=== PATIENT | female | born 1940 | race Hispanic/Latino ===

== ENCOUNTER 2017-12-02 12:19 | Emergency (ER) | payer OTHER ==
--- NOTE | 2017-12-02 13:35 | RAD REPORT ---
EXAM DESCRIPTION: RAD - Chest Pa And Lat (2 Views) - 12/02/2017 1:19 pm CLINICAL HISTORY: COUGH<Reason For Exam>COUGH COMPARISON: Chest Single View dated 03/04/2017; Chest Single View dated 03/03/2017; Chest Single Vie w dated 04/18/2016; Chest Single View dated 02/12/2016; Thoracic Spine Ap/Lat dated 03/24/2017<Comparis ons> TECHNIQUE: PA and lateral views of the chest were obtained. FINDINGS: The lungs are normal volume. Patient has chronic interstitial lung disease. Pattern is inc reased slightly from the prior study suggesting an interstitial edema or infiltrate process. No focal consolidation or mass. Trachea is midline. Heart size is normal and central vasculature is within normal limits. No pleural effusion or pneumothorax seen. Bones are osteopenic. There is accentuated kyphosis in the midthoracic spine with a greater than 60% compression fracture. Detail is limited. T he compression fracture does appear to be progressive from the March 2017 thoracic spine examinati on. There is no history to indicate active thoracic pain symptoms. No aortic abnormality. IMPRESSION: Prominent interstitial markings throughout the lung montoya increased over a baseline chr onic interstitial pattern. Superimposed interstitial edema or infiltrate suspected. No focal mass or consolidation. Midthoracic compression fracture. Age is uncertain and it is unknown if this is symptomatic. The comp ression fracture has progressed from March 2017.
[2017-12-02 14:14] LABS: Absolute Lymphocytes (CBC) 0.8 K/uL (0.7-4.9); Absolute Monocytes 0.6 K/uL (0.1-1.3); Absolute Neutrophil 4.5 K/uL (1.8-8.0); Basophils % 0.7 % (0-1.3); Eosinophils % 1.2 % (0-4.4); Hematocrit 35.3 % (36.0-45.0); Lymphocytes % 13.7 % (15.3-44.8); MCH 26.9 pg (27.0-35.0); MCV 80.7 fL (80-100); MPV 8.8 fL (7.6-11.3); Monocytes % 10.1 % (3.3-12.3); RBC Red Blood Cell Count 4.38 M/uL (3.86-4.86)
[2017-12-02] MEDS ORDERED: AZITHROMYCIN 250 MG TAB ONE (14:24)
[2017-12-02] MEDS ORDERED: CEFTRIAXONE/SWI 1gm 1 GM/10 ML SYR ONE (14:24)
[2017-12-02 14:31] LABS: Potassium 4.4 mmol/L (3.5-5.1)
--- NOTE | 2017-12-02 14:33 | ER ---
Nurse's Notes [facility] Name: Cristel Casas Age: 77 yrs Sex: Female : 1940 Arrival Date: 12/02/2017 Time: 12:21 Bed 11 Private MD: Gildardo Carrillo F Diagnosis: Pneumonia, unspecified organism Presentation: 12/02 12:44 Presenting complaint: Patient states: Body aches, runny nose, and slight cough that aj started yesterday. Transition of care: patient was not received from another setting of care. Onset of symptoms was December 01, 2017. Risk Assessment: Do you want to hurt yourself or someone else? Patient reports no desire to harm self or others. Initial Sepsis Screen: Does the patient meet any 2 criteria? No. Patient's initial sepsis screen is negative. Does the patient have a suspected source of infection? No. Patient's initial sepsis screen is negative. Care prior to arrival: None. 12:44 Method Of Arrival: Wheelchair aj 12:44 Acuity: HERIBERTO 4 aj Triage Assessment: 12:46 General: Appears in no apparent distress. comfortable, Behavior is calm, cooperative, aj appropriate for age. Pain: Complains of pain in right leg and left leg. EENT: Reports nasal congestion nasal discharge. Neuro: Level of Consciousness is awake, alert, obeys commands, Oriented to person, place, time, situation, Appropriate for age. Respiratory: Reports cough that is productive, Airway is patent Trachea midline Respiratory effort is even, unlabored, Respiratory pattern is regular, symmetrical. Derm: Skin is intact, is healthy with good turgor, Skin is pink, warm \T\ dry. normal. Historical: - Allergies: 12:46 No Known Drug Allergies; aj - Home Meds: 12:46 atorvastatin 10 mg Oral tab 1 tab once daily [Active]; lisinopril 10 mg Oral tab 1 tab aj once daily [Active]; metformin 500 mg Oral tab 1 tab 2 times per day [Active]; Omeprazole Oral [Active]; propylthiouracil 50 mg Oral tab 1 tab 2 times per day [Active]; - PMHx: 12:46 Diabetes - NIDDM; High Cholesterol; Hypertension; Hypothyroidism; aj - PSHx: 12:46 None; aj - Immunization history:: Adult Immunizations up to date. - Social history:: Smoking status: Patient/guardian denies using tobacco. - Ebola Screening: : Patient negative for fever greater than or equal to 101.5 degrees Fahrenheit, and additional compatible Ebola Virus Disease symptoms Patient denies exposure to infectious person Patient denies travel to an Ebola-affected area in the 21 days before illness onset No symptoms or risks identified at this time. Screenin:15 Abuse screen: Denies threats or abuse. Denies injuries from another. Nutritional aj screening: No deficits noted. Tuberculosis screening: No symptoms or risk factors identified. Fall Risk None identified. Assessment: 14:15 Reassessment: Patient appears in no apparent distress at this time. No changes from aj previously documented assessment. Patient and/or family updated on plan of care and expected duration. Pain level reassessed. Patient is alert, oriented x 3, equal unlabored respirations, skin warm/dry/pink. Patient denies pain at this time. Vital Signs: 12:46 BP 154 / 55; Pulse 74; Resp 19; Temp 99.6(TE); Pulse Ox 96% on R/A; Weight 62.6 kg; aj Height 4 ft. 11 in. (149.86 cm); 14:23 BP 169 / 90; Pulse 69; Resp 20; Pulse Ox 96% on R/A; aj 14:50 BP 165 / 57; Pulse 67; Resp 20; Pulse Ox 97% ; dm5 12:46 Body Mass Index 27.87 (62.60 kg, 149.86 cm) ED Course: 12:21 Patient arrived in ED. sb2 12:22 Gildardo Carrillo MD is Private Physician. sb2 12:45 Triage completed. aj 12:46 Arm band placed on left wrist. Patient placed in an exam room. Labs ordered per protocol. 12:48 Amairani Torres FNP-C is PHCP. kb 12:48 Ashkan Martel MD is Attending Physician. kb 13:15 Patient moved to radiology via wheelchair. jf 13:18 Chest Pa And Lat (2 Views) XRAY In Process Unspecified. EDMS 13:38 Soledad Pinedo, RN is Primary Nurse. iw 14:01 Inserted saline lock: 22 gauge in right antecubital area, using aseptic technique. aj Blood collected. 14:15 Patient has correct armband on for positive identification. Bed in low position. Call aj light in reach. Side rails up X2. Adult w/ patient. Pulse ox on. NIBP on. 14:50 No provider procedures requiring assistance completed. IV discontinued, intact, dm5 bleeding controlled, No redness/swelling at site. Pressure dressing applied. Administered Medications: 14:23 Drug: Rocephin - (cefTRIAXone) 1 grams Route: IVPB; Infused Over: 30 mins; Site: right aj antecubital; 14:23 Drug: Zithromax 500 mg Route: PO; aj Outcome: 14:32 Discharge ordered by MD. mluler 14:50 Discharged to home ambulatory. dm5 14:50 Condition: good 14:51 Discharge instructions given to patient, family, Instructed on discharge instructions, dm5 follow up and referral plans. medication usage, Demonstrated understanding of instructions, follow-up care, medications, Prescriptions given X 1. 14:52 Patient left the ED. dm5 Signatures: Dispatcher [employer] EDMS Amairani Torres, GETTER FILLER-C GETTER FILLER-Елена Santos, TRENA ALBRECHT dmErinn Pompa RN RN aj Williams, Irene, RN RN iw Faul, Justin jf Billeau, Sheri sb2
--- NOTE | 2017-12-02 14:33 | EDPHYS ---
Physician Documentation [facility] Name: Cristel Casas Age: 77 yrs Sex: Female : 1940 Arrival Date: 12/02/2017 Time: 12:21 Bed 11 Private MD: Gildardo Carrillo F ED Physician Ashkan Martel HPI: 12/02 13:08 This 77 yrs old Female presents to ER via Wheelchair with complaints of Flu kb Symptoms. 13:08 The patient or guardian reports cough, that is intermittent, described as mild, with no kb sputum, flu symptoms, myalgias. Onset: The symptoms/episode began/occurred yesterday. Severity of symptoms: At their worst the symptoms were mild, in the emergency department the symptoms are unchanged. Modifying factors: The symptoms are alleviated by nothing, the symptoms are aggravated by nothing. Associated signs and symptoms: Pertinent positives: rhinorrhea, Pertinent negatives: chest pain, diarrhea, ear ache, fever, nausea, sore throat, vomiting. The patient has not experienced similar symptoms in the past. The patient has not recently seen a physician. Daughter states pt started having a runny nose last night, then body aches. Today has a "little" cough. . Historical: - Allergies: 12:46 No Known Drug Allergies; aj - Home Meds: 12:46 atorvastatin 10 mg Oral tab 1 tab once daily [Active]; lisinopril 10 mg Oral tab 1 tab aj once daily [Active]; metformin 500 mg Oral tab 1 tab 2 times per day [Active]; Omeprazole Oral [Active]; propylthiouracil 50 mg Oral tab 1 tab 2 times per day [Active]; - PMHx: 12:46 Diabetes - NIDDM; High Cholesterol; Hypertension; Hypothyroidism; aj - PSHx: 12:46 None; aj - Immunization history:: Adult Immunizations up to date. - Social history:: Smoking status: Patient/guardian denies using tobacco. - Ebola Screening: : Patient negative for fever greater than or equal to 101.5 degrees Fahrenheit, and additional compatible Ebola Virus Disease symptoms Patient denies exposure to infectious person Patient denies travel to an Ebola-affected area in the 21 days before illness onset No symptoms or risks identified at this time. ROS: 13:07 Cardiovascular: Negative for chest pain, palpitations, and edema, Abdomen/GI: Negative kb for abdominal pain, nausea, vomiting, diarrhea, and constipation, MS/Extremity: Negative for injury and deformity, Skin: Negative for injury, rash, and discoloration, Neuro: Negative for headache, weakness, numbness, tingling, and seizure. 13:07 Constitutional: Positive for body aches, Negative for chills, fatigue, fever, malaise, poor PO intake, weight loss. 13:07 ENT: Positive for rhinorrhea. 13:07 Respiratory: Positive for cough, with no reported sputum, Negative for dyspnea on exertion, hemoptysis, orthopnea, pleurisy, shortness of breath, sputum production, wheezing. Exam: 13:07 Constitutional: This is a well developed, well nourished patient who is awake, alert, kb and in no acute distress. Head/Face: Normocephalic, atraumatic. ENT: Nares patent. No nasal discharge, no septal abnormalities noted. Tympanic membranes are normal and external auditory canals are clear. Oropharynx with no redness, swelling, or masses, exudates, or evidence of obstruction, uvula midline. Mucous membranes moist. Neck: Trachea midline, no thyromegaly or masses palpated, and no cervical lymphadenopathy. Supple, full range of motion without nuchal rigidity, or vertebral point tenderness. No Meningismus. Chest/axilla: Normal chest wall appearance and motion. Nontender with no deformity. No lesions are appreciated. Cardiovascular: Regular rate and rhythm with a normal S1 and S2. No gallops, murmurs, or rubs. Normal PMI, no JVD. No pulse deficits. Respiratory: Lungs have equal breath sounds bilaterally, clear to auscultation and percussion. No rales, rhonchi or wheezes noted. No increased work of breathing, no retractions or nasal flaring. Abdomen/GI: Soft, non-tender, with normal bowel sounds. No distension or tympany. No guarding or rebound. No evidence of tenderness throughout. Skin: Warm, dry with normal turgor. Normal color with no rashes, no lesions, and no evidence of cellulitis. MS/ Extremity: Pulses equal, no cyanosis. Neurovascular intact. Full, normal range of motion. Neuro: Awake and alert, GCS 15, oriented to person, place, time, and situation. Cranial nerves II-XII grossly intact. Motor strength 5/5 in all extremities. Sensory grossly intact. Cerebellar exam normal. Normal gait. Vital Signs: 12:46 BP 154 / 55; Pulse 74; Resp 19; Temp 99.6(TE); Pulse Ox 96% on R/A; Weight 62.6 kg; aj Height 4 ft. 11 in. (149.86 cm); 14:23 BP 169 / 90; Pulse 69; Resp 20; Pulse Ox 96% on R/A; aj 14:50 BP 165 / 57; Pulse 67; Resp 20; Pulse Ox 97% ; dm5 12:46 Body Mass Index 27.87 (62.60 kg, 149.86 cm) aj MDM: 12:48 Patient medically screened. kb 13:07 Data reviewed: vital signs, nurses notes. Data interpreted: Pulse oximetry: on room air kb is 96 %. Interpretation: normal. 14:32 Counseling: I had a detailed discussion with the patient and/or guardian regarding: the kb historical points, exam findings, and any diagnostic results supporting the discharge/admit diagnosis, lab results, radiology results, the need for outpatient follow up, a family practitioner, to return to the emergency department if symptoms worsen or persist or if there are any questions or concerns that arise at home. 12/02 12:48 Order name: Flu; Complete Time: 13:21 kb 12/02 13:37 Order name: CBC with Diff 12/02 13:37 Order name: Basic Metabolic Panel 12/02 13:37 Order name: Blood Culture Adult (2) kb 12/02 13:38 Order name: CBC with Automated Diff; Complete Time: 14:17 EDNC 12/02 13:38 Order name: Basic Metabolic Panel; Complete Time: 14:31 EDMS 12/02 12:48 Order name: Chest Pa And Lat (2 Views) XRAY; Complete Time: 13:36 kb 12/02 13:38 Order name: Blood Culture EDMS Administered Medications: 14:23 Drug: Rocephin - (cefTRIAXone) 1 grams Route: IVPB; Infused Over: 30 mins; Site: right aj antecubital; 14:23 Drug: Zithromax 500 mg Route: PO; aj Disposition: 15:30 Co-signature as Attending Physician, Ashkan Martel MD. rn Disposition: 12/02/17 14:32 Discharged to Home. Impression: Pneumonia, unspecified organism. - Condition is Stable. - Discharge Instructions: Community-Acquired Pneumonia, Adult, [id number]. - Prescriptions for Zithromax 500 mg Oral Tablet - take 1 tablet by ORAL route once daily for 5 days; 5 tablet. - Medication Reconciliation Form, Thank You Letter, Antibiotic Education, Prescription Opioid Use form. - Follow up: Emergency Department; When: As needed; Reason: Worsening of condition. Follow up: Private Physician; When: 2 - 3 days; Reason: Recheck today's complaints, Continuance of care, Re-evaluation by your physician. Signatures: Dispatcher [employer] EDNC Amairani Torres, OFFICE MACHINE REPAIR SHOP SUPERVISOR-C OFFICE MACHINE REPAIR SHOP SUPERVISOR-Елена Santos RN RN dm5 Erinn Virk RN RN Ashkan Agudelo MD MD decision unit rn: (The following items were deleted from the chart) 14:52 14:32 12/02/2017 14:32 Discharged to Home. Impression: Pneumonia, unspecified organism. dm5 Condition is Stable. Forms are Medication Reconciliation Form, Thank You Letter, Antibiotic Education, Prescription Opioid Use. Follow up: Emergency Department; When: As needed; Reason: Worsening of condition. Follow up: Private Physician; When: 2 - 3 days; Reason: Recheck today's complaints, Continuance of care, Re-evaluation by your physician. kb
[2017-12-02 15:02] VITALS: TEMP 99.6
[2017-12-02 15:04] VITALS: BP 165/57; O2SAT 97
== END 2017-12-02 14:52 | disposition home or self-care (01) ==
LOC: ER 12:19
DX: J18.9 Pneumonia, unspecified organism (principal); E11.9 Type 2 diabetes mellitus without complications; I10 Essential (primary) hypertension; E03.9 Hypothyroidism, unspecified
CPT/HCPCS: 36415; 71046; 80048; 85025; 87040 ×2; 87804 ×2; 96374; 99284; J0696

== ENCOUNTER 2018-06-01 19:41 | Emergency (ER) | payer OTHER ==
[2018-06-01] MEDS ORDERED: cloNIDine HCl 0.1 MG TAB ONE (21:45)
--- NOTE | 2018-06-01 22:41 | ER ---
Nurse's Notes 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 pt ak1 c/o headache. Transition of care: patient was not received from another setting of care. Onset of symptoms was June 01, 2018. Risk Assessment: Do you want to hurt yourself or someone else? Patient reports no desire to harm self or others. Initial Sepsis Screen: Does the patient meet any 2 criteria? No. Patient's initial sepsis screen is negative. Does the patient have a suspected source of infection? No. Patient's initial sepsis screen is negative. Care prior to arrival: None. 20:04 Method Of Arrival: Ambulatory ak1 20:04 Acuity: HERIBERTO 3 ak1 Triage Assessment: 21:44 Headache History: The patient has had previous headaches and this one is similar to mg2 previous episodes. General: Behavior is calm, cooperative. Pain: Complains of pain in head Also complains of no other associated symptoms. Historical: - Allergies: 20:07 No Known Allergies; ak1 - Home Meds: 20:07 atorvastatin 20 mg oral tab 1 tab once daily [Active]; propylthiouracil 50 mg Oral tab ak1 1 tab 2 times per day [Active]; omeprazole 20 mg oral TbEC daily [Active]; hydrochlorothiazide 12.5 mg Oral cap 1 cap once daily [Active]; glimepiride 1 mg Oral tab 1 tab once daily [Active]; Bystolic 10 mg oral tab 1 tab once daily [Active]; - PMHx: 20:07 Diabetes - NIDDM; High Cholesterol; Hypertension; Hypothyroidism; ak1 - PSHx: 20:07 None; ak1 - Immunization history:: Adult Immunizations unknown. - Social history:: Smoking status: Patient/guardian denies using tobacco. - Ebola Screening: : No symptoms or risks identified at this time. Screenin:43 Abuse screen: Denies threats or abuse. Denies injuries from another. Nutritional mg2 screening: No deficits noted. Tuberculosis screening: No symptoms or risk factors identified. Fall Risk None identified. Assessment: 21:39 General: Appears in no apparent distress. comfortable, Behavior is calm, cooperative. mg2 Pain: Complains of pain in head Pain does not radiate. Pain currently is 2 out of 10 on a pain scale. Quality of pain is described as aching, Pain began gradually, Is intermittent. Neuro: Level of Consciousness is awake, alert, obeys commands, Oriented to person, place, time, situation. Neuro: Reports dizziness, since today. Cardiovascular: Capillary refill < 3 seconds Patient's skin is warm and dry. Respiratory: Airway is patent Respiratory effort is even, unlabored, Respiratory pattern is regular, symmetrical. GI: No signs and/or symptoms were reported involving the gastrointestinal system. : No signs and/or symptoms were reported regarding the genitourinary system. EENT: No signs and/or symptoms were reported regarding the EENT system. Derm: Skin is intact, is healthy with good turgor, Skin is pink, warm \T\ dry. normal. Musculoskeletal: Circulation, motion, and sensation intact. Capillary refill < 3 seconds. 22:49 Reassessment: Patient denies pain at this time. Patient states feeling better. mg2 Vital Signs: 20:07 BP 161 / 59; Pulse 55; Resp 18; Temp 98.3; Pulse Ox 97% on R/A; Weight 67.13 kg (R); ak1 Height 4 ft. 11 in. (149.86 cm) (R); Pain 8/10; 20:23 BP 188 / 57; Pulse 55; Resp 18; Pulse Ox 99% on R/A; Pain 2/10; mg2 21:31 BP 174 / 69; Pulse 55; Resp 18; Pulse Ox 100% on R/A; Pain 2/10; mg2 22:25 BP 153 / 53; Pulse 55; Resp 18; Pulse Ox 100% on R/A; Pain 0/10; mg2 22:49 BP 139 / 59; Pulse 56; Resp 18; Pulse Ox 100% on R/A; Pain 0/10; mg2 20:07 Body Mass Index 29.89 (67.13 kg, 149.86 cm) ak1 Nish Coma Score: 06/02 02:05 Eye Response: spontaneous(4). Verbal Response: oriented(5). Motor Response: obeys tw4 commands(6). Total: 15. ED Course: 06/01 19:43 Patient arrived in ED. am2 19:43 Gildardo Carrillo MD is Private Physician. am2 20:05 Triage completed. ak1 20:07 Arm band placed on Patient placed in an exam room, on a stretcher, Patient notified of ak1 wait time. 20:19 Gregorio Johnson, RN is Primary Nurse. mg2 20:32 Omid Bradshaw MD is Attending Physician. tw4 21:44 No provider procedures requiring assistance completed. EKG done, by ED staff, reviewed mg2 by Omid Bradshaw MD. Patient did not have IV access during this emergency room visit. 22:37 Gildardo Carrillo MD is Referral Physician. tw4 22:50 Patient has correct armband on for positive identification. mg2 Administered Medications: 21:35 Drug: cloNIDine 0.1 mg Route: PO; mg2 22:43 Follow up: Response: No adverse reaction; Blood pressure is lowered mg2 Outcome: 22:41 Discharge ordered by . tw4 22:50 Discharged to home ambulatory, with family. mg2 22:50 Condition: stable 22:50 Discharge instructions given to patient, family, Instructed on discharge instructions, follow up and referral plans. Demonstrated understanding of instructions, follow-up care. 22:50 Patient left the ED. mg2 Signatures: Georgina Sethi RN RN ak1 Erinn Swartz am2 Omid Bradshaw MD MD tw4 Gregorio Johnson, TRENA RN mg2
[2018-06-02 00:38] VITALS: TEMP 98.3
[2018-06-02 00:41] VITALS: O2SAT 100
[2018-06-02 00:44] VITALS: BP 139/59
--- NOTE | 2018-06-02 10:57 | EKG ---
Test Date: 2018-06-01 Test Time: 20:26:48 Web Marketing Strategist: MEASUREMENT RESULTS: Intervals: Rate: 56 AL: 222 QRSD: 78 QT: 474 QTc: 457 [place]: P: 87 AL: 222 QRS: -7 T: 60 INTERPRETIVE STATEMENTS: Sinus bradycardia with 1st degree AV block Otherwise normal ECG Compared to ECG 03/04/2017 06:47:50 First degree AV block now present Sinus rhythm no longer present Atrial premature complex(es) no longer present Electronically Signed On 06-02-18 10:56:39 A R COLLECTIONS REP by Marcial Rivera
--- NOTE | 2018-06-02 22:52 | EDPHYS ---
Physician Documentation [facility] Name: Cristel Casas Age: 78 yrs Sex: Female : 1940 Arrival Date: 06/01/2018 Time: 19:43 Bed 25 Private MD: Gildardo Carrillo F ED Physician Omid Bradshaw HPI: 06/02 02:05 This 78 yrs old Female presents to ER via Ambulatory with complaints of tw4 Headache, High Blood Pressure. 02:05 The patient complains of pain to the forehead. The patient describes the headache as tw4 aching. Onset: The symptoms/episode began/occurred today. Associated signs and symptoms: The patient has no apparent associated signs or symptoms. Headache History: The patient has had previous headaches and this one is similar to previous episodes. The symptoms are alleviated by nothing. the symptoms are aggravated by nothing. The patient has not experienced similar symptoms in the past. Historical: - Allergies: 06/01 20:07 No Known Allergies; ak1 - Home Meds: 20:07 atorvastatin 20 mg oral tab 1 tab once daily [Active]; propylthiouracil 50 mg Oral tab ak1 1 tab 2 times per day [Active]; omeprazole 20 mg oral TbEC daily [Active]; hydrochlorothiazide 12.5 mg Oral cap 1 cap once daily [Active]; glimepiride 1 mg Oral tab 1 tab once daily [Active]; Bystolic 10 mg oral tab 1 tab once daily [Active]; - PMHx: 20:07 Diabetes - NIDDM; High Cholesterol; Hypertension; Hypothyroidism; ak1 - PSHx: 20:07 None; ak1 - Immunization history:: Adult Immunizations unknown. - Social history:: Smoking status: Patient/guardian denies using tobacco. - Ebola Screening: : No symptoms or risks identified at this time. ROS: 06/02 02:05 Constitutional: Negative for fever, chills, and weight loss, Eyes: Negative for injury, tw4 pain, redness, and discharge, Cardiovascular: Negative for chest pain, palpitations, and edema, Respiratory: Negative for shortness of breath, cough, wheezing, and pleuritic chest pain, Abdomen/GI: Negative for abdominal pain, nausea, vomiting, diarrhea, and constipation, Back: Negative for injury and pain, MS/Extremity: Negative for injury and deformity, Skin: Negative for injury, rash, and discoloration. Neuro: Positive for headache, Negative for altered mental status, dizziness, gait disturbance, numbness, seizure activity, speech changes, syncope. Exam: 02:05 Constitutional: This is a well developed, well nourished patient who is awake, alert, tw4 and in no acute distress. Head/Face: Normocephalic, atraumatic. Cardiovascular: Regular rate and rhythm with a normal S1 and S2. No gallops, murmurs, or rubs. Normal PMI, no JVD. No pulse deficits. Respiratory: Lungs have equal breath sounds bilaterally, clear to auscultation and percussion. No rales, rhonchi or wheezes noted. No increased work of breathing, no retractions or nasal flaring. Abdomen/GI: Soft, non-tender, with normal bowel sounds. No distension or tympany. No guarding or rebound. No evidence of tenderness throughout. Back: No spinal tenderness. No costovertebral tenderness. Full range of motion. Skin: Warm, dry with normal turgor. Normal color with no rashes, no lesions, and no evidence of cellulitis. MS/ Extremity: Pulses equal, no cyanosis. Neurovascular intact. Full, normal range of motion. Vital Signs: 06/01 20:07 BP 161 / 59; Pulse 55; Resp 18; Temp 98.3; Pulse Ox 97% on R/A; Weight 67.13 kg (R); ak1 Height 4 ft. 11 in. (149.86 cm) (R); Pain 8/10; 20:23 BP 188 / 57; Pulse 55; Resp 18; Pulse Ox 99% on R/A; Pain 2/10; mg2 21:31 BP 174 / 69; Pulse 55; Resp 18; Pulse Ox 100% on R/A; Pain 2/10; mg2 22:25 BP 153 / 53; Pulse 55; Resp 18; Pulse Ox 100% on R/A; Pain 0/10; mg2 22:49 BP 139 / 59; Pulse 56; Resp 18; Pulse Ox 100% on R/A; Pain 0/10; mg2 20:07 Body Mass Index 29.89 (67.13 kg, 149.86 cm) ak1 Nish Coma Score: 06/02 02:05 Eye Response: spontaneous(4). Verbal Response: oriented(5). Motor Response: obeys tw4 commands(6). Total: 15. MDM: 06/01 20:33 Patient medically screened. tw4 06/02 02:05 Data reviewed: vital signs, nurses notes. Data interpreted: Pulse oximetry:. tw4 Counseling: I had a detailed discussion with the patient and/or guardian regarding: the historical points, exam findings, and any diagnostic results supporting the discharge/admit diagnosis, the presence of at least one elevated blood pressure reading (>120/80) during this emergency department visit. 06/01 20:31 Order name: EKG - Nurse/Tech; Complete Time: 20:31 mg2 Administered Medications: 06/01 21:35 Drug: cloNIDine 0.1 mg Route: PO; mg2 22:43 Follow up: Response: No adverse reaction; Blood pressure is lowered mg2 Disposition: 06/02 06:24 Chart complete. tw4 Disposition: 06/01/18 22:41 Discharged to Home. Impression: Hypertensive urgency. - Condition is Stable. - Discharge Instructions: General Headache Without Cause, Tension Headache, Adult, Hypertension. - Medication Reconciliation Form, Thank You Letter, Antibiotic Education, Prescription Opioid Use form. - Follow up: Gildardo Carrillo MD; When: Upon discharge from the Emergency Department; Reason: If symptoms return, Recheck today's complaints, Continuance of care. - Problem is new. - Symptoms have improved. Signatures: Georgina Sethi RN RN ak1 Omid Bradshaw MD MD tw4 Gregorio Johnson RN RN mg2 Corrections: (The following items were deleted from the chart) 06/01 22:50 22:41 06/01/2018 22:41 Discharged to Home. Impression: Hypertensive urgency. Condition mg2 is Stable. Forms are Medication Reconciliation Form, Thank You Letter, Antibiotic Education, Prescription Opioid Use. Follow up: Gildardo Carrillo; When: Upon discharge from the Emergency Department; Reason: If symptoms return, Recheck today's complaints, Continuance of care. Problem is new. Symptoms have improved. tw4
== END 2018-06-01 22:50 | disposition home or self-care (01) ==
LOC: ER 19:41
DX: I16.0 Hypertensive urgency (principal); I10 Essential (primary) hypertension; E11.9 Type 2 diabetes mellitus without complications; E78.00 Pure hypercholesterolemia, unspecified; E03.9 Hypothyroidism, unspecified
CPT/HCPCS: 93005; 99283

== ENCOUNTER 2018-12-29 16:32 | Observation (INO) | payer OTHER ==
[2018-12-29] MEDS ORDERED: NA CHLORIDE 0.9% 1,000 ML ONE (19:40)
[2018-12-29] MEDS ORDERED: FAMOTIDINE 20 MG/2 ML VIAL IV ONE (19:40)
[2018-12-29 20:03] LABS: Protime INR 1.01
[2018-12-29 20:05] LABS: Absolute Lymphocytes (CBC) 1.1 K/uL (0.7-4.9); Basophils % 0.9 % (0-1.3); Hematocrit 31.1 % (36.0-45.0); Lymphocytes % 16.7 % (15.3-44.8); RBC Red Blood Cell Count 3.76 M/uL (3.86-4.86)
[2018-12-29 20:21] LABS: ALT/SGPT 24 U/L (12-78); AST/SGOT 29 U/L (15-37); Albumin 3.3 g/dL (3.4-5.0); Alkaline Phosphatase 67 U/L (45-117); BUN Blood Urea Nitrogen 30 mg/dL (7-18); Bicarbonate 25 mmol/L (21-32); Bilirubin Direct 0.2 mg/dL (0-0.2); Bilirubin Total 0.7 mg/dL (0.2-1.0); Glucose Level 109 mg/dL (74-106); Lipase 146 U/L (73-393); Magnesium 2.1 mg/dL (1.8-2.4); NT PRO-BNP 699 pg/mL (<450); Potassium 3.9 mmol/L (3.5-5.1); Protein, Total 7.4 g/dL (6.4-8.2); Sodium Level 141 mmol/L (136-145); Troponin (Emerg Dept Use Only) < 0.02 ng/mL (0.0-0.045)
[2018-12-29 20:28] LABS: Urine Blood 2+ (NEG); Urine Glucose NEGATIVE (NEG); Urine Protein NEGATIVE (NEG)
--- NOTE | 2018-12-29 20:53 | RAD REPORT ---
EXAM DESCRIPTION: US - Abdomen Exam Limited - 12/29/2018 8:04 pm CLINICAL HISTORY: Abdominal pain. COMPARISON: None. FINDINGS: The examination is limited as the patient had difficulty suspending respiration The gallbladder wall is not thickened. A gallstone is not seen. The biliary tree is normal caliber. IMPRESSION: No gross abnormality displayed.
--- NOTE | 2018-12-29 20:53 | RAD REPORT ---
EXAM DESCRIPTION: Don Single View12/29/2018 7:50 pm CLINICAL HISTORY: Chest pain COMPARISON: 2018 FINDINGS: The lungs appear clear of acute infiltrate. The heart is borderline enlarged IMPRESSION: No acute abnormalities displayed
--- NOTE | 2018-12-29 22:48 | EDPHYS ---
Physician Documentation [facility] Name: Cristel Casas Age: 78 yrs Sex: Female : 1940 Arrival Date: 12/29/2018 Time: 16:34 Bed 30 Private MD: ED Physician Josh Mortensen HPI: 12/29 19:30 This 78 yrs old Female presents to ER via Ambulatory with complaints of Pain. irais 19:30 The patient presents with abdominal pain in the epigastric area, in the upper abdomen. irais Onset: The symptoms/episode began/occurred yesterday. The symptoms do not radiate. Associated signs and symptoms: none. Modifying factors: The symptoms are alleviated by nothing, the symptoms are aggravated by nothing. Severity of pain: At its worst the pain was mild moderate in the emergency department the pain is unchanged. The patient has not experienced similar symptoms in the past. Historical: - Allergies: 17:15 No Known Drug Allergies; tw2 - Home Meds: 17:15 propylthiouracil 50 mg Oral tab 1 tab 2 times per day [Active]; hydrochlorothiazide tw2 12.5 mg Oral cap 1 cap once daily [Active]; glimepiride 1 mg Oral tab 1 tab once daily [Active]; atorvastatin 20 mg Oral tab 1 tab once daily [Active]; Bystolic 10 mg Oral tab 1 tab once daily [Active]; omeprazole 20 mg Oral TbEC daily [Active]; - PMHx: 17:15 Diabetes - NIDDM; High Cholesterol; Hypertension; Hypothyroidism; tw2 - PSHx: 17:15 None; tw2 - Immunization history:: Adult Immunizations. - Social history:: Smoking status: . - Ebola Screening: : Patient denies travel to an Ebola-affected area in the 21 days before illness onset. - Family history:: not pertinent. ROS: 19:30 Constitutional: Negative for fever, chills, and weight loss, Eyes: Negative for injury, irais pain, redness, and discharge, ENT: Negative for injury, pain, and discharge, Neck: Negative for injury, pain, and swelling, Cardiovascular: Negative for chest pain, palpitations, and edema, Respiratory: Negative for shortness of breath, cough, wheezing, and pleuritic chest pain, Back: Negative for injury and pain, : Negative for injury, bleeding, discharge, and swelling, MS/Extremity: Negative for injury and deformity, Skin: Negative for injury, rash, and discoloration, Neuro: Negative for headache, weakness, numbness, tingling, and seizure, Psych: Negative for depression, anxiety, suicide ideation, homicidal ideation, and hallucinations, Allergy/Immunology: Negative for hives, rash, and allergies, Endocrine: Negative for neck swelling, polydipsia, polyuria, polyphagia, and marked weight changes, Hematologic/Lymphatic: Negative for swollen nodes, abnormal bleeding, and unusual bruising. 19:30 Abdomen/GI: Positive for abdominal pain, abdominal cramps, of the epigastric area, right upper quadrant and left upper quadrant. Exam: 19:30 Constitutional: This is a well developed, well nourished patient who is awake, alert, irais and in no acute distress. Head/Face: Normocephalic, atraumatic. Eyes: Pupils equal round and reactive to light, extra-ocular motions intact. Lids and lashes normal. Conjunctiva and sclera are non-icteric and not injected. Cornea within normal limits. Periorbital areas with no swelling, redness, or edema. ENT: Nares patent. No nasal discharge, no septal abnormalities noted. Tympanic membranes are normal and external auditory canals are clear. Oropharynx with no redness, swelling, or masses, exudates, or evidence of obstruction, uvula midline. Mucous membranes moist. Neck: Trachea midline, no thyromegaly or masses palpated, and no cervical lymphadenopathy. Supple, full range of motion without nuchal rigidity, or vertebral point tenderness. No Meningismus. Chest/axilla: Normal chest wall appearance and motion. Nontender with no deformity. No lesions are appreciated. Cardiovascular: Regular rate and rhythm with a normal S1 and S2. No gallops, murmurs, or rubs. Normal PMI, no JVD. No pulse deficits. Respiratory: Lungs have equal breath sounds bilaterally, clear to auscultation and percussion. No rales, rhonchi or wheezes noted. No increased work of breathing, no retractions or nasal flaring. Back: No spinal tenderness. No costovertebral tenderness. Full range of motion. Female : Normal external genitalia. Skin: Warm, dry with normal turgor. Normal color with no rashes, no lesions, and no evidence of cellulitis. MS/ Extremity: Pulses equal, no cyanosis. Neurovascular intact. Full, normal range of motion. Neuro: Awake and alert, GCS 15, oriented to person, place, time, and situation. Cranial nerves II-XII grossly intact. Motor strength 5/5 in all extremities. Sensory grossly intact. Cerebellar exam normal. Normal gait. Psych: Awake, alert, with orientation to person, place and time. Behavior, mood, and affect are within normal limits. 19:30 Abdomen/GI: Inspection: abdomen appears normal, Bowel sounds: normal, Palpation: mild abdominal tenderness, moderate abdominal tenderness, in the epigastric area, right upper quadrant and left upper quadrant, Liver: no appreciated palpable abnormalities, Hernia: not appreciated. Vital Signs: 17:15 BP 170 / 64; Pulse 67; Resp 17; Temp 98(TE); Pulse Ox 98% on R/A; Weight 68.04 kg (R); tw2 Pain 8/10; 19:00 BP 150 / 56; Pulse 57; Resp 15; Pulse Ox 99% on R/A; rv 19:30 BP 137 / 49; Pulse 61; Resp 16; Pulse Ox 99% on R/A; rv 20:00 BP 170 / 86; Pulse 64; Resp 15; Pulse Ox 99% on R/A; rv 20:30 BP 129 / 103; Pulse 61; Resp 16; Pulse Ox 99% on R/A; rv 21:00 BP 138 / 53; Pulse 59; Resp 15; Pulse Ox 99% on R/A; rv 21:30 BP 97 / 65; Pulse 66; Resp 21; Pulse Ox 96% on R/A; rv 22:15 BP 98 / 83; Pulse 59; Resp 15; Pulse Ox 99% on R/A; rv 22:45 BP 133 / 99; Pulse 59; Resp 15; Pulse Ox 98% on R/A; rv 23:26 BP 144 / 103; Pulse 57; Resp 19; Pulse Ox 99% ; rv MDM: 18:20 Patient medically screened. [facility] 19:32 Data reviewed: vital signs, nurses notes, lab test result(s), EKG, radiologic studies, [facility] CT scan, plain films, ultrasound. 12/29 19:29 Order name: Basic Metabolic Panel; Complete Time: 22:11 [facility] 12/29 19:29 Order name: CBC with Diff; Complete Time: 22:11 [facility] 12/29 19:29 Order name: LFT's; Complete Time: 22:11 [facility] 12/29 19:29 Order name: Magnesium; Complete Time: 22:11 [facility] 12/29 19:29 Order name: NT PRO-BNP; Complete Time: 22:11 [facility] 12/29 19:29 Order name: PT-INR; Complete Time: 22:11 [facility] 12/29 19:29 Order name: Troponin (emerg Dept Use Only); Complete Time: 22:11 [facility] 12/29 19:29 Order name: XRAY Chest (1 view); Complete Time: 22:11 [facility] 12/29 19:29 Order name: Lipase; Complete Time: 22:11 [facility] 12/29 19:29 Order name: US Abdomen Limited; Complete Time: 22:11 [facility] 12/29 19:29 Order name: CT Abd/Pelvis - PO and IV Contrast [facility] 12/29 19:30 Order name: Urine Culture [facility] 12/29 19:50 Order name: Urine Dipstick--Ancillary (enter results); Complete Time: 22:11 [facility] 12/29 19:29 Order name: EKG; Complete Time: 19:33 [facility] 12/29 19:29 Order name: Cardiac monitoring; Complete Time: 19:48 [facility] 12/29 19:29 Order name: EKG - Nurse/Tech; Complete Time: 19:49 [facility] 12/29 19:29 Order name: IV Saline Lock; Complete Time: 19:49 [facility] 12/29 19:29 Order name: Labs collected and sent; Complete Time: 19:49 [facility] 12/29 19:29 Order name: O2 Per Protocol; Complete Time: 19:49 [facility] 12/29 19:29 Order name: O2 Sat Monitoring; Complete Time: 19:49 [facility] 12/29 19:30 Order name: Urine Dipstick-Ancillary (obtain specimen); Complete Time: 19:49 [facility] Administered Medications: 19:48 Drug: Pepcid 20 mg Route: IVP; Site: right antecubital; rv 22:17 Follow up: Response: No adverse reaction rv 19:48 Drug: NS 0.9% 500 ml Route: IV; Rate: bolus; Site: right antecubital; rv 20:01 Follow up: IV Status: Completed infusion rv 20:01 Drug: NS 0.9% 1000 ml Route: IV; Rate: 125 ml/hr; Site: right antecubital; rv 23:00 Follow up: IV Status: Completed infusion rv 23:00 Drug: Aspirin 162 mg Route: PO; rv 23:05 Follow up: Response: No adverse reaction rv 23:00 Drug: Rocephin 1 grams Route: IV; Rate: per protocol; Site: right antecubital; rv 23:02 Follow up: IV Status: Completed infusion rv Disposition: 12/29/18 22:46 Hospitalization ordered by Gildardo Carrillo for Observation. Preliminary diagnosis are Nausea, Chest pain, unspecified, Type 2 diabetes mellitus, Unspecified kidney failure. - Bed requested for Telemetry/MedSurg (observation). - Status is Observation. rv - Condition is Stable. - Problem is new. - Symptoms have improved. UTI on Admission? No Signatures: Dispatcher [employer] EDMS Felecia Lynch RN RN mw Anderson, Corey, MD MD cha Wise, Tara RN RN tw2 Ceasar Tsang RN RN rv Corrections: (The following items were deleted from the chart) 22:52 22:46 Hospitalization Ordered by Gildardo Carrillo MD for Observation. Preliminary mw diagnosis is Nausea; Chest pain, unspecified; Type 2 diabetes mellitus; Unspecified kidney failure. Bed requested for Telemetry/MedSurg (observation). Status is Observation. Condition is Stable. Problem is new. Symptoms have improved. UTI on Admission? No. irais 23:28 22:52 12/29/2018 22:46 Hospitalization Ordered by Gildardo Carrillo MD for Observation. rv Preliminary diagnosis is Nausea; Chest pain, unspecified; Type 2 diabetes mellitus; Unspecified kidney failure. Bed requested for Telemetry/MedSurg (observation). Status is Observation. Condition is Stable. Problem is new. Symptoms have improved. UTI on Admission? No. mw
--- NOTE | 2018-12-29 22:48 | ER ---
Nurse's Notes [facility] Name: Cristel Casas Age: 78 yrs Sex: Female : 1940 Arrival Date: 12/29/2018 Time: 16:34 Bed 30 Private MD: Diagnosis: Nausea;Chest pain, unspecified;Type 2 diabetes mellitus;Unspecified kidney failure Presentation: 12/29 17:13 Presenting complaint: granddaughter: she said that yesterday she got a pain in her tw2 shoulders and then last night got pain in stomach , she is not nauseaous. Transition of care: patient was not received from another setting of care. Onset of symptoms was December 29, 2018. Risk Assessment: Do you want to hurt yourself or someone else? Patient reports no desire to harm self or others. Initial Sepsis Screen: Does the patient meet any 2 criteria? No. Patient's initial sepsis screen is negative. Does the patient have a suspected source of infection? No. Patient's initial sepsis screen is negative. Care prior to arrival: None. 17:13 Method Of Arrival: Ambulatory tw2 17:13 Acuity: HERIBERTO 3 tw2 Triage Assessment: 17:16 General: Appears in no apparent distress. Behavior is calm, cooperative, appropriate tw2 for age. Pain: Complains of pain in abdomen. Historical: - Allergies: 17:15 No Known Drug Allergies; tw2 - Home Meds: 17:15 propylthiouracil 50 mg Oral tab 1 tab 2 times per day [Active]; hydrochlorothiazide tw2 12.5 mg Oral cap 1 cap once daily [Active]; glimepiride 1 mg Oral tab 1 tab once daily [Active]; atorvastatin 20 mg Oral tab 1 tab once daily [Active]; Bystolic 10 mg Oral tab 1 tab once daily [Active]; omeprazole 20 mg Oral TbEC daily [Active]; - PMHx: 17:15 Diabetes - NIDDM; High Cholesterol; Hypertension; Hypothyroidism; tw2 - PSHx: 17:15 None; tw2 - Immunization history:: Adult Immunizations. - Social history:: Smoking status: . - Ebola Screening: : Patient denies travel to an Ebola-affected area in the 21 days before illness onset. - Family history:: not pertinent. Screenin:11 Abuse screen: Denies threats or abuse. Denies injuries from another. Nutritional rv screening: No deficits noted. Tuberculosis screening: No symptoms or risk factors identified. Fall Risk None identified. Assessment: 19:10 General: Appears in no apparent distress. uncomfortable, Behavior is calm, cooperative. rv Pain: Complains of pain in all over. Neuro: Level of Consciousness is awake, alert, obeys commands, Oriented to person, place, time, situation. Cardiovascular: Patient's skin is warm and dry. Respiratory: Airway is patent. GI: No signs and/or symptoms were reported involving the gastrointestinal system. : No signs and/or symptoms were reported regarding the genitourinary system. EENT: No signs and/or symptoms were reported regarding the EENT system. Derm: Skin is intact. Musculoskeletal: No signs and/or symptoms reported regarding the musculoskeletal system. 22:12 Reassessment: Patient appears in no apparent distress at this time. No changes from rv previously documented assessment. Patient and/or family updated on plan of care and expected duration. Pain level reassessed. Patient is alert, oriented x 3, equal unlabored respirations, skin warm/dry/pink. Vital Signs: 17:15 BP 170 / 64; Pulse 67; Resp 17; Temp 98(TE); Pulse Ox 98% on R/A; Weight 68.04 kg (R); tw2 Pain 8/10; 19:00 BP 150 / 56; Pulse 57; Resp 15; Pulse Ox 99% on R/A; rv 19:30 BP 137 / 49; Pulse 61; Resp 16; Pulse Ox 99% on R/A; rv 20:00 BP 170 / 86; Pulse 64; Resp 15; Pulse Ox 99% on R/A; rv 20:30 BP 129 / 103; Pulse 61; Resp 16; Pulse Ox 99% on R/A; rv 21:00 BP 138 / 53; Pulse 59; Resp 15; Pulse Ox 99% on R/A; rv 21:30 BP 97 / 65; Pulse 66; Resp 21; Pulse Ox 96% on R/A; rv 22:15 BP 98 / 83; Pulse 59; Resp 15; Pulse Ox 99% on R/A; rv 22:45 BP 133 / 99; Pulse 59; Resp 15; Pulse Ox 98% on R/A; rv 23:26 BP 144 / 103; Pulse 57; Resp 19; Pulse Ox 99% ; rv ED Course: 16:34 Patient arrived in ED. as 17:14 Triage completed. tw2 17:14 Arm band placed on. tw2 18:20 Johs Mortensen MD is Attending Physician. irais 18:47 Ceasar Tsang, TRENA is Primary Nurse. rv 19:11 Patient has correct armband on for positive identification. Bed in low position. Call rv light in reach. Side rails up X 1. Pulse ox on. NIBP on. 19:34 Oral contrast given. vm2 19:49 Inserted saline lock: 20 gauge in right antecubital area, using aseptic technique. rv Blood collected. 19:52 XRAY Chest (1 view) In Process Unspecified. EDMS 20:06 US Abdomen Limited In Process Unspecified. EDMS 21:[address] vm2 21:58 CT completed. Patient tolerated procedure well. Patient moved back from CT. vm2 22:03 CT Abd/Pelvis - PO and IV Contrast In Process Unspecified. EDMS 22:17 No provider procedures requiring assistance completed. rv 22:45 Gildardo Carrillo MD is Hospitalizing Provider. irais 23:28 Patient admitted, IV remains in place. rv Administered Medications: 19:48 Drug: Pepcid 20 mg Route: IVP; Site: right antecubital; rv 22:17 Follow up: Response: No adverse reaction rv 19:48 Drug: NS 0.9% 500 ml Route: IV; Rate: bolus; Site: right antecubital; rv 20:01 Follow up: IV Status: Completed infusion rv 20:01 Drug: NS 0.9% 1000 ml Route: IV; Rate: 125 ml/hr; Site: right antecubital; rv 23:00 Follow up: IV Status: Completed infusion rv 23:00 Drug: Aspirin 162 mg Route: PO; rv 23:05 Follow up: Response: No adverse reaction rv 23:00 Drug: Rocephin 1 grams Route: IV; Rate: per protocol; Site: right antecubital; rv 23:02 Follow up: IV Status: Completed infusion rv Outcome: 22:46 Decision to Hospitalize by Provider. irais 23:27 Admitted to Med/surg accompanied by nader, via stretcher, room 205, with chart, Report rv called to BRADFORD ALBRECHT 23:27 Condition: stable 23:27 Instructed on the need for admit. 23:28 Patient left the ED. rv Signatures: Dispatcher [employer] Josh Prieto MD MD cha Martinez, Amelia as Wise, Tara, RN RN tw2 Mariely Thorne 2 Ceasar Tsang RN RN rv
[2018-12-29] MEDS ORDERED: ONDANSETRON 4 MG/2 ML VIAL IV PRN (23:21)
[2018-12-29] MEDS ORDERED: D50W 25 GM/50 ML SYRINGE IV PRN (23:21)
[2018-12-29] MEDS ORDERED: GLUCAGON 1 MG/VIAL IM PRN (23:21)
[2018-12-29] MEDS ORDERED: ACETAMINOPHEN 500 MG TAB PO PRN (23:21)
[2018-12-29] MEDS ORDERED: CEFTRIAXONE/SWI 1gm 1 GM/10 ML SYR ONE (23:23)
[2018-12-29] MEDS ORDERED: ASPIRIN 81 MG CHEWABLE TABLET ONE (23:23)
[2018-12-30 00:07] VITALS: BMI 30.3
[2018-12-30] MEDS: NA CHLORIDE 0.9% 1,000 ML IV SCH ×2 (00:12→09:48)
[2018-12-30 05:00] LABS: Basophils % 0.6 % (0-1.3); Hematocrit 29.7 % (36.0-45.0); Lymphocytes % 19.3 % (15.3-44.8); MPV 9.4 fL (7.6-11.3); RBC Red Blood Cell Count 3.61 M/uL (3.86-4.86)
[2018-12-30 05:08] LABS: Potassium 3.8 mmol/L (3.5-5.1)
[2018-12-30 05:43] LABS: Urine Appearance CLEAR; Urine Bilirubin NEGATIVE (NEG); Urine Blood 2+ (NEG); Urine Color YELLOW; Urine Glucose NEGATIVE (NEG); Urine Protein NEGATIVE (NEG); Urine Specific Gravity 1.015 (1.005-1.030); Urine Urobilinogen 0.2 mg/dL (0.2-1.0); Urine pH 6.5 (5.0-7.0)
[2018-12-30 05:54] LABS: Urine Microscopic Reflex ORDER UMIC
[2018-12-30 06:23] LABS: Urine Bacteria <20 /HPF (<20); Urine Culture Reflex Order NOT NEEDED
[2018-12-30 08:32] VITALS: O2SAT 95
[2018-12-30] MEDS ORDERED: ASPIRIN EC 81 MG TAB PO SCH (09:00)
[2018-12-30] MEDS ORDERED: FAMOTIDINE 20 MG/2 ML VIAL IV SCH (09:00)
[2018-12-30] MEDS: INSULIN -REGULAR HUMAN 50 UNIT/0.5 ML ML SQ SCH ×2 (09:41→11:30)
[2018-12-30 10:13] LABS: Blood Morphology Comment NOT SEEN (NOT SEEN); Platelet Estimate DECR; Urine White Blood Cell Casts OK
--- NOTE | 2018-12-30 12:04 | RAD REPORT ---
EXAM DESCRIPTION: CT - Abdomen Pelvis W Contrast - 12/30/2018 3:22 am CLINICAL HISTORY: 78 years Female ABD PAIN COMPARISON: Prior study dated March 23, 2017. TECHNIQUE: Images were obtained in axial, sagittal, and coronal planes. Intravenous and oral contras t was administered. This exam was performed according to our departmental dose-optimization program which includes use of Automated Exposure Control, adjustment of the mA and/or kV according to patient size and/or use of i terative reconstruction technique. FINDINGS: No abnormality involving the liver, spleen, pancreas, gallbladder, and right adrenal gland . 2.4 cm nodular lesion left adrenal gland. Possible mucosal thickening involving stomach. No obstructing renal calcifications bilaterally. No hydronephrosis bilaterally. Unremarkable bladder. Calcification abdominal aorta with no dilatation seen. Unremarkable portal vein. No adenopathy or abn ormal fluid collections seen. Appendix not well identified however no secondary signs for appendicitis. Mucosal thickening versus i ncomplete distention distal left colon. No bowel obstruction or perforation. No abnormality lower lungs bilaterally. No acute osseous abnormality. Mild superior endplate depression L3 and L4 vertebral bodies unchanged. IMPRESSION: Colitis versus incomplete distention distal left colon. Possible gastritis. Right adrenal nodule unchanged when correlated with the prior study. Electronically signed by: Shira Hunt MD 12/29/2018 10:30 PM CDT Due to temporary technical issues with the PACS/Fluency reporting system, reports are being signed by the in house radiologist as a courtesy to ensure prompt reporting. The interpreting radiologist is f ully responsible for the content of the report.
[2018-12-30] MEDS ORDERED: HYDRALAZINE HCL 10 MG TABLET PO SCH (14:00)
[2018-12-30 18:41] VITALS: BP 202/84; TEMP 97.8
[2018-12-30] MEDS ORDERED: ATORVASTATIN 20 MG TAB PO SCH (21:00)
--- NOTE | 2018-12-31 03:34 | SS ---
Date of Discharge: 12/30/2018 History Of Present Illness: 78-year-old female who presented to the emergency room with a complaint of abdominal pain in the form of moderate colic, off and on points to her upper abdominal area. The patient also has been constipated for few days. Patient, however, denied chest pain. No increased s hortness of breath and voiced no other complaints. Review of Systems: Gastrointestinal: As above. Cardiovascular: No complaints. Respiratory: No complaints. Genitourinary: No complaints. Skeletomuscular: No complaints. Neurological: No complaint. Past Medical History: 1.Hyperthyroidism. 2.Hypertension. 3.Type 2 diabetes. 4.Hyperlipidemia. 5.Gastroesophageal reflux disease. 6.History of anemia of chronic disease from diabetes. Family History: Noncontributing. Social History: No smoking, alcohol, or drug abuse history. Medications: Include propylthiouracil 50 mg p.o. b.i.d., hydrochlorothiazide 12.5 mg p.o. daily, gli mepiride 1 mg p.o. daily, atorvastatin 20 mg p.o. daily, Bystolic 10 mg p.o. daily, and omeprazole 20 mg p.o. daily. Allergies: NO KNOWN DRUG ALLERGIES. Physical Examination: Vital Signs: Blood pressure 160/70, pulse 64, temperature 97.5. Heart: Regular rate and rhythm. Chest: Clear to auscultation. Abdomen: Soft, nontender. No rigidity. No rebound. Bowel sounds are active. Extremities: No edema, no cyanosis. Peripheral pulses are felt. Neurological examination: Nonfocal, grossly intact. Patient's room air pulse oximetry at 95%. Imaging Studies: Chest x-ray; no acute pathology. Abdominal and pelvic CT; basically a difficult st udy, gastritis versus colitis and incomplete distention of the left colon. We had abdominal ultrasou nd that showed no gross abnormality. Laboratory Data: White cell count 5.3, hemoglobin 9.9, hematocrit 29.7, platelet 93. Chemistry note d BUN 26, creatinine 1.32, GFR 39. Blood sugar fingersticks noted in the 200s to 126. Troponin less than 0.02. Hospital Course: Patient was admitted to the hospital for observation. She was put on IV fluids and monitored the blood sugar fingersticks and put her on sliding scale. The patient's abdominal pain r esolved and she had a bowel motion at this time, we thought that some constipation may have caused he r discomfort. We will follow the patient as an outpatient from that standpoint. The patient today i s eating well and passing gas and as mentioned had 1 bowel motion and she was feeling well. Her abdo celina exam is basically benign. We will go ahead and discharge the patient and see her next week in followup with me. Look discharge orders for details. MFS/MODL Voice ID: [id number] Report ID: [id number]
--- NOTE | 2018-12-31 08:43 | EKG ---
Test Date: 2018-12-29 Test Time: 19:23:14 Oxidation Engineer: RV MEASUREMENT RESULTS: Intervals: Rate: 62 CA: 196 QRSD: 78 QT: 468 QTc: 475 [place]: P: 70 CA: 196 QRS: 5 T: 49 INTERPRETIVE STATEMENTS: Normal sinus rhythm Normal ECG Compared to ECG 06/01/2018 20:26:48 Sinus bradycardia no longer present First degree AV block no longer present Electronically Signed On 12-31-18 08:41:37 CDT by Marcial Rivera
[2018-12-31] MEDS ORDERED: PROPYLTHIOURACIL 50 MG TAB PO SCH (09:00)
[2018-12-31] MEDS ORDERED: PANTOPRAZOLE 40MG TABLET PO SCH (09:00)
[2018-12-31] MEDS ORDERED: CALCIUM CARB 500MG/VIT D 200 IU TAB PO SCH (09:00)
[2018-12-31] MEDS ORDERED: NEBIVOLOL HCL 5 MG TAB PO SCH (09:00)
[2018-12-31] MEDS ORDERED: hydroCHLOROthiazide 12.5 MG CAP PO SCH (09:00)
== END 2018-12-30 13:31 | disposition home or self-care (01) ==
LOC: ER 16:32 → ERHOLD 22:49 → 2ND 23:14
PROVIDERS: ADMIT Internal Medicine; ATTEND Internal Medicine
DX: R10.9 Unspecified abdominal pain (principal); I10 Essential (primary) hypertension; E11.9 Type 2 diabetes mellitus without complications; E78.5 Hyperlipidemia, unspecified; K21.9 Gastro-esophageal reflux disease without esophagitis
CPT/HCPCS: 96361; 93005; 87088; 85025 ×2; 87086; 80048 ×2; 36415; 83735; 85610; 82962 ×3; 80076; 81003; 84484 ×3; 83690; 83880; 74177; 71045; 76705; 96375; 96374; 99285; Q9967; J0696; J7030 ×2; G0378 ×2; 81015

== ENCOUNTER 2019-03-12 12:05 | Emergency (ER) | payer OTHER ==
[2019-03-12] MEDS ORDERED: LIDOCAINE 1% MPF 5 ML VIAL ONE (13:18)
[2019-03-12] MEDS ORDERED: TETANUS & DIPHTHERIA TOX,ADULT 0.5 ML VIAL ONE ×2 (13:18→14:02)
--- NOTE | 2019-03-12 13:44 | RAD REPORT ---
EXAM DESCRIPTION: CT - Head C Spine Mpr Wo Con - 03/12/2019 1:27 pm CLINICAL HISTORY: Head and neck injury status post fall. Head and neck pain COMPARISON: None. TECHNIQUE: Computed axial tomography of the head and cervical spine was obtained. Sagittal and coronal reconstruction was performed. All CT scans are performed using dose optimization technique as appropriate and may include automated exposure control or mA/KV adjustment according to patient size. 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 The ventricles are normal in caliber. An extra-axial fluid collect ion is not noted. A cervical fracture is not visualized. No dislocation is noted. IMPRESSION: No acute intracranial abnormality is seen. A cervical fracture is not visualized. If the patient continues to have symptoms to suggest intracra nial /spinal cord pathology then MRI would be recommended
--- NOTE | 2019-03-12 13:50 | RAD REPORT ---
EXAM DESCRIPTION: CT - Facial Bones W/ Mpr - 03/12/2019 1:27 pm CLINICAL HISTORY: Facial injury with facial pain status post fall TECHNIQUE: Computed axial tomography of the face was obtained. Coronal and sagittal reconstruction w as performed. All CT scans are performed using dose optimization technique as appropriate and may include automated exposure control or mA/KV adjustment according to patient size. FINDINGS: A fracture is not seen. A TMJ dislocation is not noted. The globes are intact. Right preseptal swelling. Swelling within the subcutaneous tissue anterior to the maxilla. Fluid within the sinuses is not seen. IMPRESSION: Negative for a facial fracture.
[2019-03-12] MEDS ORDERED: LIDOCAINE 1% MPF 30 ML VIAL ONE (14:02)
[2019-03-12] MEDS ORDERED: DERMABOND SKIN ADHESIVE TOP ONE (14:04)
[2019-03-12] MEDS ORDERED: HYDROCODONE/APAP 5/325 MG TAB ONE (15:21)
[2019-03-12] MEDS ORDERED: TETRACAINE HCL 0.5% 4ML OPTH ONE (15:52)
[2019-03-12] MEDS ORDERED: FLUORESCEIN SODIUM 1 MG/WRAP ONE (15:52)
--- NOTE | 2019-03-12 16:12 | EDPHYS ---
Physician Documentation [facility] Name: Cristel Casas Age: 78 yrs Sex: Female : 1940 Arrival Date: 03/12/2019 Time: 12:07 Bed 2 Private MD: ED Physician Sloan Preciado HPI: 03/12 15:56 This 78 yrs old Female presents to ER via Ambulatory with complaints of Hand pm1 Injury, Fall Injury. 17:47 The patient or guardian reports a laceration. The complaints affect the mouth. Context pm1 of injury: The problem was sustained outdoors, resulted from slipped while walking up a ramp and landed on her face and both hands. Presents with abrasions to both hands and face, and laceration to inner upper lip. Onset: The symptoms/episode began/occurred just prior to arrival. Associated signs and symptoms: Loss of consciousness: This patient did not experience any loss of consciousness. Pertinent positives: headache, Pertinent negatives: dazed, nausea, vomiting. The patient has not experienced similar symptoms in the past. It is unknown whether or not the patient has recently seen a physician. Historical: - Allergies: 12:41 No Known Allergies; iw - PMHx: 12:41 Diabetes - NIDDM; High Cholesterol; Hypertension; Hypothyroidism; iw - PSHx: 12:41 None; iw - Immunization history:: Adult Immunizations up to date. - Immunization history: Last tetanus immunization: unknown. - Ebola Screening: : Patient negative for fever greater than or equal to 101.5 degrees Fahrenheit, and additional compatible Ebola Virus Disease symptoms Patient denies exposure to infectious person Patient denies travel to an Ebola-affected area in the 21 days before illness onset No symptoms or risks identified at this time. - Social history:: Smoking status: Patient/guardian denies using tobacco. ROS: 17:47 Constitutional: Negative for fever, chills, and weight loss, Eyes: Negative for injury, pm1 pain, redness, and discharge, Neck: Negative for injury, pain, and swelling, Cardiovascular: Negative for chest pain, palpitations, and edema, Respiratory: Negative for shortness of breath, cough, wheezing, and pleuritic chest pain, Abdomen/GI: Negative for abdominal pain, nausea, vomiting, diarrhea, and constipation, Back: Negative for injury and pain. 17:47 MS/Extremity: Negative for injury and deformity. 17:47 ENT: Positive for injury or acute deformity, laceration, upper lip. 17:47 Skin: Positive for abrasion(s), laceration(s), of the right hand and left hand. 17:47 Neuro: Positive for headache, Negative for loss of consciousness, numbness, tingling. Exam: 17:47 Constitutional: This is a well developed, well nourished patient who is awake, alert, pm1 and in no acute distress. 17:47 Neck: Trachea midline, no thyromegaly or masses palpated, and no cervical lymphadenopathy. Supple, full range of motion without nuchal rigidity, or vertebral point tenderness. No Meningismus. Chest/axilla: Normal chest wall appearance and motion. Nontender with no deformity. No lesions are appreciated. Cardiovascular: Regular rate and rhythm with a normal S1 and S2. No gallops, murmurs, or rubs. Normal PMI, no JVD. No pulse deficits. Respiratory: Lungs have equal breath sounds bilaterally, clear to auscultation and percussion. No rales, rhonchi or wheezes noted. No increased work of breathing, no retractions or nasal flaring. Abdomen/GI: Soft, non-tender, with normal bowel sounds. No distension or tympany. No guarding or rebound. No evidence of tenderness throughout. Back: No spinal tenderness. No costovertebral tenderness. Full range of motion. 17:47 Head/face: Noted is no obvious of injury or deformity except abrasion(s), of the right eye and nose. 17:47 Eyes: Periorbital structures: swelling, on the right supraorbital ridge, Pupils: equal, round, and reactive to light and accomodation, Extraocular movements: intact throughout, Conjunctiva: subconjunctival hemorrhage(s), seen in the right eye, Corneas: abrasion, that is small, on the right, at 3 o'clock, foreign body, is not appreciated, a fluorescein strip employed to appreciate the findings, Anterior chamber: normal, no hyphema. 17:47 ENT: External ear(s): are unremarkable, Ear canal(s): are normal, TM's: are normal, Mouth: Lips: upper inner lip, laceration. 17:47 Skin: Appearance: normal except for affected area, injury, abrasion(s), small abrasion noted, of the right hand, left hand and nose, laceration(s), the wound is approximately 3 cm(s), of the skin tear dorsum of right hand. 17:47 Neuro: Orientation: is normal, Motor: is normal, moves all fours. Vital Signs: 12:41 BP 155 / 53; Pulse 51; Resp 16; Pulse Ox 95% ; Weight 68.95 kg; Pain 9/10; iw 12:45 BP 146 / 56; Pulse 55; Resp 15; Pulse Ox 100% on R/A; Pain 4/10; hb 13:45 BP 123 / 61; Pulse 65; Resp 16; Pulse Ox 99% on R/A; hb 14:45 BP 128 / 58; Pulse 56; Resp 14; Pulse Ox 99% on R/A; Pain 7/10; hb 15:45 BP 125 / 60; Pulse 54; Resp 15; Pulse Ox 99% on R/A; Pain 5/10; hb Nish Coma Score: 12:45 Eye Response: spontaneous(4). Verbal Response: oriented(5). Motor Response: obeys hb commands(6). Total: 15. 17:47 Eye Response: spontaneous(4). Verbal Response: oriented(5). Motor Response: obeys pm1 commands(6). Total: 15. Trauma Score (Adult): 12:45 Eye Response: spontaneous(1); Verbal Response: oriented(1); Motor Response: obeys hb commands(2); Systolic BP: > 89 mm Hg(4); Respiratory Rate: 10 to 29 per min(4); Nish Score: 15; Trauma Score: 12 13:45 Eye Response: spontaneous(1); Verbal Response: oriented(1); Motor Response: obeys hb commands(2); Systolic BP: > 89 mm Hg(4); Respiratory Rate: 10 to 29 per min(4); Nish Score: 15; Trauma Score: 12 14:45 Eye Response: spontaneous(1); Verbal Response: oriented(1); Motor Response: obeys hb commands(2); Systolic BP: > 89 mm Hg(4); Respiratory Rate: 10 to 29 per min(4); Nish Score: 15; Trauma Score: 12 15:45 Eye Response: spontaneous(1); Verbal Response: oriented(1); Motor Response: obeys hb commands(2); Systolic BP: > 89 mm Hg(4); Respiratory Rate: 10 to 29 per min(4); [place] Score: 15; Trauma Score: 12 Visual Acuity: 16:01 Left Eye Visual acuity 20/25, ; Right Eye Visual acuity 20/20, ; Both Eyes Visual hb acuity 20/20; With Lenses; Laceration: 15:56 Wound Repair of 2cm ( 0.8in ) subcutaneous laceration to upper inneer lip - midline. pm1 Irregularly shaped.. Distal neuro/vascular/tendon intact. Anesthesia: Local anesthetic administered with 2 mls of 1% lidocaine. Wound prep: Extensive cleansing by me, Wound irrigation with saline, Wound explored extensively, Copious irrigation. Skin closed with 6 4-0 chromic gut using simple sutures and sterile technique. Patient tolerated well. 15:56 Wound Repair of 3cm ( 1.2in ) subcutaneous laceration to right hand. Irregularly pm1 shaped.. skin tear. Distal neuro/vascular/tendon intact. Wound prep: Extensive cleansing with hibiclenz by me, Wound irrigation with saline, Wound explored extensively, Copious irrigation. Skin closed with 1-0 Adhesive skin closure using Dermabond. Patient tolerated well. MDM: 13:09 Patient medically screened. pm1 13:09 Data reviewed: vital signs. Data interpreted: Pulse oximetry: on room air is 95 %. pm1 Interpretation: normal. 16:09 Counseling: I had a detailed discussion with the patient and/or guardian regarding: the pm1 historical points, exam findings, and any diagnostic results supporting the discharge/admit diagnosis, radiology results, the need for outpatient follow up, an opthalmologist, to return to the emergency department if symptoms worsen or persist or if there are any questions or concerns that arise at home. 03/12 13:10 Order name: CT Head C Spine; Complete Time: 13:55 pm1 03/12 13:10 Order name: CT Facial Bones W/O Con; Complete Time: 13:55 pm1 03/12 13:11 Order name: Prolene, Sutures; Complete Time: 13:36 pm1 03/12 13:11 Order name: Dressing - Wound; Complete Time: 13:36 pm1 03/12 13:11 Order name: Gloves, Sterile; Complete Time: 13:36 pm1 12/07 13:11 Order name: Setup Suture Tray; Complete Time: 13:36 pm1 03/12 14:02 Order name: Dermabond; Complete Time: 14:34 pm1 03/12 15:50 Order name: Visual Acuity; Complete Time: 16:01 pm1 03/12 15:50 Order name: Eye Tray; Complete Time: 15:55 pm1 03/12 15:50 Order name: Fluoresene Opth strip; Complete Time: 15:55 pm1 Administered Medications: 13:36 Drug: Tetanus-Diphtheria Toxoid Adult 0.5 ml {Assistant To The Vice President: [place]. Exp: hb 09/09/2020. Lot #: [id number]. } Route: IM; Site: left deltoid; 14:22 Follow up: Response: No adverse reaction iw 13:50 Drug: Lidocaine (1 %) 5 ml {Note: medication administered by Penelope SAP BW BI DEVELOPER.} Volume: 5 sg ml; Route: Infiltration; 15:18 CANCELLED (Duplicate Order): Rayle 5 mg-325 mg 1 tabs PO once; RASS on ADMIN: Combtv4, pm1 Very Agttd3, Agttd2, Rstlss1, AlertClm0, Drwsy-1, Lt Sdtn-2, Mod Sdtn-3, Dp Sdtn-4, UnArsble-5 15:22 Drug: Rayle 5 mg-325 mg 1 tabs {Note: RASS 0.} Route: PO; hb 16:04 Follow up: Response: No adverse reaction; Pain is decreased hb 16:00 Drug: Tetracaine Drops 0.5 % 1 drops Route: Ophthalmic; Site: right eye; hb 16:38 Follow up: Response: Medication administered at discharge. iw 16:37 Drug: Vigamox 0.5 % 1 drops Route: Ophthalmic; Site: right eye; iw 16:37 Follow up: Response: Medication administered at discharge. iw Disposition: 03/13 07:20 Co-signature as Attending Physician, Sloan Preciado MD I agree with the assessment and kdr plan of care. Disposition: 03/12/19 16:11 Discharged to Home. Impression: Laceration of lip and oral cavity without foreign body, Injury of conjunctiva and corneal abrasion without foreign body, right eye, Abrasion of left hand, Laceration without foreign body of right hand, Fall on same level, unspecified, Abrasion of other part of head - facial. - Condition is Stable. - Discharge Instructions: Abrasion, Tissue Adhesive Wound Care, Corneal Abrasion, Mouth Laceration. - Prescriptions for Keflex 500 mg Oral Capsule - take 1 capsule by ORAL route every 12 hours for 10 days; 20 capsule. Vigamox 0.5 % Ophthalmic Drops - instill 1 drop by OPHTHALMIC route every 8 hours for 7 days; 5 milliliter. Ultracet 37.5- 325 mg Oral Tablet - take 1 tablet by ORAL route every 6 hours As needed - for up to 5 days; do not exceed 8 tablets per day.; 12 tablet. - Medication Reconciliation Form, Thank You Letter, Antibiotic Education, Prescription Opioid Use form. - Follow up: Emergency Department; When: As needed; Reason: Worsening of condition. Follow up: Private Physician; When: 2 - 3 days; Reason: Recheck today's complaints, Continuance of care, Re-evaluation by your physician. - Problem is new. - Symptoms have improved. Signatures: Dispatcher [employer] EDMS Lul Bonner, RN RN sg Sloan Preciado MD MD kdr Soledad Pinedo RN RN iw Anthony Tejeda NP YAM CURER pm1 Safia Aguilera RN RN Corrections: (The following items were deleted from the chart) 03/12 15:18 15:18 Rayle 5 mg-325 mg 1 tabs PO once; RASS on ADMIN: Combtv4, Very Agttd3, Agttd2, pm1 Rstlss1, AlertClm0, Drwsy-1, Lt Sdtn-2, Mod Sdtn-3, Dp Sdtn-4, UnArsble-5 ordered. pm1 16:40 16:11 03/12/2019 16:11 Discharged to Home. Impression: Laceration of lip and oral iw cavity without foreign bodyInjury of conjunctiva and corneal abrasion without foreign body, right eye; Abrasion of left hand; Laceration without foreign body of right hand; Fall on same level, unspecified; Abrasion of other part of head - facial. Condition is Stable. Forms are Medication Reconciliation Form, Thank You Letter, Antibiotic Education, Prescription Opioid Use. Follow up: Emergency Department; When: As needed; Reason: Worsening of condition. Follow up: Private Physician; When: 2 - 3 days; Reason: Recheck today's complaints, Continuance of care, Re-evaluation by your physician. Problem is new. Symptoms have improved. pm1
--- NOTE | 2019-03-12 16:12 | ER ---
Nurse's Notes [facility] Name: Cristel Casas Age: 78 yrs Sex: Female : 1940 Arrival Date: 03/12/2019 Time: 12:07 Bed 2 Private MD: Diagnosis: Injury of conjunctiva and corneal abrasion without foreign body, right eye;Abrasion of left hand;Laceration without foreign body of right hand;Laceration of lip and oral cavity without foreign body;Fall on same level, unspecified;Abrasion of other part of head-facial Presentation: 03/12 12:39 Presenting complaint: Child states: pt fell while walking on concrete, fell to face, no iw LOC, abrasion to nose, right eye, skin tear to right hand, not on blood thinners. Transition of care: patient was not received from another setting of care. Onset of symptoms was March 12, 2019. Risk Assessment: Do you want to hurt yourself or someone else? Patient reports no desire to harm self or others. Initial Sepsis Screen: Does the patient meet any 2 criteria? No. Patient's initial sepsis screen is negative. Does the patient have a suspected source of infection? No. Patient's initial sepsis screen is negative. Care prior to arrival: None. 12:39 Method Of Arrival: Ambulatory iw 12:39 Acuity: HERIBERTO 2 iw 12:45 Mechanism of Injury: Fall from standing position. Trauma event details: Injury occurred hb in the [facility], Injury occurred: at home. Injury occurred: March 12, 2019. Trauma Activation: Alert Physician: ED Physician; Name: ; Notified At: ; Arrived At: Physician: General Surgeon; Name: ; Notified At: ; Arrived At: Physician: Radiology; Name: ; Notified At: ; Arrived At: Physician: Respiratory; Name: ; Notified At: ; Arrived At: Physician: Lab; Name: ; Notified At: ; Arrived At: Historical: - Allergies: 12:41 No Known Allergies; iw - PMHx: 12:41 Diabetes - NIDDM; High Cholesterol; Hypertension; Hypothyroidism; iw - PSHx: 12:41 None; iw - Immunization history:: Adult Immunizations up to date. - Immunization history: Last tetanus immunization: unknown. - Ebola Screening: : Patient negative for fever greater than or equal to 101.5 degrees Fahrenheit, and additional compatible Ebola Virus Disease symptoms Patient denies exposure to infectious person Patient denies travel to an Ebola-affected area in the 21 days before illness onset No symptoms or risks identified at this time. - Social history:: Smoking status: Patient/guardian denies using tobacco. Screenin:03 Abuse screen: Denies threats or abuse. Denies injuries from another. Nutritional hb screening: No deficits noted. Tuberculosis screening: No symptoms or risk factors identified. Fall Risk None identified. Primary Survey: 12:45 NO uncontrolled hemorrhage observed. A: The patient is alert. Airway: patent, No hb supplemental oxygen in use on arrival. Breathing/Chest: Respiratory pattern: regular, Respiratory effort: spontaneous, unlabored, Chest inspection: symmetrical rise and fall of the chest. Circulation: Pulses: palpable . Skin color: pink, Skin temperature: warm, dry. Disability Alert. Exposure/Environment: There is no evidence of uncontrolled external bleeding. Obvious injury(ies) are noted at this time: abrasions noted to right cheek, bridge of nose, right upper eyelid, left hand, right hand. 13:45 Reassessment Airway Airway Patent Breathing/Chest Respiratory pattern Regular hb Respiratory effort Spontaneous Unlabored Chest inspection Symmetrical Circulation Color [place] Temperature Warm Dry Disability Alert. 14:45 Reassessment Airway Airway Patent Breathing/Chest Respiratory pattern Regular iw Respiratory effort Spontaneous Unlabored Chest inspection Symmetrical Circulation Color [place] Temperature Warm Dry Disability Alert. 15:45 Reassessment Airway Airway Patent Breathing/Chest Respiratory pattern Regular iw Respiratory effort Spontaneous Unlabored Chest inspection Symmetrical Circulation Color [place] Temperature Warm Dry Disability Alert. Secondary Survey: 12:50 HEENT: Face Other abrasions noted to right cheek, right upper eyelid, bridge of nose. hb Gastrointestinal: No deficits noted. : No deficits noted. No signs and/or symptoms were reported regarding the genitourinary system. Musculoskeletal: Reports pain in face, bilateral hands. Injury Description: abrasions to right cheek right upper eyelid, bridge of nose, left hand, skin tear to right hand. Assessment: 12:50 General: Appears in no apparent distress. Behavior is calm, cooperative. Pain: Pain hb currently is 4 out of 10 on a pain scale. Neuro: Level of Consciousness is awake, alert, obeys commands, Oriented to person, place, time, situation. EENT: No signs and/or symptoms were reported regarding the EENT system. Cardiovascular: Capillary refill < 3 seconds Patient's skin is warm and dry. Respiratory: Airway is patent Respiratory effort is even, unlabored, Respiratory pattern is regular, symmetrical, Breath sounds are clear bilaterally. GI: No signs and/or symptoms were reported involving the gastrointestinal system. : No signs and/or symptoms were reported regarding the genitourinary system. Derm: Skin is pink, warm \T\ dry. Musculoskeletal: No signs and/or symptoms reported regarding the musculoskeletal system. Injury Description: Abrasions noted to right cheek, right upper eyelid, bridge of nose, left hand, skin tear to right hand. 13:45 Reassessment: Patient appears in no apparent distress at this time. Patient and/or hb family updated on plan of care and expected duration. Pain level reassessed. Patient is alert, oriented x 3, equal unlabored respirations, skin warm/dry/pink. 14:32 Reassessment: Patient appears in no apparent distress at this time. Patient and/or sg family updated on plan of care and expected duration. Pain level reassessed. Patient is alert, oriented x 3, equal unlabored respirations, skin warm/dry/pink. family at bedside at this time. 15:45 Reassessment: Patient appears in no apparent distress at this time. Patient and/or iw family updated on plan of care and expected duration. Pain level reassessed. Patient is alert, oriented x 3, equal unlabored respirations, skin warm/dry/pink. Vital Signs: 12:41 BP 155 / 53; Pulse 51; Resp 16; Pulse Ox 95% ; Weight 68.95 kg; Pain 9/10; iw 12:45 BP 146 / 56; Pulse 55; Resp 15; Pulse Ox 100% on R/A; Pain 4/10; hb 13:45 BP 123 / 61; Pulse 65; Resp 16; Pulse Ox 99% on R/A; hb 14:45 BP 128 / 58; Pulse 56; Resp 14; Pulse Ox 99% on R/A; Pain 7/10; hb 15:45 BP 125 / 60; Pulse 54; Resp 15; Pulse Ox 99% on R/A; Pain 5/10; hb Visual Acuity: 16:01 Left Eye Visual acuity 20/25, ; Right Eye Visual acuity 20/20, ; Both Eyes Visual hb acuity 20/20; With Lenses; [place] Coma Score: 12:45 Eye Response: spontaneous(4). Verbal Response: oriented(5). Motor Response: obeys hb commands(6). Total: 15. 17:47 Eye Response: spontaneous(4). Verbal Response: oriented(5). Motor Response: obeys pm1 commands(6). Total: 15. Trauma Score (Adult): 12:45 Eye Response: spontaneous(1); Verbal Response: oriented(1); Motor Response: obeys hb commands(2); Systolic BP: > 89 mm Hg(4); Respiratory Rate: 10 to 29 per min(4); [place] Score: 15; Trauma Score: 12 13:45 Eye Response: spontaneous(1); Verbal Response: oriented(1); Motor Response: obeys hb commands(2); Systolic BP: > 89 mm Hg(4); Respiratory Rate: 10 to 29 per min(4); [place] Score: 15; Trauma Score: 12 14:45 Eye Response: spontaneous(1); Verbal Response: oriented(1); Motor Response: obeys hb commands(2); Systolic BP: > 89 mm Hg(4); Respiratory Rate: 10 to 29 per min(4); [place] Score: 15; Trauma Score: 12 15:45 Eye Response: spontaneous(1); Verbal Response: oriented(1); Motor Response: obeys hb commands(2); Systolic BP: > 89 mm Hg(4); Respiratory Rate: 10 to 29 per min(4); [place] Score: 15; Trauma Score: 12 ED Course: 12:07 Patient arrived in ED. am2 12:41 Triage completed. iw 12:44 Anthony Tejeda NP is PHCP. pm1 12:44 Sloan Preciado MD is Attending Physician. pm1 12:50 Thermoregulation: warm blanket given to patient. hb 12:55 Patient has correct armband on for positive identification. Placed in gown. Bed in low hb position. Call light in reach. Side rails up X 1. 12:58 Arm band placed on. iw 13:27 CT completed. Patient tolerated procedure well. Patient moved back from CT. bq 13:28 CT Head C Spine In Process Unspecified. EDMS 13:28 CT Facial Bones W/O Con In Process Unspecified. EDMS 14:31 Lul Bonner, RN is Primary Nurse. sg 14:40 Patient maintains SpO2 saturation greater than 95% on room air. hb 16:39 No provider procedures requiring assistance completed. Patient did not have IV access iw during this emergency room visit. Administered Medications: 13:36 Drug: Tetanus-Diphtheria Toxoid Adult 0.5 ml {Housekeeping/Laundry Supervisor: [employer]. Exp: hb 09/09/2020. Lot #: [id number]. } Route: IM; Site: left deltoid; 14:22 Follow up: Response: No adverse reaction iw 13:50 Drug: Lidocaine (1 %) 5 ml {Note: medication administered by Penelope PHELPS.} Volume: 5 sg ml; Route: Infiltration; 15:18 CANCELLED (Duplicate Order): [place] 5 mg-325 mg 1 tabs PO once; RASS on ADMIN: Combtv4, pm1 Very Agttd3, Agttd2, Rstlss1, AlertClm0, Drwsy-1, Lt Sdtn-2, Mod Sdtn-3, Dp Sdtn-4, UnArsble-5 15:22 Drug: [place] 5 mg-325 mg 1 tabs {Note: RASS 0.} Route: PO; hb 16:04 Follow up: Response: No adverse reaction; Pain is decreased hb 16:00 Drug: Tetracaine Drops 0.5 % 1 drops Route: Ophthalmic; Site: right eye; hb 16:38 Follow up: Response: Medication administered at discharge. iw 16:37 Drug: Vigamox 0.5 % 1 drops Route: Ophthalmic; Site: right eye; iw 16:37 Follow up: Response: Medication administered at discharge. iw Intake: 13:45 PO: 0ml; Total: 0ml. hb Output: 13:45 Urine: 0ml; Total: 0ml. hb Outcome: 16:04 Patient's length of stay in the Emergency Department was greater than 2 hours. awaiting hb laceration repair and dispo by provider Patient's length of stay extended due to 16:11 Discharge ordered by . pm1 16:39 Discharged to home ambulatory. iw 16:39 Condition: stable 16:39 Discharge instructions given to patient, family, Instructed on discharge instructions, follow up and referral plans. medication usage, Demonstrated understanding of instructions, follow-up care, medications, Prescriptions given X 3. 16:40 Patient left the ED. iw Signatures: Dispatcher [employer] Lul Dukes, RN RN sg Lindy Kevin Irene, TRENA ALBRECHT iw Anthony Tejeda, SOCIAL WORK ADMINISTRATOR SOCIAL WORK ADMINISTRATOR pm1 Safia Aguilera RN RN Erinn Hernandez am2
[2019-03-12] MEDS ORDERED: MOXIFLOXACIN HCL 0.5% 3ML OPTH OPTH SCH (16:30)
[2019-03-12 19:03] VITALS: O2SAT 99
[2019-03-12 19:06] VITALS: BP 125/60
== END 2019-03-12 16:40 | disposition home or self-care (01) ==
LOC: ER 12:05
PROC: 0CQ0XZZ Repair Upper Lip, External Approach (ICD-10-PCS; principal; 2019-03-12)
PROC: 0JQJ0ZZ Repair Right Hand Subcutaneous Tissue and Fascia, Open Approach (ICD-10-PCS; 2019-03-12)
DX: S01.511A Laceration without foreign body of lip, initial encounter (principal); S61.411A Laceration without foreign body of right hand, initial encounter; S05.01XA Injury of conjunctiva and corneal abrasion without foreign body, right eye, initial encounter; S60.512A Abrasion of left hand, initial encounter; W01.198A Fall on same level from slipping, tripping and stumbling with subsequent striking against other object, initial encounter; Y93.89 Activity, other specified; Y92.89 Other specified places as the place of occurrence of the external cause; Z23 Encounter for immunization
CPT/HCPCS: 70450; 70486; 72125; 76377; 90471; 90714; 99284

== ENCOUNTER 2019-04-15 17:13 | Emergency (ER) | payer OTHER ==
[2019-04-15 20:03] LABS: Absolute Lymphocytes (CBC) 0.9 K/uL (0.7-4.9); Basophils % 1.1 % (0-1.3); Hematocrit 32.3 % (36.0-45.0); Lymphocytes % 17.1 % (15.3-44.8); MPV 8.9 fL (7.6-11.3); RBC Red Blood Cell Count 3.84 M/uL (3.86-4.86)
[2019-04-15 20:24] LABS: Albumin 3.3 g/dL (3.4-5.0); Bilirubin Direct 0.2 mg/dL (0-0.2); Bilirubin Total 0.6 mg/dL (0.2-1.0); Potassium 3.8 mmol/L (3.5-5.1); Protein, Total 7.3 g/dL (6.4-8.2)
--- NOTE | 2019-04-15 20:49 | RAD REPORT ---
EXAM DESCRIPTION: RAD - Shoulder Right 2 View - 04/15/2019 7:55 pm CLINICAL HISTORY: Right shoulder pain FINDINGS: No fracture or dislocation is seen. Osteoporosis Moderate osteoarthritis AC joint
--- NOTE | 2019-04-15 21:03 | RAD REPORT ---
EXAM DESCRIPTION: CT - Abdomen Pelvis W Contrast - 04/15/2019 8:38 pm CLINICAL HISTORY: Abdominal pain COMPARISON: December 2018 and 2015 TECHNIQUE: Computed axial tomography of the abdomen pelvis was obtained. 100 cc Isovue-300 was admin istered intravenously. Oral contrast was not requested which limits evaluation of bowel. All CT scans are performed using dose optimization technique as appropriate and may include automated exposure control or mA/KV adjustment according to patient size. FINDINGS: 20 millimeter right adrenal mass is unchanged. The left adrenal gland is unremarkable Liver has a homogeneous density. Mild nodular contour may indicate chronic disease Small calcifications present the gallbladder wall. The gallbladder wall is not thickened. The spleen, pancreas and kidneys unremarkable Mild prominence of the endometrial stripe There is no evidence of diverticulitis. IMPRESSION: Mild prominence of the endometrium. This may indicate hyperplasia, polyp or neoplasm. No nemergent pelvic ultrasound recommended 20 millimeter right adrenal mass is unchanged from 2016. An adenoma is considered most likely
--- NOTE | 2019-04-15 21:46 | ER ---
Nurse's Notes [facility] Name: Cristel Casas Age: 78 yrs Sex: Female : 1940 Arrival Date: 04/15/2019 Time: 17:18 Bed 2 Private MD: Diagnosis: Unspecified abdominal pain;Pain in right shoulder Presentation: 04/15 17:22 Presenting complaint: daughter states "she fell about a month ago and she was seen here aa5 but since then her side and her right shoulder has been hurting". pt c/o pain to right flank and right shoulder. Transition of care: patient was not received from another setting of care. Onset of symptoms was March 2019. Risk Assessment: Do you want to hurt yourself or someone else? Patient reports no desire to harm self or others. Initial Sepsis Screen: Does the patient meet any 2 criteria? No. Patient's initial sepsis screen is negative. Does the patient have a suspected source of infection? No. Patient's initial sepsis screen is negative. Care prior to arrival: None. 17:22 Acuity: HERIBERTO 3 aa5 17:22 Method Of Arrival: Ambulatory aa5 Historical: - Allergies: 17:24 No Known Allergies; aa5 - Home Meds: 21:58 atorvastatin 20 mg Oral tab 1 tab once daily [Active]; Bystolic 10 mg Oral tab 1 tab lp1 once daily [Active]; glimepiride 1 mg Oral tab 1 tab once daily [Active]; hydrochlorothiazide 12.5 mg Oral cap 1 cap once daily [Active]; omeprazole 20 mg Oral TbEC daily [Active]; propylthiouracil 50 mg Oral tab 1 tab 2 times per day [Active]; - PMHx: 17:24 High Cholesterol; Diabetes - NIDDM; Hypertension; Hypothyroidism; aa5 - PSHx: 17:24 Appendectomy; aa5 - Immunization history:: Flu vaccine is up to date. - Social history:: Smoking status: Patient/guardian denies using tobacco. - Ebola Screening: : No symptoms or risks identified at this time. Screenin:00 Abuse screen: Denies threats or abuse. Denies injuries from another. Nutritional lp1 screening: No deficits noted. Tuberculosis screening: No symptoms or risk factors identified. Fall Risk None identified. Assessment: 19:45 General: Appears in no apparent distress. Behavior is calm, cooperative. Pain: lp1 Complains of pain in right shoulder, right upper abdomen Pain currently is 0 out of 10 on a pain scale. Neuro: Level of Consciousness is awake, alert, obeys commands, Oriented to person, place, situation, Gait is steady. Cardiovascular: Patient's skin is warm and dry. Respiratory: Respiratory effort is even, unlabored. GI: Abdomen is non-distended, Bowel sounds present X 4 quads. Abd is soft and non tender X 4 quads. Reports constipation. : No signs and/or symptoms were reported regarding the genitourinary system. EENT: No signs and/or symptoms were reported regarding the EENT system. Derm: Skin is fragile, is thin, Skin is dry, Skin is normal. Musculoskeletal: No deficits noted. 20:50 Reassessment: Patient appears in no apparent distress at this time. Patient and/or lp1 family updated on plan of care and expected duration. Pain level reassessed. Patient up to bathroom. 21:50 Reassessment: Patient is alert, oriented x 3, equal unlabored respirations, skin lp1 warm/dry/pink. Patient request to have medication for pain prior to discharge; provider notified, verbal order for Tramadol 50mg PO x1. Vital Signs: 17:24 BP 184 / 60; Pulse 65; Resp 18 S; Temp 98.1(O); Pulse Ox 97% on R/A; Weight 68.04 kg aa5 (R); Height 4 ft. 9 in. (144.78 cm) (R); Pain 7/10; 19:45 BP 156 / 58; Pulse 59; Resp 18; Pulse Ox 97% on R/A; lp1 20:45 BP 158 / 60; Pulse 56; Resp 18; Pulse Ox 98% on R/A; lp1 17:24 Body Mass Index 32.46 (68.04 kg, 144.78 cm) aa5 ED Course: 17:18 Patient arrived in ED. jg7 17:22 Arm band placed on. aa5 17:24 Triage completed. aa5 19:08 Anthony Tejeda NP is PHCP. pm1 19:08 Josh Mortensen MD is Attending Physician. pm1 19:30 Jasmin Brannon RN is Primary Nurse. lp1 19:40 Inserted saline lock: 22 gauge in left antecubital area, using aseptic technique. Blood lp1 collected. 19:45 Radiology exam delayed due to lab results not completed at this time. (BUN/Creatinine). vm2 19:45 Patient has correct armband on for positive identification. Placed in gown. Bed in low lp1 position. Pulse ox on. NIBP on. 19:53 Shoulder Right (2 View) XRAY In Process Unspecified. EDMS 20:39 CT Abd/Pelvis - IV Contrast Only In Process Unspecified. EDMS 21:45 No provider procedures requiring assistance completed. IV discontinued, No lp1 redness/swelling at site. Pressure dressing applied. Administered Medications: 21:56 Drug: traMADol 50 mg {Note: RASS 0.} Route: PO; lp1 21:56 Follow up: Response: Medication administered at discharge. lp1 Outcome: 21:45 Discharge ordered by MD. pm1 21:57 Discharged to home ambulatory, with family. lp1 21:57 Condition: good 21:57 Discharge instructions given to patient, family, Instructed on discharge instructions, follow up and referral plans. Demonstrated understanding of instructions, follow-up care, medications, Prescriptions given X 1. 21:59 Patient left the ED. lp1 Signatures: Dispatcher [employer] EDMS Sammie Lyon RN RN aa5 Jasmin Brannon RN RN lp1 Anthony Tejeda, [employer] MAN pm1 Mariely Thorne 2 Sujata Gunn7 Corrections: (The following items were deleted from the chart) 17:25 17:24 BP 184 / 60; Pulse 65bpm; Resp 18bpm; Spontaneous; Pulse Ox 97% RA; Temp 98.1F aa5 Oral; 68.04 kg Reported; Height 4 ft. 9 in. Reported; BMI: 32.4; aa5
--- NOTE | 2019-04-15 21:46 | EDPHYS ---
Physician Documentation [facility] Name: Cristel Casas Age: 78 yrs Sex: Female : 1940 Arrival Date: 04/15/2019 Time: 17:18 Bed 2 Private MD: EDUARDO Physician Josh Mortensen HPI: 04/15 20:55 This 78 yrs old Female presents to ER via Ambulatory with complaints of pm1 Abdominal Pain, Right Shoulder Pain. 20:55 The patient presents with abdominal pain in the right upper quadrant. Onset: The pm1 symptoms/episode began/occurred since fall last month 03/12/2019. The symptoms do not radiate. Associated signs and symptoms: Pertinent negatives: nausea, vomiting, and diarrhea, chest pain, dysuria, fever, shortness of breath. The symptoms are described as sharp. Modifying factors: The symptoms are alleviated by nothing, the symptoms are aggravated by nothing. Severity of pain: in the emergency department the pain has resolved is a 0 / 10. It is unknown whether or not the patient has recently seen a physician. Patient with fall injury on 03/12/2019 and reports that she has had right shoulder pain and right rib pain since then. Ultracet given at that time has been helping. Historical: - Allergies: 17:24 No Known Allergies; aa5 - Home Meds: 21:58 atorvastatin 20 mg Oral tab 1 tab once daily [Active]; Bystolic 10 mg Oral tab 1 tab lp1 once daily [Active]; glimepiride 1 mg Oral tab 1 tab once daily [Active]; hydrochlorothiazide 12.5 mg Oral cap 1 cap once daily [Active]; omeprazole 20 mg Oral TbEC daily [Active]; propylthiouracil 50 mg Oral tab 1 tab 2 times per day [Active]; - PMHx: 17:24 High Cholesterol; Diabetes - NIDDM; Hypertension; Hypothyroidism; aa5 - PSHx: 17:24 Appendectomy; aa5 - Immunization history:: Flu vaccine is up to date. - Social history:: Smoking status: Patient/guardian denies using tobacco. - Ebola Screening: : No symptoms or risks identified at this time. ROS: 20:55 Constitutional: Negative for fever, chills, and weight loss, Eyes: Negative for injury, pm1 pain, redness, and discharge, ENT: Negative for injury, pain, and discharge, Neck: Negative for injury, pain, and swelling, Cardiovascular: Negative for chest pain, palpitations, and edema, Respiratory: Negative for shortness of breath, cough, wheezing, and pleuritic chest pain. 20:55 Back: Negative for injury and pain, : Negative for injury, bleeding, discharge, and swelling. 20:55 Skin: Negative for injury, rash, and discoloration, Neuro: Negative for headache, weakness, numbness, tingling, and seizure. 20:55 Abdomen/GI: Positive for abdominal pain, of the anterior aspect of right upper lateral abdomen, Negative for nausea, vomiting, and diarrhea, constipation. 20:55 MS/extremity: Positive for pain, of the posterior aspect of right shoulder, Negative for decreased range of motion, deformity. Exam: 20:55 Constitutional: This is a well developed, well nourished patient who is awake, alert, pm1 and in no acute distress. Head/Face: Normocephalic, atraumatic. Neck: Trachea midline, no thyromegaly or masses palpated, and no cervical lymphadenopathy. Supple, full range of motion without nuchal rigidity, or vertebral point tenderness. No Meningismus. Chest/axilla: Normal chest wall appearance and motion. Nontender with no deformity. No lesions are appreciated. Cardiovascular: Regular rate and rhythm with a normal S1 and S2. No gallops, murmurs, or rubs. Normal PMI, no JVD. No pulse deficits. Respiratory: Lungs have equal breath sounds bilaterally, clear to auscultation and percussion. No rales, rhonchi or wheezes noted. No increased work of breathing, no retractions or nasal flaring. Abdomen/GI: Soft, non-tender, with normal bowel sounds. No distension or tympany. No guarding or rebound. No evidence of tenderness throughout. Back: No spinal tenderness. No costovertebral tenderness. Full range of motion. Skin: Warm, dry with normal turgor. Normal color with no rashes, no lesions, and no evidence of cellulitis. MS/ Extremity: Pulses equal, no cyanosis. Neurovascular intact. Full, normal range of motion. 20:55 Neuro: Orientation: is normal, Motor: is normal, moves all fours, Sensation: is normal, no obvious gross deficits. Vital Signs: 17:24 BP 184 / 60; Pulse 65; Resp 18 S; Temp 98.1(O); Pulse Ox 97% on R/A; Weight 68.04 kg aa5 (R); Height 4 ft. 9 in. (144.78 cm) (R); Pain 10/13; 19:45 BP 156 / 58; Pulse 59; Resp 18; Pulse Ox 97% on R/A; lp1 20:45 BP 158 / 60; Pulse 56; Resp 18; Pulse Ox 98% on R/A; lp1 17:24 Body Mass Index 32.46 (68.04 kg, 144.78 cm) aa5 MDM: 19:08 Patient medically screened. pm1 21:45 Data reviewed: vital signs. Data interpreted: Pulse oximetry: on room air is 98 %. pm1 Interpretation: normal. Counseling: I had a detailed discussion with the patient and/or guardian regarding: the historical points, exam findings, and any diagnostic results supporting the discharge/admit diagnosis, lab results, radiology results, the need for outpatient follow up, to return to the emergency department if symptoms worsen or persist or if there are any questions or concerns that arise at home. 04/15 19:12 Order name: Basic Metabolic Panel; Complete Time: 20:55 pm1 04/15 19:12 Order name: CBC with Diff; Complete Time: 20:55 pm1 04/15 19:12 Order name: Creatinine for Radiology; Complete Time: 20:55 pm1 04/15 19:12 Order name: Hepatic Function; Complete Time: 20:55 pm1 04/15 19:12 Order name: Lipase; Complete Time: 20:55 pm1 04/15 21:23 Order name: Urine Dipstick--Ancillary (enter results) eb 04/15 19:12 Order name: IV Saline Lock; Complete Time: 19:55 pm1 04/15 19:12 Order name: Labs collected and sent; Complete Time: 19:55 pm1 04/15 19:12 Order name: CT Abd/Pelvis - IV Contrast Only; Complete Time: 21:27 pm1 04/15 19:14 Order name: Urine Dipstick-Ancillary (obtain specimen); Complete Time: 19:55 pm1 04/15 19:41 Order name: Shoulder Right (2 View) XRAY; Complete Time: 20:55 pm1 Administered Medications: 21:56 Drug: traMADol 50 mg {Note: RASS 0.} Route: PO; lp1 21:56 Follow up: Response: Medication administered at discharge. lp1 Disposition: 04/15/19 21:45 Discharged to Home. Impression: Unspecified abdominal pain, Pain in right shoulder. - Condition is Stable. - Discharge Instructions: Abdominal Pain, Adult, Shoulder Pain. - Prescriptions for Ultracet 37.5- 325 mg Oral Tablet - take 1 tablet by ORAL route every 6 hours - for up to 5 days; do not exceed 8 tablets per day.; 30 tablet. - Medication Reconciliation Form, Thank You Letter, Antibiotic Education, Prescription Opioid Use form. - Follow up: Emergency Department; When: As needed; Reason: Worsening of condition. Follow up: Private Physician; When: 2 - 3 days; Reason: Recheck today's complaints, Continuance of care, Re-evaluation by your physician. - Problem is new. - Symptoms have improved. Addendum: 04/18/2019 08:18 Co-signature as Attending Physician, Josh Mortensen MD I agree with the assessment and c clemens plan of care. Signatures: Dispatcher [employer] EDJosh Pierre MD MD cha Calderon, Audri, RN RN aa5 Jasmin Brannon RN RN lp1 Anthony Tejeda NP LIFE SCIENCE TEACHER pm1 Corrections: (The following items were deleted from the chart) 04/15 21:59 21:45 04/15/2019 21:45 Discharged to Home. Impression: Unspecified abdominal pain; Pain lp1 in right shoulder. Condition is Stable. Forms are Medication Reconciliation Form, Thank You Letter, Antibiotic Education, Prescription Opioid Use. Follow up: Emergency Department; When: As needed; Reason: Worsening of condition. Follow up: Private Physician; When: 2 - 3 days; Reason: Recheck today's complaints, Continuance of care, Re-evaluation by your physician. Problem is new. Symptoms have improved. pm1
[2019-04-15] MEDS ORDERED: TRAMADOL HCL 50 MG TAB ONE (21:56)
[2019-04-15 22:16] LABS: Urine Blood 2+ (NEG); Urine Glucose NEGATIVE (NEG); Urine Protein NEGATIVE (NEG); Urine pH 6.5 (5.0-7.0)
[2019-04-15 22:27] VITALS: TEMP 98.1
[2019-04-15 22:29] VITALS: BP 158/60; O2SAT 98
== END 2019-04-15 21:59 | disposition home or self-care (01) ==
LOC: ER 17:13
DX: R10.9 Unspecified abdominal pain (principal); M25.511 Pain in right shoulder; I10 Essential (primary) hypertension; E11.9 Type 2 diabetes mellitus without complications; E78.5 Hyperlipidemia, unspecified
CPT/HCPCS: 85025; 80048; 36415; 80076; 81003; 83690; 74177; 73030; 99284; Q9967

== ENCOUNTER 2020-01-09 16:28 | Observation (INO) | payer OTHER ==
[2020-01-09 18:02] LABS: Absolute Lymphocytes (CBC) 0.9 K/uL (0.7-4.9); Basophils % 1.3 % (0-1.3); Hematocrit 32.3 % (36.0-45.0); Lymphocytes % 15.7 % (15.3-44.8); MPV 8.5 fL (7.6-11.3); RBC Red Blood Cell Count 3.73 M/uL (3.86-4.86)
[2020-01-09 18:15] LABS: Protime INR 1.04
[2020-01-09 18:21] LABS: Albumin 3.4 g/dL (3.4-5.0); Bilirubin Direct 0.3 mg/dL (0-0.2); Bilirubin Total 0.8 mg/dL (0.2-1.0); Magnesium 2.2 mg/dL (1.8-2.4); Protein, Total 7.1 g/dL (6.4-8.2); Troponin (Emerg Dept Use Only) 0.02 ng/mL (0.0-0.045)
--- NOTE | 2020-01-09 18:32 | ER ---
Nurse's Notes [facility] Name: Cristel Casas Age: 79 yrs Sex: Female : 1940 Arrival Date: 01/09/2020 Time: 16:32 Bed 17 Private MD: Gildardo Carrillo F Diagnosis: Pulmonary edema;Edema, unspecified-2+ lower extremity Presentation: 01/08 16:44 Chief complaint: Patient states: Sent by Dr. Carrillo for LLE swelling for 3 days. No ll1 fever. No cough/SOB. Coronavirus screen: Client denies travel out of the [place] in the last 14 days. At this time, the client does not indicate any symptoms associated with coronavirus-19. Ebola Screen: Patient denies travel to an Ebola-affected area in the 21 days before illness onset. Initial Sepsis Screen: Does the patient meet any 2 criteria? No. Patient's initial sepsis screen is negative. Risk Assessment: Do you want to hurt yourself or someone else? Patient reports no desire to harm self or others. Onset of symptoms was January 07, 2020. 16:44 Method Of Arrival: Ambulatory ll1 16:44 Acuity: HERIBERTO 3 ll1 Triage Assessment: 17:15 General: Appears in no apparent distress. comfortable, obese, Behavior is cooperative, bp appropriate for age, anxious. Pain: Denies pain. EENT: No deficits noted. Neuro: No deficits noted. Cardiovascular: Rhythm is sinus rhythm. Respiratory: Airway is patent Respiratory effort is even, unlabored, Respiratory pattern is regular. GI: Abdomen is obese. : No signs and/or symptoms were reported regarding the genitourinary system. Derm: No deficits noted. Musculoskeletal: Swelling present in right leg and left leg. Historical: - Allergies: 16:46 No Known Drug Allergies; ll1 - PMHx: 16:46 Diabetes - NIDDM; High Cholesterol; Hypertension; Hypothyroidism; ll1 - PSHx: 16:46 Appendectomy; eye surgery; ll1 - Immunization history:: Flu vaccine is up to date. - Social history:: Smoking status: Patient denies any tobacco usage or history of. Screenin:15 Abuse screen: Denies threats or abuse. Denies injuries from another. Nutritional bp screening: No deficits noted. Tuberculosis screening: No symptoms or risk factors identified. Fall Risk None identified. Assessment: 17:15 General: SEE TRIAGE NOTE. bp 17:55 Reassessment: U/S AT B/S. bp 18:30 Reassessment: ADMIT INITIATED. VS STABLE ON MONITOR, NO CP/SOB. bp 19:01 General: Appears in no apparent distress. Behavior is calm, cooperative, appropriate ea for age. Pain: Denies pain. Neuro: Level of Consciousness is awake, alert, obeys commands, Oriented to person, place, time. Respiratory: Airway is patent Respiratory effort is even, unlabored, Respiratory pattern is regular, symmetrical. Derm: Skin is pink, warm \T\ dry. 19:35 Reassessment: pt ambulated to bathroom assisted by daughter, IV site intact, no bb erythema or edema noted, report called to Dominique ALBRECHT for room 401. Vital Signs: 16:44 BP 164 / 60; Pulse 66; Resp 17; Temp 98.7; Pulse Ox 97% ; Weight 67.13 kg; Height 4 ft. ll1 11 in. (149.86 cm); Pain 8/10; 17:55 BP 156 / 68; Pulse 66; Resp 21; Pulse Ox 94% ; bp 18:30 BP 168 / 67; Pulse 63; Resp 15; Pulse Ox 97% ; bp 19:57 BP 160 / 70; Pulse 60; Resp 18; Pulse Ox 99% ; ea 16:44 Body Mass Index 29.89 (67.13 kg, 149.86 cm) ll1 ED Course: 16:32 Patient arrived in ED. mr 16:33 Gildardo Carrillo MD is Private Physician. mr 16:46 Triage completed. ll1 16:46 Arm band placed on. ll1 17:15 Patient has correct armband on for positive identification. Bed in low position. Call bp light in reach. Side rails up X2. Adult w/ patient. 17:18 Troy Salgado, TRENA is Primary Nurse. bp 17:22 Amairani Torres FNP-C is PHCP. kb 17:22 Ashkan Martel MD is Attending Physician. kb 17:45 Initial lab(s) drawn, by me, sent to lab. EKG done, by ED staff, reviewed by Amairani HENDERSON. Inserted saline lock: 20 gauge in left antecubital area, using aseptic technique. Blood collected. Patient maintains SpO2 saturation greater than 95% on room air. 17:52 Placed in gown. Warm blanket given. Pillow given. Verbal reassurance given. Cardiac jp3 monitor on. Pulse ox on. NIBP on. 18:17 XRAY Chest (1 view) In Process Unspecified. EDMS 18:20 US Extremity Venous W Compression Tk In Process Unspecified. EDMS 18:31 Gildardo Carrillo MD is Hospitalizing Provider. kb 19:37 No provider procedures requiring assistance completed. Patient admitted, IV remains in bb place. Administered Medications: 18:54 Drug: Lasix 40 mg Route: IVP; Site: left antecubital; bp Outcome: 18:32 Decision to Hospitalize by Provider. kb 19:36 Admitted to Tele accompanied by tech, family with patient, via wheelchair, room 401, bb with chart, Report called to Dominique ALBRECHT 19:36 Condition: stable 19:36 Instructed on the need for admit. 19:59 Patient left the ED. bb Signatures: Dispatcher [employer] EDMS Amairani Torres, PC NETWORK TECHNICIAN-C PC NETWORK TECHNICIAN-[place]ina Chau Brenda, RN RN bb Candi Begum, RN Troy Naylor ea, TRENA RN Oleksandr Jacob jp3 Ivonne Gandara, RN RN ll1
--- NOTE | 2020-01-09 18:32 | EDPHYS ---
Physician Documentation [facility] Name: Cristel Casas Age: 79 yrs Sex: Female : 1940 Arrival Date: 01/09/2020 Time: 16:32 Bed 17 Private MD: Gildardo Carrillo F ED Physician Ashkan Martel HPI: 01/08 18:32 This 79 yrs old Female presents to ER via Ambulatory with complaints of Leg kb problem. 18:32 The patient presents with swelling. The complaints affect the left leg and right leg. kb Context: The problem was sustained at home, the patient can fully bear weight, the patient is able to ambulate. Onset: The symptoms/episode began/occurred 3 day(s) ago. Modifying factors: The symptoms are alleviated by nothing. the symptoms are aggravated by nothing. Associated signs and symptoms: Pertinent positives: swelling, Pertinent negatives calf tenderness, fever, nausea, numbness, rash, tingling, vomiting, warmth, weakness. Treatment prior to arrival includes: no previous treatment. Severity of symptoms: At their worst the symptoms were moderate, in the emergency department the symptoms are unchanged. The patient has not experienced similar symptoms in the past. The patient has not recently seen a physician. Daughter reports pt has had swelling in bilateral lower extremities for [address] Carrillo and was told to come to ER for x-ray and US. . Historical: - Allergies: 16:46 No Known Drug Allergies; ll1 - PMHx: 16:46 Diabetes - NIDDM; High Cholesterol; Hypertension; Hypothyroidism; ll1 - PSHx: 16:46 Appendectomy; eye surgery; ll1 - Immunization history:: Flu vaccine is up to date. - Social history:: Smoking status: Patient denies any tobacco usage or history of. ROS: 18:33 Constitutional: Negative for fever, chills, and weight loss, Cardiovascular: Negative kb for chest pain, palpitations Respiratory: Negative for shortness of breath, cough, wheezing, and pleuritic chest pain, Abdomen/GI: Negative for abdominal pain, nausea, vomiting, diarrhea, and constipation, Back: Negative for injury and pain, Skin: Negative for injury, rash, and discoloration, Neuro: Negative for headache, weakness, numbness, tingling, and seizure. 18:33 Cardiovascular: Positive for edema. Exam: 18:34 Constitutional: This is a well developed, well nourished patient who is awake, alert, kb and in no acute distress. Head/Face: Normocephalic, atraumatic. Chest/axilla: Normal chest wall appearance and motion. Nontender with no deformity. No lesions are appreciated. Respiratory: Lungs have equal breath sounds bilaterally, clear to auscultation and percussion. No rales, rhonchi or wheezes noted. No increased work of breathing, no retractions or nasal flaring. Abdomen/GI: Soft, non-tender, with normal bowel sounds. No distension or tympany. No guarding or rebound. No evidence of tenderness throughout. Skin: Warm, dry with normal turgor. Normal color with no rashes, no lesions, and no evidence of cellulitis. MS/ Extremity: Pulses equal, no cyanosis. Neurovascular intact. Full, normal range of motion. Neuro: Awake and alert, GCS 15, oriented to person, place, time, and situation. Cranial nerves II-XII grossly intact. Motor strength 5/5 in all extremities. Sensory grossly intact. Cerebellar exam normal. Normal gait. 18:34 Cardiovascular: Edema: 2+ edema to level of left foot and right foot. Vital Signs: 16:44 BP 164 / 60; Pulse 66; Resp 17; Temp 98.7; Pulse Ox 97% ; Weight 67.13 kg; Height 4 ft. ll1 11 in. (149.86 cm); Pain 8/10; 17:55 BP 156 / 68; Pulse 66; Resp 21; Pulse Ox 94% ; bp 18:30 BP 168 / 67; Pulse 63; Resp 15; Pulse Ox 97% ; bp 19:57 BP 160 / 70; Pulse 60; Resp 18; Pulse Ox 99% ; ea 16:44 Body Mass Index 29.89 (67.13 kg, 149.86 cm) ll1 MDM: 17:22 Patient medically screened. kb 18:30 Data reviewed: vital signs, nurses notes. Data interpreted: Pulse oximetry: on room air kb is 94 %. Interpretation: acceptable. Counseling: I had a detailed discussion with the patient and/or guardian regarding: the historical points, exam findings, and any diagnostic results supporting the discharge/admit diagnosis, lab results, radiology results, the need for further work-up and treatment in the hospital. Physician consultation: Gildardo Carrillo MD was called at 18:30, regarding admission, to the telemetry unit. patient's condition, voicemail left . 18:38 Physician consultation: Gildardo Carrillo MD was contacted at 18:39. kb 01/08 17:33 Order name: Basic Metabolic Panel; Complete Time: 18:22 kb 01/08 17:33 Order name: CBC with Diff; Complete Time: 18:05 kb 01/08 17:33 Order name: LFT's; Complete Time: 18:22 kb 01/08 17:33 Order name: Magnesium; Complete Time: 18:22 kb 01/08 17:33 Order name: NT PRO-BNP; Complete Time: 18:22 kb 01/08 17:33 Order name: PT-INR; Complete Time: 18:20 kb 01/08 17:33 Order name: US Extremity Venous W Compression Tk kb 01/08 17:33 Order name: Troponin (emerg Dept Use Only); Complete Time: 18:22 kb 01/08 17:33 Order name: XRAY Chest (1 view) kb 01/08 17:33 Order name: EKG; Complete Time: 17:34 kb 01/08 17:33 Order name: Cardiac monitoring; Complete Time: 17:52 kb 01/08 17:33 Order name: EKG - Nurse/Tech; Complete Time: 17:52 kb 01/08 17:33 Order name: IV Saline Lock; Complete Time: 17:52 kb 01/08 17:33 Order name: Labs collected and sent; Complete Time: 17:52 kb 01/08 17:33 Order name: O2 Per Protocol; Complete Time: 17:52 kb 01/08 17:33 Order name: O2 Sat Monitoring; Complete Time: 17:52 kb Administered Medications: 18:54 Drug: Lasix 40 mg Route: IVP; Site: left antecubital; bp Disposition: 01/09 08:05 Co-signature as Attending Physician, Ashkan Martel MD. rn Disposition: 01/09/20 18:32 Hospitalization ordered by Gildardo Carrillo for Observation. Preliminary diagnosis are Pulmonary edema, Edema, unspecified - 2+ lower extremity. - Bed requested for Telemetry/MedSurg (observation). - Status is Observation. bb - Condition is Stable. - Problem is new. - Symptoms are unchanged. Signatures: Dispatcher [employer] EDMS Brian Amairani, COOKER TENDER-C COOKER TENDER-Ckb Patricia Bynum, RN RN bb Ashkan Martel MD MD rn Garcia, Cindy, RN RN cg Peltier, Brian, Ivonne Elliott RN, TRENA RN ll1 Corrections: (The following items were deleted from the chart) 01/08 17:35 17:10 Extremity Venous Uni Ltd+US.RAD.BRZ ordered. EDNM EDNM 18:34 18:33 Constitutional: Negative for fever, chills, and weight loss, Cardiovascular: kb Negative for chest pain, palpitations, and edema, Respiratory: Negative for shortness of breath, cough, wheezing, and pleuritic chest pain, Abdomen/GI: Negative for abdominal pain, nausea, vomiting, diarrhea, and constipation, Back: Negative for injury and pain, Skin: Negative for injury, rash, and discoloration, Neuro: Negative for headache, weakness, numbness, tingling, and seizure, kb 19:10 18:32 Hospitalization Ordered by Gildardo Carrillo MD for Observation. Preliminary cg diagnosis is Pulmonary edema; Edema, unspecified - 2+ lower extremity. Bed requested for Telemetry/MedSurg (observation). Status is Observation. Condition is Stable. Problem is new. Symptoms are unchanged. kb 19:10 19:10 01/09/2020 18:32 Hospitalization Ordered by Gildardo Carrillo MD for Observation. cg Preliminary diagnosis is Pulmonary edema; Edema, unspecified - 2+ lower extremity. Bed requested for Telemetry/MedSurg (observation). Status is Observation. Condition is Stable. Problem is new. Symptoms are unchanged. cg 19:59 19:10 01/09/2020 18:32 Hospitalization Ordered by Gildardo Carrillo MD for Observation. bb Preliminary diagnosis is Pulmonary edema; Edema, unspecified - 2+ lower extremity. Bed requested for Telemetry/MedSurg (observation). Status is Observation. Condition is Stable. Problem is new. Symptoms are unchanged. cg
--- NOTE | 2020-01-09 18:55 | RAD REPORT ---
EXAM DESCRIPTION: US - Extrem Venous W Compress Tk - 01/09/2020 6:20 pm CLINICAL HISTORY: SWELLING Bilateral leg edema and swelling. COMPARISON: Extrem Venous W Compress Tk dated 09/25/2016 TECHNIQUE: Real-time sonographic interrogation of the left and right lower extremity deep venous sys tems was performed. FINDINGS: Normal compressibility, flow augmentation, phasic flow and spontaneous flow is identified in both the left and right lower extremity deep venous systems. IMPRESSION: No sonographic evidence of left or right lower extremity deep venous thrombosis.
[2020-01-09] MEDS ORDERED: FUROSEMIDE 40 MG/4 ML VIAL ONE (19:04)
--- NOTE | 2020-01-09 19:04 | RAD REPORT ---
EXAM DESCRIPTION: RAD - Chest Single View - 01/09/2020 6:17 pm CLINICAL HISTORY: SWELLING Chest pain. COMPARISON: Chest Single View dated 12/29/2018; Chest Pa And Lat (2 Views) dated 12/02/2017; Chest Sin gle View dated 03/04/2017; Chest Single View dated 03/03/2017 FINDINGS: Portable technique limits examination quality. Mild interstitial pulmonary edema. The heart is moderately enlarged. No displaced fractures. IMPRESSION: Mild CHF versus volume overload pattern.
[2020-01-09] MEDS ORDERED: GLUCAGON 1 MG/VIAL IM PRN (20:35)
[2020-01-09] MEDS ORDERED: D50W 25 GM/50 ML SYRINGE/VIAL IV PRN (20:35)
[2020-01-10 00:26] VITALS: BMI 32.1
[2020-01-10 04:57] LABS: Absolute Lymphocytes (CBC) 1.1 K/uL (0.7-4.9); Basophils % 0.9 % (0-1.3); Hematocrit 31.3 % (36.0-45.0); Lymphocytes % 21.1 % (15.3-44.8); MPV 8.4 fL (7.6-11.3); RBC Red Blood Cell Count 3.68 M/uL (3.86-4.86)
[2020-01-10 05:08] LABS: Potassium 3.7 mmol/L (3.5-5.1)
[2020-01-10] MEDS: ASPIRIN EC 81 MG TAB PO SCH (07:52)
[2020-01-10] MEDS ORDERED: GLUCAGON 1 MG/VIAL IM PRN (12:18)
[2020-01-10] MEDS ORDERED: D50W 25 GM/50 ML SYRINGE/VIAL IV PRN (12:18)
[2020-01-10] MEDS: FUROSEMIDE 40 MG/4 ML VIAL IV SCH (12:44)
[2020-01-10] MEDS: INSULIN -REGULAR HUMAN 50 UNIT/0.5 ML ML SQ SCH ×2 (16:18→21:50)
[2020-01-10] MEDS ORDERED: ENOXAPARIN 40 MG/0.4 ML SQ SCH (17:00)
[2020-01-10] MEDS ORDERED: ENOXAPARIN 30 MG/0.3 ML SQ SCH (17:00)
[2020-01-10] MEDS ORDERED: ATORVASTATIN 20 MG TAB PO SCH (21:00)
[2020-01-10] MEDS: PROPYLTHIOURACIL 50 MG TAB PO SCH (22:02)
[2020-01-10] MEDS: HYDRALAZINE HCL 10 MG TABLET PO SCH (22:03)
--- NOTE | 2020-01-10 22:12 | HP ---
Date of Admission: 01/09/2020 History Of Present Illness: A 79-year-old female, presented to emergency room with bilateral swellin g in her ankles along with mild dry cough for few days. No fever, no chills. Evaluation showed that the patient had mild CHF and she was admitted for that. Review of Systems: Cardiovascular: No chest pain, no palpitation, no dizziness. Respiratory: As above. Gastrointestinal: No complaints. Genitourinary: No complaints. Skeletomuscular: No complaints. Neurological: No complaints. Past Medical History: 1.Hypertension. 2.Type 2 diabetes. 3.Hyperlipidemia. 4.Hyperthyroidism. 5.Anemia of chronic disease. 6.Gallbladder stone. No cholecystitis. 7.Chronic renal insufficiency from diabetes. 8.Gastroesophageal reflux disease. 9.Right sciatica. 10.Diabetic cataract bilateral. Social History: No smoking, alcohol, or drug abuse history. Family History: Noncontributing. Medications: Hydrochlorothiazide 25 mg daily, alendronate 70 mg p.o. weekly, omeprazole 20 mg p.o. d aily p.r.n., propylthiouracil 50 mg p.o. b.i.d., calcium plus vitamin D, Bystolic 10 mg p.o. daily, g limepiride 1 mg p.o. daily, Restasis eye drops. Allergies: AMLODIPINE, CAUSING EDEMA. LISINOPRIL, CAUSING ANGIONEUROTIC EDEMA. METOPROLOL, CAUSING SOME MILD FATIGUE. Physical Examination: Vital Signs: Blood pressure 122/60, pulse 66, temperature 98.4, room air pulse oximetry 95. Heart: Regular rate and rhythm. Chest: Clear to auscultation. Abdomen: Soft, benign. NEUROLOGICAL: Alert, oriented, grossly intact. Extremities: Trace to 1+ bilateral pedal and tibial edema. Diagnostic Data: Chest x-ray showed mild CHF. Bilateral venous Doppler study, no DVT. Laboratory Data: White cell count 5.3, hemoglobin 10.6, hematocrit 31.3, and platelets 106. PT, INR noted. Chemistry; BUN 28, creatinine 1.72 dropped down, and then BUN 32 and creatinine of 1.53. Bl ood sugar fingersticks noted. BNP 1524. Assessment/plan: Likely congestive heart failure. We are going to go ahead and put the patient on I V Lasix, salt restriction, and bedrest. We will put her on Lovenox prophylaxis and we will order a c ardiac echo. We will continue her medications for her chronic medical illnesses and we will monitor her blood sugar fingersticks and put her on a sliding scale. Look orders for details. BASSAM/PAO Voice ID: [id number]
[2020-01-10] MEDS: BENZONATATE 100 MG CAP PO PRN (22:58)
[2020-01-11] MEDS ORDERED: FUROSEMIDE 20 MG/ 2ML VIAL IV ONE (01:01)
[2020-01-11] MEDS ORDERED: FUROSEMIDE 20 MG/ 2ML VIAL ONE (01:13)
[2020-01-11] MEDS: ALBUTEROL 2.5 MG/3 ML NEB SOL NEB SCH ×2 (01:25→08:05)
[2020-01-11 03:58] LABS: Absolute Lymphocytes (CBC) 0.9 K/uL (0.7-4.9); Basophils % 0.9 % (0-1.3); Hematocrit 31.3 % (36.0-45.0); RBC Red Blood Cell Count 3.67 M/uL (3.86-4.86)
[2020-01-11 04:15] LABS: Potassium 3.4 mmol/L (3.5-5.1)
--- NOTE | 2020-01-11 05:59 | EKG ---
Test Date: 2020-01-09 Test Time: 17:54:50 State Trooper: BP MEASUREMENT RESULTS: Intervals: Rate: 64 HI: 198 QRSD: 76 QT: 438 QTc: 451 Mason: P: 78 HI: 198 QRS: -24 T: -23 INTERPRETIVE STATEMENTS: Normal sinus rhythm Nonspecific ST abnormality Abnormal ECG Compared to ECG 12/29/2018 19:23:14 ST (T wave) deviation now present Electronically Signed On 01-11-20 05:56:12 CDT by Gavino Nichols
[2020-01-11] MEDS: INSULIN -REGULAR HUMAN 50 UNIT/0.5 ML ML SQ SCH (07:30)
[2020-01-11] MEDS ORDERED: GLIMEPIRIDE 2 MG TABLET PO SCH (08:00)
[2020-01-11] MEDS: BENZONATATE 100 MG CAP PO PRN (08:00)
--- NOTE | 2020-01-11 08:10 | ECHO ---
HEIGHT: 4 ft 11 in WEIGHT: 159 lb 0 oz DATE OF STUDY: 01/10/[address]: Amairani Torres 2-DIMENSIONAL: YES M.MODE: YES DOPPLER: YES COLOR FLOW: YES TDS: NO PORTABLE: NO DEFINITY: NO BUBBLE STUDY: NO DIAGNOSIS: CONGESTIVE HEART FAILURE CARDIAC HISTORY: CATHERIZATION: SURGERY: PROSTHETIC VALVE: PACEMAKER: MEASUREMENTS (cm) DIASTOLIC (NORMALS) SYSTOLIC (NORMALS) IVSd 1.1 (0.6-1.2) LA Diam 3.7 (1.9-4.0) LVEF 72% LVIDd 3.8 (3.5-5.7) LVIDs 2.3 (2.0-3.5) %FS 40% LVPWd 1.2 (0.6-1.2) Ao Diam 2.6 (2.0-3.7) 2 DIMENSIONAL ASSESSMENT: RIGHT ATRIUM: NORMAL LEFT ATRIUM: NORMAL RIGHT VENTRICLE: NORMAL LEFT VENTRICLE: NORMAL TRICUSPID VALVE: NORMAL MITRAL VALVE: NORMAL PULMONIC VALVE: NORMAL AORTIC VALVE: SCLEROSIS PERICARDIAL EFFUSION: NONE AORTIC ROOT: NORMAL LEFT VENTRICULAR WALL MOTION: NORMAL DOPPLER/COLOR FLOW: NORMAL COMMENTS: NORMAL LEFT VENTRICULAR SIZE AND FUNCTION. AORTIC SCLEROSIS WITH NO STENOSIS. NO WALL MOTION ABNORMALITY. NO EFFUSION. TECHNOLOGIST: Mathew RETANA
[2020-01-11] MEDS ORDERED: NEBIVOLOL HCL 5 MG TAB PO SCH (09:00)
[2020-01-11] MEDS: FUROSEMIDE 40 MG/4 ML VIAL IV SCH (10:07)
[2020-01-11] MEDS: HYDRALAZINE HCL 10 MG TABLET PO SCH (10:07)
[2020-01-11] MEDS: ASPIRIN EC 81 MG TAB PO SCH (10:07)
--- NOTE | 2020-01-11 10:07 | RAD REPORT ---
EXAM DESCRIPTION: RAD - Chest Single View - 01/10/2020 10:58 pm CLINICAL HISTORY: Coughing up blood TECHNIQUE: Single frontal view of the chest is submitted. COMPARISON: 01/09/2020 FINDINGS: Heart: The cardiothoracic silhouette is enlarged, stable. Lungs: No focal consolidation. Mediastinum: Thoracic aortic atherosclerosis. Pleura: No appreciable effusion. No pneumothorax. Bones: Multilevel spondylosis. No acute fracture. Upper abdomen: Unremarkable IMPRESSION: No acute disease. Electronically signed by: Bonnie Floyd MD 01/10/2020 11:23 PM CDT Due to temporary technical issues with the PACS/Fluency reporting system, reports are being signed by the in house radiologist without review as a courtesy to ensure prompt reporting. The interpreting r adiologist is fully responsible for the content of the report.
[2020-01-11] MEDS: PROPYLTHIOURACIL 50 MG TAB PO SCH (10:08)
[2020-01-11 11:56] VITALS: TEMP 98.1
[2020-01-11 12:03] VITALS: BP 134/60
[2020-01-11 13:05] VITALS: O2SAT 94
== END 2020-01-11 13:17 | disposition home or self-care (01) ==
LOC: ER 16:28 → ERHOLD 18:36 → 4TH 20:07
PROVIDERS: ADMIT Internal Medicine; ATTEND Internal Medicine
DX: I13.0 Hypertensive heart and chronic kidney disease with heart failure and stage 1 through stage 4 chronic kidney disease, or unspecified chronic kidney disease (principal); I50.9 Heart failure, unspecified; E11.22 Type 2 diabetes mellitus with diabetic chronic kidney disease; N18.9 Chronic kidney disease, unspecified; Z20.828 Contact with and (suspected) exposure to other viral communicable diseases; E78.5 Hyperlipidemia, unspecified; E05.90 Thyrotoxicosis, unspecified without thyrotoxic crisis or storm; D63.1 Anemia in chronic kidney disease; K21.9 Gastro-esophageal reflux disease without esophagitis; E78.00 Pure hypercholesterolemia, unspecified; R94.31 Abnormal electrocardiogram [ECG] [EKG]
CPT/HCPCS: 36415; 71045; 80048; 80076; 82947; 83735; 83880; 84484; 85025; 85610; 93005; 93306; 93970; 94640; 96374; 99285; G0378; J1650; J1940; U0002

== ENCOUNTER 2020-01-27 05:03 | Emergency (ER) | payer OTHER ==
[2020-01-27] MEDS ORDERED: CEFTRIAXONE/SWI 1gm 1 GM/10 ML SYR ONE (06:49)
[2020-01-27] MEDS ORDERED: AZITHROMYCIN 250 MG TAB ONE (06:49)
--- NOTE | 2020-01-27 06:57 | EDPHYS ---
Physician Documentation [facility] Name: Cristel Casas Age: 79 yrs Sex: Female : 1940 Arrival Date: 01/27/2020 Time: 05:05 Bed 6 Private MD: ED Physician Omid Bradshaw HPI: 01/26 05:33 This 79 yrs old Female presents to ER via Ambulatory with complaints of Fall tw4 Injury. 05:33 Details of fall: The patient fell from an upright position. Onset: The symptoms/episode tw4 began/occurred 2 day(s) ago. Associated injuries: The patient sustained injury to the chest, specifically the right lateral anterior chest. Severity of symptoms: At their worst the symptoms were moderate, in the emergency department the symptoms are unchanged. The patient has not experienced similar symptoms in the past. Historical: - Allergies: 05:33 No Known Allergies; rv - PMHx: 05:33 Diabetes - NIDDM; High Cholesterol; Hypertension; Hypothyroidism; rv - PSHx: 05:33 Appendectomy; rv - Immunization history: Last tetanus immunization: unknown. - Social history:: Smoking status: Patient/guardian denies using tobacco, the patient reports quitting approximately 20 years ago. ROS: 05:33 Constitutional: Negative for fever, chills, and weight loss, Eyes: Negative for injury, tw4 pain, redness, and discharge. 05:33 Respiratory: Negative for shortness of breath, cough, wheezing, and pleuritic chest pain, Abdomen/GI: Negative for abdominal pain, nausea, vomiting, diarrhea, and constipation, Back: Negative for injury and pain, MS/Extremity: Negative for injury and deformity, Skin: Negative for injury, rash, and discoloration, Neuro: Negative for headache, weakness, numbness, tingling, and seizure. 05:33 Cardiovascular: Positive for chest pain, Negative for edema, orthopnea, palpitations, acute changes. Exam: 05:33 Constitutional: This is a well developed, well nourished patient who is awake, alert, tw4 and in no acute distress. Head/Face: Normocephalic, atraumatic. Cardiovascular: Regular rate and rhythm with a normal S1 and S2. No gallops, murmurs, or rubs. Normal PMI, no JVD. No pulse deficits. Respiratory: Lungs have equal breath sounds bilaterally, clear to auscultation and percussion. No rales, rhonchi or wheezes noted. No increased work of breathing, no retractions or nasal flaring. Abdomen/GI: Soft, non-tender, with normal bowel sounds. No distension or tympany. No guarding or rebound. No evidence of tenderness throughout. Back: No spinal tenderness. No costovertebral tenderness. Full range of motion. Skin: Warm, dry with normal turgor. Normal color with no rashes, no lesions, and no evidence of cellulitis. MS/ Extremity: Pulses equal, no cyanosis. Neurovascular intact. Full, normal range of motion. 05:33 Chest/axilla: Inspection: normal, Palpation: tenderness, of the right lateral anterior chest. Vital Signs: 05:30 BP 181 / 65; Pulse 68; Resp 19; Temp 98.2; Pulse Ox 95% on R/A; Weight 68.04 kg; rv Dow Coma Score: 05:30 Eye Response: spontaneous(4). Verbal Response: oriented(5). Motor Response: obeys rv commands(6). Total: 15. Trauma Score (Adult): 05:30 Eye Response: spontaneous(1); Verbal Response: oriented(1); Motor Response: obeys rv commands(2); Systolic BP: > 89 mm Hg(4); Respiratory Rate: 10 to 29 per min(4); Dow Score: 15; Trauma Score: 12 MDM: 05:17 Patient medically screened. tw4 06:57 Data reviewed: vital signs, nurses notes. Data reviewed: lab test result(s), CBC, tw4 electrolytes, radiologic studies, CT scan. Data interpreted: Pulse oximetry: Interpretation: normal. Special discussion: I discussed with the patient/guardian in detail that at this point there is no indication for admission to the hospital. It is understood, however, that if the symptoms persist or worsen the patient needs to return immediately for re-evaluation. ED course: CT scan reveals RML pneumonia will start on antibiotics. 01/26 06:29 Order name: CBC with Diff tw4 01/26 06:29 Order name: Blood Culture Adult (2) tw4 01/26 05:22 Order name: CT Chest Wo Con tw4 01/26 06:29 Order name: CMP tw4 10/23 06:41 Order name: COVID-19 Administered Medications: 07:00 Drug: Rocephin - (cefTRIAXone) 1 grams Route: IVPB; Infused Over: 30 mins; Site: right rv antecubital; 07:10 Follow up: IV Status: Completed infusion rv 07:10 Drug: AZITHromycin 500 mg Route: PO; rv 07:50 Follow up: Response: No adverse reaction em Disposition: 01/27/20 06:56 Discharged to Home. Impression: Pneumonia, unspecified organism, Contusion of front wall of thorax. - Condition is Stable. - Discharge Instructions: Chest Wall Pain, Community-Acquired Pneumonia, Adult. - Prescriptions for Tramadol 50 mg Oral Tablet - take 1 tablet by ORAL route every 8 hours as needed; 12 tablet. Zithromax Z- Rodríguez 250 mg Oral Tablet - take 1 tablet by ORAL route as directed for 5 days Day 1 - take two (2) tablets one time. Day 2, 3, 4 , 5 take one (1) tablet once daily.; 6 tablet. - Medication Reconciliation Form, Thank You Letter, Antibiotic Education, Prescription Opioid Use form. - Follow up: Private Physician; When: Upon discharge from the Emergency Department; Reason: Recheck today's complaints, Continuance of care, Re-evaluation by your physician. - Problem is new. - Symptoms have improved. Signatures: Dispatcher [employer] Cameron Méndez, RN RN Omid Lagos MD MD tw4 Ceasar Tsang RN RN rv Corrections: (The following items were deleted from the chart) 07:54 06:56 01/27/2020 06:56 Discharged to Home. Impression: Pneumonia, unspecified organism; em Contusion of front wall of thorax. Condition is Stable. Forms are Medication Reconciliation Form, Thank You Letter, Antibiotic Education, Prescription Opioid Use. Follow up: Private Physician; When: Upon discharge from the Emergency Department; Reason: Recheck today's complaints, Continuance of care, Re-evaluation by your physician. Problem is new. Symptoms have improved. tw4
--- NOTE | 2020-01-27 06:57 | ER ---
Nurse's Notes [facility] Name: Cristel Casas Age: 79 yrs Sex: Female : 1940 Arrival Date: 01/27/2020 Time: 05:05 Bed 6 Private MD: Diagnosis: Pneumonia, unspecified organism;Contusion of front wall of thorax Presentation: 01/26 05:27 Chief complaint: Patient's son or daughter states: she fell Thursday and she did not rv tell anyone. now she is complaining pain on her right side, and is hard to breath in. Care prior to arrival: None. Mechanism of Injury: Fall from standing position. Trauma event details: Injury occurred in the [facility], Injury occurred: at home. Injury occurred: January 25, 2020. 05:27 Acuity: HERIBERTO 3 rv :27 Method Of Arrival: Ambulatory rv 05:31 Coronavirus screen: Client denies travel out of the [place] in the last 14 days. rv Coronavirus screen:. Ebola Screen: No symptoms or risks identified at this time. Initial Sepsis Screen: Does the patient meet any 2 criteria? No. Patient's initial sepsis screen is negative. Does the patient have a suspected source of infection? No. Patient's initial sepsis screen is negative. Risk Assessment: Do you want to hurt yourself or someone else? Patient reports no desire to harm self or others. Onset of symptoms is unknown. Trauma Activation: Not Applicable Physician: ED Physician; Name: ; Notified At: ; Arrived At: Physician: General Surgeon; Name: ; Notified At: ; Arrived At: Physician: Radiology; Name: ; Notified At: ; Arrived At: Physician: Respiratory; Name: ; Notified At: ; Arrived At: Physician: Lab; Name: ; Notified At: ; Arrived At: Historical: - Allergies: 05:33 No Known Allergies; rv - PMHx: 05:33 Diabetes - NIDDM; High Cholesterol; Hypertension; Hypothyroidism; rv - PSHx: 05:33 Appendectomy; rv - Immunization history: Last tetanus immunization: unknown. - Social history:: Smoking status: Patient/guardian denies using tobacco, the patient reports quitting approximately 20 years ago. Screenin:31 Abuse screen: Denies threats or abuse. Denies injuries from another. Nutritional rv screening: No deficits noted. Tuberculosis screening: No symptoms or risk factors identified. 05:32 Fall Risk Fall in past 12 months (25 points). No secondary diagnosis (0 pts). No IV (0 rv pts). Ambulatory Aid- None/Bed Rest/Nurse Assist (0 pts). Gait- Normal/Bed Rest/Wheelchair (0 pts) Mental Status- Oriented to own ability (0 pts). Total Durand Fall Scale indicates No Risk (0-24 pts). Primary Survey: 05:29 NO uncontrolled hemorrhage observed. Breathing/Chest: Respiratory pattern: tachypnea, rv Respiratory effort: labored. Circulation: Skin color: pink. Disability Alert. Exposure/Environment: There is no evidence of uncontrolled external bleeding. No obvious injuries are noted at this time. A warming method has been applied: A warm blanket has been provided to the patient. Secondary Survey: 05:29 HEENT: No deficits noted. Gastrointestinal: No deficits noted. : No signs and/or rv symptoms were reported regarding the genitourinary system. Musculoskeletal: No signs and/or symptoms reported regarding the musculoskeletal system. Assessment: 05:29 General: Appears uncomfortable, Behavior is calm, cooperative. Pain: Complains of pain rv in right lateral anterior chest. Neuro: Level of Consciousness is awake, alert, obeys commands, Oriented to person, place, time, situation. EENT: No signs and/or symptoms were reported regarding the EENT system. Cardiovascular: Patient's skin is warm and dry. Respiratory: Airway is patent Respiratory effort is labored, Respiratory pattern is tachypnea. Derm: Skin is intact. Vital Signs: 05:30 BP 181 / 65; Pulse 68; Resp 19; Temp 98.2; Pulse Ox 95% on R/A; Weight 68.04 kg; rv [place] Coma Score: 05:30 Eye Response: spontaneous(4). Verbal Response: oriented(5). Motor Response: obeys rv commands(6). Total: 15. Trauma Score (Adult): 05:30 Eye Response: spontaneous(1); Verbal Response: oriented(1); Motor Response: obeys rv commands(2); Systolic BP: > 89 mm Hg(4); Respiratory Rate: 10 to 29 per min(4); Nish Score: 15; Trauma Score: 12 ED Course: 05:05 Patient arrived in ED. ag3 05:17 Omid Bradshaw MD is Attending Physician. tw4 05:27 Ceasar Tsang, TRENA is Primary Nurse. rv 05:29 Triage completed. rv 05:31 Patient has correct armband on for positive identification. Bed in low position. Call rv light in reach. Adult w/ patient. Patient maintains SpO2 saturation greater than 95% on room air. 05:31 Patient maintains SpO2 saturation greater than 95% on room air. rv 05:33 Arm band placed on right wrist. Patient placed in the treatment room, on a stretcher, rv Patient notified of wait time. 05:33 Thermoregulation: warm blanket given to patient. rv 06:13 CT Chest Wo Con In Process Unspecified. EDMS 06:40 Inserted saline lock: 20 gauge in right antecubital area, using aseptic technique. rv Blood collected. 06:40 First set of blood cultures drawn by me. rv 06:55 Second set of blood cultures drawn by me. rv 07:36 IV discontinued, intact, bleeding controlled, No redness/swelling at site. Pressure dh3 dressing applied. 07:54 No provider procedures requiring assistance completed. em Administered Medications: 07:00 Drug: Rocephin - (cefTRIAXone) 1 grams Route: IVPB; Infused Over: 30 mins; Site: right rv antecubital; 07:10 Follow up: IV Status: Completed infusion rv 07:10 Drug: AZITHromycin 500 mg Route: PO; rv 07:50 Follow up: Response: No adverse reaction em Outcome: 06:56 Discharge ordered by . tw4 07:54 Discharged to home via wheelchair, with family. em 07:54 Condition: good 07:54 Discharge instructions given to patient, family, Instructed on discharge instructions, follow up and referral plans. medication usage, Demonstrated understanding of instructions, follow-up care, medications, Prescriptions given X 2. 07:54 Patient left the ED. em Addendum: 01/30/2020 19:21 Addendum: COVID-19 Result: Negative result given to RN to notify pt. Attempted to i w contact pt regarding negative COVID-19 swab results. Left voice mail. Signatures: Dispatcher [employer] Cameron Méndez RN RN Soledad Pinedo RN RN iw Herrera, [facility] Omid Bradshaw MD MD 4 Ceasar Tsang RN RN rv Rere Portillo ag3
[2020-01-27 07:02] LABS: Absolute Lymphocytes (CBC) 0.7 K/uL (0.7-4.9); Hematocrit 29.8 % (36.0-45.0); MPV 8.3 fL (7.6-11.3); RBC Red Blood Cell Count 3.51 M/uL (3.86-4.86)
[2020-01-27 07:25] LABS: Albumin 2.8 g/dL (3.4-5.0); Bilirubin Total 0.7 mg/dL (0.2-1.0); Potassium 4.4 mmol/L (3.5-5.1); Protein, Total 6.9 g/dL (6.4-8.2)
[2020-01-27 08:01] VITALS: BP 181/65; TEMP 98.2; O2SAT 95
--- NOTE | 2020-01-27 15:46 | RAD REPORT ---
EXAM DESCRIPTION: CT Chest Without Intravenous Contrast CLINICAL HISTORY: The patient is 79 years old and is Female; PAIN TECHNIQUE: Axial computed tomography images of the chest without intravenous contrast. Sagittal an d coronal reformatted images were created and reviewed. This CT exam was performed using one or mor e of the following dose reduction techniques: automated exposure control, adjustment of the mA and/ or kV according to patient size, and/or use of iterative reconstruction technique. COMPARISON: No relevant prior studies available. FINDINGS: Lungs: Right middle lobe consolidation suspicious for pneumonia. Pleural space: Bilateral pleural effusions, larger on the right. No pneumothorax. Heart: Cardiomegaly. No significant pericardial effusion. Bones/joints: Degenerative changes in the spine with kyphosis. Old mid thoracic compression frac ture, approximately T7 level. Previous sternal fracture. Old right rib fractures. No dislocation. Soft tissues: Unremarkable. Vasculature: Unremarkable. No thoracic aortic aneurysm. Lymph nodes: There are a few mildly enlarged anterior mediastinal, paratracheal and subcarinal l ymph nodes. IMPRESSION: 1. Right middle lobe consolidation suspicious for pneumonia. Clinical correlation sugg ested. 2. Bilateral pleural effusions, larger on the right. 3. Adenopathy as above. 4. Additional non-emergent findings as above. Electronically signed by: Alicja Orozco MD 01/27/2020 6:23 AM CDT Due to temporary technical issues with the PACS/Fluency reporting system, reports are being signed by the in house radiologist without review as a courtesy to ensure prompt reporting. The interpreting r adiologist is fully responsible for the content of the report.
== END 2020-01-27 07:54 | disposition home or self-care (01) ==
LOC: ER 05:03
DX: J18.9 Pneumonia, unspecified organism (principal); S20.211A Contusion of right front wall of thorax, initial encounter; Z20.828 Contact with and (suspected) exposure to other viral communicable diseases; W19.XXXA Unspecified fall, initial encounter; Y93.9 Activity, unspecified; Y92.9 Unspecified place or not applicable; I10 Essential (primary) hypertension
CPT/HCPCS: 87040 ×2; 85025; 36415; 80053; 71250; 96374; 99284; U0002; J0696

== ENCOUNTER 2020-03-25 19:22 | Emergency (ER) | payer OTHER ==
--- OUTSIDE RECORDS SUMMARY | 2020-03-25 19:24 | XMS REPORT | Encounter Summary ---
:1940 Author Care Team Providers Name Role Phone Dr. Onur Mohr Primary Care Provider Unavailable Gildardo Carrillo MD Primary Care Provider [phone] Reason for Visit AWV Annual Wellness Visit Female Instructions 1. Advance directive discussed w ith patient advance care planning: car e instructions 2. Depression screening 3. Hypertensive disorder 4. Hypothyroidism 5. Gastroesophageal reflux disea se 6. Acute on chronic systolic hea rt failure 7. Cirrhosis of liver 8. Hyperglycemia due to type 2 d iabetes mellitus 9. Atherosclerosis of aorta Discussion Note Patient advice to follow up with he r pcp as needed, for any continue cough, sob and fever. Patient is noncompliant with her meds, patient encouraged to take all meds as directed. Patient verbalized understa nding. Plan of Care Patient Instructions It was good to see you in the offic e today for your Medicare Annual Wellness Visit. You have been provided some information on healthy nutrition, including a diet rich in fruits and vegetables, mi nimizing simple carbohydrates, salt, and saturated fats. I want to encourage regular cardiovascular exercise such as walking at least 30 minutes daily, 5 times per week. Please remember to schedule any prevent hank health measures that we talked about today. You have also been provided education on fall prevention and community- based lifestyle interventions to help reduc e health risks and promote healthy livin g in your Annual Wellness folder. Screening Recommendations 1. Vaccines Pneumonia: Recommended today Influenz a: Recommended today 2. Mammography Screening: Recommended today 3. Colorectal Cancer Screening: Colonoscopy (every 10 years) Recommended today 4. Annual Depressi on Screening 5. Annual Alcohol Screening 6. Annual Fall Risk Screening 7. Annual Health Risk Assessment Reminders Provider Appointments Telemedicine on or around Aiyana 2020 KAL Huang Lab None recorded. Referral None recorded. Procedures None recorded. Surgeries None recorded. Imaging None recorded. Medications Name Start Date atorvastatin 20 mg tablet Take 1 tablet every day by oral route. Bystolic 10 mg tablet Take 1 tablet every day by oral route. Calcium 500 + D 500 mg(1,250 mg)-400 unit chewable tab let Take 1 tablet every day by oral route. glimepiride 1 mg tablet Take 1 tablet every day by oral route. hydralazine 10 mg tablet Take 1 tablet twice a day by oral route. hydrochlorothiazide 25 mg tablet Take 1 tablet every day by oral route. ibuprofen 200 mg capsule Take 1 capsule every 6 hours by oral route. propylthiouracil 50 mg tablet Take 1 tablet twice a day by oral route. Medications Administered None recorded. Vitals Height Weight BMI Blood Pressure 4 ft 11 in 158 lbs 31.9 kg/m2 140/80 mm[Hg] Results Lab Results None recorded. Allergies Code Code System Name Reaction Severity Status Onset NKDA Problems Name Status Onset Date Source Hypothyroidism Active 02/10/2020 Diabetes Mellitus Active 02/10/2020 Hypertensive Disorder Active 02/10/2020 Gastroesophageal Reflux Disease Active 02/10/2020 Procedures Date Name Performed by Appendectomy Information not avai lable Vaccine List Vaccine Type influenza, injectable, quadrivalent 01/05/2020 Social History Tobacco Smoking Status Former Smoker (1 PPW) Past Encounters Encounter Date Diagnosis Provider 02/10/2020 Advance Directive Discussed with Aiyana Huang NP: Patient; Depression Screening; [address] [facility], [address], Hypertensive Disorder; [place] [address], Hypothyroidism; Gastroesophageal Ph. Reflux Disease; Acute on Chronic Systolic Heart Failure; Cirrhosis of Liver; Hyperglycemia Due to Type 2 Diabetes Mellitus; Atherosclerosis of Aorta History of Present Illness Chronic Disease Management: HTN, DM, Lipid Disorder CDM Reported By: Patient HPI: Type: diabetes mellitus type 2, hypertension essential, hypercholesterolemia. Durati on or Onset: chronic. Status: Diabetes - Controlled, HTN - Controlled , Lipids - Controlled. Severity with lipid disorder. Associated Symptom s: no hypoglycemia, no feet pain, no tingling, no foot ulcer, no numbness of feet, no increased thirst, no vision changes. Modifying Fa ctors improved with medications. Compliance: COMPLIANT with theraputic pl an Mini Cog Reported By: Patient Functional Ability: Personal/Social/ Draw a cloc k and write in the numbers in the correct place, and set the t brandy to 10 minutes after 11 o'clock was completed correctly? Yes , 3 word recall: Your nurse or doctor will ask you to remember 3 w ords. In 5 minutes, they will ask you to repeat them. Tha hays recalled 3 words Opioid Use Assessment Reported By: Patient Opioid Use Assessment:: Current Use of Opioids : no use of opioids (no further questions required) Review of Systems Comprehensive General Adult ROS Reported By: Patient Constitutional: Constitutional: no fever, no night sweats, no significant weight gain, no significant weight loss, no exercise intolerance Eyes: Eyes: no dry eyes, no vision change, no irritation ENMT: Ears: no difficulty hearing, no ear pain. Nose: no frequent nosebleeds, no nose problems , no sinus problems. Mouth/Throat: no sore throat, no bleeding gums, no snoring, no dry mouth, no mouth ulcers, no oral abnorm alities, no teeth problems Cardiovascular: Cardiovascular: no chest aye n, no arm pain on exertion, no shortness of breath when wal ruben, no shortness of breath when lying down, no palpitations, no known heart murmur, no lightheadedness Respiratory: Respiratory: no cough, no wh eezing, no shortness of breath, no coughing up blood, no sleep apnea Gastrointestinal: Gastrointestinal: no abdomin al pain, no nausea, no vomiting, no constipation, normal appe tite, no diarrhea, not vomiting blood, no dyspepsia, no GERD Genitourinary: Genitourinary: no incontinen ce, no difficulty urinating, no hematuria, no increased freq uency Musculoskeletal: Musculoskeletal: no muscle a ches, no muscle weakness, no arthralgias/joint pain, no b ack pain, swelling in the extremities Integumentary: Skin: no abnormal mole, no j aundice, no rashes, no laceration Neurologic: Neurologic: no loss of consc iousness, no weakness, no numbness, no seizures, no di zziness, no migraines, no headaches, no tremor Psychiatric: Psych: no depression, no sle ep disturbances, feeling safe in a relationship, no alcohol abu se, no anxiety, no hallucinations, no suicidal thoughts Endocrine: Endocrine: no fatigue Hematologic/Lymphatic: Hematologic/Lymphatic no swo llen glands, no bruising, no excessive bleeding Allergic/Immunologic: Allergy/Immunologic: no runn y nose, no sinus pressure, no itching, no hives, no freque nt sneezing Physical Exam General Adult Exam (Female) Reported By: Patient Constitutional: General Appearance: healthy- appearing, well-nourished, well-developed. Ambulation: ambulating normally Psychiatric: Insight: good judgement. Men zaki Status: active and alert, normal mood, normal affect. Orienta tion: to time, to place, to person. Memory: recent memory normal , remote memory normal Head: Head: normocephalic, atrauma tic Eyes: Lids and Conjunctivae: non-i njected, no discharge, no pallor. Pupils: PERRLA. EOM: EOMI. V ision: peripheral vision grossly intact, acuity grossly intac t ENMT: Ears: no lesions on external ear, EACs clear, TMs clear, TM mobility normal. Hearing: no hearing loss. Nose: no lesions on external nose Neck: Neck: supple, trachea midlin e, no masses, FROM. Lymph Nodes: no cervical LAD, no supraclavic ular LAD, no axillary LAD. Thyroid: no enlargement, non-tender, no nodules Lungs: Respiratory effort: no dyspn ea. Percussion: no dullness, flatness, or hyperresonance. Auscultat ion: breath sounds normal, good air movement, CTA except as note d, no wheezing, no rales/crackles, no rhonchi Cardiovascular: Heart Auscultation: RRR, nor mal S1, normal S2, no murmurs, no rubs, no gallops. Neck vessels: no carotid bruits. Pulses including femoral / pedal: normal thro ughout Abdomen: Bowel Sounds: normal Musculoskeletal:: Motor Strength and Tone: nor mal motor strength, normal tone. Joints, Bones, and Muscles: normal movement of all extremities, no bony abnormalities, no contr actures, no malalignment, no tenderness. Extremities: no cyanosis, no varicosities, no palpable cord, edema Neurologic: Gait and Station: normal gai t, normal station Skin: Inspection and palpation: no rash, no lesions, no ulcer, good turgor
--- OUTSIDE RECORDS SUMMARY | 2020-03-25 19:24 | XMS REPORT | Continuity of Care Document ---
:1940 Author Organization [facility] t Address [address] [place] [address] Care Team Providers Name Role Phone Unavailable Unavailable Unavailable Problems Condition Condition Condition Status Onset Resolution Last Treating Co mments Source Name Details Category Date Date Treatment Clinician Date Hypothyroi Hypothyroi Problem Active 2019-04 [facility] dism dism 04-11 Family 00:00: Practic 00 e Diabetes Diabetes Problem Active 2019-04 Cruz ge mellitus Mellitus 04-11 Family 00:00: Practic 00 e Hypertensi Hypertensi Problem Active 2019-04 [facility] ve ve 04-11 Family disorder Disorder 00:00: Practi c 00 e Gastroesop Gastroesop Problem Active 2019-04 [facility] hageal hageal 04-11 Family reflux Reflux 00:00: Practic disease Disease 00 e Allergies, Adverse Reactions, Alerts This patient has no known allergies or adverse reactions. Social History Smoking Status Start Date Stop Date Source Former Smoker [facility] Medications Ordered Filled Start Stop Current Ordering Indication Dosage Frequency Signature Comments Components Source Medication Medication Date Date Medication? Clinician (SIG) Name Name katerine garcias No 1 Q1D atorvastat [facility] n 20 mg n 20 mg in 20 mg Famil y tablet Take tablet Take tablet Practic 1 tablet 1 tablet Take 1 e every day every day tablet by oral by oral every day route. route. by oral route. Bystolic 10 Bystolic 10 No 1 Q1D Bystolic [facility] mg tablet mg tablet 10 mg Fami ly Take 1 Take 1 tablet Practic tablet tablet Take 1 e every day every day tablet by oral by oral every day route. route. by oral route. Calcium 500 Calcium 500 No 1 Q1D Calcium [facility] + D 500 + D 500 500 + D Family mg(1,250 mg(1,250 500 [facility] mg)-400 mg)-400 mg(1,250 e unit unit mg)-400 chewable chewable unit tablet Take tablet Take chewable 1 tablet 1 tablet tablet every day every day Take 1 by oral by oral tablet route. route. every day by oral route. glimepiride glimepiride No 1 Q1D glimepirid [facility] 1 mg tablet 1 mg tablet e 1 mg Family Take 1 Take 1 tablet Practic tablet tablet Take 1 e every day every day tablet by oral by oral every day route. route. by oral route. hydralazine hydralazine No 1 BID hydralazin [facility] 10 mg 10 mg e 10 mg Family tablet Take tablet Take tablet Practic 1 tablet 1 tablet Take 1 e twice a day twice a day tablet by oral by oral twice a route. route. day by oral route. hydrochloro hydrochloro No 1 Q1D hydrochlor [facility] thiazide 25 thiazide 25 othiazide Family mg tablet mg tablet 25 mg Prac tic Take 1 Take 1 tablet e tablet tablet Take 1 every day every day tablet by oral by oral every day route. route. by oral route. ibuprofen ibuprofen No 1capsul Q6H ibuprofen [facility] 200 mg 200 mg e(s) 200 mg Family capsule capsule capsule Practi c Take 1 Take 1 Take 1 e capsule capsule capsule every 6 every 6 every 6 hours by hours by hours by oral route. oral route. oral route. propylthiou propylthiou No 1 BID propylthio [facility] racil 50 mg racil 50 mg uracil 50 Family tablet Take tablet Take mg tablet [facility] 1 tablet 1 tablet Take 1 e twice a day twice a day tablet by oral by oral twice a route. route. day by oral route. Immunizations Ordered Immunization Filled Immunization Date Status Commen ts Source Name Name influenza, influenza, 2020-01-05 Completed [facility] injectable, injectable, 00:00:00 Practice quadrivalent quadrivalent Vital Signs Vital Name Observation Time Observation Value Comments Source BP Diastolic 2020-02-10 00:00:00 80 mm[Hg] [facility] Height 2020-02-10 00:00:00 59 [in_i] [facility] BMI (Body Mass 2020-02-10 00:00:00 31.9 kg/m2 [facility] Index) Practice BP Systolic 2020-02-10 00:00:00 140 mm[Hg] [facility] Body Weight 2020-02-10 00:00:00 158 [lb_av] [facility] Procedures This patient has no known procedures. Plan of Care Planned Activity Planned Date Details Comments Source Future Appointment 2020 00:00:00 Aiyana [facility] Mayra-Jasvir, [address]; [place] [address], [place] [address] [facility] Encounters Start End Encounter Admission Attending Care Care Encounter Source Date/Time Date/Time Type Type Clinicians Facility Department ID 2020-02-10 2020-02-10 [facility]ana [facility] [place] - [id number] [facility] arcenio santizo, INFORMATICS EDUCATOR: Medical - Practi c [email or web address] [facility], [address], [place] [address] , Ph. Results This patient has no known results.
--- NOTE | 2020-03-25 20:28 | RAD REPORT ---
EXAM DESCRIPTION: RAD - Chest Single View - 03/25/2020 8:21 pm CLINICAL HISTORY: general weakness Chest pain. COMPARISON: Chest Single View dated 01/10/2020; Chest Single View dated 01/09/2020; Chest Single View dated 12/29/2018; Chest Pa And Lat (2 Views) dated 12/02/2017 FINDINGS: Portable technique limits examination quality. Mild to moderate pulmonary edema suspected. A left pleural effusion is suspected. The heart is mildly enlarged in size. No displaced fractures. IMPRESSION: Mild to moderate CHF versus volume overload pattern. Left pleural effusion suspected.
--- NOTE | 2020-03-25 20:49 | RAD REPORT ---
EXAM DESCRIPTION: US - Abdomen Exam Limited - 03/25/2020 8:40 pm CLINICAL HISTORY: RUQ abdomen tenderness COMPARISON: Abdomen Exam Limited dated 12/29/2018 FINDINGS: The gallbladder demonstrates no gallstones. No pericholecystic fluid or gallbladder wall t hickening. The common bile duct is normal measuring 5 mm. The liver demonstrates no findings of intrahepatic biliary dilatation. IMPRESSION: Unremarkable examination.
[2020-03-25 20:56] LABS: Absolute Lymphocytes (CBC) 0.9 K/uL (0.7-4.9); Basophils % 0.1 % (0-1.3); Lymphocytes % 10.1 % (15.3-44.8); MPV 8.6 fL (7.6-11.3); RBC Red Blood Cell Count 1.85 M/uL (3.86-4.86)
[2020-03-25 21:00] LABS: Hematocrit 15.2 % (36.0-45.0)
[2020-03-25 21:04] LABS: Albumin 2.2 g/dL (3.4-5.0); Bilirubin Direct 0.1 mg/dL (0-0.2); Bilirubin Total 0.4 mg/dL (0.2-1.0); Magnesium 3.1 mg/dL (1.8-2.4); Potassium 3.1 mmol/L (3.5-5.1); Protein, Total 5.9 g/dL (6.4-8.2); Troponin (Emerg Dept Use Only) 0.1 ng/mL (0.0-0.045)
[2020-03-25 22:22] LABS: Urine Blood 1+ (NEG); Urine Glucose NEGATIVE (NEG); Urine Protein 1+ (NEG); Urine Specific Gravity 1.015 (1.005-1.030); Urine pH 5.5 (5.0-7.0)
[2020-03-25 22:33] LABS: Urine Amorphous Sediment 2+ /HPF (NONE SEEN); Urine Bacteria <20 /HPF (<20); Urine RBC <5 /HPF (NONE SEEN); Urine Urothelial Cells <5 /HPF (NONE SEEN)
[2020-03-25] MEDS ORDERED: OCTREOTIDE ACETATE 100 MCG/ML ONE (22:57)
[2020-03-25] MEDS ORDERED: NA CHLORIDE 0.9% 500 ML ONE ×2 (22:57)
[2020-03-25] MEDS ORDERED: PANTOPRAZOLE 40 MG INJ ONE (22:57)
--- NOTE | 2020-03-25 23:05 | ER ---
Nurse's Notes [facility] Name: Cristel Casas Age: 79 yrs Sex: Female : 1940 Arrival Date: 03/25/2020 Time: 19:23 Bed 3 Private MD: Gildardo Carrillo F Diagnosis: Gastrointestinal hemorrhage, unspecified;Acute kidney failure;Elevated Troponin;Altered mental status, unspecified Presentation: 03/25 19:24 Chief complaint: EMS states: patient is latvian speaking only, accdg to the family she mg2 has generalized body weakness and altered mental status and hallucinations like seeing her sometimes. history of liver cirrhosis. Coronavirus screen: Client denies travel out of the [place] in the last 14 days. At this time, the client does not indicate any symptoms associated with coronavirus-19. Ebola Screen: No symptoms or risks identified at this time. Initial Sepsis Screen: Does the patient meet any 2 criteria? No. Patient's initial sepsis screen is negative. Does the patient have a suspected source of infection? No. Patient's initial sepsis screen is negative. Risk Assessment: Do you want to hurt yourself or someone else? Patient reports no desire to harm self or others. Onset of symptoms was March 2020. 19:24 Method Of Arrival: EMS: [facility] 19:24 Acuity: HERIBERTO 2 mg2 Historical: - Allergies: 19:27 No Known Allergies; mg2 - Home Meds: 19:27 atorvastatin 20 mg Oral tab 1 tab once daily [Active]; Bystolic 10 mg Oral tab 1 tab mg2 once daily [Active]; glimepiride 1 mg Oral tab 1 tab once daily [Active]; hydrochlorothiazide 12.5 mg Oral cap 1 cap once daily [Active]; omeprazole 20 mg Oral tab daily [Active]; propylthiouracil 50 mg Oral tab 1 tab 2 times per day [Active]; - PMHx: 19:27 Diabetes - NIDDM; High Cholesterol; Hypertension; Hypothyroidism; mg2 - Immunization history:: Flu vaccine status is unknown. - Social history:: Smoking status: unknown. Screenin:45 Abuse screen: Denies threats or abuse. Denies injuries from another. Nutritional mg2 screening: No deficits noted. Tuberculosis screening: No symptoms or risk factors identified. Fall Risk IV access (20 points). Assessment: 20:44 General: Appears in no apparent distress. comfortable, Behavior is calm, cooperative. mg2 Pain: Denies pain. Neuro: Level of Consciousness is awake, alert, obeys commands, Oriented to person, place, time, situation. Neuro: Reports weakness. Cardiovascular: Capillary refill < 3 seconds Patient's skin is warm and dry. Respiratory: Airway is patent Respiratory effort is even, unlabored, Respiratory pattern is regular, symmetrical. GI: No signs and/or symptoms were reported involving the gastrointestinal system. : No signs and/or symptoms were reported regarding the genitourinary system. EENT: No signs and/or symptoms were reported regarding the EENT system. Derm: Skin is intact, is healthy with good turgor, Skin is pale. Musculoskeletal: Circulation, motion, and sensation intact. Capillary refill < 3 seconds. 22:00 Reassessment: Patient appears in no apparent distress at this time. Patient and/or mg2 family updated on plan of care and expected duration. Pain level reassessed. 23:00 Reassessment: family informed about the need for transfer and blood transfusion and mg2 they agreed. 23:59 Reassessment: report given to TRENA Omalley of [facility] and noted that patient will have mg2 to finish the blood transfusion (ist Bag) before we transfer her. 03/26 01:46 Reassessment: report given to [facility], patient in good condition, 3 iv's intact, mg2 patent. Vital Signs: 03/25 19:24 BP 129 / 70; Pulse 62; Resp 18; Temp 97.2(TE); Pulse Ox 95% on R/A; mg2 22:19 Weight 70 kg; mw2 22:49 BP 119 / 54; Pulse 56; Resp 18; Temp 97.3; Pulse Ox 100% on R/A; mg2 23:59 BP 131 / 51; Pulse 61; Resp 18; Pulse Ox 98% on R/A; mg2 03/26 00:15 BP 146 / 42; Pulse 56; Resp 18; Temp 96.9(TE); Pulse Ox 100% on R/A; mg2 01:40 BP 126 / 41; Pulse 58; Resp 18; Temp 96.9; Pulse Ox 100% on R/A; mg2 ED Course: 03/25 19:23 Patient arrived in ED. bp1 19:23 Gildardo Carrillo MD is Private Physician. bp1 19:24 Josh Caballero PA is PHCP. cp 19:24 Jesse Eddy MD is Attending Physician. cp 19:24 Gregorio Johnson, TRENA is Primary Nurse. mg2 19:27 Triage completed. mg2 19:27 Arm band placed on. mg2 20:15 Inserted saline lock: 20 gauge in right antecubital area, using aseptic technique. mg2 Blood collected. 20:21 XRAY Chest (1 view) In Process Unspecified. EDMS 20:40 US Abdomen Limited In Process Unspecified. EDMS 20:45 Patient has correct armband on for positive identification. Door closed. Warm blanket mg2 given. 20:46 No provider procedures requiring assistance completed. mg2 21:46 CT Head Brain wo Cont In Process Unspecified. EDMS 22:02 Straight cath inserted, using sterile technique, 16 Fr. Returned clear yellow urine. mg2 Patient tolerated well. 22:13 initiated a transfer with Claudia Jesus from [facility]. [facility] 22:58 administrative approval given by Claudia Jesus/ patient has been accepted to [address] 9 tower bed 930/ Dr. Jain has accepted the patient in transfer/ report to be called to [phone]. 23:00 Inserted saline lock: 20 gauge in left hand, using aseptic technique. mg2 23:14 CT Abd/Pelvis - Without Contrast In Process Unspecified. EDMS 03/26 00:03 Inserted saline lock: 22 gauge in right hand, using aseptic technique. mg2 01:47 Patient transferred, IV remains in place. mg2 Administered Medications: 03/25 23:21 Drug: Octreotide 50 mcg Route: IV; Rate: calculated rate; Site: right antecubital; mg2 23:21 Drug: fentaNYL (PF) 25 mcg Route: IVP; Site: right antecubital; mg2 23:50 Follow up: Response: No adverse reaction mg2 23:22 Drug: ProTONIX 8 mg/hr Route: IV; Rate: 25 ml/hr; Site: right antecubital; mg2 23:59 Drug: Octreotide Infusion (50 mcg/hr) - (Octreotide 500 mcg, NS 0.9% 500 ml) Route: IV; mg2 Rate: 50 ml/hr; Site: right hand; 03/26 00:03 Drug: ProTONIX 40 mg Route: IVP; Site: right antecubital; mg2 Medication: 01:48 Blood products: PRBCs X 1 unit given. See transfusion record. mg2 Outcome: 03/25 23:04 ER care complete, transfer ordered by MD. reyna 03/26 01:47 Transferred by ground EMS to [facility], [facility], Transfer form completed. mg2 Condition: stable Instructed on the need for transfer, Demonstrated understanding of instructions. 01:48 Patient left the ED. mg2 Addendum: 03/29/2020 11:18 Addendum: Culture Results: Positive urine culture. Patient was not prescribed s v antibiotics at discharge. Report given to CULLEN for further evaluation and then to sweet potato disintegrator for follow up with patient. Prescription called-in to pharmacy of choice. [facility]. Signatures: Dispatcher [employer] Alicja Salinas, RN RN sv Josh Caballero PA PA cp [place], MyKena mw2 Gregorio Johnson RN RN mg2 Kathy Reddy Corrections: (The following items were deleted from the chart) 03/25 23:28 20:44 Derm: Skin is intact, is healthy with good turgor, Skin is pink, warm \T\ dry. mg2 normal, mg2
--- NOTE | 2020-03-25 23:05 | EDPHYS ---
Physician Documentation [facility] Name: Cristel Casas Age: 79 yrs Sex: Female : 1940 Arrival Date: 03/25/2020 Time: 19:23 Bed 3 Private MD: Gildardo Carrillo F ED Physician Jesse Eddy HPI: 03/25 19:40 This 79 yrs old Female presents to ER via EMS with complaints of Altered cp Mental Status, General Weakness. 19:40 The patient presents with visual hallucinations. Onset: The symptoms/episode cp began/occurred yesterday. 19:40 Possible causes: PMHX of cirrhosis. Associated signs and symptoms: Pertinent positives: cp general weakness. Current symptoms: In the emergency department the patient's symptoms are unchanged from the initial presentation, despite home interventions. Patient's baseline: Neuro: orientated to person, place, Motor: no deficits, Ambulation: walks with assist only, uses walker, Speech: normal. Historical: - Allergies: 19:27 No Known Allergies; mg2 - Home Meds: 19:27 atorvastatin 20 mg Oral tab 1 tab once daily [Active]; Bystolic 10 mg Oral tab 1 tab mg2 once daily [Active]; glimepiride 1 mg Oral tab 1 tab once daily [Active]; hydrochlorothiazide 12.5 mg Oral cap 1 cap once daily [Active]; omeprazole 20 mg Oral tab daily [Active]; propylthiouracil 50 mg Oral tab 1 tab 2 times per day [Active]; - PMHx: 19:27 Diabetes - NIDDM; High Cholesterol; Hypertension; Hypothyroidism; mg2 - Immunization history:: Flu vaccine status is unknown. - Social history:: Smoking status: unknown. ROS: 19:45 Constitutional: Negative for body aches, chills, fever, poor PO intake. cp 19:45 Cardiovascular: Negative for chest pain. cp 19:45 Respiratory: Negative for cough, shortness of breath. 19:45 Abdomen/GI: Positive for abdominal pain, black/tarry stool, Negative for vomiting, diarrhea, constipation. 19:45 : Negative for urinary symptoms. cp 19:45 Skin: Positive for pallor, Negative for cellulitis, rash. 19:45 Neuro: Positive for altered mental status, weakness, Negative for headache. 19:45 All other systems are negative. cp Exam: 19:50 Constitutional: The patient appears in no acute distress, alert, awake, cp non-diaphoretic, non-toxic, well developed, well nourished. 19:50 Head/Face: Normocephalic, atraumatic. cp 19:50 Eyes: Periorbital structures: appear normal, Pupils: equal, round, and reactive to light and accomodation, Extraocular movements: intact throughout, Sclera: icterus, is not appreciated, Lids and lashes: appear normal, bilaterally. 19:50 ENT: External ear(s): are unremarkable, Nose: is normal, Mouth: Lips: moist, Oral mucosa: moist, Posterior pharynx: Airway: no evidence of obstruction, patent. 19:50 Neck: ROM/movement: is normal, is supple, without pain, no range of motions limitations, no meningismus. 19:50 Chest/axilla: Inspection: normal, Palpation: is normal, no crepitus, no tenderness. cp 19:50 Cardiovascular: Rate: normal, Rhythm: regular, Edema: is not appreciated, JVD: is not appreciated. 19:50 Respiratory: the patient does not display signs of respiratory distress, Respirations: normal, no use of accessory muscles, no retractions, labored breathing, is not present, Breath sounds: are clear throughout, no decreased breath sounds. 19:50 Abdomen/GI: Inspection: abdomen appears normal, Bowel sounds: active, all quadrants, Palpation: soft, in all quadrants, mild abdominal tenderness, in the right upper quadrant, rebound tenderness, is not appreciated, involuntary guarding, is not appreciated. 19:50 Back: CVA tenderness, is absent. 19:50 Skin: Appearance: Color: pale, Temperature: normal temperature, cellulitis, is not appreciated, no rash present. 19:50 Neuro: Orientation: to person, place, Mentation: able to follow commands, Motor: moves all fours, strength is normal, Sensation: no obvious gross deficits. 20:05 ECG was reviewed by the Attending Physician. cp Vital Signs: 19:24 BP 129 / 70; Pulse 62; Resp 18; Temp 97.2(TE); Pulse Ox 95% on R/A; mg2 22:19 Weight 70 kg; mw2 22:49 BP 119 / 54; Pulse 56; Resp 18; Temp 97.3; Pulse Ox 100% on R/A; mg2 23:59 BP 131 / 51; Pulse 61; Resp 18; Pulse Ox 98% on R/A; mg2 03/26 00:15 BP 146 / 42; Pulse 56; Resp 18; Temp 96.9(TE); Pulse Ox 100% on R/A; mg2 01:40 BP 126 / 41; Pulse 58; Resp 18; Temp 96.9; Pulse Ox 100% on R/A; mg2 MDM: 03/25 19:34 Patient medically screened. 22:15 Data reviewed: vital signs, nurses notes, lab test result(s), EKG, radiologic studies, cp plain films, ultrasound. 22:15 Test interpretation: by ED physician or midlevel provider: ECG. 22:46 Physician consultation: was contacted at 22:45, regarding regarding transfer, to [facility]. patient's condition, DR Cruz, GI physician, will consult on patient and requests transfer to services of hospitalist. 22:55 Physician consultation: was contacted at 22:55, regarding regarding transfer, to [facility]. patient's condition, accepting physician will be DR Jain, hospitalist. 03/25 19:36 Order name: Basic Metabolic Panel 03/25 19:36 Order name: CBC with Diff 03/25 19:36 Order name: LFT's; Complete Time: 21:13 03/25 21:13 Interpretation: Normal except: TP 5.9; ALB 2.2; GLOB 3.7; A/G 0.6. 03/25 19:36 Order name: Magnesium; Complete Time: 21:13 03/25 19:36 Order name: NT PRO-BNP; Complete Time: 21:13 03/25 19:36 Order name: PT-INR; Complete Time: 21:53 03/25 19:36 Order name: Troponin (emerg Dept Use Only); Complete Time: 21:13 03/25 21:13 Interpretation: Abnormal: TROPED 0.10. 03/25 19:36 Order name: AMMONIA; Complete Time: 21:13 03/25 19:36 Order name: Lactate; Complete Time: 21:13 03/25 19:36 Order name: Procalcitonin; Complete Time: 21:53 03/25 21:53 Interpretation: Procalcitonin 0.27; Reviewed. 03/25 19:36 Order name: Blood Culture Adult (2) 03/25 19:36 Order name: Urine Culture 03/25 19:36 Order name: Urine Microscopic Only; Complete Time: 22:39 03/25 19:37 Order name: Basic Metabolic Panel; Complete Time: 21:13 [facility] 03/25 21:15 Interpretation: Normal except: K 3.1; GLUC 221; BUN 92; CRE 1.95; GFR 25. 03/25 19:36 Order name: CT Head Brain wo Cont 03/25 19:36 Order name: XRAY Chest (1 view); Complete Time: 20:40 03/25 19:36 Order name: EKG; Complete Time: 19:38 03/25 19:37 Order name: US Abdomen Limited; Complete Time: 21:13 03/25 19:37 Order name: CBC with Automated Diff; Complete Time: 21:13 [facility] 03/25 21:15 Interpretation: Normal except: RBC 1.85; HGB 5.0; HCT 15.2; RDW 16.1; HUSSAIN% 84.2; LYM% cp 10.1. 03/25 21:00 Order name: TS mg2 03/25 22:03 Order name: Packed RBC Leukored [facility] 03/25 22:03 Order name: Urine Dipstick--Ancillary (enter results); Complete Time: 22:39 [facility] 03/25 22:10 Order name: CT Abd/Pelvis - Without Contrast 03/25 23:30 Order name: SARS-COV-2 RT PCR [facility] 03/25 19:36 Order name: Cardiac monitoring; Complete Time: 20:46 03/25 19:36 Order name: EKG - Nurse/Tech; Complete Time: 20:46 03/25 19:36 Order name: IV Saline Lock; Complete Time: 20:46 03/25 19:36 Order name: Labs collected and sent; Complete Time: 20:46 03/25 19:36 Order name: O2 Per Protocol; Complete Time: 20:46 03/25 19:36 Order name: O2 Sat Monitoring; Complete Time: 20:46 03/25 19:36 Order name: Urine Dipstick-Ancillary (obtain specimen); Complete Time: 22:02 03/25 22:14 Order name: Transfuse; Complete Time: 23:21 cp EC:05 Rate is 57 beats/min. Rhythm is regular. WI interval is normal. QRS interval is normal. cp QT interval is normal. T waves are Inverted in leads V2, V3, V4, V5, V6. Interpreted by me. Reviewed by me. Administered Medications: 23:21 Drug: Octreotide 50 mcg Route: IV; Rate: calculated rate; Site: right antecubital; mg2 23:21 Drug: fentaNYL (PF) 25 mcg Route: IVP; Site: right antecubital; mg2 23:50 Follow up: Response: No adverse reaction mg2 23:22 Drug: ProTONIX 8 mg/hr Route: IV; Rate: 25 ml/hr; Site: right antecubital; mg2 23:59 Drug: Octreotide Infusion (50 mcg/hr) - (Octreotide 500 mcg, NS 0.9% 500 ml) Route: IV; mg2 Rate: 50 ml/hr; Site: right hand; 03/26 00:03 Drug: ProTONIX 40 mg Route: IVP; Site: right antecubital; mg2 Disposition: 01:00 Chart complete. cp 02:57 Co-signature as Attending Physician, Jesse Eddy MD. [email or web address] Disposition: 03/25/20 23:04 Transfer ordered to [facility]. Diagnosis are Gastrointestinal hemorrhage, unspecified, Acute kidney failure, Elevated Troponin, Altered mental status, unspecified. - Reason for transfer: Higher level of care. - Accepting physician is DR Jain. - Condition is Stable. - Problem is new. - Symptoms have improved. Signatures: Dispatcher [employer] EDGA Josh Caballero PA PA cp Gregorio Johnson RN RN mg2 Jesse Eddy MD MD [facility] Corrections: (The following items were deleted from the chart) 03/25 22:42 22:03 CORONAVIRUS+MR.LAB.BRZ ordered. [facility] EDGA 03/26 01:48 03/25 23:04 03/25/2020 23:04 Transfer ordered to [facility]. mg2 Diagnosis is Gastrointestinal hemorrhage, unspecified; Acute kidney failure; Elevated Troponin; Altered mental status, unspecified. Reason for transfer: Higher level of care. Accepting physician is DR Jain. Condition is Stable. Problem is new. Symptoms have improved. cp
[2020-03-25] MEDS ORDERED: FENTANYL CITR 100 MCG/2 ML ONE (23:22)
[2020-03-26] MEDS ORDERED: PANTOPRAZOLE 40 MG INJ ONE (00:08)
--- NOTE | 2020-03-26 07:35 | EKG ---
Test Date: 2020-03-25 Test Time: 19:59:22 [employer] Necktie Operator: MEASUREMENT RESULTS: Intervals: Rate: 57 NC: 194 QRSD: 90 QT: 426 QTc: 414 [place]: P: 50 NC: 194 QRS: -6 T: 204 INTERPRETIVE STATEMENTS: Sinus bradycardia ST & T wave abnormality, consider inferior ischemia ST & T wave abnormality, consider anterolateral ischemia Abnormal ECG Compared to ECG 01/09/2020 17:54:50 Possible ischemia now present Sinus rhythm no longer present ST (T wave) deviation still present Electronically Signed On 03-26-20 07:34:16 EQUIPMENT SERVICE ENGINEER by Gavino Nichols
--- NOTE | 2020-03-26 12:12 | RAD REPORT ---
EXAM DESCRIPTION: CT - Head Brain Wo Cont - 03/26/2020 3:48 am CLINICAL HISTORY: 79 years Female MENTAL STATUS CHANGE COMPARISON: March 12, 2019. TECHNIQUE: Images were obtained in axial, sagittal, and coronal planes. This exam was performed according to our departmental dose-optimization program which includes use of Automated Exposure Control, adjustment of the mA and/or kV according to patient size and/or use o f iterative reconstruction technique. FINDINGS: Ventricular system is moderately enlarged. Marked prominence of the cortical sulci. Decreased attenuation in the left parieto-occipital region consistent with normal infarct and encepha lomalacia. Moderate periventricular decreased attenuation consistent with more remote microvascular i schemic change. No abnormal areas of increased attenuation seen. No extra-axial fluid collections noted. No evidence for skull fracture. Symmetric aeration of mastoid air cells bilaterally. Unremarkable par anasal sinuses. IMPRESSION: No acute intracranial abnormality. No evidence for hemorrhage, mass lesion, or large acu te infarction. 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 Electronically signed by: Shira Hunt MD 03/25/2020 10:20 PM EARLY CHILDHOOD LEAD TEACHER Due to temporary technical issues with the PACS/Fluency reporting system, reports are being signed by the in house radiologist without review as a courtesy to ensure prompt reporting. The interpreting r adiologist is fully responsible for the content of the report.
--- NOTE | 2020-03-26 12:24 | RAD REPORT ---
EXAM DESCRIPTION: CT - Abdomen Pelvis Wo Contrast - 03/26/2020 3:50 am CLINICAL HISTORY: ABD PAIN TECHNIQUE: Contiguous axial images obtained through the abdomen and pelvis without IV contrast. Celsetino nal and sagittal reformatted images were provided. This exam was performed according to our departmental dose-optimization program, which includes autom ated exposure control, adjustment of the mA and/or kV according to patient size and/or use of iterati ve reconstruction technique. COMPARISON: 04/15/2019 FINDINGS: Lung bases: Small left and trace right pleural effusions. Minimal left basilar consolidati on. The heart is enlarged. Coronary artery and mitral annular calcification. Liver: Mild surface contour nodularity. Scattered subcentimeter hypodensities again demonstrated and which are too small to characterize. Gallbladder and biliary system: Small gallstones. No gallbladder wall thickening or pericholecystic f luid. Pancreas: Moderate pancreatic parenchymal atrophy. Spleen: Grossly unremarkable Adrenals: Stable 1.8 cm low density right adrenal nodule compatible with a benign adenoma. Kidneys: No calculi. No hydronephrosis. Bowel: The proximal duodenum is thickened with an underlying ulcer at the 2nd duodenal segment (serie s 201 image 22, series 202 image 45 and series 203 image 49). Mild surrounding inflammation and subce ntimeter lymph nodes. Moderate stool. Colonic diverticula without adjacent inflammatory change. No ob struction. Appendix: The appendix is not definitively visualized. No findings to suggest acute appendicitis. Urinary bladder: Unremarkable Reproductive: Unremarkable as visualized Lymph nodes: No pathologically enlarged lymph nodes. Peritoneum: No focal fluid collection. No free air. Vessels: Moderate to severe atherosclerotic disease. No abdominal aortic aneurysm. Abdominal wall: Unremarkable Bones: Mild multilevel spondylosis. No acute fracture. T10 and L2 intraosseous hemangiomata. Remote r ight 5th rib fracture. IMPRESSION: 1. Findings compatible with duodenitis. Underlying ulcer at the 2nd duodenal segment, new from the prior. High risk of perforation given significant wall thinning at the level of the ulce r. 2. Small left and trace right pleural effusions. Minimal left basilar consolidation (atelectasis an d/or infiltrate). 3. Other findings as above. Electronically signed by: Bonnie Floyd MD 03/25/2020 11:49 PM OVERNIGHT CAREGIVER Due to temporary technical issues with the PACS/Fluency reporting system, reports are being signed by the in house radiologist without review as a courtesy to ensure prompt reporting. The interpreting r adiologist is fully responsible for the content of the report.
[2020-03-27 17:49] VITALS: TEMP 96.9; O2SAT 100
[2020-03-27 17:50] VITALS: BP 126/41
[2020-04-01] MEDS ORDERED: ASPIRIN 81 MG CHEWABLE TABLET ONE (08:09)
[2020-04-01] MEDS ORDERED: D5 0.45 NS 1,000 ML IV ONE ×2 (09:12→21:34)
[2020-04-01] MEDS ORDERED: D50W 50 ML IV ONE (21:33)
[2020-04-01] MEDS ORDERED: HYDRALAZINE HCL 10 MG TABLET ONE (23:20)
[2020-04-01] MEDS ORDERED: ATORVASTATIN 20 MG TAB ONE (23:20)
[2020-04-01] MEDS ORDERED: ONDANSETRON 4 MG/2 ML VIAL ONE (23:20)
[2020-04-01] MEDS ORDERED: MORPHINE 2 MG/ML SYR ONE (23:20)
== END 2020-03-26 01:48 | disposition short-term general hospital (02) ==
LOC: ER 19:22
PROC: 30233N1 Transfusion of Nonautologous Red Blood Cells into Peripheral Vein, Percutaneous Approach (ICD-10-PCS; principal; 2020-03-26)
DX: K92.2 Gastrointestinal hemorrhage, unspecified (principal); R77.8 Other specified abnormalities of plasma proteins; N17.9 Acute kidney failure, unspecified; K74.60 Unspecified cirrhosis of liver; I10 Essential (primary) hypertension; E11.9 Type 2 diabetes mellitus without complications; E03.9 Hypothyroidism, unspecified; E78.00 Pure hypercholesterolemia, unspecified; Z20.828 Contact with and (suspected) exposure to other viral communicable diseases
CPT/HCPCS: 93005; 87040 ×2; 87088; 85025; 87086; 80048; 36415; 82140; 86900; 83735; 86850; 85610; 86901; 80076; 83605; 87077; 87186; 84484; 84145; 83880; 70450; 74176; 71045; 76705; 36430 ×2; 51702; 99285; U0003; J2354; C9113; J3010; P9016; J7050; J7040; 81003; 81015

== ENCOUNTER 2020-04-01 02:52 | Observation (INO) | payer OTHER ==
--- OUTSIDE RECORDS SUMMARY | 2020-04-01 02:55 | XMS REPORT | Clinical Summary ---
:1940 Author Organization [facility] Address [address] [place] [address] Care Team Providers Name Role Phone Unavailable Primary Care Provider Unavailable Allergies No Known Allergies Medications Medication Sig Dispensed Refills Start End Status Date Date atorvastatin (LIPITOR) Take 20 mg 0 Active 20 MG tablet by mouth daily. nebivoloL (BYSTOLIC) 10 Take 10 mg 0 Active MG tablet by mouth daily. glimepiride (AMARYL) 1 Take 1 mg by 0 Active MG tablet mouth every morning before breakfast. hydroCHLOROthiazide Take 12.5 mg 0 Active (MICROZIDE) 12.5 mg by mouth capsule daily. propylthiouraciL (PTU) Take 50 mg 0 Active 50 mg tablet by mouth 2 (two) times daily. calcium Take 1 0 Active carbonate-vitamin D3 tablet by 500 mg(1,250mg) -400 mouth 2 unit Tab (two) times daily with breakfast and dinner. alendronate (FOSAMAX) Take 70 mg 0 Active 70 MG tablet by mouth every 7 days Take in the morning with a full glass of water, on an empty stomach, and do not take anything else by mouth or lie down for the next 30 min. . ferrous sulfate 325 (65 Take 1 30 tablet 0 20 Active FE) MG tablet tablet (325 20 021 mg total) by mouth daily with breakfast. omeprazole (PriLOSEC) Take 2 120 capsule 0 03/28/20 Active 20 MG capsule capsules (40 20 mg total) by mouth 2 (two) times daily with breakfast and dinner. omeprazole (PriLOSEC) Take 20 mg 0 Discontinued 20 MG capsule by mouth 020 (Reord er) daily. hydrALAZINE Take 10 mg 0 Discont inued (APRESOLINE) 10 MG by mouth 3 020 (Stop Taking at tablet (three) Discharge) times daily. Active Problems Problem Noted Date Closed fracture of one rib of right side 03/28/2020 (HFpEF) heart failure with preserved ejection fraction 03/28/2020 Gastrointestinal hemorrhage associated with gastric ul cer 03/26/2020 Resolved Problems Problem Noted Date Resolved Date APUL (acute kidney injury) 03/28/2020 03/28/2020 Encounters Date Type Specialty Care Team Description 03/27/2020 Anesthesia Event Gastroenterology Juliocesar Duggan MD [place], Samantha Ripmakat, CRNA 03/27/2020 Surgery Gastroenterology Arielle, UPPER ENDOS COPY Arun Desai MD 03/26/2020 [facility] [place], Gastrointes tinal hemorrhage associated with gastric ulcer (Primary Dx); - Encounter Medicine Jenni Amira, Gastrointestin al hemorrhage with melena; 03/28/2020 PAUL (acute kidney injury) (HCC); Emperatriz Duke Essential hyper tension; MD Wai 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); Hyperlipidemia, unspecified hyperlipidemia type; Acute metabolic encephalopathy; Hyperthyroidism ; Gastric ulcer w ith hemorrhage, unspecified chronicity; Duodenal ulcer 03/25/2020 Telephone Gastroenterology Seda Hong MD after 04/01/2019 Social History Tobacco Use Types Packs/Day Years Used Date Former Smoker Smokeless Tobacco: Never Used Comments: 20 years ago Sex Assigned at Date Recorded Not on file Last Filed Vital Signs Vital Sign Reading Time Taken Comments Blood Pressure 156/67 03/28/2020 3:14 PM PROFESSOR OF MECHANICAL ENGINEERING Pulse 65 03/28/2020 3:14 PM PROFESSOR OF MECHANICAL ENGINEERING Temperature 36.8 C (98.2 F) 03/28/2020 3:14 PM PROFESSOR OF MECHANICAL ENGINEERING Respiratory Rate 18 03/28/2020 3:14 PM PROFESSOR OF MECHANICAL ENGINEERING Oxygen Saturation 96% 03/28/2020 3:14 PM PROFESSOR OF MECHANICAL ENGINEERING Inhaled Oxygen Concentration - - Weight 72.2 kg (159 lb 3.2 oz) 03/26/2020 3:00 AM PROFESSOR OF MECHANICAL ENGINEERING Height - - Body Mass Index - - Plan of Treatment Health Maintenance Due Date Last Done Comments DIABETIC EYE EXAM 1950 DIABETIC FOOT EXAM 1950 URINE MICROALBUMIN 1952 HEPATITIS B VACCINE (1 of 3 - Risk 3-dose series) 1961 DEPRESSION SCREENING (12+) 04/06/2019 Medicare IPPE (WELCOME TO MEDICARE) 03/24/2020 HEMOGLOBIN A1C 09/25/2020 03/27/2020 PNEUMOCOCCAL 65+ YRS Completed 02/13/2016 INFLUENZA VACCINE Completed 01/05/2020 Procedures Procedure Name Priority Date/Time Associated Diagnosis Comme nts POCT-GLUCOSE METER Routine 03/28/2020 11:08 Resul ts for this AM PROFESSOR OF MECHANICAL ENGINEERING procedure are i n the results section. POCT-GLUCOSE METER Routine 03/28/2020 7:36 Resul ts for this AM PROFESSOR OF MECHANICAL ENGINEERING procedure are i n the results section. CBC W/PLT COUNT & Routine 03/28/2020 4:14 Result s for this AUTO DIFFERENTIAL AM PROFESSOR OF MECHANICAL ENGINEERING procedure are in the results section. BASIC METABOLIC Routine 03/28/2020 4:14 Results for this PANEL (7) AM PROFESSOR OF MECHANICAL ENGINEERING procedure are i n the results section. CBC W/PLT COUNT & Routine 03/28/2020 4:14 Result s for this AUTO DIFFERENTIAL AM PROFESSOR OF MECHANICAL ENGINEERING procedure are in the results section. MAGNESIUM Routine 03/28/2020 4:14 Results for this AM PROFESSOR OF MECHANICAL ENGINEERING procedure are i n the results section. PREPARE STAT 03/27/2020 11:54 Results for this LEUKO-REDUCED RBC PM PROFESSOR OF MECHANICAL ENGINEERING procedure are in the results section. POCT-GLUCOSE METER Routine 03/27/2020 9:02 Resul ts for this PM PROFESSOR OF MECHANICAL ENGINEERING procedure are i n the results section. XR RIBS 2 VIEWS MIN Routine 03/27/2020 6:33 Resu lts for this UNILATERAL RIGHT PM PROFESSOR OF MECHANICAL ENGINEERING procedure a re in the results section. 2D ECHO W/ DOPPLER Routine 03/27/2020 5:31 Resul ts for this (CW/PW/COLOR) PM PROFESSOR OF MECHANICAL ENGINEERING procedure are in the results section. POCT-GLUCOSE METER Routine 03/27/2020 3:14 Resul ts for this PM PROFESSOR OF MECHANICAL ENGINEERING procedure are i n the results section. REPORT OF PROCEDURE 03/27/2020 2:35 - ENDOSCOPY URL PM PROFESSOR OF MECHANICAL ENGINEERING POCT-GLUCOSE METER Routine 03/27/2020 2:04 Resul ts for this PM PROF[employer] OF MECHANICAL ENGINEERING procedure are i n the results section. UPPER ENDOSCOPY 03/27/2020 2:00 Gastrointestinal PM PROFESSOR OF MECHANICAL ENGINEERING hemorrhage associated with gastritis, unspecified gastritis type POCT-GLUCOSE METER Routine 03/27/2020 11:56 Resul ts for this AM PROFESSOR [employer] MECHANICAL ENGINEERING procedure are i n the results section. URINALYSIS W/ REFLEX Routine 03/27/2020 10:01 Res ults for this URINE CULTURE AM PROFESSOR OF MECHANICAL ENGINEERING procedure are in the results section. CBC W/PLT COUNT & Routine 03/27/2020 8:25 Result s for this AUTO DIFFERENTIAL AM PROFESSOR OF MECHANICAL ENGINEERING procedure are in the results section. CBC W/PLT COUNT & Routine 03/27/2020 8:25 Result s for this AUTO DIFFERENTIAL AM PROFESSOR OF MECHANICAL ENGINEERING procedure are in the results section. BASIC METABOLIC Routine 03/27/2020 8:25 Results for this PANEL (7) AM PROFESSOR OF MECHANICAL ENGINEERING procedure are i n the results section. POCT-GLUCOSE METER Routine 03/27/2020 7:32 Resul ts for this AM PROFESS[employer] MECHANICAL ENGINEERING procedure are i n the results section. IRON, TIBC, % SAT. Routine 03/27/2020 4:10 Resul ts for this (WITHOUT FERRITIN) AM PROFESSOR OF MECHANICAL ENGINEERING procedure are in the results section. FERRITIN Routine 03/27/2020 4:10 Results for this AM PROFESSOR OF MECHANICAL ENGINEERING procedure are i n the results section. HEMOGLOBIN A1C Routine 03/27/2020 4:10 Results f or this AM PROF[employer]OR [employer] MECHANICAL ENGINEERING procedure are i n the results section. US ABDOMEN COMPLETE Routine 03/26/2020 11:44 Resu lts for this PM PROFESSOR OF MECHANICAL ENGINEERING procedure are i n the results section. POCT-GLUCOSE METER Routine 03/26/2020 10:43 Resul ts for this PM PROFESSOR OF MECHANICAL ENGINEERING procedure are i n the results section. POCT-GLUCOSE METER Routine 03/26/2020 9:12 Resul ts for this PM PROFESSOR OF MECHANICAL ENGINEERING procedure are i n the results section. XR CHEST 2 VIEWS Routine 03/26/2020 7:39 Results for this PM PROFESSOR [employer] MECHANICAL ENGINEERING procedure are i n the results section. POCT-GLUCOSE METER Routine 03/26/2020 4:47 Resul ts for this PM PROFESSOR OF MECHANICAL ENGINEERING procedure are i n the results section. BLOOD CULTURE Routine 03/26/2020 4:44 Results fo r this PM PROFESSOR OF MECHANICAL ENGINEERING procedure are i n the results section. BLOOD CULTURE Routine 03/26/2020 4:19 Results fo r this PM PROFESSOR OF MECHANICAL ENGINEERING procedure are i n the results section. HEMOGLOBIN AND Routine 03/26/2020 4:18 Results f or this HEMATOCRIT PM PROFESSOR [employer] MECHANICAL ENGINEERING procedure are i n the results section. TSH/FREE T4 IF Routine 03/26/2020 4:18 Results f or this INDICATED PM PROFESSOR OF MECHANICAL ENGINEERING procedure are i n the results section. AMMONIA Routine 03/26/2020 4:12 Results for this PM PROFESSOR OF MECHANICAL ENGINEERING procedure are i n the results section. BASIC METABOLIC Routine 03/26/2020 4:12 Results for this PANEL (7) PM PROFESSOR OF MECHANICAL ENGINEERING procedure are i n the results section. CREATINE KINASE (CK) Routine 03/26/2020 4:12 Res ults for this PM PROFESSOR OF MECHANICAL ENGINEERING procedure are i n the results section. B-TYPE NATRIURETIC Routine 03/26/2020 4:12 Resul ts for this FACTOR (BNP) PM PROFESSOR OF MECHANICAL ENGINEERING procedure are i n the results section. URINALYSIS Routine 03/26/2020 3:57 Results for this MICROSCOPIC PM PROFESSOR OF MECHANICAL ENGINEERING procedure are i n the results section. URINALYSIS WITH Routine 03/26/2020 3:57 Results for this MICROSCOPIC IF PM PROFESSOR OF MECHANICAL ENGINEERING procedure are in INDICATED the results section. SODIUM, RANDOM URINE Routine 03/26/2020 3:57 Res ults for this PM PROF[employer] MECHANICAL ENGINEERING procedure are i n the results section. CREATININE, RANDOM Routine 03/26/2020 3:57 Resul ts for this URINE PM PROFESSOR OF MECHANICAL ENGINEERING procedure are i n the results section. TRANSFUSE STAT 03/26/2020 2:31 LEUKO-REDUCED RED PM PROFESSOR OF MECHANICAL ENGINEERING BLOOD CELLS SARS-COV2/RT-PCR Routine 03/26/2020 12:43 Results for this ([facility] REF LABS) PM PROFESSOR OF MECHANICAL ENGINEERING procedure are in the results section. ABORH, MANUAL STAT 03/26/2020 6:43 Results fo r this AM PROFESSOR OF MECHANICAL ENGINEERING procedure are i n the results section. CBC W/PLT COUNT & STAT 03/26/2020 5:23 Result s for this AUTO DIFFERENTIAL AM PROFESSOR OF MECHANICAL ENGINEERING procedure are in the results section. TYPE AND SCREEN, STAT 03/26/2020 5:23 Results for this AUTOMATED AM PROFESS[employer] MECHANICAL ENGINEERING procedure are i n the results section. URIC ACID Routine 03/26/2020 5:23 Results for this AM PROFESSOR OF MECHANICAL ENGINEERING procedure are i n the results section. CBC W/PLT COUNT & STAT 03/26/2020 5:23 Result s for this AUTO DIFFERENTIAL AM PROFESSOR OF MECHANICAL ENGINEERING procedure are in the results section. MAGNESIUM STAT 03/26/2020 5:23 Results for this AM PROFESSOR OF MECHANICAL ENGINEERING procedure are i n the results section. PROTHROMBIN TIME/INR STAT 03/26/2020 5:23 Res ults for this AM PROFESSOR [employer] MECHANICAL ENGINEERING procedure are i n the results section. HEPATIC FUNCTION STAT 03/26/2020 5:23 Results for this PANEL AM PROFESSOR OF MECHANICAL ENGINEERING procedure are i n the results section. BASIC METABOLIC STAT 03/26/2020 5:23 Results for this PANEL (7) AM PROFESSOR OF MECHANICAL ENGINEERING procedure are i n the results section. after 04/01/2019 Results POC-Glucose meter (03/28/2020 11:08 AM PROFESSOR OF MECHANICAL ENGINEERING)Only the most recent of10 results within the time period is included. POC-Glucose Meter 200 (H) 70 - 110 mg/dL [facility] Comment: [facility] : TESTED AT [facility] [address] [facility], [address] CENTER : Associate Trainer/Klystrom Tube Tester ID = [id number] for [facility] Blood Performing Organization Address City/State/Zipcode Phone Number [facility] [address] [place], [place] [id number] CENTER CBC with platelet count + automated diff (03/28/2020 4:14 AM PROFESSOR OF MECHANICAL ENGINEERING)Only the most recent of3 resultswithin the time period is included. Pathologist Sig nature WBC 7.1 3.5 - 10.5 [facility] K/L [facility] RBC 3.04 (L) 3.93 - 5.22 [facility] M/L [facility] Hemoglobin 8.5 (L) 11.2 - 15.7 [facility] GM/DL [facility] Hematocrit 26.7 (L) 34.1 - 44.9 % [facility] MCV 87.8 79.4 - 94.8 fL [facility] MCH 28.0 25.6 - 32.2 pg [facility] MCHC 31.8 (L) 32.2 - 35.5 [facility] GM/DL [facility] RDW 15.5 (H) 11.7 - 14.4 % [facility] Platelets 140 (L) 150 - 450 K/CU [facility] MPV 10.1 9.4 - 12.3 fL [facility] nRBC 0 0 - 0 /100 WBC [facility] % Neutros 69 % [facility] % Lymphs 19 % [facility] % Monos 7 % [facility] % Eos 4 % [facility] % Baso 0 % [facility] # Neutros 4.89 1.56 - 6.13 [facility] # Lymphs 1.35 1.18 - 3.74 [facility]/L [facility] # Monos 0.50 (H) 0.24 - 0.36 [facility]/L [facility] # Eos 0.26 0.04 - 0.36 [facility] # Baso 0.01 0.01 - 0.08 [facility] Immature 2 (H) 0 - 1 % [facility] Specimen Blood Performing Organization Address City/State/Zipcode Phone Number [facility] [address] [place] [address] CENTER Magnesium (03/28/2020 4:14 AM PROFESSOR OF MECHANICAL ENGINEERING)Only the most recent of2 resultswithin the time period is included. Pathologist Sig nature Magnesium 2.5 1.6 - 2.6 mg/dL [facility] Specimen Blood Narrative Performed At Associate Trainer BOB - FUAD Campos [facility] Performing Organization Address City/State/Zipcode Phone Number [address] [address] CENTER Basic Metabolic Panel (03/28/2020 4:14 AM PROFESSOR OF MECHANICAL ENGINEERING)Only the most recent of4 results within the time period is included. Sodium 145 136 - 145 meq/L [facility] Potassium 3.9 3.5 - 5.1 meq/L [facility] Chloride 110 (H) 98 - 107 meq/L [facility] CO2 26 22 - 29 meq/L [facility] BUN 53 (H) 7 - 21 mg/dL [facility] Creatinine 1.81 (H) 0.57 - 1.25 [facility] mg/dL [facility] Glucose 140 (H) 70 - 105 mg/dL [facility] Calcium 8.0 (L) 8.4 - 10.2 [facility] mg/dL [facility] EGFR 27Comment: ESTIMATED mL/min/1.73 sq [facility] GFR IS NOT m [facility] CREATININE CLEARANCE IN PREDICTING GLOMERULAR FILTRATION RATE. ESTIMATED GFR IS NOT APPLICABLE FOR DIALYSIS PATIENTS. Specimen Blood Narrative Performed At Associate Trainer ID - FUAD Campos [facility] Performing Organization Address City/State/Zipcode Phone Number [facility] [address] [place] [address] CENTER Prepare Leuko-Red RBC (03/27/2020 11:54 PM PROFESSOR OF MECHANICAL ENGINEERING) Pathologist Sig nature [employer] COMPATIBLE SAFETRACE TX Unit ABO A Pos SAFETRACE TX UNIT NUMBER [id number] SAFETRACE TX Status TX_TIMEINCHART SAFETRACE TX Blood Bank Product RED BLOOD CELLS [employer]AFETRACE [place] PRODUCT CODE [id number] [employer] [place] Specimen Other Performing Organization Address City/[facility]/Zipcode Phone Number SAFETRACE TX XR ribs 2 views min unilateral right (03/27/2020 6:33 PM PROFESSOR OF MECHANICAL ENGINEERING) Specimen Narrative Performed At FINAL REPORT [facility] CLINICAL HISTORY: Recent trauma and righ t chest pain COMPARISON: Chest x-ray dated 03/26/2020 FINDINGS: A frontal view of the chest and 2 images of the right ribs are submitted. The examination is limited by osteopenia, which can obscure subtle bony abnormality. There is osseous irregularity of the lat eral right third, fourth and fifth ribs with subtle adjacent sclerosi s, suggesting nonacute rib fractures. Please correlate with evaluat ion for focal tenderness. The cardiac silhouette is within normal limits for size. Lung volumes are low but there is no consolidation, p neumothorax or significant pleural effusion. Degenerative changes are present in the spine. IMPRESSION: Limited examination, as described. Suspected nonacute lateral right third t hrough fifth rib fractures without underlying pneumothorax or pleur al collection. Please correlate with history and examination f or focal tenderness. Signed: Dhaval Jara MD Report Verified Date/Time: 03/28/2020 02:40:40 Procedure Note Interface, External Ris In - 03/28/2020 8:17 AM PROFESSOR OF MECHANICAL ENGINEERING FINAL REPORT CLINICAL HISTORY: Recent trauma and righ t chest pain COMPARISON: Chest x-ray dated 03/26/2020 FINDINGS: A frontal view of the chest and 2 images of the right ribs are submitted. The examination is limited by osteopenia, which can obscure subtle bony abnormality. There is osseous irregularity of the lat eral right third, fourth and fifth ribs with subtle adjacent sclerosi s, suggesting nonacute rib fractures. Please correlate with evaluat ion for focal tenderness. The cardiac silhouette is within normal limits for size. Lung volumes are low but there is no consolidation, p neumothorax or significant pleural effusion. Degenerative changes are present in the spine. IMPRESSION: Limited examination, as described. Suspected nonacute lateral right third t hrough fifth rib fractures without underlying pneumothorax or pleur al collection. Please correlate with history and examination f or focal tenderness. Signed: Dhaval Jara MD Report Verified Date/Time: 03/28/2020 0 2:40:40 Performing Organization Address City/State/Zipcode Phone Number [facility] 2D Echo W/Doppler(CW/PW/Color) (03/27/2020 5:31 PM PROFESSOR OF MECHANICAL ENGINEERING) Pathologist Sig nature Ejection Fraction [facility] ECHO HEARTLAB [facility] Specimen Narrative Performed At Transthoracic Echocardiography Report (T TE) [facility] ECHO HEARTLAB [facility] Demographics Patient Name NAMAN CASAS Date of Study 03/27/2020 GISSELL Gender Female Visit Number [id number] Race Unknown Room Number 930 Number Date of 1940 Referring Physician Emperatriz Duke Age 79 year(s) Central Supply Manager Gabby MOYA Interpreting Delonte almaguer MD Physician Procedure Type of Study TTE procedure:2DECHO W DOPPLER(CW/PW/COLOR) (Routine) Indications:Known or suspected heart mary lure. Clinical History DM;HTN;HIGH CHOLEST;HYPOTHYROIDISM. Contrast Medium: Definity. Height: 62 inches Weight: 72.12 kg (159 lbs) BSA: 1.73 m^2 BMI: 29.08 kg/m^2 HR: 63 bpm BP: 128/59 mmHg Summary 1. The left ventricle is chamber size (by vol index) is normal with mild concentric LV hypertrophy. LVEF by Veloz's method of disk assessment is normal (>60%) . LV diastolic function is indeterminate. 2. The right ventricular chamber size and systolic function are within normal limits. 3. LA size is severely enlarged . 4. Mild aortic stenosis (peak velocity 2.5 m/s, mean gradient 11 mmHg, DOI 0.52). Mild aortic regurgitation. 5. Dwrg-or-yyrtwcyp mitral regurgitatio n. 6. Estimated peak systolic PA pressure is 30-35 mmHg (normal range) . Previous Study No prior exam available for comparison. Signature Findings Left Ventricle LV endocardium is well visualized with IV ultrasound enhancing agent. The left ventricle is chamber size (by vol index) is n ormal. Mild concentric LV hypertrophy. All of the LV segments contract normally . LVEF by Veloz's method of disk assessment is normal (>60%) . LV diastolic function is indeterminate. Left Atrium LA size is severely enlarged . Right Ventricle The right ventricular chamber size and systolic function are within normal limits. Right Atrium RA size is normal. Aortic Valve Trileaflet aortic valve. Mild AoV cusp thickening. Mild aortic regurgitation. Mild aortic stenosis (peak velocity 2.5 m/s, mean gradient 11 mmHg, DOI 0.52). Mitral Valve Mild to moderate mitral annular calcification. No evidence of mitral stenosis. Wguk-jl-kikefozt mitral regurgitation. Tricuspid Valve Normal TV structure and function by available views and Doppler. Mild tricuspid regurgitation. Estimated peak systolic PA pressure is 30-35 mmHg (normal range) . Pulmonic Valve Normal PV structure and function by limited views and Doppler. A trace of pulmonary regurgitation. Aorta Aortic root size (SInus of Valsalva diameter) is norm al . Proximal ascending aorta size is normal . Pericardium No significant pericardial effusion is visualized. IVC/SVC/PA/PV/Pleural The estimated RA pressure by IVC dynamics 0-5mmHg . Chambers/Structures Left Atrium LA Volume: 85.22 ml LA Area: 26.58 cm^2 LA Vol. Index: 49 ml/m^2 Left Ventricle LVIDd: 3.2 cm LV Septum Diastolic: 1.32 cm LV PW Diastolic: 1.36 cm LVEDV Veloz's:89.56 ml LVESV Veloz's:43.77 ml LVEF Veloz's: 63.4 % LVEDVI: 52 ml/m^2 LVESVI: 25 ml/m^2 LVOT Diameter: 1.96 cm Right Atrium RA Area: 13.48 cm^ 2 Right Ventricle RV Diast Dim.: 3.1 cm TAPSE: 3.22 cm Aorta Ao Root S of Portia.: 2.76 cm Ascending Aorta: 2.64 cm Doppler/Quantitative Measurements Mitral Valve MV Peak E-Wave: 1.2 m/s MV Peak A-Wave: 0.84 m/s E/A Ratio: 1.42 Mean Velocity: 0.66 m/s Peak Gradient: 5.74 mmHg Mean Gradient: 2 mmHg Area (continuity): 2.49 cm^2 MV VTI: 44.08 cm MV Roderick. Peak: 1.3 m/s Tissue Doppler E' Septal Velocity: 0.05 m/s E/E': 22.75 E' Lateral Velocity: 0.06 m/s Aortic Valve Peak Velocity: 2.45 m/s Mean Velocity: 1.52 m/s Peak Gradient: 24.03 mmHg Mean Gradient: 11 mmHg AV Area (continuity): 1.58 cm^2 AV VTI: 69.57 cm AR P1/2t: 545.8 msec AV DVI: 0.52 LVOT Peak Velocity: 1.2 m/s Peak Gradient: 5.78 mmHg Mean Velocity: 0.8 m/s Mean Gradient: 2.93 mmHg LVOT Diameter: 1.96 cm LVOT VTI: 36.39 cm LVOT Area: 3.02 cm^2 LVOT SV:109.74 ml LVOT CO: 6.91 l/min LVOT CI: 3.99 l/min/m^2 Tricuspid Valve TR Velocity: 2.73 m/s TR Gradient: 29.8 mmHg Procedure Note Interface, External Ris In - 03/28/2020 8:40 AM PROFESSOR OF MECHANICAL ENGINEERING Transthoracic Echocardiography Report (TTE) Demographics Patient Name NAMAN CASAS Date of Study 03/27/2020 GISSELL [place] Female Visit Number [id number] Race Unknown Room Number 930 Number Date of 1940 Refe rring Physician Emperatriz Duke Age 79 year(s) Sono grapher Gabby Monaco RDCS Inte rpreting Delonte Garces MD Phys ician Procedure Type of Study TTE procedure:2DECHO W DOPPLE R(CW/PW/COLOR) (Routine) Indications:Known or suspected heart mary lure. Clinical History DM;HTN;HIGH CHOLEST;HYPOTHYROIDISM. Contrast Medium: Definity. Height: 62 inches Weight: 72.12 kg (159 lbs) BSA: 1.73 m^2 BMI: 29.08 kg/m^2 HR: 63 bpm BP: 128/59 mmHg Summary 1. The left ventricle is chamber size ( by vol index) is normal with mild concentric LV hypertrophy. LVEF by Veloz's method of disk assess ment is normal (>60%) . LV diastolic function is indeterminate. 2. The right ventricular chamber size a nd systolic function are within normal limits. 3. LA size is severely enlarged . 4. Mild aortic stenosis (peak velocity 2.5 m/s, mean gradient 11 mmHg, DOI 0.52). Mild aortic regurgitation. 5. Wcbh-rx-pduhfeic mitral regurgitatio n. 6. Estimated peak systolic PA pressure is 30-35 mmHg (normal range) . Previous Study No prior exam available for comparison. Signature Findings Left Ventricle LV endocardium i s well visualized with IV ultrasound enhan cing agent. The left ventric le is chamber size (by vol index) is normal. Mild concentric LV hypertrophy. All of the LV se gments contract normally . LVEF by Veloz' s method of disk assessment is normal (>60%) . LV diastolic fun ction is indeterminate. Left Atrium LA size is sever roque enlarged . Right Ventricle The right ventri cular chamber size and systolic function are wit hin normal limits. Right Atrium RA size is alexus l. Aortic Valve Trileaflet aorti c valve. Mild AoV cusp th ickening. Mild aortic regu rgitation. Mild aortic sten osis (peak velocity 2.5 m/s, mean gradient 11 mmHg , DOI 0.52). Mitral Valve Mild to moderate mitral annular calcification. No evidence of m itral stenosis. [id number] mitral regurgitation. Tricuspid Valve Normal TV struct ure and function by available views and Doppler. Mild tricuspid r egurgitation. Estimated peak s ystolic PA pressure is 30-35 mmHg (normal range) . Pulmonic Valve Normal PV struct ure and function by limited views and Doppler. A trace of pulmo nary regurgitation. Aorta Aortic root size (SInus of Valsalva diameter) is normal . Proximal ascendi ng aorta size is normal . Pericardium No significant p ericardial effusion is visualized. IVC/SVC/PA/PV/Pleural The estimated RA pressure by IVC dynamics 0-5mmHg . Chambers/Structures Left Atrium LA Volume: 85.22 ml LA Area: 26.58 cm^2 LA Vol. Index: 49 ml/m^2 Left Ventricle LVIDd: 3.2 cm LV Septum Diastolic: 1.32 cm LV PW Diastolic: 1.36 cm LVEDV Veloz's:89.56 ml LVESV Veloz's:43.77 ml LVEF Veloz's: 63.4 % LVEDVI: 52 ml/m^2 LVESVI: 25 ml/m^2 LVOT Diameter: 1.96 cm Right Atrium RA Area: 13.48 cm^2 Right Ventricle RV Diast Dim.: 3.1 cm TAPSE: 3.22 cm Aorta Ao Root S of Portia.: 2.76 cm Ascending Aorta: 2.64 cm Doppler/Quantitative Measurements Mitral Valve MV Peak E-Wave: 1.2 m/s MV Peak A-Wave: 0.84 m/s E/A Ratio: 1.42 Mean Velocity: 0.66 m/s Peak Gradient: 5.74 mmHg Mean Gradient: 2 mmHg Area (continuity): 2.49 cm^2 MV VTI: 44.08 cm MV Roderick. Peak: 1.3 m/s Tissue Doppler E' Septal Velocity: 0.05 m/s E/E': 22.75 E' Lateral Velocity: 0.06 m/s Aortic Valve Peak Velocity: 2.45 m/s Mean Velocity: 1.52 m/s Peak Gradient: 24.03 mmHg Mean Gradient: 11 mmHg AV Area (continuity): 1.58 cm^2 AV VTI: 69.57 cm AR P1/2t: 545.8 msec AV DVI: 0.52 LVOT Peak Velocity: 1.2 m/s Peak Gradient: 5.78 mmHg Mean Velocity: 0.8 m/s Mean Gradient: 2.93 mmHg LVOT Diameter: 1.96 cm LVOT VTI: 36.39 cm LVOT Area: 3.02 cm^2 LVOT SV:109.74 ml LVOT CO: 6.91 l/min LVOT CI: 3.99 l/min/m^2 Tricuspid Valve TR Velocity: 2.73 m/s TR Gradient: 29.8 mmHg Performing Organization Address City/State/Zipcode Phone Number [facility] REPORT OF PROCEDURE - ENDOSCOPY URL (03/27/2020 2:35 PM PROFESSOR OF MECHANICAL ENGINEERING) Narrative Performed At This result has an attachment that is no t available. Urinalysis w/Microscopic + Reflex to Culture (03/27/2020 10:01 AM PROFESSOR OF MECHANICAL ENGINEERING) Color, UA Light Yellow [facility] Clarity, UA Clear [facility] Specific [place], 1.012 1.001 - 1.035 [facility] [place] pH, UA 6.0 5.0 - 8.0 [facility] Protein, UA 20 mg/dL (A) Negative [facility] Glucose, UA Negative Negative [facility] Ketones, UA Negative Negative [facility] Bilirubin, UA Negative Negative [facility] Blood, UA Moderate (A) Negative [facility] Nitrite, UA Negative Negative [facility] Leukocytes, UA Negative Negative [facility] Urobilinogen, UA 0.2 0.2 - 1.0 mg/dL [facility] RBC, UA 7 /HPF [facility] WBC, UA 1 /HPF [facility] Squam Epithel, UA 2 /HPF [facility] Specimen Source [facility] Specimen Urine Narrative Performed At Associate Trainer ID - [auto] [facility] Associate Trainer ID - tech Performing Organization Address City/[facility]/Zipcode Phone Number [facility] [address] [place] [address] CENTER Iron, TIBC, % sat. (without ferritin) (03/27/2020 4:10 AM PROFESSOR OF MECHANICAL ENGINEERING) Pathologist Sig nature Iron 34.0 (L) 40.0 - 160.0 [facility] ug/dL [facility] TIBC 275 250 - 450 ug/dL [facility] Iron % Saturation 12 (L) 20 - 55 % [facility] Specimen Blood Narrative Performed At Associate Trainer ID - MARY ELLEN Laureano [facility] Performing Organization Address City/State/Zipcode Phone Number [facility] [address] [place] [address] CENTER Hemoglobin A1c (03/27/2020 4:10 AM PROFESSOR OF MECHANICAL ENGINEERING) Pathologist Sig [facility] Hemoglobin A1C 6.0 4.3 - 6.1 % [facility] Specimen Blood Performing Organization Address [facility]/Zipcode Phone Number [address] [address] [place] Ferritin (03/27/2020 4:10 AM PROFESSOR OF MECHANICAL ENGINEERING) Pathologist Sig [facility] Ferritin 45.51 5.00 - 275.00 ng/mL [facility] Specimen Blood Narrative Performed At Associate Trainer ID - MARY ELLEN Laureano [facility] Performing Organization Address [facility] Phone Number [address] [address] [place] US abdomen complete (03/26/2020 11:44 PM PROFESSOR OF MECHANICAL ENGINEERING) Specimen Narrative Performed At FINAL REPORT [employer] History: "Eval for cirrhosis and PAUL" Abdominal ultrasound dated 03/26/2020 Comparison: None Comment: Real-time transabdominal ultr asound of the abdomen was performed. Liver: 11.0 cm , normal. There may be jaramillo btle nodularity of the hepatic margin, though discrimination is limited by acoustic windowing. No visualized focal lesions. Gallbladder: No gallstones. No gallbladd er wall thickening. No perocholecystic fluid.. No sonographic M urphy's sign. Biliary tree: No intrahepatic ductal dil atation. CBD: 4 mm. MPV: 7 mm. There is hepatopedal flow. Spleen: Normal size and echogenicity. Pancreas: Obscured by bowel gas. Right kidney: 8.1 x 3.7 x 4.3 cm. Normal echogenicity. Left kidney: 9.2 x 3.8 x 4.1 cm. Normal echogenicity. No ascites is present in the abdomen. The visualized abdominal aorta is normal in caliber. The IVC and Hepatic veins are patent. Impression: Evaluation of the hepatic contour is valdez ited by acoustic windowing, however, there may be a subtle nodular c ontour suggesting the possibility of underlying parenchymal di sease. Better characterization with liver protocol MRI can be obtained, as indicated. Nonvisualization of the pancreas. Signed: Dhaval Jara MD Report Verified Date/Time: 03/27/2020 03:54:43 Procedure Note Interface, External Ris In - 03/27/2020 3:56 AM PROFESSOR OF MECHANICAL ENGINEERING FINAL REPORT History: "Eval for cirrhosis and PAUL" Abdominal ultrasound dated 03/26/2020 Comparison: None Comment: Real-time transabdominal ultra sound of the abdomen was performed. Liver: 11.0 cm , normal. There may be jaramillo btle nodularity of the hepatic margin, though discrimination is limited by acoustic windowing. No visualized focal lesions. Gallbladder: No gallstones. No gallbladd er wall thickening. No perocholecystic fluid.. No sonographic M urphy's sign. Biliary tree: No intrahepatic ductal dil atation. CBD: 4 mm. MPV: 7 mm. There is hepatopedal flow. Spleen: Normal size and echogenicity. Pancreas: Obscured by bowel gas. Right kidney: 8.1 x 3.7 x 4.3 cm. Normal echogenicity. Left kidney: 9.2 x 3.8 x 4.1 cm. Normal echogenicity. No ascites is present in the abdomen. The visualized abdominal aorta is normal in caliber. The IVC and Hepatic veins are patent. Impression: Evaluation of the hepatic contour is valdez ited by acoustic windowing, however, there may be a subtle nodular c ontour suggesting the possibility of underlying parenchymal di sease. Better characterization with liver protocol MRI can be obtained, as indicated. Nonvisualization of the pancreas. Signed: Dhaval Jara MD Report Verified Date/Time: 03/27/2020 0 3:54:43 Performing Organization Address City/State/Zipcode Phone Number [employer] XR chest 2 views (03/26/2020 7:39 PM PROFESSOR OF MECHANICAL ENGINEERING) Specimen Narrative Performed At FINAL REPORT [employer] INDICATION: RULE OUT PNEMUNIA COMPARISON: None TECHNIQUE: Frontal and lateral views of the chest. FINDINGS: Lungs and pleura: Small bilateral effusi ons, best seen layering on lateral radiograph. No focal pneumonia. Heart and mediastinum: Normal heart size . Unremarkable mediastinal contours. Osseous structures: Multiple age-indeter minate compression deformities of the thoracic spine, diffi cult to evaluate due to severe diffuse osteopenia.. Additional findings: None. Signed: Rima Glasgow MD Report Verified Date/Time: 03/26/2020 20:10:08 Reading Location: [facility] C013[facility] Room Procedure Note Interface, External Ris In - 03/26/2020 8:12 PM PROFESSOR OF MECHANICAL ENGINEERING FINAL REPORT INDICATION: RULE OUT PNEMUNIA COMPARISON: None TECHNIQUE: Frontal and lateral views of the chest. FINDINGS: Lungs and pleura: Small bilateral effusi ons, best seen layering on lateral radiograph. No focal pneumonia. Heart and mediastinum: Normal heart size . Unremarkable mediastinal contours. Osseous structures: Multiple age-indeter minate compression deformities of the thoracic spine, diffi cult to evaluate due to severe diffuse osteopenia.. Additional findings: None. Signed: Rima Glasgow MD Report Verified Date/Time: 03/26/2020 2 0:10:08 Reading Location: [facility] C013[facility] Room Performing Organization Address City/[facility]/Zipcode Phone Number [facility] Blood Culture - Routine (Right Venipuncture) (03/26/2020 4:44 PM PROFESSOR OF MECHANICAL ENGINEERING)Only the most recent of2 resultswithin the time period is included. Pathologist Sig nature Result No growth in 5 days [facility] CENTER Specimen Blood - Entire right upper arm (body str ucture) Performing Organization Address [facility]/Zipcode Phone Number [facility] [address] [place] [address] CENTER TSH/Free T4 If Indicated (03/26/2020 4:18 PM PROFESSOR OF MECHANICAL ENGINEERING) Pathologist Sig nature TSH 1.248 0.350 - 4.940 uIU/mL [facility] Specimen Blood Narrative Performed At Associate Trainer ID - BS [facility] Performing Organization Address City/[facility]/Zipcode Phone Number [facility] [address] [place] [address] CENTER Hemoglobin and hematocrit (03/26/2020 4:18 PM PROFESSOR OF MECHANICAL ENGINEERING) Pathologist Sig nature Hemoglobin 8.4 (L) 11.2 - 15.7 GM/DL [facility] Hematocrit 26.6 (L) 34.1 - 44.9 % [facility] Specimen Blood Narrative Performed At Associate Trainer ID - [id number] [facility] Performing Organization Address [facility] Centerco[facility] Phone Number [address] [address] CENTER B-type Natriuretic Factor (BNP) (03/26/2020 4:12 PM PROFESSOR OF MECHANICAL ENGINEERING) Pathologist Sig nature BNP 893 (H) 0 - 100 pg/mL [facility] Specimen Blood Performing Organization Address City/[facility] Centercode Phone Number [facility] [address] [place] [address] Creatine Kinase (CK) (03/26/2020 4:12 PM PROFESSOR OF MECHANICAL ENGINEERING) Pathologist Sig nature Total CK 51 29 - 200 U/L [facility] Specimen Blood Narrative Performed At Associate Trainer ID - BS [facility] Performing Organization Address City/[facility] Centercode Phone Number [address] [address] CENTER Ammonia (03/26/2020 4:12 PM PROFESSOR OF MECHANICAL ENGINEERING) Pathologist Sig nature Ammonia 51 18 - 72 mol/L [facility] Specimen Blood Narrative Performed At Associate Trainer ID - BS [facility] Performing Organization Address City/[facility] Centercode Phone Number [address] [address] [place] Urinalysis Microscopic Only (03/26/2020 3:57 PM PROFESSOR OF MECHANICAL ENGINEERING) Pathologist Sig nature RBC, UA 3 /HPF [facility] WBC, UA 3 /HPF [facility] Mucus Rare [facility] Squam Epithel, UA 2 /HPF [facility] Specimen Urine Narrative Performed At Associate Trainer ID - tech [facility] Performing Organization Address City/[facility] Centercode Phone Number [facility] [address] [place] [address] [place] Urinalysis with Microscopic If Indicated (03/26/2020 3:57 PM PROFESSOR OF MECHANICAL ENGINEERING) Color, UA Light Yellow [facility] Clarity, UA Clear [facility] Specific [place], 1.013 1.001 - 1.035 [facility] [place] pH, UA 5.5 5.0 - 8.0 [facility] Protein, UA 20 mg/dL (A) Negative [facility] Glucose, UA Negative Negative [facility] Ketones, UA Negative Negative [facility] Bilirubin, UA Negative Negative [facility] Blood, UA Small (A) Negative [facility] Nitrite, UA Negative Negative [facility] Leukocytes, UA Negative Negative [facility] Urobilinogen, UA 0.2 0.2 - 1.0 mg/dL [facility] Specimen Source [facility] Specimen Urine Narrative Performed At Associate Trainer ID - [auto] [facility] Performing Organization Address [facility]/Zipcode Phone Number [facility] [address] [place] [address] [place] Sodium, random urine (03/26/2020 3:57 PM PROFESSOR OF MECHANICAL ENGINEERING) Pathologist Sig nature Sodium Urine 32 meq/L [facility] [place] Specimen Urine Narrative Performed At Reference Range: No Normals [facility] Associate Trainer ID - DB Performing Organization Address [facility]/Zipcode Phone Number [address] [phone] CENTER Creatinine, random urine (03/26/2020 3:57 PM PROFESSOR OF MECHANICAL ENGINEERING) Pathologist Sig nature Creatinine, Ur 44.6 mg/dL [facility] [place] Specimen Urine Narrative Performed At Reference Range: No Normals [facility] Associate Trainer ID - DB Performing Organization Address [facility]/Zipcode Phone Number [address] [address] [place] Transfuse Leuko-Red RBC (03/26/2020 2:31 PM PROFESSOR OF MECHANICAL ENGINEERING)SARS-CoV2/RT-PCR (Asymptomatic ONLY) (03/26/2020 12:43 PM PROFESSOR OF MECHANICAL ENGINEERING) SARS-COV2/RT-PCR Negative Not Detected, [facility] Negative, See [facility] external report CENTER for linked test SARS-COV-2 [facility] PERFORMING LAB [facility] Specimen Other - Nasopharyngeal wall structure (b javan structure) Narrative Performed At Negative result for this test determines that [facility] SARS-CoV-2 RNA was not present in the specimen above the Limit of Detection (LOD). However, Negative results do not preclude SARS-CoV-2 infection and should not be used as the sole basis for treatment or patient management decisions. Negative results must be combined with clinical observations, patient history, and epidemiological information. A false negative result may occur if a specimen is improperly collected, transported or handled. A false negative result should be considered if patient's recent exposures or clinical presentation indicate that COVID-19 (SARS-CoV-2) is likely and diagnostic tests for other causes of illness are negative. Re-testing should be considered in cases of suspected false negatives. The limit of detection for this assay is 800 copies/mL. This SARS CoV-2 test is a real-time RT-PCR test intended for the qualitative detection of nucleic acid from SARS-CoV-2 in a nasopharyngeal swab specimen collected from individuals suspected of COVID-19 by their healthcare provider. This test has not been Food and Drug Administration (FDA) cleared or approved. This is a modified version of an approved Emergency Use Authorization (EUA) and is in the process of review by the FDA. Once authorized by the FDA, the issued EUA will be effective until the declaration that circumstances exist justifying the authorization of the emergency use of in vitro diagnostic tests for detection and/or diagnosis of COVID-19 is terminated under Section 564(b)(2) of the Act or the EUA is revoked under Section 564(g) of the Act. Fact Sheet for Healthcare Providers: https://www.[employer]/sites/default/files/pro duct/documents/Fact_Sheet_HC_Providers_Lyra_SA RS-CoV-2.pdf Fact Sheet for Healthcare Patients: https://www.[employer]/sites/default/files/pro duct/documents/Fact_Sheet_Patients_Lyra_SARS-C oV-2.pdf Performing Laboratory: [address] [address] Performing Organization Address City/[facility] Centercode Phone Number [address] [address] CENTER ABORH, manual (03/26/2020 6:43 AM PROFESSOR OF MECHANICAL ENGINEERING) Pathologist Sig nature ABO Grouping A [facility] Rh Factor POS [facility] Specimen Blood Performing Organization Address City/[facility]/Zipcode Phone Number [address] [address] Type and screen, automated (03/26/2020 5:23 AM PROFESSOR OF MECHANICAL ENGINEERING) Pathologist Sig nature ABO/RH AUTOMATED A POSITIVE [facility] (BEAKER) [facility] Ab Scrn NEGATIVE [facility] Specimen Blood Performing Organization Address City/[facility]/Zipcode Phone Number [address] [address] Prothrombin time/INR (03/26/2020 5:23 AM PROFESSOR OF MECHANICAL ENGINEERING) Pathologist Sig nature Protime 14.6 (H) 11.9 - 14.2 seconds [facility] INR 1.17 <=5.90 [facility] Specimen Blood Narrative Performed At Effective 09/01/2018: PT Reference Range [facility] Change New: 11.9-14.2 Previous: 11.7-14.7 RECOMMENDED COUMADIN/WARFARIN INR THERAPY RANGES STANDARD DOSE: 2.0-3.0 Includes: PROPHYLAXIS for venous thrombosis, systemic embolization; TREATMENT for venous thrombosis and/or pulmonary embolus. HIGH RISK: Target INR is 2.5-3.5 for patients wiht mechanical heart valves. Performing Organization Address [facility] Centercode Phone Number [address] [address] CENTER Uric acid (03/26/2020 5:23 AM PROFESSOR OF MECHANICAL ENGINEERING) Pathologist Sig nature Uric Acid 13.8 (H) 2.6 - 7.2 mg/dL [facility] Specimen Blood Narrative Performed At Associate Trainer BOB Campos [facility] Performing Organization Address [facility]/Zipcode Phone Number [address] [address] CENTER Hepatic function panel (03/26/2020 5:23 AM PROFESSOR OF MECHANICAL ENGINEERING) Pathologist Sig nature Protein, Total 5.2 (L) 6.0 - 8.3 gm/dL [facility] Albumin 2.5 (L) 3.5 - 5.0 g/dL [facility] Total Bilirubin 0.8 0.2 - 1.2 mg/dL [facility] Bilirubin, Direct 0.4 0.1 - 0.5 mg/dL [facility] Alkaline Phosphatase 88 40 - 150 U/L [facility] AST 21 5 - 34 U/L [facility] ALT 13 6 - 55 U/L [facility] Specimen Blood Narrative Performed At Associate Trainer ID - FUAD Campos [facility] Performing Organization Address City/State/Zipcode Phone Number [facility] [address] [place] [address] CENTER after 04/01/2019 Insurance Payer Benefit Plan / Subscriber ID Effective Dates Phone Addre ss Type Group [employer] [id number] 2020-Present MGD CARE Advance Directives For more information, please contact: [phone] Code Status Date Activated Date Inactivated Comments Full Code 03/26/2020 4:10 AM 03/28/2020 6:35 PM This code status was determined by: Patient
--- OUTSIDE RECORDS SUMMARY | 2020-04-01 02:56 | XMS REPORT | Continuity of Care Document ---
:1940 Author Organization [facility] t Address [address] [place] [address] Care Team Providers Name Role Phone LISA JAIN Attending Clinician Unavailable Cristobal HUFF, Lisa Attending Clinician Wai Duke MD Attending Clinician Lloyd Guzmán MD Attending Clinician Zain Duggan MD Attending Clinician Ryland Carpenter CRNA Attending Clinician Citlali Hong MD Attending Clinician LISA JAIN Admitting Clinician Unavailable Payers Payer Name Policy Type Policy Effective Date Expiration Date Sour ce Number WELLCARE MEDICARE [id number] [facility] MGD CAREWELLCARE 00:00:00 - Medica l [id number] Center /2019-Present Problems Condition Condition Condition Status Onset Resolution Last Treating Co mments Source Name Details Category Date Date Treatment Clinician Date Closed Closed Disease Active 2019-[address] [facility] fracture fracture 2-23 [facility] - of one rib of one rib 00:00: Me dical of right of right 00 Center side side (HFpEF) (HFpEF) Disease Active 2019-[address] [facility] heart heart 2-23 [facility] - failure failure 00:00: Medical with with 00 Center preserved preserved ejection ejection fraction fraction Gastrointe Gastrointe Disease Active 2019-[address] stinal stinal 05-27 [facility] - hemorrhage hemorrhage 00:00: Me dical associated associated 00 Ce nter with with gastric gastric ulcer ulcer Hypothyroi Hypothyroi Problem Active 2019-04 [facility] ill[facility] [...] Reflux 00:00: Practic disease Disease 00 e PAUL (acute PAUL (acute Disease Resolve 2019-042020-03-28 2020-03-28 [facility] kidney kidney d 05-29 00:00:00 18:26:22 [facility] - injury) injury) 00:00: Medical Center Allergies, Adverse Reactions, Alerts This patient has no known allergies or adverse reactions. Social History Social Habit Start Date Stop Date Quantity Comments Source Sex Assigned At [facility] Tobacco use and 2020-03-28 2020-03-28 Never used [facility] - exposure 00:00:00 00:00:00 [facility] Tobacco Comment 2020-03-27 2020-03-27 20 years ago [facility] - 00:00:00 00:00:00 [facility] Smoking Status Start Date Stop Date Source Former smoker 2020-03-28 00:00:00 2020-03-28 00:00:00 [facility] - [facility] Medications Ordered Filled Start Stop Current Ordering Indication Dosage Frequency Signature Comments Components Source Medication Medication Date Date Medication? Clinician (SIG) Name Name atorvastati 2019-04 Yes 20mg QD Take [address] [facility] n (LIPITOR) 2-23 by mouth Luke s - 20 MG 16:35: daily. Medical tablet 10 [place] nebivoloL 2019-04 Yes 10mg QD Take [address] (BYSTOLIC) 2-23 by mouth [facility] - 10 MG 16:35: daily. Medical tablet 10 [place] glimepiride 2019-04 Yes 1mg Take [address] (AMARYL) 1 -23 by mouth [facility] - MG tablet 16:35: every Medical 10 morning Center before breakfast. hydroCHLORO 2019-04 Yes 12.5mg QD Take 12.[address] thiazide 2-23 mg by [facility] - (MICROZIDE) 16:35: mouth Medic al 12.5 mg 10 daily. Center capsule propylthiou 2019-04 Yes 50mg Q.5D Take [address] [address] raciL (PTU) 2-23 by mouth 2 Dena kes - 50 mg 16:35: (two) Medical tablet 10 times Center daily. calcium 2019-04 Yes 1{tbl} Take [address] [address] carbonate-v 2-23 tablet by Reyes es - itamin D3 16:35: mouth 2 Medic al 500 10 (two) Center mg(1,250mg) times -400 unit daily with Tab breakfast and dinner. alendronate 2019-04 Yes 70mg Take [address] [facility] (FOSAMAX) 2-23 by mouth [facility] - 70 MG 16:35: every 7 Medical tablet 10 days Take Center in the morning with a full glass of water, on an empty stomach, and do not take anything else by mouth or lie down for the next 30 min. . omeprazole 2019-04- No 20mg QD Take [address] (PriLOSEC) 2-28 03-23 by mouth Luke s - 20 MG 15:32: 00:00 daily. Medical capsule 52 :00 Center hydrALAZINE 2019-04- No 10mg Q.[id number] Take [address] (APRESOLINE 2-23 - [id number] by mouth 3 [facility]ukes - ) 10 MG 15:32: 00:00 3D (three) Medica l tablet 52 :00 times Center daily. omeprazole 2019-04 Yes 40mg Take 2 [facility] (PriLOSEC) 2-23 capsules [facility] - 20 MG 00:00: (40 mg Medical capsule 00 total) by Center mouth 2 (two) times daily with breakfast and dinner. ferrous 2019-04- Yes 325mg Take [address] [facility] [facility] sulfate 325 -28 03- tablet [facility]ukes - (65 FE) MG 00:00: 23:59 (325 mg Med ical tablet 00 :00 total) by Center mouth daily with breakfast. atorvastati atorvastati No 1 Q1D atorvastat [place] n 20 mg n 20 mg in [...] route. glimepiride glimepiride No 1 Q1D glimepirid [place] 1 mg tablet 1 mg tablet e 1 mg Family Take 1 Take 1 tablet Practic tablet tablet Take 1 e every day every day tablet by oral by oral every day route. route. by oral route. hydralazine hydralazine No 1 BID hydralazin [facility] 10 mg 10 mg e 10 mg Family tablet Take tablet Take tablet Practic 1 tablet 1 tablet Take 1 e twice a day twice a day tablet by oral by oral twice a route. route. day by oral route. hydrochloro hydrochloro No 1 Q1D hydrochlor [facility] thiazide 25 thiazide 25 othiazide Family mg tablet mg tablet 25 mg Prac tic Take 1 Take 1 tablet e tablet tablet Take 1 every day every day tablet by oral by oral every day route. route. by oral route. ibuprofen ibuprofen No 1capsul Q6H ibuprofen [facility] 200 mg 200 mg e(s) 200 mg Family capsule capsule capsule Practi c Take 1 Take 1 Take 1 e capsule capsule capsule every 6 every 6 every 6 hours by hours by hours by oral route. oral route. oral route. propylthiou propylthiou No 1 BID propylthio [facility] racil 50 mg racil 50 mg uracil 50 Family tablet Take tablet Take mg tablet Practic 1 tablet 1 tablet Take 1 e twice a day twice a day tablet by oral by oral twice a route. route. day by oral route. Immunizations Ordered Immunization Filled Immunization Date Status Commen ts Source Name Name influenza, influenza, 2020-01-05 Completed [facility] injectable, injectable, 00:00:00 Practice quadrivalent quadrivalent Vital Signs Vital Name Observation Time Observation Value Comments Source BP Diastolic 2020-02-10 00:00:00 80 mm[Hg] [facility] Height 2020-02-10 00:00:00 59 [in_i] [facility] BMI (Body Mass Index) 2020-02-10 00:00:00 31.9 kg/m2 [facility] BP Systolic 2020-02-10 00:00:00 140 mm[Hg] [facility] Body Weight 2020-02-10 00:00:00 158 [lb_av] [facility] Systolic blood 2020-03-28 15:14:00 156 mm[Hg] [facility] Diastolic blood 2020-03-28 15:14:00 67 mm[Hg] [facility] Heart rate 2020-03-28 15:14:00 65 /min [facility] Body temperature 2020-03-28 15:14:00 36.78 Opal [facility] Respiratory rate 2020-03-28 15:14:00 18 /min [facility] Oxygen saturation in 2020-03-28 15:14:00 96 /min [facility] Arterial blood by Medical Ce nter Pulse oximetry Body weight 2020-03-26 03:00:00 72.213 kg [facility] Procedures Procedure Date / Time Performed Performing Clinician Sourjhonny e POCT-GLUCOSE METER 2020-03-28 11:08:00 Emperatriz Duke [facility] POCT-GLUCOSE METER 2020-03-28 07:36:00 Emperatriz Duke [facility] MAGNESIUM 2020-03-28 04:14:00 Vicente Quinones [facility] Hospital BASIC METABOLIC PANEL 2020-03-28 04:14:00 Vicente Quinones [facility] (7) [facility] CBC W/PLT COUNT & AUTO 2020-03-28 04:14:[address] [facility] DIFFERENTIAL [facility] PREPARE LEUKO-REDUCED 2020-03-27 23:54:[address] [facility] POCT-GLUCOSE METER 2020-03-27 21:02:00 Emperatriz Duke [facility] XR RIBS 2 VIEWS MIN 2020-03-27 18:33:[address] [facility] UNILATERAL RIGHT [facility] Center 2D ECHO W/ DOPPLER 2020-03-27 17:31:00 Vicente Quinones [facility] (CW/PW/COLOR) [facility] POCT-GLUCOSE METER 2020-03-27 15:14:00 [facility] RE[facility] OF [facility]ED[facility] - 2020-03-27 14:35:24 Arielle [facility] ENDOSCOPY URL [facility] Center POCT-GLUCOSE METER 2020-03-27 14:04:00 Emperatriz Duke [facility] UPPER ENDOSCOPY 2020-03-27 14:00:00 Arielle [facility] POCT-GLUCOSE METER 2020-03-27 11:56:00 [facility] URINALYSIS W/ REFLEX 2020-03-27 10:01:[address] [facility] URINE CULTURE [facility] BASIC METABOLIC PANEL 2020-03-27 08:25:00 Vicente Quinones [facility] (7) [facility] CBC W/PLT COUNT & AUTO 2020-03-27 08:25:00 Vicente Quinones [facility] POCT-GLUCOSE METER 2020-03-27 07:32:00 Emperatriz Duke [facility] HEMOGLOBIN A1C 2020-03-27 04:10:00 Vicente Quinones [facility] Hospital FERRITIN 2020-03-27 04:10:00 Vicente Quinones [facility] Hospital IRON, TIBC, % SAT. 2020-03-27 04:10:00 Vicente Quinones [facility] (WITHOUT FERRITIN) [facility] ABDOMEN COMPLETE 2020-03-26 23:44:00 Vicente Quinones [facility] POCT-GLUCOSE METER 2020-03-26 22:43:00 [facility] POCT-GLUCOSE METER 2020-03-26 21:12:00 [facility] XR CHEST 2 VIEWS 2020-03-26 19:39:00 Vicente Quinones [facility] POCT-GLUCOSE METER 2020-03-26 16:47:00 Emperatriz Duke [facility] BLOOD CULTURE 2020-03-26 16:44:00 Vicente Quinones [facility] Hospital BLOOD CULTURE 2020-03-26 16:19:00 David Anaya [facility] TSH/FREE T4 IF INDICATED 2020-03-26 16:18:00 [facility] HEMOGLOBIN AND 2020-03-26 16:18:00 [facility] B-TYPE NATRIURETIC 2020-03-26 16:12:00 Vicente Quinones [facility] ukes - FACTOR (BNP) [facility] CREATINE KINASE (CK) 2020-03-26 16:12:00 Vicente Quinones [facility] BASIC METABOLIC PANEL 2020-03-26 16:12:00 Vicente Quinones [facility] (7) [facility] AMMONIA 2020-03-26 16:12:00 Emperatriz Duke [facility] CREATININE, RANDOM URINE 2020-03-26 15:57:00 Jenni Jain [facility] SODIUM, RANDOM URINE 2020-03-26 15:57:00 Jenni Jain [facility] URINALYSIS WITH 2020-03-26 15:57:00 Jenni Jain [facility] MICROSCOPIC IF INDICATED [facility] URINALYSIS MICROSCOPIC 2020-03-26 15:57:00 Jenni Jain [facility] TRANSFUSE LEUKO-REDUCED 2020-03-26 14:31:45 Jenni Jain [facility] - RED BLOOD CELLS [facility] SARS-COV2/RT-PCR ([facility] & 2020-03-26 12:43:00 Vicente Quinones CH I [facility] - REF LABS) [facility] ABORH, MANUAL 2020-03-26 06:43:00 Meri Wilder [facility] BASIC METABOLIC PANEL 2020-03-26 05:23:00 Jenni Jain [facility] (7) [facility] HEPATIC FUNCTION PANEL 2020-03-26 05:23:00 Cristobal [facility] PROTHROMBIN TIME/INR 2020-03-26 05:23:00 Cristobal [facility] MAGNESIUM 2020-03-26 05:23:00 Cristobal [facility] URIC ACID 2020-03-26 05:23:00 Cristobal [facility] TYPE AND SCREEN, 2020-03-26 05:23:00 [facility]OM[facility] CBC W/PLT COUNT & AUTO 2020-03-26 05:23:00 [facility] Plan of Care Planned Activity Planned Date Details Comments Source Future Scheduled Test 2020-09-25 Hemoglobin A1c [facility] - 00:00:00 [facility] Medical Center (procedure) [code = 38544412] Future Scheduled Test 2020-03-24 [facility]PE [facility] - [facility] (WELCOME TO Medical Center MEDICARE) [code = Medicare IPPE (WELCOME TO MEDICARE)] Future Scheduled Test 2019-04-[address] [facility] - 00:00:00 (12+) [code = Medical Center DEPRESSION SCREENING (12+)] Future Scheduled Test 1961 [address]PATITIS B VACCINE [facility] - 00:00:00 (1 of 3 - Risk Medical Cente r 3-dose series) [code = HEPATITIS B VACCINE (1 of 3 - Risk 3-dose series)] Future Scheduled Test 1952 DIABETIC EYE EXAM [facility] - 00:00:00 [code = DIABETIC EYE Medical Center EXAM] Future Scheduled Test 1952 [facility] - [facility] examination Medical Center (regime/therapy) [code = 389785147] Future Scheduled Test [address] [facility] 00:00:00 protein (procedure) [facility] [code = 738511161] Future Appointment 2020 Aiyana Huang, V illage Family 00:00:00 [address]; [address] [facility] [address], [place] [address] [facility] Practice Encounters Start End Encounter Admission Attending Care Care Encounter Source Date/Time Date/Time Type Type Clinicians Facility Department ID 2020-02-10 2020-02-10 Aiyana [facility] - [id number] V illage 00:00:00 00:00:00 Tamiko [facility] Fam arcenio santizo, ACCOUNTING MANAGER CPA: Medical - Practi c [address], [place] [address] , Ph. Results Test Description Test Time Test Comments Results Result Comments Source Blood Culture - Routine (Right Venipuncture) 2020-03-31 19:0 1:00 Test Item Value Reference Range Interpretation Comme nts Result (test code = 6463-4) No growth in 5 days [facility] [id number] 19:01:00 Test Item Value Reference Range Interpretation Comments CULTURE (BEAKER) (test No growth in 5 days code = 1095) BLOOD [id number] 19:01:00 Test Item Value Reference Range Interpretation Comments CULTURE (BEAKER) (test No growth in 5 days code = 1095) TISSUE [id number] 15:42:00Surgical Pathology Report Case: [id number] Authorizing Provider: Arun Guzmán MD Collected: 03/27/2020 02:30 PM Ordering Location: [address] Received: 03/28/2020 09:01 AM Service Pathologist: Karsten Raya MD Specimen: Biopsy, Gastric, Random Bx PART A RANDOM GASTRIC BIOPSY:ACTIVE CHRONIC GASTRITIS.NEGATIVE FOR INTESTINAL METAPLASIA, DYSPLASIA, OR INVASIVE CARCINOMA.WARTHIN STARRY STAIN FOR HELICOBACTER IS EQUIVOCAL, IMMUNOSTAIN PENDING. Signing Pathologist Direct Phone Line: [phone] signed by Karsten Raya MD on 03/28/2020 at 3:42 [id number], [id number], [id number] hemorrhage associated with gastritisGastricA. Receivedin formalin labeled with the patient's name, medical record number and "biopsy, gastric" and consists of multiple jacobo soft tissue fragments ranging 0.2-0.8 cm submitted in toto in A1.SY Ahumada, CHRIS ([facility])cmPerformed. The interpretation of this case included the use of immunohistochemistry or special stains.BLOCK A1- WARTHICharbel STARRYControl Slides Examined: In-house known positive controls wereevaluated along with the test tissue. These control slides run alongside of the patients sample show appropriate staining. Internal positive and negative controls when available are evaluated Immunohistochemistry technical testing was performed at [facility], Pathology Laboratory where it was developed and its performance characteristics were determined. It has not been clearedor approved by the U.S. Food and Drug Administration. The FDA has determined that such clearance or approval is not necessary. The test is used for clinical purposes. It should not be regarded as investigational or for research. This laboratory is certified under the Clinical Laboratory Improvement Amendments of 1988 (CLIA-88) as qualified to perform high complexity clinical laboratory testing.[facility], Department of Pathology, [address] [place] [address], [facility], [facility] of Pathology, [address] [place] [address], [facility], Department of Pathology, [address] [place] [address], UWO-Glucose [id number] 11:20:00 Test Item Value Reference Range Interpretation Comments POC-Glucose Meter (test 200 mg/dL 70-110 H : JAGDISH MITCHELL AT [facility] code = 1538) [address] [place] [address], [facility] 30: Reconciliation Manager/Techni nigel ID = [id number] for QUEEN MCCLELLAN Lab Interpretation (test Abnormal code = 43407-0) [facility]SE [id number] 11:20:00 Test Item Value Reference Range Interpretation Comments POC-GLUCOSE METER 200 mg/dL 70-110 H : TESTED A T [facility] 6720 (REGINA) (test code = [place], 1538) [address]: Reconciliation Manager/Techni nigel ID = [id number] for QUEEN CAMPOS 2D Echo W/Doppler(CW/PW/Color)2020-03-28 08:40:39Ejection FractionSLEH ECHO HEARTLAB MKCKESSON CPACSInterface, External Ris In - 03/28/2020 8:40 AM C STTransthoracic Echocardiography Report (TTE) Demographics Patient Name NAMAN FOWLER Date of Study 03/27/2020 CHIKIS Gender Female Visit Number [id number] Race Unknown Room Number 930 Number Date of 1940 Referring Physician Emperatriz Duke Age 79 year(s) Technical Developer Gabby Monaco [facility] Interpreting Delonte Garces MD Physician Procedure Type of Study TTE procedure:2DECHO W DOPPLER(CW/PW/COLOR) (Routine) Indications:Known or suspected heart failure.Clinical HistoryDM;HTN;HIGH CHOLEST;HYPOTHYROIDISM.Contrast Medium: Definity.Height: 62 inches Weight: 72.12 kg (159 lbs) BSA: 1.73 m^2 BMI: 29.08 kg/m^2HR: 63 bpm BP: 128/59 mmHg Summary 1. The left ventricle is chamber size (by vol index) is normal with mild concentric LVhypertrophy. LVEF by Veloz's method of disk assessment is normal (>60%) . LV diastolic functionis indeterminate. 2. The right ventricular chamber size and systolic function are within normal limits. 3. LA size is severely enlarged . 4. Mild aortic stenosis (peak velocity 2.5 m/s, mean gradient 11 mmHg, DOI 0.52). Mild aortic regurgitation. 5. Llwa-jv-tfxeagij mitral regurgitation. 6. Estimated peak systolic PA pressure is 30-35 mmHg (normal range) . Previous Study No prior exam availablefor comparison. Signature Findings Left Ventricle LV endocardium is wellvisualized with IV ultrasound enhancing agent. The left ventricle is chamber size (by vol index) is normal. Mild concentric LV hypertrophy. All of the LV segments contract normally . LVEF by Veloz's method of disk assessment is normal (>60%) . LV diastolic function is indeterminate. Left Atrium LA sizeis severely enlarged . Right Ventricle The right ventricular chamber size and systolic function are within normal limits. Right Atrium RA size is normal. Aortic Valve Trileaflet aortic valve. Mild AoV cusp thickening. Mild aortic regurgitation. Mild aortic stenosis (peak velocity 2.5 m/s, mean gradient 11 mmHg, DOI 0.52). Mitral Valve Mild to moderate mitral annular calcification. No evidence of mitral stenosis. Yftg-gx-rwavwaef mitral regurgitation. Tricuspid Valve Normal TV structure and function by available views and Doppler. Mild tricuspid regurgitation. Estimated peak systolic PA pressure is 30- 35 mmHg (normal range) . Pulmonic Valve Normal PV structure and function by limited views and Doppler. A trace of pulmonary regurgitation. Aorta Aortic root size (SInus of Valsalva diameter) is normal . Proximal ascending aorta size is normal . Pericardium No significant pericardial effusion is visualized. IVC/SVC/PA/PV/Pleural The estimated RA pressure by IVC dynamics 0-5mmHg . Chambers/Structures Left Atrium LA Volume: 85.22 ml LA Area: 26.58 cm^2 LA Vol. Index: 49 ml/m^2 Left Ventricle LVIDd: 3.2 cm LV Septum Diastolic: 1.32 cm LV PW Diasto lic: 1.36 cm LVEDV Veloz's:89.56 ml LVESV Veloz's:43.77 ml LVEF Veloz's: 63.4 % LVEDVI: 52 ml/m^2 LVESVI: 25 ml/m^2 LVOT Diameter:1.96 cm Right Atrium RA Area: 13.48 cm^2 [...] 11 mmHg AV Area (continuity): 1.58 cm^2 AVVTI: 69.57 cm AR P1/2t: 545.8 msec AV DVI: 0.52 LVOT Peak Velocity: 1.2 m/s Peak Gradient: 5.78 mmHg Mean Velocity: 0.8 m/s Mean Gradient: 2.93 mmHg LVOT Diameter: 1.96 cm LVOT VTI: 36.39 cm LVOT Area: 3.02 cm^2 LVOT SV:109.74 ml LVOT CO: 6.91 l/min LVOT CI: 3.99 l/min/m^2 Tricuspid Valve TR Velocity: 2.73 m/s TR Gradient: 29.8 mmHgSurprise Valley Community HospitalPOCT-GLUCOSE METER 2020-03-28 07:50:00 Test Item Value Reference Range Interpretation Comments POC-GLUCOSE METER 143 mg/dL 70-110 H : TESTED A T [facility] 6720 (BEAKER) (test code = [place], 1538) [address]: Reconciliation Manager/Techni nigel ID = [id number] for [place] RACH IDALOU Basic Metabolic [id number] 05:11:00 Test Item Value Reference Range Interpretation Comments Sodium (test code = 145 meq/L 921-282 6318-2) Potassium (test code = 3.9 meq/L 3.5-5.1 3-3) Chloride (test code = 110 meq/L 98-107 H ) CO2 (test code = 26 meq/L -29 2028-9) BUN (test code = 53 mg/dL 7-21 H 3094-0) Creatinine (test code 1.81 mg/dL 0.57-1.25 H = 2160-0) Glucose (test code = 140 mg/dL 70-105 H 2345-7) Calcium (test code = 8.0 mg/dL 8.4-10.2 L 14506-5) EGFR (test code = 27 mL/min/1.73 [place] [address]-7) NOT ACCURATE CREATININE CLEARANCE IN PREDICTING GLOMERULAR FILTRATION RATE . ESTIMATED GFR I S NOT APPLICABLE FOR DIALYSIS PATIENTS. LINDA (test code = LINDA) Reconciliation Manager ID - FUAD M Lab Interpretation Abnormal (test code = 47477-2) [facility] Hospital[facility] METABOLIC [id number] 05:11:00 Test Item Value Reference Range Interpretation Comments SODIUM (BEAKER) 145 meq/L 136-145 (test code = 381) POTASSIUM (BEAKER) 3.9 meq/L 3.5-5.1 (test code = 379) CHLORIDE (BEAKER) 110 meq/L 98-107 H (test code = 382) CO2 (BEAKER) (test 26 meq/L 22-29 code = 355) BLOOD UREA NITROGEN 53 mg/dL 7-21 H (BEAKER) (test code = 354) CREATININE (BEAKER) 1.81 mg/dL 0.57-1.25 H (test code = 358) GLUCOSE RANDOM 140 mg/dL 70-105 H (BEAKER) (test code = 652) CALCIUM (BEAKER) 8.0 mg/dL 8.4-10.2 L (test code = 697) EGFR (BEAKER) (test 27 mL/min/1.73 ESTIMA CARLOS GFR IS code = 1092) sq m NOT ACCURATE CREATININE CLEARANCE IN PREDICTING GLOMERULAR FILTRATION RATE . ESTIMATED GFR I S NOT APPLICABLE FOR DIALYSIS PATIEN TS. Reconciliation Manager ID - FUAD [id number] 05:09:00 Test Item Value Reference Range Interpretation Comments Magnesium (test code = 2.5 mg/dL 1.6-2.6 12671-8) LINDA (test code = LINDA) Reconciliation Manager ID - FUAD M Lab Interpretation (test Normal code = 98995-7) [facility] HospitalMAGNESIUM2020-12-23 05:09:00 Test Item Value Reference Range Interpretation Comments MAGNESIUM (BEAKER) (test code = 2.5 mg/dL 1.6-2.6 627) Reconciliation Manager ID - FUAD BC with platelet count + automated [id number] 04:37:00 Test Item Value Reference Range Interpretation Comments WBC (test code = 6690-2) 7.1 3.5- 10.5 K/L RBC (test code = 789-8) 3.04 3.93- 5.22 M/L L MCHC (test code = 786-4) 31.8 32.2- 35.5 GM/DL L Hematocrit (test code = 4544-3) 26.7 % 34.1-44.9 L MCV (test code = 787-2) 87.8 fL 79.4-94.8 MCH (test code = 785-6) 28.0 pg 25.6-32.2 RDW (test code = 788-0) 15.5 % 11.7-14.4 H Platelets (test code = 777-3) 140 150- 450 K/CU MM L MPV (test code = 37979-3) 10.1 fL 9.4-12.3 nRBC (test code = 413) 0 0- 0 /100 WBC % Neutros (test code = 429) 69 % % Lymphs (test code = 430) 19 % % Monos (test code = 431) 7 % % Eos (test code = 432) 4 % % Baso (test code = 437) 0 % # Neutros (test code = 670) 4.89 1.56- 6.13 K/L # Lymphs (test code = 414) 1.35 1.18- 3.74 K/L # Monos (test code = 415) 0.50 0.24- 0.36 K/L H # Eos (test code = 416) 0.26 0.04- 0.36 K/L # Baso (test code = 417) 0.01 0.01- 0.08 K/L Immature Granulocytes-Relative 2 % 0-1 H (test code = 2801) Lab Interpretation (test code = Abnormal 54804-9) [facility] & AUTO [id number] 04:37:00 Test Item Value Reference Range Interpretation Comments WHITE BLOOD CELL COUNT (BEAKER) 7.1 K/ L 3.5-10.5 (test code = 775) RED BLOOD CELL COUNT (BEAKER) 3.04 M/ L 3.93-5.22 L (test code = 761) HEMOGLOBIN (BEAKER) (test code = 8.5 GM/DL 11.2-15.7 L 410) HEMATOCRIT (BEAKER) (test code = 26.7 % 34.1-44.9 L 411) MEAN CORPUSCULAR VOLUME (BEAKER) 87.8 fL 79.4-94.8 (test code = 753) MEAN CORPUSCULAR HEMOGLOBIN 28.0 pg 25.6-32.2 (BEAKER) (test code = 751) MEAN CORPUSCULAR HEMOGLOBIN CONC 31.8 GM/DL 32.2-35.5 L (BEAKER) (test code = 752) RED CELL DISTRIBUTION WIDTH 15.5 % 11.7-14.4 H (BEAKER) (test code = 412) PLATELET COUNT (BEAKER) (test 140 K/CU MM 150-450 L code = 756) MEAN PLATELET VOLUME (BEAKER) 10.1 fL 9.4-12.3 (test code = 754) NUCLEATED RED BLOOD CELLS 0 /100 WBC 0-0 (BEAKER) (test code = 413) NEUTROPHILS RELATIVE PERCENT 69 % (BEAKER) (test code = 429) LYMPHOCYTES RELATIVE PERCENT 19 % (BEAKER) (test code = 430) MONOCYTES RELATIVE PERCENT 7 % (BEAKER) (test code = 431) EOSINOPHILS RELATIVE PERCENT 4 % (BEAKER) (test code = 432) BASOPHILS RELATIVE PERCENT 0 % (BEAKER) (test code = 437) NEUTROPHILS ABSOLUTE COUNT 4.89 K/ L 1.56-6.13 (BEAKER) (test code = 670) LYMPHOCYTES ABSOLUTE COUNT 1.35 K/ L 1.18-3.74 (BEAKER) (test code = 414) MONOCYTES ABSOLUTE COUNT (BEAKER) 0.50 K/ L 0.24-0.36 H (test code = 415) EOSINOPHILS ABSOLUTE COUNT 0.26 K/ L 0.04-0.36 (BEAKER) (test code = 416) BASOPHILS ABSOLUTE COUNT (BEAKER) 0.01 K/ L 0.01-0.08 (test code = 417) IMMATURE GRANULOCYTES-RELATIVE 2 % 0-1 H PERCENT (BEAKER) (test code = 2801) RAD, RIBS, UNILATERAL, MIN 2 VIEWS, [id number] 02:40:00Reason for exam:- >fall 1 month ago, right rib pain [facility] : 1940 Sex: FFINAL REPORT CLINICAL HISTORY: Recent trauma and right chest pain CO MPARISON: Chest x-ray dated 03/26/2020 FINDINGS: A frontal view of the chest and 2 images of the right ribs are submitted. The examination is limited by osteopenia, which can obscure subtle bony abnormality. There is osseous irregularity of the lateral right third, fourth and fifth ribs with subtle adj acent sclerosis, suggesting nonacute rib fractures. Please correlate with evaluation for focal tenderness. The cardiac silhouette is within normal limits for size. Lung volumes are low but there is no consolidation, pneumothorax or significant pleural effusion. Degenerative changes are present in the spine. IMPRESSION: Limited examination, as described. Suspected nonacute lateral right third through fifth rib fractures without underlying pneumothorax or pleural collection. Please correlate with history and examination for focal tenderness. Signed: Dhaval Solomon MDReport Verified Date/Time: 03/28/2020 02:40:40 XR ribs 2 views min unilateral [id number] 02:40:00Interface, External Ris In - 03/28/2020 8:17 AM CSTFINAL REPORT CLINICAL HISTORY: Recent trauma and right chest pain COMPARISON: Chest x-ray dated 03/26/2020 FINDINGS: A frontal view of the chest and 2 images of the right ribs are submitted. The examination is limited by osteopenia, which can obscure subtle bony abnormality. There is osseous irregularity of the lateral right third, fourth and fifth ribs with subtle adjacent sclerosis, suggesting nonacute rib fractures. Please correlate with evaluation for focal tenderness. The cardiac silhouette is within normal limits for size. Lung volumes are low but there is no consolidation, pneumothorax or significant pleural effusion. Degenerative changes are present in the spine. IMPRESSION: Limited examination, as described. Suspected nonacute lateral right third through fifth rib fractures without underlying pneumothorax or pleural collection. Please correlate with history and examination for focal tenderness. Signed: Dhaval Solomon MDReport Verified Date/Time: 03/28/2020 02:40:40 [facility] RBC 2020-03-27 23:54:00 Test Item Value Reference Range Interpretation Comments CROSSMATCH (test code = 2264) COMPATIBLE Unit ABO (test code = A Pos 3241865) UNIT NUMBER (test code = [id number] 934-0) Status (test code = 0917211) TX_TIMEINCHART Blood Bank Product (test code RED BLOOD CELLS = 2263) PRODUCT CODE (test code = R5081R79 933-2) [facility] HospitalPOCT[facility]SE [id number] 21:16:00 Test Item Value Reference Range Interpretation Comments POC-GLUCOSE METER 127 mg/dL 70-110 H : TESTED A T [facility] 6720 ([place]) (test code = CIARA Fraser [facility], 1538) [address]: Reconciliation Manager/Techni nigel ID = [id number] for KE BE, SAUDATU POCT-GLUCOSE [id number] 15:26:00 Test Item Value Reference Range Interpretation Comments POC-GLUCOSE METER 168 mg/dL 70-110 H : Notified RN/MD: (REGINA) (test code = TESTED AT [facility] 6720 1538) [facility], [address]: Reconciliation Manager/Techni nigel ID = [id number] for Si tonyaons, Yadira POCT-GLUCOSE [id number] 14:16:00 Test Item Value Reference Range Interpretation Comments POC-GLUCOSE METER 156 mg/dL 70-110 H : TESTED A T [facility] 6720 (BEAKER) (test code = CIARA [facility], 1538) [address]: Reconciliation Manager/Techni nigel ID = [id number] for DREW CAMPOS POCT-GLUCOSE [id number] 12:08:00 Test Item Value Reference Range Interpretation Comments POC-GLUCOSE METER 193 mg/dL 70-110 H : TESTED A T [facility] 6720 (BEAKER) (test code = CIARA Fraser [facility], 1538) [address]: Reconciliation Manager/Techni nigel ID = [id number] for CINDY DURAN Hemoglobin [id number] 11:27:00 Test Item Value Reference Range Interpretation Comments Hemoglobin A1C (test code = 4548-4) 6.0 % 4.3-6.1 Lab Interpretation (test code = Normal 88824-6) [facility] HospitalHEMOGLOBIN [id number] 11:27:00 Test Item Value Reference Range Interpretation Comments HEMOGLOBIN A1C (BEAKER) (test code = 6.0 % 4.3-6.1 368) Urinalysis w/Microscopic + Reflex to [id number] 11:20:00 Test Item Value Reference Range Interpretation Comments Color, UA (test code = Light Yellow 5778-6) Clarity, UA (test code = Clear 5767-9) Specific [place], UA (test 1.012 1.001-1.035 code = 5811-5) pH, UA (test code = 6.0 5.0-8.0 5803-2) Protein, UA (test code = 20 mg/dL Negative A 54303-6) Glucose, UA (test code = Negative Negative 365) Ketones, UA (test code = Negative Negative 2514-8) Bilirubin, UA (test code = Negative Negative 95586-7) Blood, UA (test code = Moderate Negative A 18568-8) Nitrite, UA (test code = Negative Negative 5802-4) Leukocytes, UA (test code Negative Negative = 5799-2) Urobilinogen, UA (test 0.2 mg/dL 0.2-1 code = 25592-9) RBC, UA (test code = 7 /HPF 06806-2) WBC, UA (test code = 1 /HPF 5821-4) Squam Epithel, UA (test 2 /HPF code = 20889-0) Specimen Source (test code = 2795) LINDA (test code = LINDA) Reconciliation Manager ID - [auto]Reconciliation Manager ID - tech Lab Interpretation (test Abnormal code = 37402-9) [facility] HospitalURINALYSIS W/ REFLEX URINE [id number] 11:20:00 Test Item Value Reference Range Interpretation Comments COLOR (BEAKER) (test code = 470) Light Yellow CLARITY (BEAKER) (test code = Clear 469) SPECIFIC GRAVITY UA (BEAKER) 1.012 1.001-1.035 (test code = 468) PH UA (BEAKER) (test code = 467) 6.0 5.0-8.0 PROTEIN UA (BEAKER) (test code = 20 mg/dL Negative A 464) GLUCOSE UA (BEAKER) (test code = Negative Negative 365) KETONES UA (BEAKER) (test code = Negative Negative 371) BILIRUBIN UA (BEAKER) (test code Negative Negative = 462) BLOOD UA (BEAKER) (test code = Moderate Negative A 461) NITRITE UA (BEAKER) (test code = Negative Negative 465) LEUKOCYTE ESTERASE UA (BEAKER) Negative Negative (test code = 466) UROBILINOGEN UA (BEAKER) (test 0.2 mg/dL 0.2-1.0 code = 463) RBC UA (BEAKER) (test code = 7 /HPF 519) WBC UA (BEAKER) (test code = 1 /HPF 520) SQUAMOUS EPITHELIAL (BEAKER) 2 /HPF (test code = 516) SOURCE(BEAKER) (test code = 2795) Reconciliation Manager ID - [auto]Reconciliation Manager ID - techBASIC METABOLIC [id number] 09:26:00 Test Item Value Reference Range Interpretation Comments SODIUM (BEAKER) 138 meq/L 136-145 (test code = 381) POTASSIUM (BEAKER) 3.1 meq/L 3.5-5.1 L (test code = 379) CHLORIDE (BEAKER) 105 meq/L 98-107 (test code = 382) CO2 (BEAKER) (test 25 meq/L 22-29 code = 355) BLOOD UREA NITROGEN 66 mg/dL 7-21 H (BEAKER) (test code = 354) CREATININE (BEAKER) 1.61 mg/dL 0.57-1.25 H (test code = 358) GLUCOSE RANDOM 183 mg/dL 70-105 H (BEAKER) (test code = 652) CALCIUM (BEAKER) 7.5 mg/dL 8.4-10.2 L (test code = 697) EGFR (BEAKER) (test 31 mL/min/1.73 ESTIMA CARLOS GFR IS code = 1092) sq m NOT ACCURATE CREATININE CLEARANCE IN PREDICTING GLOMERULAR FILTRATION RATE . ESTIMATED GFR I S NOT APPLICABLE FOR DIALYSIS PATIEN TS. Reconciliation Manager ID - ROSIANGCBC W/PLT COUNT & AUTO [id number] 08:41:00 Test Item Value Reference Range Interpretation Comments WHITE BLOOD CELL COUNT (BEAKER) 7.9 K/ L 3.5-10.5 (test code = 775) RED BLOOD CELL COUNT (BEAKER) 2.76 M/ L 3.93-5.22 L (test code = 761) HEMOGLOBIN (BEAKER) (test code = 7.5 GM/DL 11.2-15.7 L 410) HEMATOCRIT (BEAKER) (test code = 23.4 % 34.1-44.9 L 411) MEAN CORPUSCULAR VOLUME (BEAKER) 84.8 fL 79.4-94.8 (test code = 753) MEAN CORPUSCULAR HEMOGLOBIN 27.2 pg 25.6-32.2 (BEAKER) (test code = 751) MEAN CORPUSCULAR HEMOGLOBIN CONC 32.1 GM/DL 32.2-35.5 L (BEAKER) (test code = 752) RED CELL DISTRIBUTION WIDTH 15.1 % 11.7-14.4 H (BEAKER) (test code = 412) PLATELET COUNT (BEAKER) (test 124 K/CU MM 150-450 L code = 756) MEAN PLATELET VOLUME (BEAKER) 9.9 fL 9.4-12.3 (test code = 754) NUCLEATED RED BLOOD CELLS 0 /100 WBC 0-0 (BEAKER) (test code = 413) NEUTROPHILS RELATIVE PERCENT 72 % (BEAKER) (test code = 429) LYMPHOCYTES RELATIVE PERCENT 17 % (BEAKER) (test code = 430) MONOCYTES RELATIVE PERCENT 7 % (BEAKER) (test code = 431) EOSINOPHILS RELATIVE PERCENT 3 % (BEAKER) (test code = 432) BASOPHILS RELATIVE PERCENT 0 % (BEAKER) (test code = 437) NEUTROPHILS ABSOLUTE COUNT 5.66 K/ L 1.56-6.13 (BEAKER) (test code = 670) LYMPHOCYTES ABSOLUTE COUNT 1.37 K/ L 1.18-3.74 (BEAKER) (test code = 414) MONOCYTES ABSOLUTE COUNT (BEAKER) 0.52 K/ L 0.24-0.36 H (test code = 415) EOSINOPHILS ABSOLUTE COUNT 0.24 K/ L 0.04-0.36 (BEAKER) (test code = 416) BASOPHILS ABSOLUTE COUNT (BEAKER) 0.01 K/ L 0.01-0.08 (test code = 417) IMMATURE GRANULOCYTES-RELATIVE 1 % 0-1 PERCENT (BEAKER) (test code = 2801) POCT-GLUCOSE [id number] 07:43:00 Test Item Value Reference Range Interpretation Comments POC-GLUCOSE METER 161 mg/dL 70-110 H : TESTED A T [facility] 6720 (BEAKER) (test code = [facility] [place], 1538) [address]: Reconciliation Manager/Techni nigel ID = [id number] for CINDY DURAN Iron, TIBC, % sat. (without ferritin)2020-03-27 07:10:00 Test Item Value Reference Range Interpretation Comments Iron (test code = 2498-4) 34.0 ug/dL 40-160 L TIBC (test code = 2500-7) 275 ug/dL 250-450 Iron % Saturation (test 12 % 20-55 L code = 2502-3) LINDA (test code = LINDA) Reconciliation Manager ID - MARY ELLEN Laureano Lab Interpretation (test Abnormal code = 26856-9) [facility] HospitalIRON, TIBC, % SAT. (WITHOUT FERRITIN)2020-03-27 07:10:00 Test Item Value Reference Range Interpretation Comments IRON (BEAKER) (test code = 547) 34.0 ug/dL 40.0-160.0 L TOTAL IRON BINDING CAPACITY 275 ug/dL 250-450 (BEAKER) (test code = 769) IRON % SATURATION (2) (BEAKER) 12 % 20-55 L (test code = 2590) Reconciliation Manager ID Sheila HYDE [id number] 07:00:00 Test Item Value Reference Range Interpretation Comments Ferritin (test code = 45.51 ng/mL 5-275 2276-4) LINDA (test code = LINDA) Reconciliation Manager ID - MARY ELLEN Laureano Lab Interpretation (test Normal code = 75724-6) [facility] HospitalFERRITIN2020-12-22 07:00:00 Test Item Value Reference Range Interpretation Comments FERRITIN (BEAKER) (test code = 45.51 ng/mL 5.00-275.00 361) Reconciliation Manager ID - MARY ELLEN VERA/S, ABDOMINAL, [id number] 03:54:00Reason for exam:->evaluate for cirrhosis and [facility] 1940 Sex: FFINAL REPORT History: "Eval for cirrhosis and PAUL" Abdominal ultraso und dated 03/26/2020 Comparison: None Comment: Real-time transabdominal ultrasound of the abdomen was performed. Liver: 11.0 cm , normal. There may be subtle nodularity of the hepatic margin, though discrimination is limited by acoustic windowing. No visualized focal lesions. Gallbladder: No gallstones. No gallbladder wall thickening. No perocholecystic fluid.. No sonographic Jimenez's sign. Biliarytree: No intrahepatic ductal dilatation. CBD: 4 mm. MPV: 7 mm. There is hepatopedal flow. Spleen: Normal size and echogenicity. Pancreas: Obscured by bowel gas. Right kidney: 8.1 x 3.7 x 4.3 cm. Normalechogenicity.Left kidney: 9.2 x 3.8 x 4.1 cm. Normal echogenicity. No ascites is present in the abdomen. The visualized abdominal aorta is normal in caliber. The IVC and Hepatic veins are patent. Impression: Evaluation of the hepatic contour is limited by acoustic windowing, however, there may be a subtle nodular contour suggesting the possibility of underlying parenchymal disease. Better characteriz ation with liver protocol MRI can be obtained, as indicated. Nonvisualization of the pancreas. Signed: Dhaval Solomon MDReport Verified Date/Time: 03/27/2020 03:54:43 US abdomen [id number] 03:54:00Interface, External Ris In - 03/27/2020 3:56 AM CSTFINAL REPORT History: "Eval for cirrhosis and PAUL" Abdominal ultrasound dated 03/26/2020 Comparison: None Comment: Real-timetransabdominal ultrasound of the abdomen was performed. Liver: 11.0 cm , normal. There may be subtle nodularity of the hepatic margin, though discrimination is limited by acoustic windowing. No visualized focal lesions. Gallbladder: No gallstones. No gallbladder wall thickening. No perocholecystic fluid.. No sonographic Jimenez's sign. Biliary tree: No intrahepatic ductal dilatation. CBD: 4 mm. MPV: 7 mm. There is hepatopedal flow. Spleen: Normal size and echogenicity. Pancreas: Obscured by bowel gas. Right kidney: 8.1 x 3.7 x 4.3 cm. Normal echogenicity.Left kidney: 9.2 x 3.8 x 4.1 cm. Normal echogenicity. No ascites is present in the abdomen. The visualized abdominal aorta is normal in caliber. The IVC and Hepatic veins are patent. Impression: Evaluation of the hepatic contour is limited by acoustic windowing, however, there may be a subtle nodular contour suggesting the possibility of underlying parenchymal disease. Better characterization with liver protocol MRI can be obtained, as indicated. Nonvisualization of the pancreas. Signed: Dhaval Solomon MDReport Verified Date/Time: 03/27/2020 03:54:43 [facility]PO[facility] [id number] 22:56:00 Test Item Value Reference Range Interpretation Comments POC-GLUCOSE METER 156 mg/dL 70-110 H : TESTED A T [facility] 6720 ([place]) (test code = CIARA [facility], 1538) [address]: Reconciliation Manager/Techni nigel ID = [id number] for WINIFRED LUNATU POCT-GLUCOSE [id number] 21:26:00 Test Item Value Reference Range Interpretation Comments POC-GLUCOSE METER 31 mg/dL 70-110 LL : Notified RN/MD: TESTED ([place]) (test code = AT [facility] 67[address] [facility] 1538) [facility], [address]: Reconciliation Manager/Techni nigel ID = [id number] for MAYRA , WINIFREDTU RAD, CHEST, 2 [id number] 20:10:00Reason for exam:->RULE OUT PNEMUNIA [facility] : 1940 Sex: FFINAL REPORT INDICATION: RULE OUT PNEMUNIA COMPARISON: None TECHNIQUE: Frontal and lateral views of the chest. FINDINGS: Lungs and pleura: Small bilateral effusions, best seen layering on lateral radiograph. No focal pneumonia.Heart and mediastinum: Normal heart size. Unremarkable mediastinal contours.Osseous structures: Multiple age-indeterminate compression deformities of the thoracic spine, difficult to evaluate due to severe diffuse osteopenia..Additional findings: None. Signed: Rima Glasgow Verified Date/Time: 03/26/2020 20:10:08 Reading Location: [address] Neuro Reading Room XR chest 2 [id number] 20:10:00Interface, External Ris In - 03/26/2020 8:12 PM CSTFINAL REPORT INDICATION: RULE OUT PNEMUNIA COMPARISON: None TECHNIQUE: Frontal and lateral views of the chest. FINDINGS: Lungsand pleura: Small bilateral effusions, best seen layering on lateral radiograph. No focal pneumonia.Heart and mediastinum: Normal heart size. Unremarkable mediastinal contours.Osseous structures: Multiple age-indeterminate compression deformities of the thoracic spine, difficult to evaluate due to severe diffuse osteopenia..Additional findings: None. Signed: Rima Glasgow MDReport Verified Date/Time: 03/26/2020 20:10:08 Reading Location: [facility] C013V Neuro Reading Room [facility] (BNP) 2020-03-26 19:21:00 Test Item Value Reference Range Interpretation Comments BNP (test code = 11477-4) 893 pg/mL 0-100 H Lab Interpretation (test code = Abnormal 77152-0) [facility] HospitalB-TYPE NATRIURETIC FACTOR (BNP)2020-03-26 19:21:00 Test Item Value Reference Range Interpretation Comments B-TYPE NATRIURETIC PEPTIDE (BEAKER) 893 pg/mL 0-100 H (test code = 700) SARS-CoV2/RT-PCR (Asymptomatic ONLY)2020-03-26 17:47:00 Test Item Value Reference Range Interpretation Comments SARS-COV2/RT-PCR Negative Not Detected, (test code = Negative, See 80381-2) external report for linked test SARS-COV-2 [facility] PERFORMING LAB (test code = 98305-3) LINDA (test code = Negative result for this LINDA) test determines that SARS-CoV-2 RNA was not present in the [...] of the Act. Fact Sheet for Healthcare Providers:https://www.[employer]/sites/default/f mariangel/product/documents/F act_Sheet_HC_Providers_L xnz_AIMM-RuE-0.pdf Fact Sheet for Healthcare Patients:https://www.[employer]/sites/default/fi les/product/documents/Fa ct_Sheet_Patients_Lyra_S ARS-CoV-2.pdf Performing Laboratory:[facility], [place] [address] [place], [place] [address]ARS-COV2/RT-PCR ([facility])2020-03-26 17:47:00 Test Item Value Reference Range Interpretation Comments SARS-COV2/RT-PCR (test Negative Not Detected, Negative, code = 2290930) See external report for linked test SARS-COV-2 PERFORMING LAB [facility] (test code = 7598793) Negative result for this test determines that SARS-CoV-2 RNA was not present in the specimen above the Limit of Detection (LOD). However, Negative results do not preclude SARS-CoV-2 infection and should not be used as the sole basis for treatment or patient management decisions. Negative results mustbe combined with clinical observations, patient history, and epidemiological information. A false negative result may occur if a specimen is improperly collected, transported or handled. A false negative result should be considered if patient's recent exposures or clinical presentation indicate that COVID-19 (SARS-CoV-2) is likely and diagnostic tests for other causes of illness are negative. Re-testing should be considered in cases of suspected false negatives.The limit of detection for this assay is 800 copies/mL.This SARS CoV-2 test is a real-time RT-PCR test intended for the qualitative detection of nucleic acid from SARS-CoV-2 in a nasopharyngeal swab specimen collected from individuals suspected of COVID-19 by their healthcare provider.This test has not been Food and Drug [...] is revoked under Section 564(g) of the Act.Fact Sheet for Healthcare Providers:https://www.[employer]/sites/default/files/product/documents/Fact_Shee h_AJ_Dascsyrea_Yueh_YJDS-FeF-0.pdfFact Sheet for Healthcare Patients:https://www.[employer]/sites/default/files/product/ documents/Fuif_Bdwji_Oksgmpyc_Zzaf_ZJTF-OjC-4.pdfPerforming Laboratory:[facility], [place] [address]Srujobyhpn, random [id number] 17:27:00 Test Item Value Reference Range Interpretation Comments Creatinine, Ur 44.6 mg/dL (test code = 2161-8) LINDA (test code = Reference Range: No LINDA) NormalsOperator ID - DB [facility] Angelesodium, random [id number] 17:27:00 Test Item Value Reference Range Interpretation Comments Sodium Urine (test 32 meq/L code = 2955-3) LINDA (test code = Reference Range: No LINDA) NormalsOperator ID - DB [facility] HospitalCREATININE, RANDOM [id number] 17:27:00 Test Item Value Reference Range Interpretation Comments CREATININE URINE (BEAKER) (test 44.6 mg/dL code = 375) Reference Range: No NormalsOperator ID - DBSODIUM, RANDOM [id number] 17:27:00 Test Item Value Reference Range Interpretation Comments SODIUM URINE (BEAKER) (test code = 32 meq/L 243) Reference Range: No NormalsOperator ID - DBTSH/Free T4 If [id number] 17:01:00 Test Item Value Reference Range Interpretation Comments TSH (test code = 85288-1) 1.248 0.350- 4.940 uIU/mL LINDA (test code = LINDA) Reconciliation Manager ID - BS Lab Interpretation (test Normal code = 44575-5) [facility] CenterT[facility]FREE T4 IF [id number] 17:01:00 Test Item Value Reference Range Interpretation Comments THYROID STIMULATING HORMONE 1.248 uIU/mL 0.350-4.940 (BEAKER) (test code = 772) Reconciliation Manager ID - BSPOCT-GLUCOSE [id number] 16:59:00 Test Item Value Reference Range Interpretation Comments POC-GLUCOSE METER 330 mg/dL 70-110 H : TESTED A T [facility] 6720 (BEAKER) (test code = [facility], 1538) [address]: Reconciliation Manager/Techni nigel ID = [id number] for CINDY DURAN BASIC METABOLIC [id number] 16:46:00 Test Item Value Reference Range Interpretation Comments SODIUM (BEAKER) 142 meq/L 136-145 (test code = 381) POTASSIUM (BEAKER) 3.8 meq/L 3.5-5.1 Specimen slightly (test code = 379) hemolyzed CHLORIDE (BEAKER) 107 meq/L 98-107 (test code = 382) CO2 (BEAKER) (test 25 meq/L 22-29 code = 355) BLOOD UREA NITROGEN 80 mg/dL 7-21 H (BEAKER) (test code = 354) CREATININE (BEAKER) 1.98 mg/dL 0.57-1.25 H Specimen slightly (test code = 358) hemolyzed GLUCOSE RANDOM 322 mg/dL 70-105 H (BEAKER) (test code = 652) CALCIUM (BEAKER) 8.1 mg/dL 8.4-10.2 L (test code = 697) EGFR (BEAKER) (test 24 mL/min/1.73 ESTIMA CARLOS GFR IS code = 1092) sq m NOT ACCURATE CREATININE CLEARANCE IN PREDICTING GLOMERULAR FILTRATION RATE . ESTIMATED GFR I S NOT APPLICABLE FOR DIALYSIS PATIEN TS. Reconciliation Manager ID - BSCreatine Kinase (CK)2020-03-26 16:42:00 Test Item Value Reference Range Interpretation Comments Total CK (test code = 51 U/L 29-200 2157-6) LINDA (test code = LINDA) Reconciliation Manager ID - BS Lab Interpretation (test Normal code = 54572-9) [facility] HospitalCREATINE KINASE (CK)2020-03-26 16:42:00 Test Item Value Reference Range Interpretation Comments CREATINE KINASE TOTAL (BEAKER) (test 51 U/L 29-200 code = 380) Reconciliation Manager ID - BSHemoglobin and [id number] 16:29:00 Test Item Value Reference Range Interpretation Comments Hemoglobin (test code = 8.4 11.2- 15.7 GM/DL L 786-4) Hematocrit (test code = 26.6 % 34.1-44.9 L 4544-3) LINDA (test code = LINDA) Reconciliation Manager ID - [id number] Lab Interpretation (test Abnormal code = 39212-5) [facility] HospitalHEMOGLOBIN AND [id number] 16:29:00 Test Item Value Reference Range Interpretation Comments HEMOGLOBIN (BEAKER) (test code = 8.4 GM/DL 11.2-15.7 L 410) HEMATOCRIT (BEAKER) (test code = 26.6 % 34.1-44.9 L 411) Reconciliation Manager ID - [id number] 16:27:00 Test Item Value Reference Range Interpretation Comments Ammonia (test code = 51 18- 72 mol/L 57164-4) LINDA (test code = LINDA) Reconciliation Manager ID - BS Lab Interpretation (test Normal code = 68601-8) [facility]:27[facility]00 Test Item Value Reference Range Interpretation Comments AMMONIA (BEAKER) (test code = 348) 51 mol/L 18-72 Reconciliation Manager ID - BSUrinalysis Microscopic [id number] 16:10:00 Test Item Value Reference Range Interpretation Comments RBC, UA (test code = 3 /HPF 77190-3) WBC, UA (test code = 3 /HPF 5821-4) Mucus (test code = 8247-9) Rare Squam Epithel, UA (test 2 /HPF code = 43943-1) LINDA (test code = LINDA) Reconciliation Manager ID - tech [facility] [id number] 16:10:00 Test Item Value Reference Range Interpretation Comments RBC UA (BEAKER) (test code = 519) 3 /HPF WBC UA (BEAKER) (test code = 520) 3 /HPF MUCUS (BEAKER) (test code = 1574) Rare SQUAMOUS EPITHELIAL (BEAKER) (test 2 /HPF code = 516) Reconciliation Manager ID - techUrinalysis with Microscopic If [id number] 16:09:00 Test Item Value Reference Range Interpretation Comments Color, UA (test code = Light Yellow 5778-6) Clarity, UA (test code = Clear 5767-9) Specific [place], UA (test 1.013 1.001-1.035 code = 5811-5) pH, UA (test code = 5.5 5.0-8.0 5803-2) Protein, UA (test code = 20 mg/dL Negative A 82796-4) Glucose, UA (test code = Negative Negative 365) Ketones, UA (test code = Negative Negative 2514-8) Bilirubin, UA (test code = Negative Negative 69043-9) Blood, UA (test code = Small Negative A 27775-7) Nitrite, UA (test code = Negative Negative 5802-4) Leukocytes, UA (test code Negative Negative = 5799-2) Urobilinogen, UA (test 0.2 mg/dL 0.2-1 code = 27724-6) Specimen Source (test code = 2795) LINDA (test code = LINDA) Reconciliation Manager ID - [auto] Lab Interpretation (test Abnormal code = 02162-2) [facility] WITH MICROSCOPIC IF [id number] 16:09:00 Test Item Value Reference Range Interpretation Comments COLOR (BEAKER) (test code = 470) Light Yellow CLARITY (BEAKER) (test code = Clear 469) SPECIFIC GRAVITY UA (BEAKER) 1.013 1.001-1.035 (test code = 468) PH UA (BEAKER) (test code = 467) 5.5 5.0-8.0 PROTEIN UA (BEAKER) (test code = 20 mg/dL Negative A 464) GLUCOSE UA (BEAKER) (test code = Negative Negative 365) KETONES UA (BEAKER) (test code = Negative Negative 371) BILIRUBIN UA (BEAKER) (test code Negative Negative = 462) BLOOD UA (BEAKER) (test code = Small Negative A 461) NITRITE UA (BEAKER) (test code = Negative Negative 465) LEUKOCYTE ESTERASE UA (BEAKER) Negative Negative (test code = 466) UROBILINOGEN UA (BEAKER) (test 0.2 mg/dL 0.2-1.0 code = 463) SOURCE(BEAKER) (test code = 2795) Reconciliation Manager ID - [auto]ABORH, [id number] 07:09:00 Test Item Value Reference Range Interpretation Comments ABO Grouping (test code = 2588) A Rh Factor (test code = 2589) POS [facility]Type and screen, [id number] 06:50:00 Test Item Value Reference Range Interpretation Comments ABO/RH AUTOMATED (BEAKER) (test A POSITIVE code = 2260) Ab Scrn (test code = 890-4) NEGATIVE [facility]BASIC METABOLIC [id number] 06:11:00 Test Item Value Reference Range Interpretation Comments SODIUM (BEAKER) 139 meq/L 136-145 (test code = 381) POTASSIUM (BEAKER) 3.1 meq/L 3.5-5.1 L (test code = 379) CHLORIDE (BEAKER) 103 meq/L 98-107 (test code = 382) CO2 (BEAKER) (test 25 meq/L 22-29 code = 355) BLOOD UREA NITROGEN 92 mg/dL 7-21 H (BEAKER) (test code = 354) CREATININE (BEAKER) 1.80 mg/dL 0.57-1.25 H (test code = 358) GLUCOSE RANDOM 206 mg/dL 70-105 H (BEAKER) (test code = 652) CALCIUM (BEAKER) 8.1 mg/dL 8.4-10.2 L (test code = 697) EGFR (BEAKER) (test 27 mL/min/1.73 ESTIMA CARLOS GFR IS code = 1092) sq m NOT ACCURATE CREATININE CLEARANCE IN PREDICTING GLOMERULAR FILTRATION RATE . ESTIMATED GFR I S NOT APPLICABLE FOR DIALYSIS PATIEN TS. Reconciliation Manager ID - FUAD epatic function [id number] 06:09:00 Test Item Value Reference Range Interpretation Comments Protein, Total (test code 5.2 6.0- 8.3 gm/dL L = 2885-2) Albumin (test code = 2.5 g/dL 3.5-5 L 73819-0) Total Bilirubin (test code 0.8 mg/dL 0.2-1.2 = 1975-2) Bilirubin, Direct (test 0.4 mg/dL 0.1-0.5 code = 1968-7) Alkaline Phosphatase (test 88 U/L 40-150 code = 6768-6) AST (test code = 1920-8) 21 U/L 5-34 ALT (test code = 1742-6) 13 U/L 6-55 LINDA (test code = LINDA) Reconciliation Manager ID - FUAD M Lab Interpretation (test Abnormal code = 17075-3) [facility] HospitalUric [id number] 06:09:00 Test Item Value Reference Range Interpretation Comments Uric Acid (test code = 13.8 mg/dL 2.6-7.2 H 3084-1) LINDA (test code = LINDA) Reconciliation Manager ID - FUAD M Lab Interpretation (test Abnormal code = 81456-7) [facility]MAGNESIUM2020-[facility]-21 06:09:00 Test Item Value Reference Range Interpretation Comments MAGNESIUM (BEAKER) (test code = 2.9 mg/dL 1.6-2.6 H 627) Reconciliation Manager ID - FUDA MURIC [id number] 06:09:00 Test Item Value Reference Range Interpretation Comments URIC ACID (BEAKER) (test code = 13.8 mg/dL 2.6-7.2 H 773) Reconciliation Manager ID - FUAD EPATIC FUNCTION [id number] 06:09:00 Test Item Value Reference Range Interpretation Comments TOTAL PROTEIN (BEAKER) (test code = 5.2 gm/dL 6.0-8.3 L 770) ALBUMIN (BEAKER) (test code = 1145) 2.5 g/dL 3.5-5.0 L BILIRUBIN TOTAL (BEAKER) (test code 0.8 mg/dL 0.2-1.2 = 377) BILIRUBIN DIRECT (BEAKER) (test 0.4 mg/dL 0.1-0.5 code = 706) ALKALINE PHOSPHATASE (BEAKER) (test 88 U/L 40-150 code = 346) AST (SGOT) (BEAKER) (test code = 21 U/L 5-34 353) ALT (SGPT) (BEAKER) (test code = 13 U/L 6-55 347) Reconciliation Manager ID - FUAD MProthrombin [id number] 06:06:00 Test Item Value Reference Range Interpretation Comments Protime (test code = 14.6 11.9- 14.2 H 5902-2) seconds INR (test code = 1.17 <=5.90 6301-6) LINDA (test code = LINDA) Effective 09/01/2018: PT Reference Range ChangeNew: 11.9-14.2 Previous: 11.7-14.7 RECOMMENDED COUMADIN/WARFARIN INR THERAPY RANGESSTANDARD DOSE: 2.0-3.0 Includes: PROPHYLAXIS for venous thrombosis, systemic embolization; TREATMENT for venous thrombosis and/or pulmonary embolus.HIGH RISK: Target INR is 2.5-3.5 for patients wiht mechanical heart valves. Lab Interpretation Abnormal (test code = 35054-1) [facility] HospitalPROTHROMBIN [id number] 06:06:00 Test Item Value Reference Range Interpretation Comments PROTIME (BEAKER) (test code = 14.6 seconds 11.9-14.2 H 759) INR (BEAKER) (test code = 370) 1.17 <=5.90 Effective 09/01/2018: PT Reference Range ChangeNew: 11.9-14.2 Previous: 11.7- 14.7RECOMMENDED COUMADIN/WARFARIN INR THERAPY RANGESSTANDARD DOSE: 2.0-3.0 Includes: PROPHYLAXIS for venous thrombosis, systemic embolization; TREATMENT for venous thrombosis and/or pulmonary embolus.HIGH RISK: Target INR is2.5-3.5 for patients wiht mechanical heart valves.CBC W/PLT COUNT & AUTO [id number] 06:06:00 Test Item Value Reference Range Interpretation Comments WHITE BLOOD CELL COUNT (BEAKER) 7.8 K/ L 3.5-10.5 (test code = 775) RED BLOOD CELL COUNT (BEAKER) 2.31 M/ L 3.93-5.22 L (test code = 761) HEMOGLOBIN (BEAKER) (test code = 6.4 GM/DL 11.2-15.7 L 410) HEMATOCRIT (BEAKER) (test code = 20.2 % 34.1-44.9 L 411) MEAN CORPUSCULAR VOLUME (BEAKER) 87.4 fL 79.4-94.8 (test code = 753) MEAN CORPUSCULAR HEMOGLOBIN 27.7 pg 25.6-32.2 (BEAKER) (test code = 751) MEAN CORPUSCULAR HEMOGLOBIN CONC 31.7 GM/DL 32.2-35.5 L (BEAKER) (test code = 752) RED CELL DISTRIBUTION WIDTH 14.7 % 11.7-14.4 H (BEAKER) (test code = 412) PLATELET COUNT (BEAKER) (test 153 K/CU MM 150-450 code = 756) MEAN PLATELET VOLUME (BEAKER) 10.0 fL 9.4-12.3 (test code = 754) NUCLEATED RED BLOOD CELLS 0 /100 WBC 0-0 (BEAKER) (test code = 413) NEUTROPHILS RELATIVE PERCENT 81 % (BEAKER) (test code = 429) LYMPHOCYTES RELATIVE PERCENT 14 % (BEAKER) (test code = 430) MONOCYTES RELATIVE PERCENT 4 % (BEAKER) (test code = 431) EOSINOPHILS RELATIVE PERCENT 0 % (BEAKER) (test code = 432) BASOPHILS RELATIVE PERCENT 0 % (BEAKER) (test code = 437) NEUTROPHILS ABSOLUTE COUNT 6.32 K/ L 1.56-6.13 H (BEAKER) (test code = 670) LYMPHOCYTES ABSOLUTE COUNT 1.05 K/ L 1.18-3.74 L (BEAKER) (test code = 414) MONOCYTES ABSOLUTE COUNT (BEAKER) 0.31 K/ L 0.24-0.36 (test code = 415) EOSINOPHILS ABSOLUTE COUNT 0.00 K/ L 0.04-0.36 L (BEAKER) (test code = 416) BASOPHILS ABSOLUTE COUNT (BEAKER) 0.00 K/ L 0.01-0.08 L (test code = 417) IMMATURE GRANULOCYTES-RELATIVE 1 % 0-1 PERCENT (BEAKER) (test code = 5351)
[2020-04-01 04:06] LABS: Protime INR 1.02
[2020-04-01 04:16] LABS: Absolute Lymphocytes (CBC) 0.6 K/uL (0.7-4.9); Basophils % 0.2 % (0-1.3); Hematocrit 26.1 % (36.0-45.0); Lymphocytes % 7.8 % (15.3-44.8); RBC Red Blood Cell Count 3.06 M/uL (3.86-4.86)
[2020-04-01 04:28] LABS: Albumin 2.1 g/dL (3.4-5.0); Bilirubin Direct 0.2 mg/dL (0-0.2); Bilirubin Total 0.5 mg/dL (0.2-1.0); Magnesium 2.4 mg/dL (1.8-2.4); Potassium 2.4 mmol/L (3.5-5.1); Protein, Total 5.4 g/dL (6.4-8.2); Troponin (Emerg Dept Use Only) 0.11 ng/mL (0.0-0.045)
[2020-04-01] MEDS ORDERED: POTASSIUM 25 MEQ EFFERV TAB ONE (04:56)
[2020-04-01 06:04] LABS: Anisocytosis SLIGHT; Blood Morphology Comment NOTED (NOT SEEN); Platelet Estimate ADEQ
[2020-04-01 06:22] LABS: Urine Blood 1+ (NEG); Urine Glucose NEGATIVE (NEG); Urine Protein TRACE (NEG); Urine pH 5.5 (5.0-7.0)
--- NOTE | 2020-04-01 07:02 | ER ---
Nurse's Notes [facility] Name: Cristel Casas Age: 79 yrs Sex: Female : 1940 Arrival Date: 04/01/2020 Time: 02:53 Bed 6 Private MD: Gildardo Carrillo F Diagnosis: Hypoglycemia, unspecified;Hypokalemia Presentation: 04/01 02:56 Chief complaint: EMS states: Called for patient for the 2nd time tonight for low blood lp1 sugar; Per EMS, patient altered, BS of 30, given Glucagon and D10W 250ml IV; Patient A/O x3 on arrival to ED. Coronavirus screen: Client denies travel out of the [place] in the last 14 days. At this time, the client does not indicate any symptoms associated with coronavirus-19. Ebola Screen: No symptoms or risks identified at this time. Initial Sepsis Screen: Does the patient meet any 2 criteria? No. Patient's initial sepsis screen is negative. Does the patient have a suspected source of infection? No. Patient's initial sepsis screen is negative. Risk Assessment: Do you want to hurt yourself or someone else? Patient reports no desire to harm self or others. Onset of symptoms was April 01, 2020. 02:56 Method Of Arrival: EMS: [facility] lp1 02:56 Acuity: HERIBERTO 2 lp1 02:59 Care prior to arrival: IV initiated. 22 GA, in the left wrist, Glucose check: 30. lp1 Historical: - Allergies: 02:59 No Known Allergies; lp1 - Home Meds: 02:59 atorvastatin 20 mg Oral tab 1 tab once daily [Active]; Bystolic 10 mg Oral tab 1 tab lp1 once daily [Active]; glimepiride 1 mg Oral tab 1 tab once daily [Active]; hydrochlorothiazide 12.5 mg Oral cap 1 cap once daily [Active]; omeprazole 20 mg Oral tab daily [Active]; propylthiouracil 50 mg Oral tab 1 tab 2 times per day [Active]; - PMHx: 02:59 Diabetes - NIDDM; High Cholesterol; Hypertension; Hypothyroidism; Anemia; Cirrhosis; lp1 - Immunization history:: Adult Immunizations up to date. - Social history:: Smoking status: Patient denies any tobacco usage or history of. Screenin:59 Abuse screen: Denies threats or abuse. Denies injuries from another. Nutritional lp1 screening: No deficits noted. Tuberculosis screening: No symptoms or risk factors identified. Fall Risk Total Durand Fall Scale indicates High Risk Score (45 or more points). Fall prevention measures have been instituted. Side Rails Up X 2 Frequent Obs/Assessments Occuring. Assessment: 03:00 General: Appears in no apparent distress. Behavior is cooperative. Pain: Denies pain. ea Neuro: Level of Consciousness is awake, alert, obeys commands, Oriented to person, place. Cardiovascular: Patient's skin is warm and dry. Respiratory: Airway is patent Respiratory effort is even, unlabored, Respiratory pattern is regular, symmetrical. Derm: Skin is pink, warm \T\ dry. 04:00 Reassessment: Patient and/or family updated on plan of care and expected duration. Pain ea level reassessed. Patient is alert, oriented x 3, equal unlabored respirations, skin warm/dry/pink. 05:15 Reassessment: Pt ate sabi crackers, orange juice and grape juice. Pt tolerated well. ea 06:30 Reassessment: Patient and/or family updated on plan of care and expected duration. Pain ea level reassessed. Patient is alert, oriented x 3, equal unlabored respirations, skin warm/dry/pink. 19:54 General: Appears in no apparent distress. Behavior is cooperative. Pain: Denies pain. ea Neuro: Level of Consciousness is awake, alert, obeys commands, Oriented to person, place. Cardiovascular: Patient's skin is warm and dry. Respiratory: Airway is patent Respiratory effort is even, unlabored, Respiratory pattern is regular, symmetrical. Derm: Skin is pink, warm \T\ dry. Vital Signs: 02:56 BP 140 / 76; Pulse 66; Resp 18; Temp 97.4(TE); Pulse Ox 98% on R/A; Pain 0/10; lp1 05:00 BP 148 / 62; Pulse 66; Resp 18; Pulse Ox 100% on R/A; ea 06:15 BP 110 / 42; Pulse 72; Resp 18; Pulse Ox 98% on R/A; ea ED Course: 02:53 Patient arrived in ED. am2 02:53 Gildardo Carrillo MD is Private Physician. am2 02:57 Jesse Eddy MD is Attending Physician. mh7 02:58 Triage completed. lp1 02:58 Arm band placed on. lp1 03:00 Patient has correct armband on for positive identification. Bed in low position. Call lp1 light in reach. Side rails up X2. Pulse ox on. NIBP on. 03:00 Maintain EMS IV. Dressing intact. Good blood return noted. Site clean \T\ dry. Gauge \T\ lp 1 site: 22g IV to L wrist. 03:21 XRAY Chest (1 view) In Process Unspecified. EDMS 03:27 Candi Begum, RN is Primary Nurse. ea 03:36 CT Head Brain wo Cont In Process Unspecified. EDMS 03:40 Inserted saline lock: 22 gauge in right antecubital area, using aseptic technique. ds4 Blood collected. 03:47 glucometer results - FOR PT WITH NO ID Sent. ds4 05:50 Straight cath inserted, using sterile technique, 16 Fr. Specimen obtained. ea 07:00 Gildardo Carrillo MD is Hospitalizing Provider. [facility] 04/02 07:03 Primary Nurse role handed off by Candi Begum RN 13:23 Elvia Hanley RN is Primary Nurse. 16:01 IV discontinued, Pressure dressing applied. 5 Administered Medications: 04/01 04:45 Drug: Potassium Effervescent Tablet 50 mEq Route: PO; ea 06:09 Follow up: Response: No adverse reaction ea 04:52 Drug: D50W 50 ml Route: IVP; Site: right antecubital; ea 06:09 Follow up: Response: No adverse reaction ea 05:02 Drug: D5W 1000 ml Route: IV; Rate: 100 ml/hr; Site: right antecubital; ea 08:01 Not Given (Patient Refused): Aspirin Chewable Tablet 324 mg PO once; 81 mg tablets x 4 em Outcome: 07:00 Decision to Hospitalize by Provider. [facility] 04/02 16:45 Patient left the ED. sv Signatures: Dispatcher [employer] Alicja Salinas RN RN sv Smirch, Shelby, RN RN ss Pena, Laura, RN RN lp1 Eric Estrada ds4 Cristel Yusuf 5 Erinn Swartz 2 Candi Begum RN RN ea Botello, Elizabeth eb Holmes, Maurice, MD MD mh7 Cameron Celis RN em
--- NOTE | 2020-04-01 07:02 | EDPHYS ---
Physician Documentation [facility] Name: Cristel Casas Age: 79 yrs Sex: Female : 1940 Arrival Date: 04/01/2020 Time: 02:53 Bed 6 Private MD: Gildardo Carrillo F ED Physician Jesse Eddy HPI: 04/01 03:15 This 79 yrs old Female presents to ER via EMS with complaints of Decreased mh7 Appetite. 03:15 The patient or guardian reports decreased level of consciousness, hypoglycemia, that mh7 was potentially precipitated by no particular event, with the patient's symptoms witnessed by family, Treatment prior to arrival includes: EMS administered D50, administered glucagon, checked blood sugar on arrival, which was 16, after treatment, the blood sugar was 103. Onset: The symptoms/episode began/occurred today. Associated signs and symptoms: Pertinent positives: anorexia, Pertinent negatives: constipation, decreased urine output, diaphoresis, diarrhea, dry skin, hair loss, ketones in urine, nausea, polydipsia, polyphagia, polyuria, seizure activity, skin flushing, urinary incontinence, vomiting. Current symptoms: In the emergency department the patient's symptoms have improved, markedly, is less confused. Historical: - Allergies: 02:59 No Known Allergies; lp1 - Home Meds: 02:59 atorvastatin 20 mg Oral tab 1 tab once daily [Active]; Bystolic 10 mg Oral tab 1 tab lp1 once daily [Active]; glimepiride 1 mg Oral tab 1 tab once daily [Active]; hydrochlorothiazide 12.5 mg Oral cap 1 cap once daily [Active]; omeprazole 20 mg Oral tab daily [Active]; propylthiouracil 50 mg Oral tab 1 tab 2 times per day [Active]; - PMHx: 02:59 Diabetes - NIDDM; High Cholesterol; Hypertension; Hypothyroidism; Anemia; Cirrhosis; lp1 - Immunization history:: Adult Immunizations up to date. - Social history:: Smoking status: Patient denies any tobacco usage or history of. ROS: 03:15 Constitutional: Negative for fever, chills, and weight loss, Eyes: Negative for injury, mh7 pain, redness, and discharge, ENT: Negative for injury, pain, and discharge, Neck: Negative for injury, pain, and swelling, Cardiovascular: Negative for chest pain, palpitations, and edema, Respiratory: Negative for shortness of breath, cough, wheezing, and pleuritic chest pain, Abdomen/GI: Negative for abdominal pain, nausea, vomiting, diarrhea, and constipation, Back: Negative for injury and pain, : Negative for injury, bleeding, discharge, and swelling, MS/Extremity: Negative for injury and deformity, Skin: Negative for injury, rash, and discoloration, Neuro: Negative for headache, weakness, numbness, tingling, and seizure, Psych: Negative for depression, anxiety, suicide ideation, homicidal ideation, and hallucinations, Allergy/Immunology: Negative for hives, rash, and allergies, Endocrine: Negative for neck swelling, polydipsia, polyuria, polyphagia, and marked weight changes, Hematologic/Lymphatic: Negative for swollen nodes, abnormal bleeding, and unusual bruising. Exam: 03:15 Constitutional: This is a well developed, well nourished patient who is awake, alert, mh7 and in no acute distress. Head/Face: Normocephalic, atraumatic. Eyes: Pupils equal round and reactive to light, extra-ocular motions intact. Lids and lashes normal. Conjunctiva and sclera are non-icteric and not injected. Cornea within normal limits. Periorbital areas with no swelling, redness, or edema. ENT: Nares patent. No nasal discharge, no septal abnormalities noted. Tympanic membranes are normal and external auditory canals are clear. Oropharynx with no redness, swelling, or masses, exudates, or evidence of obstruction, uvula midline. Mucous membranes moist. Neck: Trachea midline, no thyromegaly or masses palpated, and no cervical lymphadenopathy. Supple, full range of motion without nuchal rigidity, or vertebral point tenderness. No Meningismus. Chest/axilla: Normal chest wall appearance and motion. Nontender with no deformity. No lesions are appreciated. Cardiovascular: Regular rate and rhythm with a normal S1 and S2. No gallops, murmurs, or rubs. Normal PMI, no JVD. No pulse deficits. Respiratory: Lungs have equal breath sounds bilaterally, clear to auscultation and percussion. No rales, rhonchi or wheezes noted. No increased work of breathing, no retractions or nasal flaring. Abdomen/GI: Soft, non-tender, with normal bowel sounds. No distension or tympany. No guarding or rebound. No evidence of tenderness throughout. Back: No spinal tenderness. No costovertebral tenderness. Full range of motion. Skin: Warm, dry with normal turgor. Normal color with no rashes, no lesions, and no evidence of cellulitis. MS/ Extremity: Pulses equal, no cyanosis. Neurovascular intact. Full, normal range of motion. Neuro: Awake and alert, GCS 15, oriented to person, place, time, and situation. Cranial nerves II-XII grossly intact. Motor strength 5/5 in all extremities. Sensory grossly intact. Cerebellar exam normal. Normal gait. Psych: Awake, alert, with orientation to person, place and time. Behavior, mood, and affect are within normal limits. Vital Signs: 02:56 BP 140 / 76; Pulse 66; Resp 18; Temp 97.4(TE); Pulse Ox 98% on R/A; Pain 0/10; lp1 05:00 BP 148 / 62; Pulse 66; Resp 18; Pulse Ox 100% on R/A; ea 06:15 BP 110 / 42; Pulse 72; Resp 18; Pulse Ox 98% on R/A; ea MDM: 06:58 Differential diagnosis: diabetes insipidus, hypoglycemic episode, new onset diabetes, [facility] medication reaction. Data reviewed: vital signs, nurses notes, EMS record, old medical records, lab test result(s), cardiac enzymes, CBC, electrolytes, urinalysis, EKG, radiologic studies, CT scan, plain films. Data interpreted: Pulse oximetry: on room air is 98 %. Interpretation: normal. Counseling: I had a detailed discussion with the patient and/or guardian regarding: the historical points, exam findings, and any diagnostic results supporting the discharge/admit diagnosis, lab results, radiology results, the need for further work-up and treatment in the hospital. Response to treatment: the patient's symptoms have markedly improved after treatment. 07:00 Patient medically screened. [facility] 07:13 ED course: Attempted to contact Dr. Carrillo multiple times with no call back. Called [facility] hospitalist, Dr. Fountain for admission. He got patient information and would have Dr. Carrillo call me back.. 04/01 02:55 Order name: glucometer results - FOR PT WITH NO ID ds4 04/01 02:56 Order name: Glucose, Ancillary(No Armband); Complete Time: 04:24 EDMS 04/01 02:59 Order name: Basic Metabolic Panel; Complete Time: 04:34 7 04/01 02:59 Order name: CBC with Diff; Complete Time: 06:27 7 04/01 02:59 Order name: LFT's; Complete Time: 04:34 7 04/01 02:59 Order name: Magnesium; Complete Time: 04:34 7 04/01 02:59 Order name: NT PRO-BNP; Complete Time: 04:34 7 04/01 02:59 Order name: PT-INR; Complete Time: 04:24 7 04/01 02:59 Order name: Troponin (emerg Dept Use Only); Complete Time: 04:34 7 04/01 04:24 Order name: Manual Differential; Complete Time: 06:27 EDMS 04/01 04:57 Order name: Glucose, Ancillary Testing; Complete Time: 05:07 EDMS 04/01 06:08 Order name: Glucose, Ancillary Testing; Complete Time: 06:27 EDMS 04/01 06:11 Order name: Urine Dipstick--Ancillary (enter results); Complete Time: 06:27 tt3 04/01 06:47 Order name: Glucose, Ancillary Testing; Complete Time: 06:53 EDMS 04/01 07:09 Order name: CBC with Automated Diff EDMS 04/01 07:09 Order name: CBC with Automated Diff EDMS 04/01 07:09 Order name: CKMB Creatine Kinase MB EDMS 04/01 07:09 Order name: CKMB Creatine Kinase MB; Complete Time: 08:54 EDMS 04/01 07:10 Order name: CKMB Creatine Kinase MB EDMS 04/01 07:10 Order name: CKMB Creatine Kinase MB EDMS 04/01 07:10 Order name: Comprehensive Metabolic Panel EDMS 04/01 07:10 Order name: Comprehensive Metabolic Panel EDMS 04/01 07:10 Order name: Troponin I EDMS 04/01 07:10 Order name: Troponin I; Complete Time: 08:54 EDMS 04/01 07:10 Order name: Troponin I EDMS 04/01 08:12 Order name: Glucose, Ancillary Testing; Complete Time: 08:54 EDMS 04/01 10:42 Order name: T4,Total EDMS 04/01 10:42 Order name: Thyroid Stimulating Hormone [facility] 04/01 10:55 Order name: T4 Free [facility] 04/01 11:00 Order name: Glucose, Ancillary Testing [facility] 04/01 02:59 Order name: XRAY Chest (1 view); Complete Time: 08:54 [facility] 04/01 02:59 Order name: EKG; Complete Time: 03:01 [facility] 04/01 03:00 Order name: CT Head Brain wo Cont [facility] 04/01 07:09 Order name: CONS Pharmacy Consult [facility] 04/01 07:09 Order name: CONS Physician Consult [facility] 04/01 07:09 Order name: Consistent Carb (ADA) [address] [facility] 04/01 11:42 Order name: Potassium [facility] 04/01 11:46 Order name: T3, Total [facility] 04/01 14:58 Order name: Glucose, Ancillary Testing [facility] 04/01 16:29 Order name: Glucose, Ancillary Testing [facility] 04/01 17:22 Order name: Glucose, Ancillary Testing [facility] 04/01 18:40 Order name: Glucose, Ancillary Testing [facility] 04/01 19:39 Order name: Glucose, Ancillary Testing [facility] 04/01 21:26 Order name: Glucose, Ancillary Testing [facility] 04/01 22:17 Order name: Glucose, Ancillary Testing [facility] 04/01 23:34 Order name: Glucose, Ancillary Testing [facility] 04/02 01:06 Order name: Glucose, Ancillary Testing [facility] 04/02 02:33 Order name: Glucose, Ancillary Testing [facility] 04/02 04:27 Order name: Glucose, Ancillary Testing [facility] 04/02 06:32 Order name: Glucose, Ancillary Testing [facility] 04/02 07:20 Order name: Glucose, Ancillary Testing [facility] 04/02 08:35 Order name: Glucose, Ancillary Testing [facility] 04/02 09:50 Order name: Glucose, Ancillary Testing [facility] 04/02 10:43 Order name: Glucose, Ancillary Testing [facility] 04/02 11:32 Order name: Glucose, Ancillary Testing [facility] 04/02 12:32 Order name: Glucose, Ancillary Testing [facility] 04/02 13:35 Order name: Glucose, Ancillary Testing [facility] 04/02 14:30 Order name: Glucose, Ancillary Testing [facility] 04/01 02:59 Order name: Cardiac monitoring; Complete Time: 03:10 [facility] 04/01 02:59 Order name: EKG - Nurse/Tech; Complete Time: 03:14 04/01 02:59 Order name: IV Saline Lock; Complete Time: 03:10 04/01 02:59 Order name: Labs collected and sent; Complete Time: 03:10 04/01 02:59 Order name: O2 Per Protocol; Complete Time: 03:11 04/01 02:59 Order name: O2 Sat Monitoring; Complete Time: 03:11 04/01 03:00 Order name: Urine Dipstick-Ancillary (obtain specimen); Complete Time: 06:10 04/01 06:09 Order name: Straight Cath - Urine; Complete Time: 06:09 ea Administered Medications: 04:45 Drug: Potassium Effervescent Tablet 50 mEq Route: PO; ea 06:09 Follow up: Response: No adverse reaction ea 04:52 Drug: D50W 50 ml Route: IVP; Site: right antecubital; ea 06:09 Follow up: Response: No adverse reaction ea 05:02 Drug: D5W 1000 ml Route: IV; Rate: 100 ml/hr; Site: right antecubital; ea 08:01 Not Given (Patient Refused): Aspirin Chewable Tablet 324 mg PO once; 81 mg tablets x 4 em Disposition: 04/01/20 07:00 Hospitalization ordered by Gildardo Carrillo for Observation. Preliminary diagnosis are Hypoglycemia, unspecified, Hypokalemia. - Bed requested for [facility] ER HOLD. - Status is Observation. sv - Condition is Stable. - Problem is new. - Symptoms have improved. Signatures: Dispatcher [employer] Alicja Salinas RN Ashkan Martin MD MD rn Martinez, Eric em1 Elvia Hanley RN RN Jasmin Brannon RN RN lp1 Michelle Johnson RN RN Candi Begum RN Priyanka Santo ea, Maurice, MD MD [facility] Cameron Celis RN em Corrections: (The following items were deleted from the chart) 18:34 07:00 Hospitalization Ordered by Gildardo Carrillo MD for Observation. Preliminary em1 diagnosis is Hypoglycemia, unspecified; Hypokalemia. Bed requested for Telemetry/MedSurg (observation). Status is Observation. Condition is Stable. Problem is new. Symptoms have improved. [facility] 21:10 18:34 04/01/2020 07:00 Hospitalization Ordered by Gildardo Carrillo MD for Observation. cg Preliminary diagnosis is Hypoglycemia, unspecified; Hypokalemia. Bed requested for Telemetry/MedSurg (observation). Status is Observation. Condition is Stable. Problem is new. Symptoms have improved. em1 21:12 21:10 04/01/2020 07:00 Hospitalization Ordered by Gildardo Carrillo MD for Observation. cg Preliminary diagnosis is Hypoglycemia, unspecified; Hypokalemia. Bed requested for Telemetry/MedSurg (observation). Status is Observation. Condition is Stable. Problem is new. Symptoms have improved. cg 21:13 21:12 04/01/2020 07:00 Hospitalization Ordered by Gildardo Carrillo MD for Observation. cg Preliminary diagnosis is Hypoglycemia, unspecified; Hypokalemia. Bed requested for [facility] ER HOLD. Status is Observation. Condition is Stable. Problem is new. Symptoms have improved. 04/02 07:11 04/01 21:13 04/01/2020 07:00 Hospitalization Ordered by Gildardo Carrillo MD for eb Observation. Preliminary diagnosis is Hypoglycemia, unspecified; Hypokalemia. Bed requested for [facility] ER HOLD. Status is Observation. Condition is Stable. Problem is new. Symptoms have improved. 04/02 08:00 07:11 04/01/2020 07:00 Hospitalization Ordered by Gildardo Carrillo MD for Observation. ss Preliminary diagnosis is Hypoglycemia, unspecified; Hypokalemia. Bed requested for Telemetry/MedSurg (observation). Status is Observation. Condition is Stable. Problem is new. Symptoms have improved. eb 08:01 08:00 04/01/2020 07:00 Hospitalization Ordered by Gildardo Carrillo MD for Observation. ss Preliminary diagnosis is Hypoglycemia, unspecified; Hypokalemia. Bed requested for [facility] ER HOLD. Status is Observation. Condition is Stable. Problem is new. Symptoms have improved. ss 16:45 08:01 04/01/2020 07:00 Hospitalization Ordered by Gildardo Carrillo MD for Observation. sv Preliminary diagnosis is Hypoglycemia, unspecified; Hypokalemia. Bed requested for [facility] ER HOLD. Status is Observation. Condition is Stable. Problem is new. Symptoms have improved. ss
[2020-04-01] MEDS ORDERED: ONDANSETRON 4 MG/2 ML VIAL IV PRN (07:06)
[2020-04-01] MEDS: D5 0.45 NS 1,000 ML IV SCH ×2 (08:00→20:00)
[2020-04-01 08:10] LABS: CKMB Creatine Kinase MB 8.1 ng/mL (0.3-3.6); Troponin I 0.11 ng/mL (0.0-0.045)
--- NOTE | 2020-04-01 08:13 | RAD REPORT ---
EXAM DESCRIPTION: RAD - Chest Single View - 04/01/2020 3:22 am CLINICAL HISTORY: Hypertensive, hypoglycemic COMPARISON: Portable March 25, portable January 09 TECHNIQUE: AP portable chest image was obtained 04/01/2020 3:22 am . FINDINGS: Lung volumes are low. Interstitial pattern is prominent but less pronounced than seen on t he March 25 study. Low lung volumes accentuate the interstitial pattern. Left pleural effusion is present. A minimal right pleural effusion could be present as well. Heart size is normal for portable imaging and low lung volumes. No pneumothorax. No acute bony abnormality seen. No acute aortic findi ngs suspected. IMPRESSION: Shallow inspiration exam with prominent interstitial pattern. No consolidation or mass. Low lung volumes could result in masked early interstitial edema or infiltrate. Left pleural effusion and possible small right pleural effusion.
[2020-04-01 10:35] LABS: T4,Total 6.5 ug/dL (4.8-13.9)
[2020-04-01 10:42] LABS: Thyroid Stimulating Hormone 5.16 uIU/mL (0.360-3.740)
[2020-04-01] MEDS ORDERED: D50W 50 ML IV ONE (16:37)
[2020-04-01] MEDS ORDERED: D50W 25 GM/50 ML SYRINGE IV ONE ×2 (16:37→21:35)
[2020-04-01] MEDS: HYDRALAZINE HCL 10 MG TABLET PO SCH (21:00)
[2020-04-01] MEDS ORDERED: PROPYLTHIOURACIL 50 MG TAB PO SCH (21:00)
[2020-04-01] MEDS ORDERED: ATORVASTATIN 20 MG TAB PO SCH (21:00)
[2020-04-01] MEDS: MORPHINE 2 MG/ML SYR IV PRN (23:41)
[2020-04-02] MEDS ORDERED: MORPHINE 2 MG/ML SYR ONE ×2 (04:44→10:26)
[2020-04-02] MEDS ORDERED: ONDANSETRON 4 MG/2 ML VIAL ONE (04:45)
[2020-04-02 05:24] LABS: Basophils % 0.5 % (0-1.3); Lymphocytes % 21.3 % (15.3-44.8); MPV 8.5 fL (7.6-11.3); RBC Red Blood Cell Count 2.92 M/uL (3.86-4.86)
[2020-04-02 05:49] LABS: Albumin 1.9 g/dL (3.4-5.0); Bilirubin Total 0.5 mg/dL (0.2-1.0); Potassium 3.2 mmol/L (3.5-5.1)
[2020-04-02] MEDS ORDERED: HOME MED 1 EA UNK (Nebivolol Hcl [Bystolic] 10 MG Tablet) PO SCH (09:00)
[2020-04-02] MEDS ORDERED: NEBIVOLOL HCL 5 MG TAB PO SCH (09:00)
--- NOTE | 2020-04-02 10:14 | RAD REPORT ---
EXAM DESCRIPTION: CT - Head Brain Wo Cont - 04/01/2020 4:44 am CLINICAL HISTORY: AMS COMPARISON: 03/25/2020 TECHNIQUE: Axial CT of the head obtained from the skull apex to the skull base without contrast. FINDINGS: No acute intracranial hemorrhage identified. No mass, mass effect, shift of the midline, a bnormal extra-axial fluid collection or CT evidence of acute ischemic change identified. The ventricu lar system and sulcal spaces are mildly enlarged compatible with mild cerebral atrophy. Scattered a reas of hypodensity throughout the supratentorial white matter are nonspecific and may be related to chronic small vessel ischemic change. 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 The visualized paranasal sinuses and mastoid air cells are well aerated. No skull fracture identifi ed. Visualized orbits and globes are unremarkable. Atherosclerotic calcification of the intracranial internal carotid arteries. IMPRESSION: 1. No acute intracranial abnormality by CT criteria. This exam was performed according to our departmental dose-optimization program, which includes autom ated exposure control, adjustment of the mA and/or kV according to patient size and/or use of iterati ve reconstruction technique. Electronically signed by: Hau Tarango 04/01/2020 3:55 AM MERCHANDISING ASSISTANT Due to temporary technical issues with the PACS/Fluency reporting system, reports are being signed by the in house radiologist without review as a courtesy to ensure prompt reporting. The interpreting r adiologist is fully responsible for the content of the report.
[2020-04-02] MEDS ORDERED: D5 0.45 NS 1,000 ML IV ONE (10:26)
[2020-04-02] MEDS ORDERED: HYDRALAZINE HCL 10 MG TABLET ONE (10:26)
[2020-04-02] MEDS: MORPHINE 2 MG/ML SYR IV PRN (10:27)
[2020-04-02] MEDS: D5 0.45 NS 1,000 ML IV SCH (10:30)
[2020-04-02 10:51] VITALS: BMI 28.3
[2020-04-02 12:03] VITALS: BP 125/52; TEMP 99.2
[2020-04-02] MEDS ORDERED: POTASSIUM 25 MEQ EFFERV TAB PO ONE (12:13)
[2020-04-02] MEDS ORDERED: POTASSIUM 25 MEQ EFFERV TAB ONE (12:44)
[2020-04-02] MEDS: HYDRALAZINE HCL 10 MG TABLET PO SCH (13:55)
[2020-04-02] MEDS ORDERED: D50W 25 GM/50 ML SYRINGE IV ONE (16:28)
[2020-04-02] MEDS ORDERED: PANTOPRAZOLE 40MG TABLET PO SCH (16:30)
[2020-04-02 17:20] VITALS: O2SAT 98
[2020-04-02] MEDS ORDERED: HOME MED 1 EA UNK (Omeprazole [Prilosec] 40 MG Capsule.Dr) PO SCH (21:00)
[2020-04-02] MEDS ORDERED: FERROUS SULFATE 325 MG TAB PO SCH (21:00)
--- NOTE | 2020-04-03 01:27 | SS ---
Date of Discharge: 04/02/2020 History Of Present Illness: A 79 year female, type 2 diabetic on glimepiride, started having decreas ed level of awareness and daughter measured her blood sugar and was in the 40s. She got something sw eet drink and was measured again, and then was still dropping down to the 30s. The patient was broug ht to the emergency room. She was found to be hypoglycemic and she was admitted for that. The patie nt at the time of the interview regained full awareness and she was doing well, has no other complain ts. Review of Systems: Cardiovascular: No complaints. Respiratory: No complaints. Genitourinary: No complaints. Skeletomuscular: No complaints. Neurological: As above. Otherwise, no complaints. Past Medical History: 1.Type 2 diabetes. 2.Hypertension. 3.Hyperlipidemia. 4.Gastroesophageal reflux disease. 5.The patient has had Graves disease, for which she is on propylthiouracil to suppress her thyroid. 6.History of H pylori peptic ulcer disease, for which the patient recently bled and was put on tripl e medications for that. Family History: Noncontributing. Social History: No smoking, alcohol, or drug abuse history. Medications: Include atorvastatin 20 mg p.o. daily, Bystolic 10 mg p.o. daily, glimepiride 1 mg p.o. daily, hydrochlorothiazide 12.5 mg p.o. daily, omeprazole 20 mg p.o. daily, and propylthiouracil 50 mg p.o. b.i.d. Allergies: NO KNOWN DRUG ALLERGIES. Physical Examination: Vital Signs: Blood pressure 125/52, pulse 69, temperature 99. Heart: Regular rate and rhythm. Chest: Clear to auscultation. Abdomen: Soft, nontender. No hepatosplenomegaly. Bowel sounds normoactive. Extremities: No edema. No cyanosis. Peripheral pulses are felt. Neurological: As mentioned, the patient is alert, oriented x4 at the time of her interview. Grossly intact. Laboratory Data: White cell count 9.2, hemoglobin 8.1, hematocrit 25, platelets 144. Blood sugar fi ngersticks initially were 40 and few times on the floor were down to the 30s over the past 18 hours, however, her blood sugar fingersticks were between [address], no acute pathology. EKG and chest x-ray, no acute pathology. Hospital Course: The patient was admitted to the hospital. She was put on D5W and blood sugar finge rsticks were checked every hour, and she was put on protocol for D50 ampules. The patient gradually improved on her blood sugar fingersticks to where she is now stable at blood sugar between as mention ed 244 and more than 100, and she is doing well, full alert and oriented. It was thought that the ze fletcher's episodes of hypoglycemia have resolved to where she could be discharged to follow up with me. I have gave specific instructions for the patient and her daughter not to take any oral medication for blood sugar, specifically the glimepiride. We will start her when she comes to the office tomorr ow on Lantus 10 units and the patient has been instructed about the usage of insulin and how to do th at before discharge today. Look orders for details. MFS/MODL Voice ID: [id number] Report ID: [id number]
[2020-04-03] MEDS ORDERED: hydroCHLOROthiazide 25 MG TAB PO SCH (09:00)
[2020-04-05] MEDS ORDERED: ALENDRONATE 70 MG TAB PO SCH (06:30)
== END 2020-04-02 16:29 | disposition home health service (06) ==
LOC: ER 02:52 → ERHOLD 07:04
PROVIDERS: ADMIT Internal Medicine; ATTEND Internal Medicine
DX: E11.649 Type 2 diabetes mellitus with hypoglycemia without coma (principal); Z79.84 Long term (current) use of oral hypoglycemic drugs; I10 Essential (primary) hypertension; E78.5 Hyperlipidemia, unspecified; K21.9 Gastro-esophageal reflux disease without esophagitis; E05.90 Thyrotoxicosis, unspecified without thyrotoxic crisis or storm; R94.31 Abnormal electrocardiogram [ECG] [EKG]
CPT/HCPCS: 93005 ×2; 85025 ×2; 80048; 36415 ×2; 83735; 84132; 85610; 82947 ×26; 80076; 84436; 84443; 81003; 84484 ×3; 82553 ×3; 84439; 84480; 80053; 83880; 70450; 71045; 51702; 96374; 99284; J2270; J7799; J2405

== ENCOUNTER 2020-05-03 18:02 | Observation (INO) | payer OTHER ==
--- OUTSIDE RECORDS SUMMARY | 2020-05-03 18:04 | XMS REPORT | Clinical Summary ---
:1940 Author Organization [facility] Address [address] [place] [address] Care Team Providers Name Role Phone Unavailable [...] Resolved Problems Problem Noted Date Resolved Date PAUL (acute kidney injury) 03/28/2020 03/28/2020 Encounters Date Type Specialty Care Team Description 03/27/2020 Anesthesia Event Gastroenterology Juliocesar Duggan MD [place], Samantha Ripmakat, CRNA 03/27/2020 Surgery Gastroenterology [place], UPPER ENDOS COPY Arun Desai MD 03/26/2020 Hospital General Internal [place], Gastroint tinal hemorrhage associated with gastric ulcer (Primary [...] 03/25/2020 Telephone Gastroenterology Seda Hong MD after 05/03/2019 Social History Tobacco Use Types Packs/Day Years Used Date Former Smoker Smokeless Tobacco: Never Used Comments: 20 years ago Sex Assigned at Date Recorded Not on file Last Filed Vital Signs Vital Sign Reading Time Taken Comments Blood Pressure 156/67 03/28/2020 3:14 PM MARKETING SYSTEMS ANALYST Pulse 65 03/28/2020 3:14 PM MARKETING SYSTEMS ANALYST Temperature 36.8 C (98.2 F) 03/28/2020 3:14 PM MARKETING SYSTEMS ANALYST Respiratory Rate 18 03/28/2020 3:14 PM MARKETING SYSTEMS ANALYST Oxygen Saturation 96% 03/28/2020 3:14 PM MARKETING SYSTEMS ANALYST Inhaled Oxygen Concentration - - Weight 72.2 kg (159 lb 3.2 oz) 03/26/2020 3:00 AM MARKETING SYSTEMS ANALYST Height - - Body Mass Index - - Plan of Treatment Health Maintenance Due Date Last Done Comments DIABETIC EYE EXAM 1950 DIABETIC FOOT EXAM 1950 URINE MICROALBUMIN 1950 HEPATITIS B VACCINE (1 of 3 - Risk 3-dose series) 1961 Medicare IPPE (WELCOME TO MEDICARE) 03/24/2020 DEPRESSION SCREENING (12+) 04/06/2020 HEMOGLOBIN A1C 09/25/2020 03/27/2020 PNEUMOCOCCAL 65+ YRS Completed 02/13/2016 INFLUENZA VACCINE Completed 01/05/2020 Procedures Procedure Name Priority Date/Time Associated Diagnosis Comme nts POCT-GLUCOSE METER Routine 03/28/2020 11:08 Resul ts for this AM MARKETING SYSTEMS ANALYST procedure are i n the results section. POCT-GLUCOSE METER Routine 03/28/2020 7:36 Resul ts for this AM MARKETING SYSTEMS ANALYST procedure are i n the results section. CBC W/PLT COUNT & Routine 03/28/2020 4:14 Result s for this AUTO DIFFERENTIAL AM MARKETING SYSTEMS ANALYST procedure are in the results section. BASIC METABOLIC Routine 03/28/2020 4:14 Results for this PANEL (7) AM MARKETING SYSTEMS ANALYST procedure are i n the results section. CBC W/PLT COUNT & Routine 03/28/2020 4:14 Result s for this AUTO DIFFERENTIAL AM MARKETING SYSTEMS ANALYST procedure are in the results section. MAGNESIUM Routine 03/28/2020 4:14 Results for this AM MARKETING SYSTEMS ANALYST procedure are i n the results section. PREPARE STAT 03/27/2020 11:54 Results for this LEUKO-REDUCED RBC PM MARKETING SYSTEMS ANALYST procedure are in the results section. POCT-GLUCOSE METER Routine 03/27/2020 9:02 Resul ts for this PM MARKETING SYSTEMS ANALYST procedure are i n the results section. XR RIBS 2 VIEWS MIN Routine 03/27/2020 6:33 Resu lts for this UNILATERAL RIGHT PM MARKETING SYSTEMS ANALYST procedure a re in the results section. 2D ECHO W/ DOPPLER Routine 03/27/2020 5:31 Resul ts for this (CW/PW/COLOR) PM MARKETING SYSTEMS ANALYST procedure are in the results section. POCT-GLUCOSE METER Routine 03/27/2020 3:14 Resul ts for this PM MARKETING SYSTEMS ANALYST procedure are i n the results section. REPORT OF PROCEDURE 03/27/2020 2:35 - ENDOSCOPY URL PM MARKETING SYSTEMS ANALYST TISSUE EXAM AP Routine 03/27/2020 2:30 Results for this PM MARKETING SYSTEMS ANALYST procedure are i n the results section. POCT-GLUCOSE METER Routine 03/27/2020 2:04 Resul ts for this PM MARKETING SYSTEMS ANALYST procedure are i n the results section. UPPER ENDOSCOPY 03/27/2020 2:00 Gastrointestinal PM MARKETING SYSTEMS ANALYST hemorrhage associated with gastritis, unspecified gastritis type POCT-GLUCOSE METER Routine 03/27/2020 11:56 Resul ts for this AM MARKETING SYSTEMS ANALYST procedure are i n the results section. URINALYSIS W/ Routine 03/27/2020 10:01 Results fo r this REFLEX URINE AM MARKETING SYSTEMS ANALYST procedure are i n CULTURE the results section. CBC W/PLT COUNT & Routine 03/27/2020 8:25 Result s for this AUTO DIFFERENTIAL AM MARKETING SYSTEMS ANALYST procedure are in the results section. CBC W/PLT COUNT & Routine 03/27/2020 8:25 Result s for this AUTO DIFFERENTIAL AM MARKETING SYSTEMS ANALYST procedure are in the results section. BASIC METABOLIC Routine 03/27/2020 8:25 Results for this PANEL (7) AM MARKETING SYSTEMS ANALYST procedure are i n the results section. POCT-GLUCOSE METER Routine 03/27/2020 7:32 Resul ts for this AM MARKETING SYSTEMS ANALYST procedure are i n the results section. IRON, TIBC, % SAT. Routine 03/27/2020 4:10 Resul ts for this (WITHOUT FERRITIN) AM MARKETING SYSTEMS ANALYST procedure are in the results section. FERRITIN Routine 03/27/2020 4:10 Results for this AM MARKETING SYSTEMS ANALYST procedure are i n the results section. HEMOGLOBIN A1C Routine 03/27/2020 4:10 Results f or this AM MARKETING SYSTEMS ANALYST procedure are i n the results section. US ABDOMEN COMPLETE Routine 03/26/2020 11:44 Resu lts for this PM MARKETING SYSTEMS ANALYST procedure are i n the results section. POCT-GLUCOSE METER Routine 03/26/2020 10:43 Resul ts for this PM MARKETING SYSTEMS ANALYST procedure are i n the results section. POCT-GLUCOSE METER Routine 03/26/2020 9:12 Resul ts for this PM MARKETING SYSTEMS ANALYST procedure are i n the results section. XR CHEST 2 VIEWS Routine 03/26/2020 7:39 Results for this PM MARKETING SYSTEMS ANALYST procedure are i n the results section. POCT-GLUCOSE METER Routine 03/26/2020 4:47 Resul ts for this PM MARKETING SYSTEMS ANALYST procedure are i n the results section. BLOOD CULTURE Routine 03/26/2020 4:44 Results fo r this PM MARKETING SYSTEMS ANALYST procedure are i n the results section. BLOOD CULTURE Routine 03/26/2020 4:19 Results fo r this PM MARKETING SYSTEMS ANALYST procedure are i n the results section. HEMOGLOBIN AND Routine 03/26/2020 4:18 Results f or this HEMATOCRIT PM MARKETING SYSTEMS ANALYST procedure are i n the results section. TSH/FREE T4 IF Routine 03/26/2020 4:18 Results f or this INDICATED PM MARKETING SYSTEMS ANALYST procedure are i n the results section. AMMONIA Routine 03/26/2020 4:12 Results for this PM MARKETING SYSTEMS ANALYST procedure are i n the results section. BASIC METABOLIC Routine 03/26/2020 4:12 Results for this PANEL (7) PM MARKETING SYSTEMS ANALYST procedure are i n the results section. CREATINE KINASE Routine 03/26/2020 4:12 Results for this (CK) PM MARKETING SYSTEMS ANALYST procedure are i n the results section. B-TYPE NATRIURETIC Routine 03/26/2020 4:12 Resul ts for this FACTOR (BNP) PM MARKETING SYSTEMS ANALYST procedure are i n the results section. TOXICOLOGY SCREEN, Routine 03/26/2020 4:12 Resul ts for this SERUM PM MARKETING SYSTEMS ANALYST procedure are i n the results section. URINALYSIS Routine 03/26/2020 3:57 Results for this MICROSCOPIC PM MARKETING SYSTEMS ANALYST procedure are i n the results section. URINALYSIS WITH Routine 03/26/2020 3:57 Results for this MICROSCOPIC IF PM MARKETING SYSTEMS ANALYST procedure are in INDICATED the results section. SODIUM, RANDOM Routine 03/26/2020 3:57 Results f or this URINE PM MARKETING SYSTEMS ANALYST procedure are i n the results section. CREATININE, RANDOM Routine 03/26/2020 3:57 Resul ts for this URINE PM MARKETING SYSTEMS ANALYST procedure are i n the results section. TRANSFUSE STAT 03/26/2020 2:31 LEUKO-REDUCED RED PM MARKETING SYSTEMS ANALYST BLOOD CELLS SARS-COV2/RT-PCR Routine 03/26/2020 12:43 Results for this ([facility] & REF LABS) PM MARKETING SYSTEMS ANALYST procedure are in the results section. ABORH, MANUAL STAT 03/26/2020 6:43 Results fo r this AM MARKETING SYSTEMS ANALYST procedure are i n the results section. CBC W/PLT COUNT & STAT 03/26/2020 5:23 Result s for this AUTO DIFFERENTIAL AM MARKETING SYSTEMS ANALYST procedure are in the results section. TYPE AND SCREEN, STAT 03/26/2020 5:23 Results for this AUTOMATED AM MARKETING SYSTEMS ANALYST procedure are i n the results section. URIC ACID Routine 03/26/2020 5:23 Results for this AM MARKETING SYSTEMS ANALYST procedure are i n the results section. CBC W/PLT COUNT & STAT 03/26/2020 5:23 Result s for this AUTO DIFFERENTIAL AM MARKETING SYSTEMS ANALYST procedure are in the results section. MAGNESIUM STAT 03/26/2020 5:23 Results for this AM MARKETING SYSTEMS ANALYST procedure are i n the results section. PROTHROMBIN STAT 03/26/2020 5:23 Results for this TIME/INR AM MARKETING SYSTEMS ANALYST procedure are i n the results section. HEPATIC FUNCTION STAT 03/26/2020 5:23 Results for this PANEL AM MARKETING SYSTEMS ANALYST procedure are i n the results section. BASIC METABOLIC STAT 03/26/2020 5:23 Results for this PANEL (7) AM MARKETING SYSTEMS ANALYST procedure are i n the results section. after 05/03/2019 Results POC-Glucose meter (03/28/2020 11:08 AM MARKETING SYSTEMS ANALYST)Only the most recent of10 results within the time period is included. POC-Glucose Meter 200 (H) 70 - 110 mg/dL [facility] Comment: [facility] : TESTED AT [facility] [address], [address] CENTER : Clinical Nurse/Health Sciences Manager ID = [id number] for QUEEN MCCLELLAN [facility] Blood Performing Organization Address City/State/Zipcode Phone Number [address] [address] CENTER CBC with platelet count + automated diff (03/28/2020 4:14 AM MARKETING SYSTEMS ANALYST)Only the most recent of3 resultswithin the time period is included. Pathologist Sig nature WBC 7.1 3.5 - 10.5 [facility] K/L [facility] RBC 3.04 (L) 3.93 - 5.22 [facility] M/L [facility] Hemoglobin 8.5 (L) 11.2 - 15.7 [facility] GM/DL [facility] Hematocrit 26.7 (L) 34.1 - 44.9 % [facility] MCV 87.8 79.4 - 94.8 fL [facility] MCH 28.0 25.6 - 32.2 pg [facility] MCHC 31.8 (L) 32.2 - 35.5 [facility] GM/DL [facility] RDW 15.5 (H) 11.7 - 14.4 % [facility] Platelets 140 (L) 150 - 450 K/CU [facility] MPV 10.1 9.4 - 12.3 fL [facility] nRBC 0 0 - 0 /100 WBC [facility] % Neutros 69 % [facility] % Lymphs 19 % [facility] % Monos 7 % [facility] % Eos 4 % [facility] % Baso 0 % [facility] # Neutros 4.89 1.56 - 6.13 [facility] # Lymphs 1.35 1.18 - 3.74 [facility] # Monos 0.50 (H) 0.24 - 0.36 [facility] # Eos 0.26 0.04 - 0.36 [facility] # Baso 0.01 0.01 - 0.08 [facility] Immature 2 (H) 0 - 1 % [facility] Specimen Blood Performing Organization Address City/[facility]/Zipcode Phone Number [address] [address] CENTER Magnesium (03/28/2020 4:14 AM MARKETING SYSTEMS ANALYST)Only the most recent of2 resultswithin the time period is included. Pathologist Sig nature Magnesium 2.5 1.6 - 2.6 mg/dL [facility] Specimen Blood Narrative Performed At Clinical Nurse ID - FUAD Campos [facility] Performing Organization Address City/State/Zipcode Phone Number [address] [address] CENTER Basic Metabolic Panel (03/28/2020 4:14 AM MARKETING SYSTEMS ANALYST)Only the most recent of4 results within the time period is included. Sodium 145 136 - 145 meq/L [facility] Potassium 3.9 3.5 - 5.1 meq/L [facility] Chloride 110 (H) 98 - 107 meq/L [facility] CO2 26 22 - 29 meq/L [facility] BUN 53 (H) 7 - 21 mg/dL [facility] Creatinine 1.81 (H) 0.57 - 1.25 [facility] mg/dL [facility] Glucose 140 (H) 70 - 105 mg/dL [facility] Calcium 8.0 (L) 8.4 - 10.2 [facility] mg/dL [facility] EGFR 27Comment: ESTIMATED mL/min/1.73 sq [facility] GFR IS NOT [facility] [place]ATE [place] CREATININE CLEARANCE IN PREDICTING GLOMERULAR FILTRATION RATE. ESTIMATED GFR IS NOT APPLICABLE FOR DIALYSIS PATIENTS. Specimen Blood Narrative Performed At Clinical Nurse BOB - FUAD Campos [facility] Performing Organization Address City/State/Zipcode Phone Number [facility] [address] [place] [address] CENTER Prepare Leuko-Red RBC (03/27/2020 11:54 PM MARKETING SYSTEMS ANALYST) Pathologist Sig nature CROSSMATCH COMPATIBLE SAFETRACE TX Unit ABO A Pos SAFETRACE TX UNIT NUMBER [id number] SAFET[place]ACE TX Status TX_TIMEINCHART SAFETRACE TX Blood Bank Product RED BLOOD CELLS [place] PRODUCT CODE [id number] [place] Specimen Other Performing Organization Address City/State/Zipcode Phone Number SAFETRACE TX XR ribs 2 views min unilateral right (03/27/2020 6:33 PM MARKETING SYSTEMS ANALYST) Specimen Narrative Performed At FINAL REPORT [facility] CLINICAL HISTORY: Recent trauma and righ [...] External Ris In - 03/28/2020 8:17 AM MARKETING SYSTEMS ANALYST FINAL REPORT CLINICAL HISTORY: Recent trauma and [...] 2:40:40 Performing Organization Address City/State/Zipcode Phone Number [facility] 2D Echo W/Doppler(CW/PW/Color) (03/27/2020 5:31 PM MARKETING SYSTEMS ANALYST) Pathologist Sig nature Ejection Fraction [facility] ECHO [facility] Specimen Narrative Performed At Transthoracic Echocardiography Report (T TE) [facility] ECHO [facility] Demographics Patient Name NAMAN CASAS Date of Study 03/27/2020 GISSELL Gender Female Visit Number [id number] Race Unknown Room Number 930 Number Date of 1940 Referring Physician Emperatriz Duke Age 79 year(s) Teamcenter Consultant Gabby MOYA Interpreting Delonte almaguer MD Physician [...] mmHg, DOI 0.52). Mild aortic regurgitation. 5. Jttf-ax-lifkheyx mitral regurgitatio n. 6. Estimated peak systolic [...] annular calcification. No evidence of mitral stenosis. Nkva-jw-sdatbxuk mitral regurgitation. Tricuspid Valve Normal TV structure [...] External Ris In - 03/28/2020 8:40 AM MARKETING SYSTEMS ANALYST Transthoracic Echocardiography Report (TTE) Demographics Patient Name NAMAN CASAS Date of Study 03/27/2020 GISSELL Gend er Female Visit Number [id number] Race Unknown Room Number 930 Number Date [...] mmHg, DOI 0.52). Mild aortic regurgitation. 5. Hmzi-gw-rtffglwq mitral regurgitatio n. 6. Estimated peak systolic [...] calcification. No evidence of m itral stenosis. Lqoj-mh-yeygbrmv mitral regurgitation. Tricuspid Valve Normal TV struct [...] Performing Organization Address City/State/Zipcode Phone Number [facility] [employer] [facility] REPORT OF PROCEDURE - ENDOSCOPY URL (03/27/2020 2:35 PM MARKETING SYSTEMS ANALYST) Narrative Performed At This result has an attachment that is no t available. Tissue Exam (03/27/2020 2:30 PM MARKETING SYSTEMS ANALYST) Case Report Surgical Pathology Report Case: [id number] [facility] Authorizing Provider: Arun Cardenas MD Collected: 03/27/2020 02:30 PM [facility] Ordering Location: [address] Received: 03/28/2020 09:01 AM MEDICAL CENTER Service Pathologist: Karsten Raya MD Specimen: Biopsy, Gastr ic, Random Bx ADDENDUM Immunostain for [facility] Addendum helicobacter performed on [facility] el ectronically block A1 is negative. [facility] sign ed by Karsten Raya MD on 04/02/2020 a t 10:22 AM DIAGNOSIS PART A RANDOM GASTRIC BIOPSY: [facility] Electronically ACTIVE CHRONIC GASTRITIS. [facility] si gned by Dorota, NEGATIVE FOR INTESTINAL METAPLASIA, DYSPLASIA, O R INVASIVE CARCINOMA. [facility] MD RENETTA Lr STAIN FOR HELICOBACTER IS EQUIVOCAL, IM MUNOSTAIN PENDING. on 03/28/2020 at Signing Pathologist Direct Phone Line: 3:42 PM CPT Code(s) 66064, 02230, 79990 [facility] CLINICAL HISTORY [facility] with gastritis MEDICAL CENTER SPECIMEN SOURCE Gastric [facility] GROSS DESCRIPTION A. Received in formalin labe led with the patients name, medical record number and "biopsy, gastric" and consists of multiple jacobo soft tissue fragments ranging 0.2-0.8 cm submitted in toto in A1. [facility] Ahumada PA (ASCP) MEDICAL C ENTER MICROSCOPIC Performed. [facility] SPECIAL STUDIES The interpretation of this c ase included the use of immunohistochemistry or special stains. [facility] BLOCK A1- RENETTA MONTAÑO [facility] Control Slides Examined: In -house known positive controls were evaluated along with the test tissue. These control slides run alongside of the patients sample show appropriate staining. Internal [facility] hank and negative controls when available are evaluated Immunohistochemistry technic al testing was performed at [facility], Pathology Laboratory where it was developed and its performance characteristics were determined. It has not be en cleared or approved by [facility] U.S. Food and Drug Administration. The FDA has determined that such clearance or approval is not necessary. The test is used for clinical purposes. It should not be regarde d as investigational or for research. This laboratory is certified under the Clinical Laboratory Improvement Amendments of 1988 (CLIA-88) as qualified to perform high complexity clinical laboratory testing. Gross assessment [facility] was performed at [facility] Pathology, [address] [place] [id number], [facility] component was [facility] performed at [facility], [address] [place] [id number], [facility] component was [facility] performed at [facility], [address] [place] [id number], Specimen Tissue - Gastric biopsy sample (specimen ) Performing Organization Address City/State/Zipcode Phone Number [address] [phone] [place] Urinalysis w/Microscopic + Reflex to Culture (03/27/2020 10:01 AM MARKETING SYSTEMS ANALYST) Color, UA Light Yellow [facility] Clarity, UA Clear [facility] Specific Star, 1.012 1.001 - 1.035 [facility] pH, UA 6.0 5.0 - 8.0 [facility] Protein, UA 20 mg/dL (A) Negative [facility] Glucose, UA Negative Negative [facility] Ketones, UA Negative Negative [facility] Bilirubin, UA Negative Negative [facility] Blood, UA Moderate (A) Negative [facility] Nitrite, UA Negative Negative [facility] Leukocytes, UA Negative Negative [facility] Urobilinogen, UA 0.2 0.2 - 1.0 mg/dL [facility] RBC, UA 7 /HPF [facility] WBC, UA 1 /HPF [facility] Squam Epithel, UA 2 /HPF [facility] Specimen Source [facility] Specimen Urine Narrative Performed At Clinical Nurse ID - [auto] [facility] Clinical Nurse ID - tech Performing Organization Address [facility] Phone Number [address] [address] CENTER Iron, TIBC, % sat. (without ferritin) (03/27/2020 4:10 AM MARKETING SYSTEMS ANALYST) Pathologist Sig nature Iron 34.0 (L) 40.0 - 160.0 [facility] ug/dL [facility] TIBC 275 250 - 450 ug/dL [facility] Iron % Saturation 12 (L) 20 - 55 % [facility] Specimen Blood Narrative Performed At Clinical Nurse ID - MARY ELLEN W [facility] Performing Organization Address City/[facility] Cent[facility]ode Phone Number [address] [address] CENTER Hemoglobin A1c (03/27/2020 4:10 AM MARKETING SYSTEMS ANALYST) Pathologist Sig nature Hemoglobin A1C 6.0 4.3 - 6.1 % [facility] Specimen Blood Performing Organization Address [facility] Centercode Phone Number [address] [address] CENTER Ferritin (03/27/2020 4:10 AM MARKETING SYSTEMS ANALYST) Pathologist Sig nature Ferritin 45.51 5.00 - 275.00 ng/mL [facility] CENTER Specimen Blood Narrative Performed At Clinical Nurse ID - MARY ELLEN Laureano [facility] Performing Organization Address City/State/Zipcode Phone Number [facility] [address] [place] [address] CENTER US abdomen complete (03/26/2020 11:44 PM MARKETING SYSTEMS ANALYST) Specimen Narrative Performed At FINAL REPORT [facility] History: "Eval for cirrhosis and PAUL" Abdominal [...] External Ris In - 03/27/2020 3:56 AM MARKETING SYSTEMS ANALYST FINAL REPORT History: "Eval for cirrhosis and [...] 3:54:43 Performing Organization Address City/State/Zipcode Phone Number [facility] XR chest 2 views (03/26/2020 7:39 PM MARKETING SYSTEMS ANALYST) Specimen Narrative Performed At FINAL REPORT [facility] INDICATION: RULE OUT PNEMUNIA COMPARISON: None TECHNIQUE: [...] Report Verified Date/Time: 03/26/2020 20:10:08 Reading Location: [address] Procedure Note Interface, External Ris In - 03/26/2020 8:12 PM MARKETING SYSTEMS ANALYST FINAL REPORT INDICATION: RULE OUT PNEMUNIA COMPARISON: [...] Verified Date/Time: 03/26/2020 2 0:10:08 Reading Location: [address] Performing Organization Address City/[facility] Cent[facility]ode Phone Number [facility] Blood Culture - Routine (Right Venipuncture) (03/26/2020 4:44 PM MARKETING SYSTEMS ANALYST)Only the most recent of2 resultswithin the time period is included. Pathologist Sig nature Result No growth in 5 days [facility] Specimen Blood - Entire right upper arm (body str ucture) Performing Organization Address [facility]/Zipcode Phone Number [address] [address] CENTER TSH/Free T4 If Indicated (03/26/2020 4:18 PM MARKETING SYSTEMS ANALYST) Pathologist Sig nature TSH 1.248 0.350 - 4.940 uIU/mL [facility] Specimen Blood Narrative Performed At Clinical Nurse ID - BS [id number] Performing Organization Address [facility]/Zipcode Phone Number [address] [address] CENTER Hemoglobin and hematocrit (03/26/2020 4:18 PM MARKETING SYSTEMS ANALYST) Pathologist Sig nature Hemoglobin 8.4 (L) 11.2 - 15.7 GM/DL [facility] Hematocrit 26.6 (L) 34.1 - 44.9 % [facility] Specimen Blood Narrative Performed At Clinical Nurse ID - [id number] [facility] Performing Organization Address City/State/Zipcode Phone Number [id number] [address] [place] [address] CENTER Toxicology screen, serum (03/26/2020 4:12 PM MARKETING SYSTEMS ANALYST) DRUG TEST, see note [facility] Comment: INCORPORATED TOXICOLOGY, The following compounds were detected: URINE,[facility] Caffeine For a list of compounds and limits of detection go to: http://education.[facility]ness/faq/JXX548 This test was developed and its analytical performance characteristics have been determined by [facility] [place], [place]. It has not been cleared or approved by the U.S. Food and Drug Administration. This assay has been validated pursuant to the CLIA regulations and is used for clinical purposes. ACETONE ([facility]) None Detected [facility] METHANOL([facility]) None Detected [facility] Isopropanol(Ques None Detected [facility] t) INC[facility]PORATED ETHANOL None Detected [facility] Comment: INCORPORATED Volatile Limit of Detectio n: 5 mg/dL Specimen Blood Narrative Performed At Performing Lab [facility] [address] [facility], [address] [facility] [place] [address] Deniz Stewart MD, PhD Performing Organization Address City/[facility]/Zipcode Phone Number [place] [address] INCORPORATED [address] [facility] B-type Natriuretic Factor (BNP) (03/26/2020 4:12 PM MARKETING SYSTEMS ANALYST) Pathologist Sig nature BNP 893 (H) 0 - 100 pg/mL [facility] Specimen Blood Performing Organization Address City/[facility]/Zipcode Phone Number [facility] [address] [place] [address] Creatine Kinase (CK) (03/26/2020 4:12 PM MARKETING SYSTEMS ANALYST) Pathologist Sig nature Total CK 51 29 - 200 U/L [facility] Specimen Blood Narrative Performed At Clinical Nurse ID - BS [facility] Performing Organization Address City/State/Zipcode Phone Number [facility] [address] [place] [address] CENTER Ammonia (03/26/2020 4:12 PM MARKETING SYSTEMS ANALYST) Pathologist Sig nature Ammonia 51 18 - 72 mol/L [facility] Specimen Blood Narrative Performed At Clinical Nurse ID - BS [facility] Performing Organization Address [facility]/Zipcode Phone Number [address] [address] CENTER Urinalysis Microscopic Only (03/26/2020 3:57 PM MARKETING SYSTEMS ANALYST) Pathologist Sig nature RBC, UA 3 /HPF [facility] WBC, UA 3 /HPF [facility] Mucus Rare [facility] Squam Epithel, UA 2 /HPF [facility] Specimen Urine Narrative Performed At Clinical Nurse ID - tech [facility] Performing Organization Address City/State/Zipcode Phone Number [address] [address] [place] Urinalysis with Microscopic If Indicated (03/26/2020 3:57 PM MARKETING SYSTEMS ANALYST) Color, UA Light Yellow [facility] Clarity, UA Clear [facility] Specific Star, 1.013 1.001 - 1.035 [facility] pH, UA 5.5 5.0 - 8.0 [facility] Protein, UA 20 mg/dL (A) Negative [facility] Glucose, UA Negative Negative [facility] Ketones, UA Negative Negative [facility] Bilirubin, UA Negative Negative [facility] Blood, UA Small (A) Negative [facility] Nitrite, UA Negative Negative [facility] Leukocytes, UA Negative Negative [facility] Urobilinogen, UA 0.2 0.2 - 1.0 mg/dL [facility] Specimen Source [facility] Specimen Urine Narrative Performed At Clinical Nurse ID - [auto] [facility] Performing Organization Address [facility] Cent[facility]ode Phone Number [address] [address] CENTER Sodium, random urine (03/26/2020 3:57 PM MARKETING SYSTEMS ANALYST) Pathologist Sig nature Sodium Urine 32 meq/L [facility] Specimen Urine Narrative Performed At Reference Range: No Normals [facility] Clinical Nurse ID - DB Performing Organization Address [facility] Center[facility] Phone Number [address] [address] CENTER Creatinine, random urine (03/26/2020 3:57 PM MARKETING SYSTEMS ANALYST) Pathologist Sig nature Creatinine, Ur 44.6 mg/dL [facility] [place] Specimen Urine Narrative Performed At Reference Range: No Normals [facility] Clinical Nurse ID - DB Performing Organization Address [facility] Phone Number [address] [address] CENTER Transfuse Leuko-Red RBC (03/26/2020 2:31 PM MARKETING SYSTEMS ANALYST)SARS-CoV2/RT-PCR (Asymptomatic ONLY) (03/26/2020 12:43 PM MARKETING SYSTEMS ANALYST) SARS-COV2/RT-PCR Negative Not Detected, [facility] Negative, See [facility] external report CENTER for linked test SARS-COV-2 [facility] PERFORMING LAB [facility] Specimen Other - Nasopharyngeal wall structure (b javan structure) Narrative Performed At Negative result for this test determines that [facility] SARS-CoV-2 RNA was not present in the [...] the Act. Fact Sheet for Healthcare Providers: https://www.HealthFleet.com.HuntForce/sites/default/files/pro duct/documents/Fact_Sheet_HC_Providers_Lyra_SA RS-CoV-2.pdf Fact Sheet for Healthcare Patients: https://www.HealthFleet.com.HuntForce/sites/default/files/pro duct/documents/Fact_Sheet_Patients_Lyra_SARS-C oV-2.pdf Performing Laboratory: [address] [address] Performing Organization Address City/State/Zipcode Phone Number [address] [address] CENTER ABORSteffi, manual (03/26/2020 6:43 AM MARKETING SYSTEMS ANALYST) Pathologist Sig nature ABO Grouping A [facility] Rh Factor POS [facility] Specimen Blood Performing Organization Address [facility] Centercode Phone Number [address] [address] Type and screen, automated (03/26/2020 5:23 AM MARKETING SYSTEMS ANALYST) Pathologist Sig nature ABO/RH AUTOMATED A POSITIVE [facility] Ab Scrn NEGATIVE [facility] Specimen Blood Performing Organization Address [facility] Centercode Phone Number [facility] [address] [place] [address] Prothrombin time/INR (03/26/2020 5:23 AM MARKETING SYSTEMS ANALYST) Pathologist Sig nature Protime 14.6 (H) 11.9 - 14.2 seconds [facility] INR 1.17 <=5.90 [facility] Specimen Blood Narrative Performed At Effective 09/01/2018: PT Reference Range [facility] Change New: 11.9-14.2 Previous: 11.7-14.7 RECOMMENDED COUMADIN/WARFARIN INR THERAPY RANGES STANDARD DOSE: 2.0-3.0 Includes: PROPHYLAXIS for venous thrombosis, systemic embolization; TREATMENT for venous thrombosis and/or pulmonary embolus. HIGH RISK: Target INR is 2.5-3.5 for patients wiht mechanical heart valves. Performing Organization Address [facility] Centercode Phone Number [address] [address] CENTER Uric acid (03/26/2020 5:23 AM MARKETING SYSTEMS ANALYST) Pathologist Sig nature Uric Acid 13.8 (H) 2.6 - 7.2 mg/dL [facility] Specimen Blood Narrative Performed At Clinical Nurse BOB Campos [facility] Performing Organization Address [facility]/Zipcode Phone Number [address] [address] CENTER Hepatic function panel (03/26/2020 5:23 AM MARKETING SYSTEMS ANALYST) Pathologist Sig nature Protein, Total 5.2 (L) 6.0 - 8.3 gm/dL [facility] Albumin 2.5 (L) 3.5 - 5.0 g/dL [facility] Total Bilirubin 0.8 0.2 - 1.2 mg/dL [facility] Bilirubin, Direct 0.4 0.1 - 0.5 mg/dL [facility] Alkaline Phosphatase 88 40 - 150 U/L [facility] AST 21 5 - 34 U/L [facility] ALT 13 6 - 55 U/L [facility] Specimen Blood Narrative Performed At Clinical Nurse BOB - FUAD M [facility] Performing Organization Address City/State/Zipcode Phone Number [facility] [address] [place] [address] CENTER after 05/03/2019 Insurance Payer Benefit Plan / Subscriber ID Effective Dates Phone Addre ss Type Group [employer] [id number] 2020-Present MGD CARE Advance Directives For more information, please contact: [phone] Code Status Date Activated Date Inactivated Comments Full Code 03/26/2020 4:10 AM 03/28/2020 6:35 PM This code status was determined by: Patient
--- OUTSIDE RECORDS SUMMARY | 2020-05-03 18:06 | XMS REPORT | Continuity of Care Document ---
:1940 Author Organization [facility] t Address [address] [place] [address] Care Team Providers Name Role Phone LISA JAIN Attending Clinician Unavailable Cristobal HUFF, Lisa Attending Clinician Wai Duke MD Attending Clinician Lloyd Guzmán MD Attending Clinician Zain Duggan MD Attending Clinician Ryland Carpenter CRNA Attending Clinician Citlali Hong MD Attending Clinician LISA JAIN Admitting Clinician Unavailable Payers Payer Name Policy Type Policy Effective Date Expiration Date Sour ce Number WELLCARE MEDICARE [id number] [facility] MGD CAREWELLCARE 00:00:00 - Medica l [id number] Center /2019-Present Problems Condition Condition Condition Status Onset Resolution Last Treating Co mments Source Name Details Category Date Date Treatment Clinician Date Closed Closed Disease Active 2019-[address] [facility] fracture fracture 2[facility] - of one rib of one [...] (acute PAUL (acute Disease Resolve 2019-042020-03-28 2020-03-28 [facility] kidney d 05-29 00:00:00 18:26:22 [facility] - injury) injury) 00:00: [facility] Center Allergies, Adverse Reactions, Alerts This patient has no known allergies or adverse reactions. Social History Social Habit Start Date Stop Date Quantity Comments Source Sex Assigned At [facility] Tobacco use and 2020-03-28 2020-03-28 Never used [facility] - exposure 00:00:00 00:00:00 [facility] Tobacco Comment 2020-03-27 2020-03-27 20 years ago [facility] - 00:00:00 00:00:00 [facility] Smoking Status Start Date Stop Date Source Former smoker 2020-03-28 00:00:00 2020-03-28 00:00:00 [facility] Medications Ordered Filled Start Stop Current Ordering Indication Dosage Frequency Signature Comments Components Source Medication Medication Date Date Medication? Clinician (SIG) Name Name atorvastati 2019-04 Yes 20mg QD Take [address] [facility] (LIPITOR) 2-23 by mouth Luke s - 20 MG 16:35: daily. Medical tablet 10 [place] nebivoloL 2019-04 Yes 10mg QD Take [address] (BYSTOLIC) 2-23 by mouth [facility] - 10 MG 16:35: daily. Medical tablet 10 [place] glimepiride 2019-04 Yes 1mg Take 1 mg [...] QD Take [address] (PriLOSEC) -28 03-23 by mouth Luke s - 20 MG 15:32: 00:00 daily. Medical capsule 52 :00 Center hydrALAZINE 2019-04- No 10mg [id number] Take [address] [address] (APRESOLINE -28 03- [id number] by mouth 3 [facility] - ) 10 [...] route. hydralazine hydralazine No 1 BID hydralazin [facility] 10 mg 10 mg e 10 mg Family tablet Take tablet Take tablet Practic 1 tablet 1 tablet Take 1 e twice a day twice a day tablet by oral by oral twice a route. route. day by oral route. hydrochloro hydrochloro No 1 Q1D hydrochlor [facility] thiazide 25 thiazide 25 othiazide Family mg tablet mg tablet 25 mg Prac tic Take 1 Take 1 tablet e tablet tablet Take 1 every day every day tablet by oral by oral every day route. route. by oral route. ibuprofen ibuprofen No 1capsul Q6H ibuprofen [facility] 200 mg 200 mg e(s) 200 mg Family capsule capsule capsule Practi c Take 1 Take 1 Take 1 e capsule capsule capsule every 6 every 6 every 6 hours by hours by hours by oral route. oral route. oral route. propylthiou propylthiou No 1 BID propylthio [facility] racil 50 mg racil 50 mg uracil 50 Family tablet Take tablet Take mg tablet Practic 1 tablet 1 tablet Take 1 e twice a day twice a day tablet by oral by oral twice a route. route. day by oral route. Immunizations Ordered Immunization Filled Immunization Date Status Commen ts Source Name Name influenza, influenza, 2020-01-05 Completed [facility] injectable, injectable, 00:00:00 Practice quadrivalent quadrivalent Vital Signs Vital Name Observation Time Observation Value Comments Source BP Diastolic 2020-02-10 00:00:00 80 mm[Hg] [facility] Height 2020-02-10 00:00:00 59 [in_i] [facility] BMI (Body Mass Index) 2020-02-10 00:00:00 31.9 kg/m2 [facility] BP Systolic 2020-02-10 00:00:00 140 mm[Hg] [facility] Body Weight 2020-02-10 00:00:00 158 [lb_av] [facility] Systolic blood 2020-03-28 15:14:00 156 mm[Hg] [facility] Diastolic blood 2020-03-28 15:14:00 67 mm[Hg] [facility] Heart rate 2020-03-28 15:14:00 65 /min [facility] Body temperature 2020-03-28 15:14:00 36.78 [facility] Respiratory rate 2020-03-28 15:14:00 18 /min [facility] Oxygen saturation in 2020-03-28 15:14:00 96 /min [facility] Arterial blood by Medical Ce nter Pulse oximetry Body weight 2020-03-26 03:00:00 72.213 kg [facility] Procedures Procedure Date / Time Performed Performing Clinician Sourjhonny e POCT-GLUCOSE METER 2020-03-28 11:08:00 Emperatriz [facility] POCT-GLUCOSE METER 2020-03-28 07:36:00 Emperatriz [facility] MAGNESIUM 2020-03-28 04:14:00 Vicente Quinones [facility] BASIC METABOLIC PANEL 2020-03-28 04:14:00 Vicente Quinones [facility] (7) [facility] CBC W/PLT COUNT & AUTO 2020-03-28 04:14:00 Vicente Quinones [facility] DIFFERENTIAL [facility] PREPARE LEUKO-REDUCED 2020-03-27 23:54:00 [facility] PO[facility]SE METER 2020-03-27 21:02:00 [facility] RIBS 2 VIEWS MIN 2020-03-27 18:33:00 Vicente Quinones [facility] UNILATERAL RIGHT [facility] 2D ECHO W/ DOPPLER 2020-03-27 17:31:[address] [facility] (CW/PW/COLOR) [facility] POCT-GLUCOSE METER 2020-03-27 15:14:00 [facility] REPORT OF PROCEDURE - 2020-03-27 14:35:24 Guzmán [facility] ENDOSCOPY URL [facility] TISSUE EXAM 2020-03-27 14:30:00 Arielle [facility] POCT-GLUCOSE METER 2020-03-27 14:04:00 [facility] UPPER ENDOSCOPY 2020-03-27 14:00:00 [facility] POCT-GLUCOSE METER 2020-03-27 11:56:00 [facility] URINALYSIS W/ REFLEX 2020-03-27 10:01:00 Vicente Quinones [facility] URINE CULTURE [facility] BASIC METABOLIC PANEL 2020-03-27 08:25:00 Vicente Quinones [facility] (7) [facility] CBC W/PLT COUNT & AUTO 2020-03-27 08:25:00 Vicente Quinones [facility] POCT-GLUCOSE METER 2020-03-27 07:32:00 [facility] HEMOGLOBIN A1C 2020-03-27 04:10:00 Vicente Quinones [facility] FERRITIN 2020-03-27 04:10:00 Vicente Quinones [facility] IRON, TIBC, % SAT. 2020-03-27 04:10:[address] [facility] (WITHOUT FERRITIN) Medical Cente r US ABDOMEN COMPLETE 2020-03-26 23:44:00 Vicente Quinones [facility] POCT-GLUCOSE METER 2020-03-26 22:43:00 [facility] POCT-GLUCOSE METER 2020-03-26 21:12:00 [facility] XR CHEST 2 VIEWS 2020-03-26 19:39:00 Vicente Quinones [facility] POCT-GLUCOSE METER 2020-03-26 16:47:00 Emperatriz [facility] BLOOD CULTURE 2020-03-26 16:44:00 Vicente Quinones [facility] BLOOD CULTURE 2020-03-26 16:19:00 David Anaya [facility] TSH/FREE T4 IF INDICATED 2020-03-26 16:18:00 [facility] HEMOGLOBIN AND 2020-03-26 16:18:00 [facility] SERUM 2020-03-26 16:12:00 Linda Anaya [facility] B-TYPE NATRIURETIC 2020-03-26 16:12:00 Vicente Quinones [facility] ukes FACTOR (BNP) [facility] CREATINE KINASE (CK) 2020-03-26 16:12:00 Vicente Quinones [facility] BASIC METABOLIC PANEL 2020-03-26 16:12:00 Vicente Quinones [facility] (7) [facility] AMMONIA 2020-03-26 16:12:00 Emperatriz Duke [facility] CREATININE, RANDOM URINE 2020-03-26 15:57:00 Jenni Jain I [facility] SODIUM, RANDOM URINE 2020-03-26 15:57:00 Jenni Jain [facility] URINALYSIS WITH 2020-03-26 15:57:00 Jenni J[facility] - MICROSCOPIC IF INDICATED [facility] URINALYSIS MICROSCOPIC 2020-03-26 15:57:00 Jenni Jain [facility] TRANSFUSE LEUKO-REDUCED 2020-03-26 14:31:45 Jenni Jain [facility] - RED BLOOD CELLS [facility] SARS-COV2/RT-PCR ([facility] & 2020-03-26 12:43:00 Vicente Quinones [facility] - REF LABS) [facility] ABORH, MANUAL 2020-03-26 06:43:00 Meri Wilder [facility] BASIC METABOLIC PANEL 2020-03-26 05:23:00 Jenni Jain [facility] (7) [facility] HEPATIC FUNCTION PANEL 2020-03-26 05:23:00 Cristobal [facility] PROTHROMBIN TIME/INR 2020-03-26 05:23:00 Cristobal [facility] MAGNESIUM 2020-03-26 05:23:00 Cristobal [facility] URIC ACID 2020-03-26 05:23:00 Cristobal [facility] TYPE AND SCREEN, 2020-03-26 05:23:00 Jenni Jain [facility] es - AUTOMATED [facility] CBC W/PLT COUNT & AUTO 2020-03-26 05:23:00 Jenni Jain [facility] DIFFERENTIAL [facility] Plan of Care Planned Activity Planned Date Details Comments Source Future Scheduled Test 2020-09-25 Hemoglobin A1c [facility] Mal - 00:00:00 [facility] (procedure) [code = 45576207] Future Scheduled Test 2020-04-06 DEPRESSION SCREENING [facility] - 00:00:00 (12+) [code = [facility] DEPRESSION SCREENING (12+)] Future Scheduled Test 2020-03-24 Medicare IPPE [facility] - 00:00:00 (WELCOME TO [facility] MEDICARE) [code = Medicare IPPE (WELCOME TO MEDICARE)] Future Scheduled Test 1961 [facility] - 00:[facility]:00 (1 of 3 - Risk Medical Cente r 3-dose series) [code = HEPATITIS B VACCINE (1 of 3 - Risk 3-dose series)] Future Scheduled Test 1952 DIABETIC EYE EXAM [facility] - 00:00:00 [code = DIABETIC EYE Medical Center EXAM] Future Scheduled Test 1952 Diabetic foot [facility] - 00:[facility]:00 examination Medical Center (regime/therapy) [code = 169196396] Future Scheduled Test 1952 Urine screening for CASEY Gould - 00:00:00 protein (procedure) Medical Center [code = 316757892] Future Appointment 2020 Aiyanapenny Morrison, V illage Family 00:00:00 [address]; [address] [place] [address], [place] [id number] [place] [address] Practice Encounters Start End Encounter Admission Attending Care Care Encounter Source Date/Time Date/Time Type Type Clinicians Facility Department ID 2020-02-10 2020-02-10 Aiyana [facility]FP [place] - [id number] V illage 00:00:00 00:00:00 MayraJasvir [facility] Alex santizo, CARTOGRAPHIC AIDE: Medical - Practi c [address] [email or web address] [facility], [address], [place] [address] , Ph. Results Test Description Test Time Test Comments Results Result Comments Source Toxicology screen, serum 2020-04-03 15:12:00 Test Item Value Reference Range Interpretation Comme nts DRUG TEST, see note The following c ompounds were detected: Caffeine GENERAL For a list of c ompounds and limits of detection go TOXICOLOGY, to:http://educa tion.[employer].com/faq/STB260 URINE,QUEST This test was d ted and its analytical (test code = performancechar acteristics have been determined by 3052) [employer] [place], [place]. It hasnot been karl ared or approved by the U.S. Food and DrugAdministrat ion. This assay has been validated pursuantto the CLIA regulations and is used for clinicalpurpose s. ACETONE None Detected (QUEST) (test code = 4701505) METHANOL(QUEST None Detected ) (test code = 8698292) Isopropanol(Qu None Detected est) (test code = 3055) ETHANOL (test None Detected Volatile Limit of Detection: 5 code = 2968) mg/dL LINDA (test code Performing Lab = LINDA) 15 [facility] [place] [facility], [address] [place] [address] Deniz Stewart MD, PhD [facility] [id number] 10:22:00 Test Item Value Reference Range Interpretation Comments Case Report (test code Surgical Pathology = 104) Report Case: [id number] Authorizing Provider: Arun Guzmán MD Collected: 03/27/2020 02:30 PM Ordering Location: [address] Received: 03/28/2020 09:01 AM Service Pathologist: Karsten Raya MD Specimen: Biopsy, Gastric, Random Bx ADDENDUM (test code = [id number] 3381) Wai9vdz9JexARqqZAsKWzx jRGmsnZzfj81aFI4iE22KA 1vZORgQzT5HCPzsiS4Rqn1 REObQTZoiEQuZ513w0uap9 ryhxCijWB8qOfjCTVmUFYj NKhmXQAgVgCfCY2wtJ7zg4 KdiM3eYo7xRBindDxct2Ql U4BynzDhKTBqd5McSZWft4 4zKhokV8xqICYgrAKlpbKj YXRpdmUuIFxwYXJ9 DIAGNOSIS (test code = m0vmoDRfPVUem4cxXVHuvJ 3220) FuZzEwMzNcZnRuYmpcdWMx IHtccnRmMVxlcGljOTIwMF ofwlYgJBAyhDRfG0Xtrjsx OCftAB1eWN8tgCqweYYhrE NiKGKzCbTxb8kfd897pYRe i6uoYOXFndeaeBr0mKuvH4 8ix7J0CvleO33upPEiQHqy bGFpblxmczIwIFBBUlQgQS RYTC3WM98kL5AQAOKKZyGO NY7TA7w9JVRxtzYQD0VMPy LuO8dKJ61AVdTGCXWFYifD SVMuXHBhciBORUdBVElWRS DCG1TbTE3KIJZYAG2IQPUM BZEJYDbGQ0jHKXRBGOEHQR HKOJJuGL0BWAbLWfGYZEBC OWWMFjZIEn1LMN8kxUUcXQ uGMnVWIY9uW8GKJaVMXVWP UHaQYMFFYjBSOMgDP50TAE FXQCHrZBLsATLLPTSAI3EO RWFARA7PHr1MQVCSFyZBVP 7PWI4LXmAwIZPvyf98SLA9 SzMte7D9YUT3TSBlRFNbd5 lcZGVmbGFuZzEwMzNcZnRu MvfxjKBrIGNiOjPwy3dii2 05aRBae2wuDXTjNtN7oXZv OZZanYQaR629TCHpHSexa8 jjc5RqPPWnhZQef7N2CXCX vmhwmCc1sAlsV10lw5R8Cm xjM9oaNGAaLCTuJ7NiNW8m UVFdYaa6WCF9ZSX0YDYcSO GeC4WkCN9qDPBtzAAeBAo0 r6sekIquJJVfNJB0a4frDU gpkvZpOI3chz0wcGx7c8rc czEgRGVmYXVsdCBQYXJhZ3 XgaObrMk2zgNw2xYjgLlfo TXS2Qyc4FO7fae60pcy3jU lgCOLccboyLmP5TGuwWFGa aikzQEs4FUqbAVGlpYF2CA ElxGGaX8LbRCKfPM9eoqu6 ODJ8KKgyUJNyDcE6QYUlnP KxCTHjzJjcSSiex838WSV1 IbBtDB6lC6Wzn9A6uS6peV EqVUVerEMpZfNsARCmcl9z iQQxYVevx6IjEMO2upN7cJ QvyCNfVTFnSvO8OOwjZO8z hv25KIYzGQL9cu5mbLBpjO liyeAwuCSlZJpoH4MyOWEc w718GRMdR2LlXSBpg4W7tx XmPkPlUBCcxUJ4hcU4YJVl VV3ocgewq2jvCPpbAAonKZ EmzeF3owY3YZTegHJeB9Km hJ3tEYGoYL6vctmss0wdTR W7ATmjXSAjWRV9TmLuWGQo c5Pxgdx8NeRbi9TrlOQzCZ dyT45bu598EAXvwlCrO2fw bGFpblxwbGFpblxmMFxmcz E2CBOeBGbdphxoHOFgEUwi F5iuQaHxEBHmrNgwGQtne9 NoXGYxXGZzMjJcdGFiXHRh Vuw7SHQqrKRzZFGmXuEcO8 zhbgohRaHUDNIov8awF7qs yEGJgXKoU4WqYQeylcGwOV dlTLklOMFuNWB5KW71HVqt TFVtgn67 CPT Code(s) (test code h4ukxHCbLGQmwVE6FqBrAU = 3357) Fah8epr5FyiVLyqZRqKSij mZCwqjUkby83iMM5cE55DR 2zEZIoYrF0UAWkjwD0Jiw3 CBIlSMKthXDwA670c3bxh9 vpjdRsqZG1kJckZFOhCKCm YWluXGZzMjAgODgzMDUsID c5XrLxRVL2UVP0ZhnfSSS4 CLINICAL HISTORY (test u6gzeNIgSVQcbSV3SuYkYF code = 3356) Vdy5oqr6YyeMEbgQGiKOhx tLMhpwLoew45dKR0tI27RU 8kZLWqUtT9IXTeovH0Zpg7 KOZvUPMsbOCnJ798y2lpk5 ulixSjwMX4uVvzEGNxWQTy QQvfJWAxTjWsU2HmaEVfoH 00GWU7vK1vsMDmYB1aksIr AEgwPQMjn68dhIV1ROJju1 s1rWAwATL3mno4lVDknEIq fQ== SPECIMEN SOURCE (test m5djgFPtOEJvbGU6JrXuRX code = 3377) Axc3zqm6KmdLFasAPlZDtv vFFcuuJuzt26tCJ8bU94DT 2hXNPbYvH8LLRlviB8Yic9 IUMmXODuhYRxZ850x5fws9 niiaQdrRU5rDtdAZKzGHHf SUsxBFPvKcMvM5QvvDLiX4 xwYXJ9 GROSS DESCRIPTION (test i4fznJJeVEPuvDUzQhMqCX code = 3366) RdSDKas5cdLCFlgTVxUqAk MzNcZnRuYmpcdWMxXGRlZm Vcs2hvx298zPVol5vhWETP gzudiTw7d0zdEXLtFqA0nW UmHHttN0vschDwdPVsBEGa DEi0dK81ACXdhN7lrBZvBH xxslStJeH6ZIrrNQJgDiL4 VBNigVEuDROjR9ajUDUgFB daUJPaTUmjzTLaXMM2kFkp i8O3sINtiCRqcPyeYpJhLy DzZMCRr7PjNXc2mWtwZ6Et XWFkPyW1zPXmKLMpWYelOS YqRXSnxlY8mL12QYsswlI6 pRAie2Zig97rh767bR3cbN EsDCC9TOWjWWBejPIyEHWk OVB7NPAovBMsD8s5BkPsmC TxJ2G7UzQshHJpD0I4HnZy hQCpW9Z3AtZafNHaGNQhzF BxKt8egFOwlKLisn8jzw31 KIX5y4AdpTwaYKO1KVC1Ga JzCq9moRUoNWZcLOSahACw SBNkKP3gbSClSEMtvV7etp xjXHBnYnJkcmhlYWRccGdi kuExYn7otEeiMVZ0UNxyZ6 hljV0jJwR1VMqvE6dyjA6o YKd5CCsphMO4EKYtkX9aIN 9slvabh7wgQwHbYM2odber f0poKyKcLP9fwbb8t7zdRy CbOZ1qhrnbe6rtRzWrHUzz VBOadkfxQPLox7NrqmulMX Aft7BfG5YidQgxB66pmQjv J41xFNZbaVouzM3knHpzeW 5cZjBcZnMyNFxwYXJkXHBs YWluXGYxXGZzMjBcbGFuZz EwMzNcaGljaFxmMVxkYmNo YCNmSRhkX4ufCiCkRiRsQE BBLiBSZWNlaXZlZCBpbiBm j8TtDHtkfnMnZKZxrKLsVG dpdGggdGhlIHBhdGllbnRc Y3S7xhFyUE4hUGEdINJxL1 FfGFYcO54vLPTkwZ6yFARf EP1fAMZtpD5jp7sgPJvfd5 WhxADmSHKnZNYtv91kvAD2 djOrDcBrpAg2jLBeXLG6GD 7hr64zkQX4mJHesQTqDgFf W74ijgYlNOCpmwkinpmpJJ 8uGBNtVGCnbROkeRCgrLT7 ICMylD8nwO55zcOtbzZNVS 0hlUvpLXfhtL8wGDYjXGhn WHTpG8SssS8vUQ9IJhpsQV SyMVTWP2OiD84xsMYwqR== MICROSCOPIC DESCRIPTION p7fydNPvLOOptVB2LlApVD (test code = 3371) Rdq2etr0FybSPprDOhYUoi vZFbwlAbgz30zNB4cZ67OQ 5wTJOtAcH1HADqatU1God9 YUBlNVIleXBuG733b2pta1 zuzfRteXP0bCxoJSGfEKBv GGryTUDmWkLiHRWvFj4ghZ VkLiBccGFyfQ== SPECIAL STUDIES (test w4hraQCuLINawIV4LkJzWK code = 3376) Tyj8zlm7BkwQRfaXQxFVnb yBClwrDcsk42mXU1oZ86ZK 5rBVRdUxI8DWKwusW5Knx4 OBVzIVJprIStI952STHlFB WcxCkjzhy2cY84HXLgzA5g eAZvZZs2YDFxtmLqqPhwjK 2xWgRtRcDjCzHZbGTelK60 IQIdzhV9OVKrg50ie7QqdG sifmQeISSpAXmdH3b0WLLp ZZGeJJC8m7Xxa0NeiU6tgH 3elWdwiB4usEGkiOQ9yffm q6Als3AbB9kyxKUuhBNdwx WxYLTjceBLDA4ANyICTP8q P1UVQGpUYjETCJVHJfbikK NePLEvaiOdh9qzY7twOWDx TVE3FZ4smrRlWwGxFH5psL 93w0Adl07ib53pfF3paCYu gsZuT72xbQBqvWNus3IqMH EyukUrvHP0HCJeAEfpupoa c0s6xCU2oLIjsGRnoGY6xS NwwUWfLZTKeCRoDQNmi752 ac4dFYUuvZQmqgAprJ0lON xegdkceHHrSW4zLJNwGTCx FTFbHJ78bxKyRW1gwBGvs0 czrmTavARjx9QevNZ3FCIk nRItzfjbDc3yHW03IDXwZT bqfD3zlIMtpdQcJU7tJF3o W4P0cTVcVYAezaWui4ofNC piEM2rEJWugMjiAtbwJSHb PVTbjuUoxQA9FMBvcTDiYW MidFBvBDczbWWbc3tkp2Wx L2ixjMxjwWQ0DLQtS4irfX NkyHI0ORD7yK9pZIiydrUs JUAtj4LcODEuIKUoEaT4xL 6wWLY3VsNZbBjvWMQ8TmY7 FAxfJQPpIY2sQSwnQRbaN5 UhwIGzOVVNSSSsh7zpP9js HIHbv1EgjJ5fyQR2xNXyHN QxkVL4AKIdCKJ3BHifrJKc CUYiHMXfeUFziYHyPy5egD WoA2IrP2ixjyIsvJGytIJ9 jQWkDYdjttZoWEC0DDRfuY 0cEU6lBYYfrQEoTV7iiRVs WWFnINEpBUPwHSTio0VvWI Vvff42FASbPabzlIcgJCFg Bg2bNs9jLBMnybBfKUJ0Al EGQV9vkpgwhSPjiJfelc4d RCjqOIWVUXCoRYNnQSQ4FX GapO6iATM1dME0KNW8I6kk P4nxRXEpawSzWE4jFJAtwQ GkkcTsLZqmQE4snQPwAGVy w3RytpkjGIBzEWG7VIN7CM umZINaDPLjIw9yTAIqcL1z L2GeVBL9rnLzl9MiPzNDgA MauN35wFIvzk56AQTwSZWi K2PtHDNrPHBsRKotlkChkV ytLLBki90ctXFugqLzh7Wo zqEbERRlZ3nlSYQwcFRkrK Tzm5MxzS2lwMOdezViKPW1 cKWyRFNiwI6yUTOeuNhyMR NovJ2cF8ZzMHnkUu6tYCCd fandSL5ydl36PJ4wtpMyMZ 2nidFlIS94vvVpRwGyJSp0 ANwYLUkHOHn7FSZcbwKecU QofWDmOHPibB1ruJSdHa6q bSBoaWdoIGNvbXBsZXhpdH kqH1ozmwfjOPjleZOpg0Un dW2uaKI8YPB2sK4yWohmMY J9 Gross assessment was [facility] performed at ([facility], = 1727) Department of Pathology, [address] [place] [address], Technical component was [facility] performed at ([facility], = 4894) Department of Pathology, [address] [place] [address], Professional component [facility] was performed at ([facility], code = 2776) Department of Pathology, [address] [place] [address], [facility] [id number] 10:22:00Surgical Pathology Report Case: [id number] Authorizing Provider: Arun Guzmán MD Collected: 03/27/2020 02:30 PM Ordering Location: [address] Received: 03/28/2020 09:01 AM Service Pathologist: Karsten Raya MD Specimen: Biopsy, Gastric, Random Bx Immunostain for helicobacter performed on block A1 is negative. Addendum electronically signed by Karsten Raya MD on 04/02/2020 at 10:22 AMPART A RANDOM GASTRIC BIOPSY:ACTIVE CHRONIC GASTRITIS.NEGATIVE FOR INTESTINAL METAPLASIA, DYSPLASIA, OR INVASIVE CARCINOMA.WARTHIN STARRY STAIN FOR HELICOBACTER IS EQUIVOCAL, IMMUNOSTAIN PENDING. Signing Pathologist Direct Phone Line: [phone] signed by Karsten Raya MD on 03/28/2020 at 3:42 [id number], [id number], [id number] hemorrhage associated with gastritisGastricA. Received in formalin labeled with the patient's name, medical record number and "biopsy, gastric" and consists of multiple jacobo soft tissue fragments ranging 0.2-0.8 cm submitted in toto in A1.SY Ahumada, CHRIS (ASCP)cmPerformed. The interpretation of this case included the use of immunohistochemistry or special stains.BLOCK A1- WARTHIN STARRYControl SlidesExamined: In-house known positive controls were evaluated along with the test tissue. These control slides run alongside of the patients sample show appropriate staining. Internal positive and negative controls when available are evaluated Immunohistochemistry technical testing was performed at [place] [facility]ology Laboratory where it was developed and its performance characteristics were determined. It has not been cleared or approved [...] qualified to perform high complexity clinical laboratory testing.[place] [facility], Department of Pathology,[address] [place] [id number], [facility], [address] [place] [id number], [facility], [address] [place] [id number], Ydycl Culture - Routine (Right Venipuncture)2020-03-31 19:01:00 Test Item Value Reference Range Interpretation Comments Result (test code = No growth in 5 days 6463-4) [id number]:01:00 Test Item Value Reference Range Interpretation Comments CULTURE (BEAKER) (test No growth in 5 days code = 1095) BLOOD [id number] 19:01:00 Test Item Value Reference Range Interpretation Comments CULTURE (BEAKER) (test No growth in 5 days code = 1095) POC-Glucose [id number] 11:20:00 Test Item Value Reference Range Interpretation Comments POC-Glucose Meter (test 200 mg/dL 70-110 H : TE STED AT [facility] code = 1538) [address] [place] [address], 770 30: Supply Chain Associate/Techni nigel ID = [id number] for QUEEN MCCLELLAN Lab Interpretation (test Abnormal code = 78857-8) [facility] [id number] 11:20:00 Test Item Value Reference Range Interpretation Comments POC-GLUCOSE METER 200 mg/dL 70-110 H : TESTED A [place] [id number] ([place]) (test code = [place], 1538) [address]: Supply Chain Associate/Techni nigel ID = [id number] for QUEEN CAMPOS 2D Echo W/Doppler(CW/PW/Color)2020-03-28 08:40:39Ejection FractionSLEH ECHO HEARTLAB MKCKESSON CPACSInterface, External Ris In - 03/28/2020 8:40 AM C STTransthoracic Echocardiography Report (TTE) Demographics Patient Name NAMAN FOWLER Date of Study 03/27/2020 CHIKIS Gender Female Visit Number [id number] Race Unknown Room Number 930 Number Date of 1940 Referring Physician Emperatriz Duke Age 79 year(s) Sleep Scientist Gabby Monaco [facility] Interpreting Delonte Garces MD Physician Procedure [...] mmHg, DOI 0.52). Mild aortic regurgitation. 5. Kwlc-bh-fftdayyh mitral regurgitation. 6. Estimated peak systolic PA [...] annular calcification. No evidence of mitral stenosis. Kyje-bc-bcracnfl mitral regurgitation. Tricuspid Valve Normal TV structure [...] TR Velocity: 2.73 m/s TR Gradient: 29.8 mmHgJac[facility] Medical CenterPOCT-GLUCOSE METER 2020-03-28 07:50:00 Test Item Value Reference Range Interpretation Comments POC-GLUCOSE METER 143 mg/dL 70-110 H : TESTED A T [facility] 6720 (BEAKER) (test code = CIARA Fraser [facility], 1538) [address]: Supply Chain Associate/Techni nigel ID = [id number] for QUEEN CAMPOS Basic Metabolic [id number] 05:11:00 Test Item Value Reference Range Interpretation Comments Sodium (test code = 145 meq/L 353-677 8878-2) Potassium (test code = 3.9 meq/L 3.5-5.1 2823-3) Chloride (test code = 110 meq/L 98-107 H ) CO2 (test code = 26 meq/L -29 2028-9) BUN (test code = 53 mg/dL 7-21 H 3094-0) Creatinine (test code 1.81 mg/dL 0.57-1.25 H = 2160-0) Glucose (test code = 140 mg/dL 70-105 H 2345-7) Calcium (test code = 8.0 mg/dL 8.4-10.2 L 05308-9) EGFR (test code = 27 mL/min/1.73 [place] [address]-7) NOT ACCURATE CREATININE CLEARANCE IN PREDICTING GLOMERULAR FILTRATION RATE . ESTIMATED GFR I S NOT APPLICABLE FOR DIALYSIS PATIENTS. LINDA (test code = LINDA) Supply Chain Associate ID - FUAD M Lab Interpretation Abnormal (test code = 64829-0) [facility]OLIC [id number] 05:11:00 Test Item Value Reference Range Interpretation [...] S NOT APPLICABLE FOR DIALYSIS PATIEN TS. Supply Chain Associate ID - FUAD XDjwffggma2293-92-06 05:09:00 Test Item Value Reference Range Interpretation Comments Magnesium (test code = 2.5 mg/dL 1.6-2.6 46594-3) LINDA (test code = LINDA) Supply Chain Associate ID - FUAD M Lab Interpretation (test Normal code = 32264-9) [facility] CenterMAGNESIUM2020-12-23 05:09:00 Test Item Value Reference Range Interpretation Comments MAGNESIUM (BEAKER) (test code = 2.5 mg/dL 1.6-2.6 627) Supply Chain Associate ID - FUAD [facility] with platelet count + automated [id number] 04:37:00 Test Item Value Reference Range Interpretation [...] K/CU MM L MPV (test code = 27299-0) 10.1 fL 9.4-12.3 nRBC (test code = [...] 2801) Lab Interpretation (test code = Abnormal 73659-9) [facility] CenterCBC W/PLT COUNT & AUTO [id number] 04:37:00 Test Item Value Reference Range Interpretation [...] 2801) RAD, RIBS, UNILATERAL, MIN 2 VIEWS, [id number] 02:40:00Reason for exam:- >fall 1 month ago, right rib pain [facility] : 1940 [...] 02:40:40 XR ribs 2 views min unilateral [id number] 02:40:00Interface, External Ris In - 03/28/2020 8:17 [...] Dhaval Solomon MDReport Verified Date/Time: 03/28/2020 02:40:[facility] RBC 2020-03-27 23:54:00 Test Item Value Reference Range Interpretation Comments CROSSMATCH (test code = 2264) COMPATIBLE Unit ABO (test code = A Pos 5699413) UNIT NUMBER (test code = [id number] 934-0) Status (test code = 2346061) TX_TIMEINCHART Blood Bank Product (test code RED BLOOD CELLS = 2263) PRODUCT CODE (test code = R6832A16 933-2) [facility] CenterPOCT-GLUCOSE [id number] 21:16:00 Test Item Value Reference Range Interpretation Comments POC-GLUCOSE METER 127 mg/dL 70-110 H : TESTED A T [facility] [address] (REGINA) (test code = CIARA Fraser [facility], 1538) [address]: Supply Chain Associate/Techni nigel ID = [id number] for KE BE, SAUDATU POCT-GLUCOSE [id number] 15:26:00 Test Item Value Reference Range Interpretation Comments POC-GLUCOSE METER 168 mg/dL 70-110 H : Notified RN/MD: (REGINA) (test code = TESTED AT [facility] 1538) [facility], [address]: Supply Chain Associate/Techni nigel ID = [id number] for Si mmons, Yadira POCT-GLUCOSE [id number] 14:16:00 Test Item Value Reference Range Interpretation Comments POC-GLUCOSE METER 156 mg/dL 70-110 H : TESTED A T [facility] 6720 (BEAKER) (test code = CIARA Fraser [place], 1538) [address]: Supply Chain Associate/Techni nigel ID = [id number] for DREW CAMPOS POCT-GLUCOSE [id number] 12:08:00 Test Item Value Reference Range Interpretation Comments POC-GLUCOSE METER 193 mg/dL 70-110 H : TESTED A T [facility] 67[address] (BEAKER) (test code = CIARA Fraser [facility], 1538) [address]: Supply Chain Associate/Techni nigel ID = [id number] for CINDY DURAN Hemoglobin [id number] 11:27:00 Test Item Value Reference Range Interpretation Comments Hemoglobin A1C (test code = 4548-4) 6.0 % 4.3-6.1 Lab Interpretation (test code = Normal 92189-1) [facility] CenterHEMOGLOBIN [id number] 11:27:00 Test Item Value Reference Range Interpretation Comments HEMOGLOBIN A1C (BEAKER) (test code = 6.0 % 4.3-6.1 368) Urinalysis w/Microscopic + Reflex to [id number] 11:20:00 Test Item Value Reference Range Interpretation Comments Color, UA (test code = Light Yellow 5778-6) Clarity, UA (test code = Clear 5767-9) Specific [place], UA (test 1.012 1.001-1.035 code = 5811-5) pH, UA (test code = 6.0 5.0-8.0 5803-2) Protein, UA (test code = 20 mg/dL Negative A 28272-7) Glucose, UA (test code = Negative Negative 365) Ketones, UA (test code = Negative Negative 2514-8) Bilirubin, UA (test code = Negative Negative 67098-6) Blood, UA (test code = Moderate Negative A 40737-3) Nitrite, UA (test code = Negative Negative 5802-4) Leukocytes, UA (test code Negative Negative = 5799-2) Urobilinogen, UA (test 0.2 mg/dL 0.2-1 code = 54424-0) RBC, UA (test code = 7 /HPF 16305-8) WBC, UA (test code = 1 /HPF 5821-4) Squam Epithel, UA (test 2 /HPF code = 67236-9) Specimen Source (test code = 2795) LINDA (test code = LINDA) Supply Chain Associate ID - [auto]Supply Chain Associate ID - tech Lab Interpretation (test Abnormal code = 31951-3) [facility] CenterURINALYSIS W/ REFLEX URINE [id number] 11:20:00 Test Item Value Reference Range Interpretation [...] = 516) SOURCE(BEAKER) (test code = 2795) Supply Chain Associate ID - [auto]Supply Chain Associate ID - techBASIC METABOLIC [id number] 09:26:00 Test Item Value Reference Range Interpretation [...] S NOT APPLICABLE FOR DIALYSIS PATIEN TS. Supply Chain Associate ID - ROSIANGCBC W/PLT COUNT & AUTO [id number] 08:41:00 Test Item Value Reference Range Interpretation [...] PERCENT (BEAKER) (test code = 2801) POCT-GLUCOSE [id number] 07:43:00 Test Item Value Reference Range Interpretation Comments POC-GLUCOSE METER 161 mg/dL 70-110 H : TESTED A T [facility] [address] (BEAKER) (test code = CIARA Fraser [facility], 1538) [address]: Supply Chain Associate/Techni nigel ID = [id number] for CINDY DURAN Iron, TIBC, % sat. (without ferritin)2020-03-27 07:10:00 Test Item Value Reference Range Interpretation Comments Iron (test code = 2498-4) 34.0 ug/dL 40-160 L TIBC (test code = 2500-7) 275 ug/dL 250-450 Iron % Saturation (test 12 % 20-55 L code = 2502-3) LINDA (test code = LINDA) Supply Chain Associate ID - MARY ELLEN W Lab Interpretation (test Abnormal code = 95800-4) [facility] CenterIRON, TIBC, % SAT. (WITHOUT FERRITIN)2020-03-27 07:10:00 Test Item Value Reference Range Interpretation Comments IRON (BEAKER) (test code = 547) 34.0 ug/dL 40.0-160.0 L TOTAL IRON BINDING CAPACITY 275 ug/dL 250-450 (BEAKER) (test code = 769) IRON % SATURATION (2) (BEAKER) 12 % 20-55 L (test code = 2590) Supply Chain Associate ID Sheila HYDE [id number] 07:00:00 Test Item Value Reference Range Interpretation Comments Ferritin (test code = 45.51 ng/mL 5-275 2276-4) LINDA (test code = LINDA) Supply Chain Associate ID - MARY ELLEN Laureano Lab Interpretation (test Normal code = 51695-6) [facility] CenterFERRITIN2020-12-22 07:00:00 Test Item Value Reference Range Interpretation Comments FERRITIN ([place]) (test code = 45.51 ng/mL 5.00-275.00 361) Supply Chain Associate ID - MARY ELLEN VERA/S, ABDOMINAL, [id number] 03:54:00Reason for exam:->evaluate for cirrhosis and [facility] : 1940 Sex: [...] indicated. Nonvisualization of the pancreas. Signed: Dhaval Solomoneport Verified Date/Time: 03/27/2020 03:54:43 US abdomen [id number] 03:54:00Interface, External Ris In - 03/27/2020 3:56 [...] Dhaval Solomon MDReport Verified Date/Time: 03/27/2020 03:54:43 [facility]PO[facility]SE [id number] 22:56:00 Test Item Value Reference Range Interpretation Comments POC-GLUCOSE METER 156 mg/dL 70-110 H : TESTED A T [facility] (REG[place]) (test code = CIARA Fraser [facility], 1538) [address]: Supply Chain Associate/Techni nigel ID = [id number] for IRASEMA LUNA POCT-GLUCOSE [id number] 21:26:00 Test Item Value Reference Range Interpretation Comments POC-GLUCOSE METER 31 mg/dL 70-110 LL : Notified RN/MD: TESTED ([place]) (test code = AT [facility] [address] [facility] 1538) [facility], [address]: Supply Chain Associate/Techni nigel ID = [id number] for MAYRA , SAKEKETU RAD, CHEST, 2 [id number] 20:10:00Reason for exam:->RULE OUT PNEMUN[facility] : 1940 Sex: [...] diffuse osteopenia..Additional findings: None. Signed: Rima Glasgow MDRepshantanu Verified Date/Time: 03/26/2020 20:10:08 Reading Location: [address] Neuro Reading Room XR chest 2 [id number] 20:10:00Interface, External Ris In - 03/26/2020 8:12 [...] MDReport Verified Date/Time: 03/26/2020 20:10:08 Reading Location: [facility] C013V Neuro Reading Room [facility] HospitalB[facility]type Natriuretic Factor (BNP) 2020-03-26 19:21:00 Test Item Value Reference Range Interpretation Comments BNP (test code = 53789-8) 893 pg/mL 0-100 H Lab Interpretation (test code = Abnormal 20199-4) [facility] CenterB-TYPE NATRIURETIC FACTOR (BNP)2020-03-26 19:21:00 Test Item Value Reference Range Interpretation Comments B-TYPE NATRIURETIC PEPTIDE (BEAKER) 893 pg/mL 0-100 H (test code = 700) SARS-CoV2/RT-PCR (Asymptomatic ONLY)2020-03-26 17:47:00 Test Item Value Reference Range Interpretation Comments SARS-COV2/RT-PCR Negative Not Detected, (test code = Negative, See 51326-0) external report for linked test SARS-COV-2 [facility] PER[facility] (test code = 32801-0) LINDA (test code = Negative result for [...] of the Act. Fact Sheet for Healthcare Providers:https://www.Tastebuds/sites/default/f mariangel/product/documents/F act_Sheet_HC_Providers_L oes_GHYE-OzV-8.pdf Fact Sheet for Healthcare Patients:https://www.YUPPTV/sites/default/fi les/product/documents/Fa ct_Sheet_Patients_Lyra_S ARS-CoV-2.pdf Performing Laboratory:[place] [facility] [place], [place] [address]kirill [facility].[place], [place] [address] [place], [place] [address]ARS-COV2/RT-PCR ([facility])2020-03-26 17:47:00 Test Item Value Reference Range Interpretation Comments SARS-COV2/RT-PCR (test Negative Not Detected, Negative, code = 9641197) See external report for linked test SARS-COV-[address] [facility] (test code = 2707128) Negative result for this test determines that [...] 564(g) of the Act.Fact Sheet for Healthcare Providers:https://www.Expa.[employer]/sites/default/files/product/documents/Fact_Shee n_JK_Obkyirjxn_Macu_BZEN-OpS-8.pdfFact Sheet for Healthcare Patients:https://www.Expa.[employer]/sites/default/files/product/ documents/Pcya_Cchzn_Zucemiab_Gzdh_UPYP-HbG-1.pdfPerforming Laboratory:[place] [facility], [place] [address]Fbmznkkvli, random [id number] 17:27:00 Test Item Value Reference Range Interpretation Comments Creatinine, Ur 44.6 mg/dL (test code = 2161-8) LINDA (test code = Reference Range: No LINDA) NormalsOperator ID - DB [facility] Centerodium, random [id number] 17:27:00 Test Item Value Reference Range Interpretation Comments Sodium Urine (test 32 meq/L code = 2955-3) LINDA (test code = Reference Range: No LINDA) NormalsOperator ID - DB [facility] CenterCREATININE, RANDOM [id number] 17:27:00 Test Item Value Reference Range Interpretation Comments CREATININE URINE (BEAKER) (test 44.6 mg/dL code = 375) Reference Range: No NormalsOperator ID - DBSODIUM, RANDOM [id number] 17:27:00 Test Item Value Reference Range Interpretation Comments SODIUM URINE (BEAKER) (test code = 32 meq/L 243) Reference Range: No NormalsOperator ID - DBTSH/Free T4 If [id number] 17:01:00 Test Item Value Reference Range Interpretation Comments TSH (test code = 86558-0) 1.248 0.350- 4.940 uIU/mL LINDA (test code = LINDA) Supply Chain Associate ID - BS Lab Interpretation (test Normal code = 03364-7) [facility] T4 IF [id number] 17:01:00 Test Item Value Reference Range Interpretation Comments THYROID STIMULATING HORMONE 1.248 uIU/mL 0.350-4.940 (BEAKER) (test code = 772) Supply Chain Associate ID - BSPOCT-GLUCOSE [id number] 16:59:00 Test Item Value Reference Range Interpretation Comments POC-GLUCOSE METER 330 mg/dL 70-110 H : TESTED A T [facility] [address] (BEAKER) (test code = CIARA [place], 1538) [address]: Supply Chain Associate/Techni nigel ID = [id number] for CINDY DURAN BASIC METABOLIC [id number] 16:46:00 Test Item Value Reference Range Interpretation [...] S NOT APPLICABLE FOR DIALYSIS PATIEN TS. Supply Chain Associate ID - BSCreatine Kinase (CK)2020-03-26 16:42:00 Test Item Value Reference Range Interpretation Comments Total CK (test code = 51 U/L 29-200 2157-6) LINDA (test code = LINDA) Supply Chain Associate ID - BS Lab Interpretation (test Normal code = 11082-7) [facility] CenterCREATINE KINASE (CK)2020-03-26 16:42:00 Test Item Value Reference Range Interpretation Comments CREATINE KINASE TOTAL (BEAKER) (test 51 U/L 29-200 code = 380) Supply Chain Associate ID - BSHemoglobin and yylpsmqzfm0673-27-68 16:29:00 Test Item Value Reference Range Interpretation Comments Hemoglobin (test code = 8.4 11.2- 15.7 GM/DL L 786-4) Hematocrit (test code = 26.6 % 34.1-44.9 L 4544-3) LINDA (test code = LINDA) Supply Chain Associate ID - [id number] Lab Interpretation (test Abnormal code = 04277-8) [facility] CenterHEMOGLOBIN AND [id number] 16:29:00 Test Item Value Reference Range Interpretation Comments HEMOGLOBIN (BEAKER) (test code = 8.4 GM/DL 11.2-15.7 L 410) HEMATOCRIT (BEAKER) (test code = 26.6 % 34.1-44.9 L 411) Supply Chain Associate ID - [id number] 16:27:00 Test Item Value Reference Range Interpretation Comments Ammonia (test code = 51 18- 72 mol/L 19057-6) LINDA (test code = LINDA) Supply Chain Associate ID - BS Lab Interpretation (test Normal code = 27983-2) [facility] CenterAMMONIA2020-12-21 16:27:00 Test Item Value Reference Range Interpretation Comments AMMONIA (BEAKER) (test code = 348) 51 mol/L 18-72 Supply Chain Associate ID - BSUrinalysis Microscopic Lipc5247-60-58 16:10:00 Test Item Value Reference Range Interpretation Comments RBC, UA (test code = 3 /HPF 82144-7) WBC, UA (test code = 3 /HPF 5821-4) Mucus (test code = 8247-9) Rare Squam Epithel, UA (test 2 /HPF code = 17163-9) LINDA (test code = LINDA) Supply Chain Associate ID - tech [facility] CenterURINALYSIS [id number] 16:10:00 Test Item Value Reference Range Interpretation Comments RBC UA (BEAKER) (test code = 519) 3 /HPF WBC UA (BEAKER) (test code = 520) 3 /HPF MUCUS (BEAKER) (test code = 1574) Rare SQUAMOUS EPITHELIAL (BEAKER) (test 2 /HPF code = 516) Supply Chain Associate ID - techUrinalysis with Microscopic If Ozuehpmvo6532-74-42 16:09:00 Test Item Value Reference Range Interpretation Comments Color, UA (test code = Light Yellow 5778-6) Clarity, UA (test code = Clear 5767-9) Specific [place], UA (test 1.013 1.001-1.035 code = 5811-5) pH, UA (test code = 5.5 5.0-8.0 5803-2) Protein, UA (test code = 20 mg/dL Negative A 56824-1) Glucose, UA (test code = Negative Negative 365) Ketones, UA (test code = Negative Negative 2514-8) Bilirubin, UA (test code = Negative Negative 96862-4) Blood, UA (test code = Small Negative A 71894-6) Nitrite, UA (test code = Negative Negative 5802-4) Leukocytes, UA (test code Negative Negative = 5799-2) Urobilinogen, UA (test 0.2 mg/dL 0.2-1 code = 58954-0) Specimen Source (test code = 2795) LINDA (test code = LINDA) Supply Chain Associate ID - [auto] Lab Interpretation (test Abnormal code = 22105-9) [facility] CenterURINALYSIS WITH MICROSCOPIC IF [id number] 16:09:00 Test Item Value Reference Range Interpretation [...] = 463) SOURCE(BEAKER) (test code = 2795) Supply Chain Associate ID - [auto]ABORH, jkzkno6898-41-00 07:09:00 Test Item Value Reference Range Interpretation Comments ABO Grouping (test code = 2588) A Rh Factor (test code = 2589) POS [facility] CenterType and screen, cmvltxkgw5005-30-33 06:50:00 Test Item Value Reference Range Interpretation Comments ABO/RH AUTOMATED (BEAKER) (test A POSITIVE code = 2260) Ab Scrn (test code = 890-4) NEGATIVE [facility] CenterBASIC METABOLIC [id number] 06:11:00 Test Item Value Reference Range Interpretation [...] S NOT APPLICABLE FOR DIALYSIS PATIEN TS. Supply Chain Associate ID - FUAD epatic function [id number] 06:09:00 Test Item Value Reference Range Interpretation Comments Protein, Total (test code 5.2 6.0- 8.3 gm/dL L = 2885-2) Albumin (test code = 2.5 g/dL 3.5-5 L 97627-5) Total Bilirubin (test code 0.8 mg/dL 0.2-1.2 = 1975-2) Bilirubin, Direct (test 0.4 mg/dL 0.1-0.5 code = 1968-7) Alkaline Phosphatase (test 88 U/L 40-150 code = 6768-6) AST (test code = 1920-8) 21 U/L 5-34 ALT (test code = 1742-6) 13 U/L 6-55 LINDA (test code = LINDA) Supply Chain Associate ID - FUAD M Lab Interpretation (test Abnormal code = 05198-0) [facility] CenterUric [id number] 06:09:00 Test Item Value Reference Range Interpretation Comments Uric Acid (test code = 13.8 mg/dL 2.6-7.2 H 3084-1) LINDA (test code = LINDA) Supply Chain Associate ID - FUAD M Lab Interpretation (test Abnormal code = 18452-6) [facility] CenterMAGNESIUM2020-12-21 06:09:00 Test Item Value Reference Range Interpretation Comments MAGNESIUM (BEAKER) (test code = 2.9 mg/dL 1.6-2.6 H 627) Supply Chain Associate ID - FUAD MURIC [id number] 06:09:00 Test Item Value Reference Range Interpretation Comments URIC ACID (BEAKER) (test code = 13.8 mg/dL 2.6-7.2 H 773) Supply Chain Associate ID - FUAD EPATIC FUNCTION [id number] 06:09:00 Test Item Value Reference Range Interpretation [...] (test code = 13 U/L 6-55 347) Supply Chain Associate ID - FUAD MProthrombin time/[id number] 06:06:00 Test Item Value Reference Range Interpretation [...] valves. Lab Interpretation Abnormal (test code = 27410-6) [facility] CenterPROTHROMBIN TIME/[id number] 06:06:00 Test Item Value Reference Range Interpretation [...] mechanical heart valves.CBC W/PLT COUNT & AUTO [id number] 06:06:00 Test Item Value Reference Range Interpretation [...] % 0-1 PERCENT (BEAKER) (test code = 0009)
[2020-05-03 22:20] LABS: Absolute Lymphocytes (CBC) 1.2 K/uL (0.7-4.9); Basophils % 0.8 % (0-1.3); Hematocrit 32.3 % (36.0-45.0); Lymphocytes % 13.3 % (15.3-44.8)
[2020-05-03 22:25] LABS: Urine Blood 2+ (NEG); Urine Glucose NEGATIVE (NEG); Urine Protein 2+ (NEG); Urine pH 5.5 (5.0-7.0)
[2020-05-03 22:42] LABS: Bilirubin Direct 0.2 mg/dL (0-0.2); Bilirubin Total 0.5 mg/dL (0.2-1.0); Protein, Total 7.2 g/dL (6.4-8.2)
[2020-05-03 22:46] LABS: Potassium 3.6 mmol/L (3.5-5.1)
--- NOTE | 2020-05-04 00:36 | EDPHYS ---
Physician Documentation [facility] Name: Cristel Casas Age: 79 yrs Sex: Female : 1940 Arrival Date: 05/03/2020 Time: 18:18 Bed 15 Private MD: ED Physician Ashkan Martel HPI: 05/03 21:44 This 79 yrs old Female presents to ER via Wheelchair with complaints of rn Dizziness, weakness, Decreased Appetite, Fatigue. 21:44 The patient presents with dizziness, generalized weakness. Onset: The symptoms/episode rn began/occurred this morning. Modifying factors: The symptoms are alleviated by nothing, the symptoms are aggravated by standing up. Severity of symptoms: At their worst the symptoms were moderate in the emergency department the symptoms are unchanged. The patient has experienced a previous episode. The patient has not recently seen a physician. Reports generalized weakness and fatigue that began this morning, unable to stand without assistance, no syncope, denies pain/chest pain/abd pain/vomiting/diarrhea. + dark green stool. 1 month ago admitted for upper GI bleed, taking iron. No sick contacts. + decreased appetite.. Historical: - Allergies: 18:52 No Known Allergies; ca1 - PMHx: 18:52 Anemia; Cirrhosis; Diabetes - NIDDM; High Cholesterol; Hypertension; Hypothyroidism; ca1 - Immunization history:: Pneumococcal vaccine is up to date, Flu vaccine is up to date. - Social history:: Smoking status: Patient denies any tobacco usage or history of. - Family history:: not pertinent. - Hospitalizations: : No recent hospitalization is reported. ROS: 21:44 Constitutional: Negative for fever, chills, and weight loss, Eyes: Negative for injury, rn pain, redness, and discharge, Neck: Negative for injury, pain, and swelling, Cardiovascular: Negative for chest pain, palpitations, and edema, Respiratory: Negative for shortness of breath, cough, wheezing, and pleuritic chest pain, Abdomen/GI: Negative for abdominal pain, nausea, vomiting, diarrhea, and constipation, Back: Negative for injury and pain, : Negative for injury, bleeding, discharge, and swelling, MS/Extremity: Negative for injury and deformity, Skin: Negative for injury, rash, and discoloration, Neuro: Negative for headache, numbness, tingling, and seizure. Exam: 21:44 Constitutional: This is a well developed, well nourished patient who is awake, alert, rn appears weak, requires assistance of 2 people to get her into bed Head/Face: Normocephalic, atraumatic. Eyes: + conjunctival injection, no drainage Cardiovascular: Regular rate and rhythm. No pulse deficits. Respiratory: No increased work of breathing, no retractions or nasal flaring. Abdomen/GI: soft, non-tender, + dark green stool, trace positive hemoccult. Skin: Warm, dry MS/ Extremity: Pulses equal, no cyanosis. Neuro: Awake and alert, GCS 15, oriented to person, place, time, and situation. Cranial nerves II-XII grossly intact. Motor strength 4/5 in all extremities. Sensory grossly intact. Vital Signs: 18:51 BP 133 / 58; Pulse 76; Resp 16 S; Temp 99.5(TE); Pulse Ox 97% on R/A; Weight 58.97 kg ca1 (R); Height 4 ft. 9 in. (144.78 cm) (R); Pain 0/10; 18:51 Body Mass Index 28.13 (58.97 kg, 144.78 cm) ca1 MDM: 21:10 Patient medically screened. rn 05/04 00:32 Differential diagnosis: generalized weakness, GI bleed, hypovolemia, idiopathic rn dizziness, dehydration, cancer, UTI. 00:33 Data reviewed: vital signs, nurses notes, lab test result(s), EKG, radiologic studies, rn CT scan, and as a result, I will admit patient. Counseling: I had a detailed discussion with the patient and/or guardian regarding: the historical points, exam findings, and any diagnostic results supporting the discharge/admit diagnosis, lab results, radiology results, the need for further work-up and treatment in the hospital. Admission orders: after a detailed discussion of the patient's condition and case, the admit orders are written by me. ED course: Pt with increased weakness, generalized, requiring assistance. + possible UTI, abnormal spots on liver may indicate hepatic cancer or metastases, will admit to Dr. Carrillo for further evaluation. Will place routine order for GI consultation, Dr. Carrillo is station master. . 05/03 20: Order name: Basic Metabolic Panel rn 05/03 20: Order name: CBC with Diff rn 01/28 21:27 Order name: Hepatic Function rn 05/03 21:27 Order name: Urine Culture rn 05/03 21:27 Order name: Urine Microscopic Only rn 05/03 21:27 Order name: PT-INR rn 05/03 21:27 Order name: Ptt, Activated rn 05/03 21:27 Order name: Flu rn 05/03 21:27 Order name: Procalcitonin; Complete Time: 23:19 rn 05/03 21:27 Order name: Basic Metabolic Panel; Complete Time: 22:49 EDMD 05/03 21:27 Order name: CBC with Automated Diff; Complete Time: 22:29 EDMS 05/03 21:27 Order name: Liver (Hepatic) Function; Complete Time: 22:49 EDMS 05/03 21:27 Order name: Urine Culture EDMD 05/03 21:27 Order name: IV Start; Complete Time: 22:22 rn 05/03 21:27 Order name: Labs collected and sent; Complete Time: 22:22 rn 05/03 21:27 Order name: Urine Microscopic Only EDMD 05/03 21:27 Order name: CORONAVIRUS EDMD 05/03 21:27 Order name: Protime (+INR); Complete Time: 22:29 EDMS 05/03 21:28 Order name: PTT, Activated Partial Thromb; Complete Time: 22:29 EDMD 05/03 21:44 Order name: AMMONIA; Complete Time: 22:49 rn 05/03 22:23 Order name: Urine Dipstick--Ancillary (enter results); Complete Time: 22:29 tt3 05/03 22:49 Order name: Abdomen EDMD 05/04 00:17 Order name: Blood Culture Adult (2) rn 05/04 06:30 Order name: COVID-19/FLU A+B; Complete Time: 06:47 EDMS 05/04 07:15 Order name: CBC with Automated Diff EDMD 05/04 08:39 Order name: Glucose, Ancillary Testing EDMD 05/04 12:19 Order name: Glucose, Ancillary Testing EDMD 05/03 21:27 Order name: Urine Dipstick-Ancillary (obtain specimen); Complete Time: 22:21 rn Administered Medications: 04:00 Drug: Rocephin 1 grams Route: IV; Rate: calculated rate; Site: right antecubital; ll2 05:00 Follow up: Response: No adverse reaction; IV Status: Completed infusion ll2 Point of Care Testing: Guaiac: 05/03 21:30 Stool Guaiac: Positive; Stool Hemoccult Control: Pass; rn 21:30 partial/trace positive rn Disposition: 05/04/20 00:35 Hospitalization ordered by Gildardo Carrillo for Observation. Preliminary diagnosis are Weakness, Dehydration, Urinary tract infection, site not specified, Unspecified cirrhosis of liver. - Bed requested for Telemetry/MedSurg (observation). - Status is Observation. iw - Condition is Stable. - Problem is new. - Symptoms are unchanged. Signatures: Dispatcher [employer] EDMD Felecia Lynch RN RN mw Williams, Irene, RN RN iw Nieto, Roman, MD MD rn Botello, Elizabeth eb Acob, Cheryl, RN RN ca1 Tiffany Guevara RN RN ll2 Corrections: (The following items were deleted from the chart) 22:49 22:34 Abdomen Pelvis W Con+CT.RAD.BRZ ordered. [facility] EDMD 05/04 00:42 00:35 Hospitalization Ordered by Gildardo Carrillo MD for Observation. Preliminary mw diagnosis is Weakness; Dehydration; Urinary tract infection, site not specified; Unspecified cirrhosis of liver. Bed requested for Telemetry/MedSurg (observation). Status is Observation. Condition is Stable. Problem is new. Symptoms are unchanged. rn 11:32 00:42 05/04/2020 00:35 Hospitalization Ordered by Gildardo Carrillo MD for Observation. eb Preliminary diagnosis is Weakness; Dehydration; Urinary tract infection, site not specified; Unspecified cirrhosis of liver. Bed requested for [facility] ER HOLD. Status is Observation. Condition is Stable. Problem is new. Symptoms are unchanged. mw 12:56 11:32 05/04/2020 00:35 Hospitalization Ordered by Gildardo Carrillo MD for Observation. iw Preliminary diagnosis is Weakness; Dehydration; Urinary tract infection, site not specified; Unspecified cirrhosis of liver. Bed requested for Telemetry/MedSurg (observation). Status is Observation. Condition is Stable. Problem is new. Symptoms are unchanged. eb
--- NOTE | 2020-05-04 00:36 | ER ---
Nurse's Notes [facility] Name: Cristel Casas Age: 79 yrs Sex: Female : 1940 Arrival Date: 05/03/2020 Time: 18:18 Bed 15 Private MD: Diagnosis: Weakness;Dehydration;Urinary tract infection, site not specified;Unspecified cirrhosis of liver Presentation: 05/03 18:50 Chief complaint: Patient's son or daughter states: daughter: she feels really dizzy, ca1 she slept all day, she doesn't want to eat, does not c/o of pain, and said she feels weak in both legs, she can't stand up. She usually stands up on her own but today she just feels real weak. She was admitted before and was like this and she had a GI bleed and was sent to [place] for her ulcers. Now, she doesn't have diarrhea and her stool is dark green but she also takes Iron pills. 18:51 Coronavirus screen: Client denies travel out of the [place] in the last 14 days. fatigue, ca1 Client presents with at least one sign or symptom that may indicate coronavirus-19. Standard/surgical mask placed on the client. Provider contacted for isolation considerations. Ebola Screen: Patient negative for fever greater than or equal to 101.5 degrees Fahrenheit, and additional compatible Ebola Virus Disease symptoms Patient denies exposure to infectious person. Patient denies travel to an Ebola-affected area in the 21 days before illness onset. No symptoms or risks identified at this time. Initial Sepsis Screen: Does the patient meet any 2 criteria? No. Patient's initial sepsis screen is negative. Does the patient have a suspected source of infection? No. Patient's initial sepsis screen is negative. Risk Assessment: Do you want to hurt yourself or someone else? Patient reports no desire to harm self or others. Onset of symptoms was May 03, 2020. 18:51 Method Of Arrival: Wheelchair ca1 18:51 Acuity: HERIBERTO 3 ca1 Historical: - Allergies: 18:52 No Known Allergies; ca1 - PMHx: 18:52 Anemia; Cirrhosis; Diabetes - NIDDM; High Cholesterol; Hypertension; Hypothyroidism; ca1 - Immunization history:: Pneumococcal vaccine is up to date, Flu vaccine is up to date. - Social history:: Smoking status: Patient denies any tobacco usage or history of. - Family history:: not pertinent. - Hospitalizations: : No recent hospitalization is reported. Vital Signs: 18:51 BP 133 / 58; Pulse 76; Resp 16 S; Temp 99.5(TE); Pulse Ox 97% on R/A; Weight 58.97 kg ca1 (R); Height 4 ft. 9 in. (144.78 cm) (R); Pain 0/10; 18:51 Body Mass Index 28.13 (58.97 kg, 144.78 cm) ca1 ED Course: 18:18 Patient arrived in ED. as 18:52 Triage completed. ca1 18:52 Arm band placed on right wrist. ca1 21:10 Ashkan Martel MD is Attending Physician. rn 21:34 Tiffany Guevara, TRENA is Primary Nurse. ll2 22:09 Inserted saline lock: 20 gauge in right antecubital area, using aseptic technique. 4 Blood collected. 23:15 Abdomen In Process Unspecified. EDMS 05/04 00:34 Gildardo Carrillo MD is Hospitalizing Provider. rn 05:39 Basic Metabolic Panel Sent. ll2 05:39 Ptt, Activated Sent. ll2 05:39 PT-INR Sent. ll2 Administered Medications: 04:00 Drug: Rocephin 1 grams Route: IV; Rate: calculated rate; Site: right antecubital; ll2 05:00 Follow up: Response: No adverse reaction; IV Status: Completed infusion ll2 Point of Care Testing: Guaiac: 05/03 21:30 Stool Guaiac: Positive; Stool Hemoccult Control: Pass; rn 21:30 partial/trace positive rn Outcome: 05/04 00:35 Decision to Hospitalize by Provider. rn 09:04 Admitted to ER Hold. Please see [facility] for further documentation. ss 12:56 Patient left the ED. iw Signatures: Dispatcher [employer] EDMS Martha Yusuf Irene, RN RN Ashkan Martel MD MD rn Smirch, Shelby, RN RN ss Acob, Cheryl, RN RN [facility] Senthil Moreno 4 Tiffany Guevara, TRENA RN ll2 Corrections: (The following items were deleted from the chart) 05/03 18:53 18:51 Coronavirus screen: Client denies travel out of the [place] in the last 14 days. At ca1 this time, the client does not indicate any symptoms associated with coronavirus-19. ca1
[2020-05-04] MEDS ORDERED: CEFTRIAXONE/SWI 1gm 1 GM/10 ML SYR ONE (04:30)
[2020-05-04] MEDS ORDERED: ONDANSETRON 4 MG/2 ML VIAL IV PRN (05:56)
[2020-05-04 06:30] LABS: SARS-COV-2 RT PCR NEGATIVE (NEGATIVE)
[2020-05-04 07:13] LABS: Absolute Lymphocytes (CBC) 1.3 K/uL (0.7-4.9); Basophils % 0.9 % (0-1.3); Lymphocytes % 24.4 % (15.3-44.8); RBC Red Blood Cell Count 3.59 M/uL (3.86-4.86)
[2020-05-04 08:15] VITALS: BMI 26.2
[2020-05-04] MEDS ORDERED: CEFTRIAXONE/SWI 1gm 1 GM/10 ML SYR IV SCH (09:00)
[2020-05-04] MEDS ORDERED: CEFTRIAXONE 1 GM/NS 50 ML 1 GM/50 ML BAG IV SCH (09:00)
--- NOTE | 2020-05-04 09:47 | RAD REPORT ---
EXAM DESCRIPTION: CT - Abdomen Pelvis Wo Contrast - 05/04/2020 12:43 am CLINICAL HISTORY: Hematuria, decreased appetite COMPARISON: CT abdomen and pelvis without contrast March 25, 2020. TECHNIQUE: Axial unenhanced CT imaging of the abdomen and pelvis performed. Reformatted coronal and sagittal images reviewed. A dose reduction technique was utilized with automated exposure control according to patient size. FINDINGS: Lung bases are clear. Heart is mildly enlarged. There are aortic and iliac calcifications. Slightly nodular liver due to cirrhosis. A few hypodensities within the right lobe of the liver appea r slightly larger. The largest is in the inferior right lobe, 1.6 cm. There is no intrahepatic biliar y duct dilatation. Gallbladder contains a fundal stone. No evidence of cholecystitis. Unremarkable spleen. There is moderate coronary artery and the pancreas. Normal left adrenal gland. T here is a right adrenal 2.1 cm low-density nodule compatible with adenoma. Unremarkable right and lef t kidney. Significant abdominal aortic atherosclerosis with mild fusiform dilatation of the mid aorta 1.8 cm. Normal caliber inferior vena cava. Unremarkable stomach. Small bowel loops appear normal. The appendix is not seen. Unremarkable colon. No ascites or free air. No mesenteric adenopathy. Unremarkable bladder. Uterus appears normal. There is a remote significant high-grade compression fra cture of T9. There are mild remote compression deformities of L3 and L4. Generalized osteopenia. Inta ct bony pelvis. Normal hips. There are calcified injection granulomas within the right and left butto ck. IMPRESSION: 1. Hepatic cirrhosis. A few hypodense masses in the right lobe of the liver appear large r concerning for either multifocal primary neoplastic lesions or metastatic foci. 2. Cholelithiasis without cholecystitis. 3. Abdominal aorta ectasia. 4. Right adrenal adenoma. Electronically signed by: Mery John DO 05/03/2020 11:27 PM COMMISSARY SUPERINTENDENT Due to temporary technical issues with the PACS/Fluency reporting system, reports are being signed by the in house radiologist without review as a courtesy to ensure prompt reporting. The interpreting r adiologist is fully responsible for the content of the report.
[2020-05-04] MEDS ORDERED: NA CHLORIDE 0.9% 1,000 ML ONE (09:59)
[2020-05-04] MEDS: NA CHLORIDE 0.9% 500 ML IV SCH ×4 (10:03→22:19)
[2020-05-04] MEDS ORDERED: D50W 25 GM/50 ML SYRINGE IV PRN (13:02)
[2020-05-04] MEDS ORDERED: GLUCAGON 1 MG/VIAL IM PRN (13:02)
[2020-05-04] MEDS: INSULIN -REGULAR HUMAN 50 UNIT/0.5 ML ML SQ SCH ×2 (16:16→21:00)
[2020-05-04] MEDS ORDERED: PROPYLTHIOURACIL 50 MG TAB PO SCH (21:00)
[2020-05-04] MEDS: ATORVASTATIN 20 MG TAB PO SCH (22:16)
[2020-05-04] MEDS: CEFTRIAXONE/SWI 1gm 1 GM/10 ML SYR IV SCH (22:17)
[2020-05-04] MEDS: PANTOPRAZOLE 40MG TABLET PO SCH (22:17)
[2020-05-05] MEDS: NA CHLORIDE 0.9% 500 ML IV SCH ×5 (01:56→19:28)
[2020-05-05 06:09] LABS: Absolute Lymphocytes (CBC) 1.3 K/uL (0.7-4.9); Hematocrit 29.3 % (36.0-45.0); Lymphocytes % 27.7 % (15.3-44.8); MPV 9.4 fL (7.6-11.3); RBC Red Blood Cell Count 3.42 M/uL (3.86-4.86)
[2020-05-05 06:27] LABS: Potassium 3.3 mmol/L (3.5-5.1)
[2020-05-05] MEDS: INSULIN -REGULAR HUMAN 50 UNIT/0.5 ML ML SQ SCH ×4 (07:30→21:00)
[2020-05-05 08:16] LABS: Blood Morphology Comment NOT SEEN (NOT SEEN); Platelet Estimate DECR
[2020-05-05] MEDS ORDERED: NEBIVOLOL HCL 20 MG TABLET PO SCH (09:00)
[2020-05-05] MEDS ORDERED: NEBIVOLOL HCL 10 MG TABLET PO SCH (09:00)
[2020-05-05] MEDS: PROPYLTHIOURACIL 50 MG TAB PO SCH ×2 (09:45→21:07)
[2020-05-05] MEDS: NEBIVOLOL HCL 10 MG TABLET PO SCH (09:45)
[2020-05-05] MEDS: CEFTRIAXONE/SWI 1gm 1 GM/10 ML SYR IV SCH ×2 (09:46→21:07)
[2020-05-05] MEDS: INSULIN GLARGINE 100 UNITS/ML SQ SCH (09:46)
[2020-05-05] MEDS: PANTOPRAZOLE 40MG TABLET PO SCH ×2 (09:47→16:06)
[2020-05-05] MEDS: hydroCHLOROthiazide 25 MG TAB PO SCH (11:00)
[2020-05-05] MEDS: AMLODIPINE 2.5 MG TAB PO SCH (12:03)
[2020-05-05] MEDS: TRAMADOL HCL 50 MG TAB PO PRN (12:04)
--- NOTE | 2020-05-05 12:15 | RAD REPORT ---
EXAM DESCRIPTION: RAD - Spine Lumbar W obliques - 05/05/2020 10:36 am CLINICAL HISTORY: low back pain COMPARISON: Lumbar Spine 3 Views dated 02/11/2016 FINDINGS: A five-view lumbar spine examination was performed. Concave contour is present in the superior endplates of L3 and L4. Peripheral wall height is maintain ed. This contour finding is similar to prior imaging. Bones are osteopenic. No acute fractures seen. No pathologic bone process identifiable. Mid and lower lumbar facet joint degenerative changes are pr esent. These are mild to moderate without measurable progression from 2016. No disc space narrowing. No pars defects suspected. No other significant findings. IMPRESSION: Lumbar spine degenerative changes are present as detailed. No acute finding seen. Findings are without significant change from comparison.
[2020-05-05] MEDS ORDERED: HOME MED 1 EA UNK (Omeprazole [Prilosec] 40 MG Capsule.Dr) PO SCH (21:00)
[2020-05-05] MEDS ORDERED: PROPYLTHIOURACIL 50 MG TAB PO SCH (21:00)
[2020-05-05] MEDS: ATORVASTATIN 20 MG TAB PO SCH (21:07)
[2020-05-06] MEDS: NA CHLORIDE 0.9% 500 ML IV SCH ×5 (02:56→22:03)
[2020-05-06 05:11] LABS: Magnesium 1.9 mg/dL (1.8-2.4); Phosphorus 2.5 mg/dL (2.5-4.9); Potassium 3.1 mmol/L (3.5-5.1)
[2020-05-06] MEDS ORDERED: POTASSIUM 25 MEQ EFFERV TAB PO ONE (06:34)
[2020-05-06] MEDS: INSULIN -REGULAR HUMAN 50 UNIT/0.5 ML ML SQ SCH ×4 (07:30→21:00)
[2020-05-06] MEDS: CEFTRIAXONE/SWI 1gm 1 GM/10 ML SYR IV SCH (08:25)
[2020-05-06] MEDS: AMLODIPINE 2.5 MG TAB PO SCH (08:26)
[2020-05-06] MEDS: PROPYLTHIOURACIL 50 MG TAB PO SCH ×2 (08:27→21:24)
[2020-05-06] MEDS: NEBIVOLOL HCL 10 MG TABLET PO SCH (08:27)
[2020-05-06] MEDS: PANTOPRAZOLE 40MG TABLET PO SCH ×2 (08:27→17:27)
[2020-05-06] MEDS: hydroCHLOROthiazide 25 MG TAB PO SCH (08:28)
[2020-05-06] MEDS: TRAMADOL HCL 50 MG TAB PO PRN (08:28)
[2020-05-06] MEDS: INSULIN GLARGINE 100 UNITS/ML SQ SCH (08:29)
[2020-05-06] MEDS ORDERED: HOME MED 1 EA UNK (Nebivolol Hcl [Bystolic] 10 MG Tablet) PO SCH (09:00)
[2020-05-06] MEDS: METOCLOPRAMIDE 10 MG/2mL INJ IV SCH ×3 (12:00→17:26)
[2020-05-06] MEDS ORDERED: MAGNESIUM CITRATE 300 ML BOT PO SCH (13:00)
[2020-05-06] MEDS ORDERED: GOLYTELY 4000 ML PO SCH (14:00)
--- NOTE | 2020-05-06 14:29 | CON ---
Date of Consultation: 05/06/2020 Reason For Consultation: Cirrhosis with a few hypodense lesions in the right lobe of the liver and a nemia and off and on left upper quadrant pain. History Of Present Illness: The patient is a 79-year-old female with history of cirrhosis, iron deficiency anemia, diabetes, hypertension, hypothyroidism, hyperlipidemia, obesity, gastritis, a nd peptic ulcer disease. The patient presented to the hospital with fatigue, weakness, dizziness, de creased appetite and dehydration, found to have urinary tract infection. White count went from 9.3 t o 4.8, on antibiotics. Polys were from 79% down to 58%. Urine culture revealed Strep agalactiae naseem up B and the patient is on antibiotic therapy for UTI. The patient has cirrhosis, it appears long-te rm. She has hypodense lesions in the right lobe of the liver, increased in size from March 25 CT. The patient has off and on left upper quadrant pain. Has a history of gastritis and peptic u lcer disease with transferred to [facility] approximately a month ago with EGD revealing gastri tis and ulcers as per daughter. She denies any left upper quadrant pain now, but says that she was h aving some intense pain yesterday and uncertain why she is having the pain. The patient also has a f amily history of uterine cancer in her mother. They are unsure of the last time she had a Pap smear despite her family history. Last time she had a colonoscopy is unclear as well. Past Medical History: Significant for diabetes, hypertension, hypothyroidism, hyperlipidemia, obesit y, gastritis, peptic ulcer disease, cirrhosis, and iron deficiency anemia in the past and takes iron supplements per daughter who saw a bottle of iron supplement pills. Allergies: NKDA. Medications: In the hospital include Fosamax, Norvasc, atorvastatin, ceftriaxone, hydrochlorothiazid e, insulin, magnesium, Flagyl, Zofran, Protonix, potassium, tramadol. Social History: She is , 1 daughter present in the room now. No tobacco. No alcohol. Family History: Father of Alzheimer disease at 84. Mother of uterine cancer at age of 46. Review of Systems: The patient has fatigue, weakness, dizziness, loss of appetite, dehydration, urinary tract infection diagnosed on admission, better now with antibiotic therapy. She denies any melena, hematochezia, hem atemesis, coffee-ground emesis, hematuria, dysuria, polydipsia, chest pain, shortness of breath, seiz ure, syncope, lower extremity edema, muscle aches, joint aches, backaches. She does have some back d iscomfort, some mild, however. No depression, anxiety. She had left upper quadrant pain off and on, but none now. Physical Examination: Vital Signs: The patient is 4 feet 11 inches, 135 pounds of 26.3 kg/m2. General: She is an obese female, lying in bed, in no acute distress. HEENT: Normocephalic, atraumatic. Anicteric. Pupils equal, round, and reactive to light. Extraocu lar movements are intact. Oropharynx is clear. Neck: Supple. No masses. Respirations: Clear to auscultation bilaterally. Cardiac: Regular rate and rhythm. No gallops or rubs. Gastrointestinal: Positive bowel sounds. Soft, nontender, nondistended. No hepatosplenomegaly. Mi ldly obese. Extremities: No clubbing, cyanosis, or edema. 2+ pulses. Neuro: Alert and oriented x3. Grossly nonfocal. 5/5 motor sensation intact to light touch. Laboratory Data: The patient has a white count of 4.8 down from 9.3 on admission, hemoglobin 9.4 bala n from 10.8 on admission, MCV of 86, platelet count of 93, polys of 58% down from 79%, lymphocytes 28 %, monocytes 11%, eosinophils 3%, basophils 1%. The patient has a PT of 11.8, INR of 1.0, PTT of 26. 1. Chemistries; sodium of 144, potassium of 3.1, chloride 113, bicarb 24, BUN of 19, creatinine 0.97 , glucose of 83, calcium 7.7, phosphorus of 2.5, magnesium of 1.9. Her UA revealed 2+ blood, 1+ leuk ocyte esterase, and 2+ protein, otherwise negative. COVID-19 negative. Influenza A and B are negati ve. Imaging: CT of abdomen and pelvis reveals a few hypodense lesions in the right lobe of the liver, la rgest being 1.6 cm, slightly increased from March 25, 2020 CT. Also had cholelithiasis without ch olecystitis and abdominal ectasias with calcifications and right adrenal adenoma approximately 2.1 cm . Of note, the CT of 03/2020 also showed duodenitis or possible ulcer of the duodenum. There were s ome subcentimeter hypodensities, too small to characterize, mentioned on the CT from March 25 0. Impression: 1.Cirrhosis with a few hypodense lesions in the right lobe of the liver, largest 1.6 cm. These are increased in size since March 25, 2020 CT of the abdomen. Concerning for possible metastatic dise ase or primary liver disease. 2.Urinary tract infection, dehydration, white count down from 9.3 down to 4.8, polys were 79% down t o 58%, on IV antibiotics. Urine culture revealed Streptococcus agalactiae group B organism. 3.History of peptic ulcer disease with iron deficiency anemia history. Admitted for fatigue, weakne ss, dizziness, and decreased appetite. Hemoglobin is 10.8 down to 9.4 with iron deficiency anemia. 4.History of left upper quadrant pain comes and goes. It seemed to be severe yesterday, which is wh y her admission was prolonged by daughter's report. She also was transferred to [place] on March 2020 with EGD revealing gastritis and possible ulcer by daughter's report. 5.History of diabetes, hypertension, hypothyroidism, hyperlipidemia, obesity, gastritis, peptic ulce r disease, cirrhosis and iron deficiency anemia. Recommendations: 1.Proceed with EGD, colonoscopy, especially in light family history of uterine cancer in mother and possible metastatic lesions in the liver and also the left upper quadrant pain that is coming and goi ng. 2.Continue proton pump inhibitor therapy. 3.MRI of the liver. 4.Check alpha-fetoprotein. 5.Check mammogram and concreting supervisor exam with Pap smear, especially with mother with history of uterine cancer who at the age of 46. 6.Check iron numbers. 7.Continue IV antibiotics. WS/BAKARIL Voice ID: [id number] Report ID: [id number]
[2020-05-06] MEDS ORDERED: D50W 25 GM/50 ML VIAL IV PRN (15:00)
[2020-05-06] MEDS ORDERED: NYSTATIN PWDR 100000 UNIT/GM TOP PRN (17:06)
[2020-05-06] MEDS: levoFLOXacin 500 MG TAB PO SCH (17:29)
--- NOTE | 2020-05-06 18:26 | HP ---
Date of Admission: 05/04/2020 History Of Present Illness: The patient is a 79-year-old female with multiple medical problems inclu ding type 2 diabetes and history of upper GI bleeding about a month ago in the emergency room with a complaint that when she woke up, she has been feeling tired, fatigued, unable to be steady on her fee t. Workup in the emergency room showed that the patient had an infection source from the urinary tra ct as per the doctor and sepsis and generalized fatigue. The patient denies any nausea or vomiting and no fever or chills and voiced no other complaints. Review of Systems: Neurologic: Generalized fatigue. No other complaints. Cardiovascular: No complaints. Genitourinary: No complaints. Skeletomuscular: Multiple osteoarthritic pains off and on, chronic, stable. Respiratory: No increased shortness of breath. No complaints. Past Medical History: 1.Type 2 diabetes. 2.Hypertension. 3.Hyperlipidemia. 4.Hyperthyroidism, she takes for that. 5.Anemia of chronic illness. 6.History of chronic renal insufficiency from diabetes stage 3. 7.Gastroesophageal reflux disease. 8.Right sciatica. 9.Bilateral diabetic cataract. 10.The patient had gallbladder stones, but no cholecystitis. 11.History of cirrhosis. Social History: No smoking, alcohol, or drug abuse history. Family History: Noncontributing. Medications: Include calcium supplements and Restasis eye drops. The patient has been put on ferrou s sulfate 325 mg p.o. b.i.d. She is on hydrochlorothiazide 25 mg p.o. daily, on insulin Lantus 10 un its subcutaneous daily, and the patient was taking amoxicillin and metronidazole. She is also on lucy ndronate 70 mg p.o. weekly, atorvastatin 20 mg p.o. daily, and Bystolic 10 mg p.o. daily. Physical Examination: Vital Signs: Blood pressure 153/50, pulse 61, temperature 98.4. Heart: Regular rate and rhythm. Chest: Clear to auscultation. Abdomen: Soft, nontender, nondistended. Bowel sounds are normoactive. Extremities: No edema. are felt. Neurologic: Alert, oriented, grossly intact. Laboratory Data: Abdominal pelvic CT showed hepatic cirrhosis with hypodense masses in the right lob e concerning for multifocal pulmonary neoplastic lesions, right adrenal adenoma, and abdominal aortic ectasia. urine analysis showed blood 2+ and esterase 1+. Chemistry; BUN 25, creatinine 1.59, GFR 31. CBC: White cell count 5.2, hemoglobin 9.9, hematocrit 31, and platelets 101. Assessment/plan: 1.Generalized weakness in a patient with multiple medical problems, being admitted. We will put the patient on IV ceftriaxone the patient may have acute cystitis with urinary tract infectio n with possible bacteremia or sepsis that caused her symptoms. 2.The patient on chronic medications for hypertension and diabetes and thyroid and we will monitor h er CBC and electrolytes. 3.Cirrhosis of the liver. Findings on the CT scan may also contribute to the patient's symptoms, ho wever, the acute onset of the symptoms make us believe that she had some sort of infection. We will monitor all those and followup the patient and look orders for details. BASSAM/PAO Voice ID: [id number]
--- NOTE | 2020-05-06 21:06 | HP ---
Date of Admission: 05/04/2020 History Of Present Illness: This is a 79-year-old female, who presented to the emergency room with a complaint that on the day of her admission, she felt so weak that she could not stand up on her own and ambulate. The patient was brought by her daughter to the emergency rooms and was admitted for ob servation for weakness and inability to ambulate along with urine tract infection and cystitis. Review of Systems: Cardiovascular: No complaints. Respiratory: No complaints. Skeletomuscular: As above. Neurological: As above. Gastrointestinal: No complaints. Genitourinary: The patient has had no dysuria and had no complaints. Past Medical History: 1.Hypertension. 2.Type 2 diabetes. 3.Hyperlipidemia. 4.Hypothyroidism. 5.Anemia of chronic disease. 6.Chronic renal insufficiency with a GFR about 50. 7.Gastroesophageal reflux disease. 8.Right sciatica. 9.Diabetic cataract. 10.History of liver cirrhosis. Social History: No smoking, alcohol, or IV drug abuse history. Family History: Noncontributing. Medications: Include alendronate 70 mg p.o. weekly, calcium and vitamin D, ferrous sulfate 325 p.o. b.i.d., hydrochlorothiazide, Bystolic 10 mg daily, omeprazole 40 mg daily, and propylthiouracil 50 mg p.o. daily. Allergies: NO KNOWN DRUG ALLERGIES. Physical Examination: Vital Signs: Blood pressure 150/68, pulse 68, temperature 98.3. Heart: Regular rate and rhythm. Chest: Clear to auscultation. Abdomen: Soft, nontender. No hepatosplenomegaly. Bowel sounds are normoactive. Extremities: No edema. No cyanosis. Peripheral pulses are felt. Neurological: Alert and oriented x4. Sensory intact. Motor equal on all extremities, upper and low er, however, the patient has weakness and trying to hold her posture, but with assistance, she can wa lk, but no focal weakness. Homans sign and Babinski sign are negative. Laboratory Data: The patient had abdominal and pelvic CT showing a right renal and right adrenal kevin noma, and ectatic abdominal aorta, hepatic cirrhosis, no acute findings. The liver has multiple neop lastic lesions. White cell count 9.3, hemoglobin 10.8, hematocrit 32.3, and platelets 119. PT, INR within normal limits. Chemistry showed BUN 19, creatinine 0.97, and GFR 56. Urinalysis showed 2+ bl ood and leukocyte esterase positive. Influenza and COVID virus serology negative. Assessment And Plan: Weakness of rather acute onset. The patient with multiple medical problems, be ing admitted, suspect cystitis with bacteremia may have caused that. The patient has been put on ant ibiotic IV of ceftriaxone. We will keep the patient on her home medicines. We will monitor her bloo d sugar and put her on sliding scale for her diabetes. Because of her cirrhosis and anemia, Dr. Light tt also was consulted, GI. We will monitor her blood pressure. If was on the high side, then may ad d amlodipine on that. We will monitor her electrolytes and CBC. Look orders for details. MFS/MODL Voice ID: [id number]
[2020-05-06] MEDS: ATORVASTATIN 20 MG TAB PO SCH (21:21)
[2020-05-07] MEDS: NA CHLORIDE 0.9% 500 ML IV SCH ×4 (03:03→13:56)
[2020-05-07] MEDS: TRAMADOL HCL 50 MG TAB PO PRN (03:18)
[2020-05-07 05:49] LABS: Absolute Lymphocytes (CBC) 1.7 K/uL (0.7-4.9); Basophils % 1.1 % (0-1.3); Hematocrit 32.6 % (36.0-45.0); Lymphocytes % 22.9 % (15.3-44.8); MPV 9.3 fL (7.6-11.3); RBC Red Blood Cell Count 3.74 M/uL (3.86-4.86)
[2020-05-07 06:12] LABS: Ferritin 59.5 ng/mL (8-388); Phosphorus 1.9 mg/dL (2.5-4.9); Potassium 3.5 mmol/L (3.5-5.1)
[2020-05-07] MEDS: INSULIN -REGULAR HUMAN 50 UNIT/0.5 ML ML SQ SCH ×3 (07:30→16:10)
[2020-05-07] MEDS: INSULIN GLARGINE 100 UNITS/ML SQ SCH (08:46)
[2020-05-07] MEDS ORDERED: POTASSIUM PHOS IN 0.9 % NACL 15 MMOL/250 ML BAG IV ONE (09:00)
[2020-05-07] MEDS: AMLODIPINE 2.5 MG TAB PO SCH (09:19)
[2020-05-07] MEDS: PANTOPRAZOLE 40MG TABLET PO SCH ×2 (09:19→16:13)
[2020-05-07] MEDS: hydroCHLOROthiazide 25 MG TAB PO SCH (09:19)
[2020-05-07] MEDS: levoFLOXacin 500 MG TAB PO SCH (09:20)
[2020-05-07] MEDS: PROPYLTHIOURACIL 50 MG TAB PO SCH (09:20)
[2020-05-07] MEDS: NEBIVOLOL HCL 10 MG TABLET PO SCH (09:21)
[2020-05-07] MEDS ORDERED: NA CHLORIDE 0.9% 0 ML ONE (12:00)
[2020-05-07] MEDS ORDERED: LIDOCAINE 1% MPF 5 ML VIAL ONE (12:28)
[2020-05-07] MEDS ORDERED: propofoL 200 MG/20 ML VIAL IV ONE (12:28)
--- NOTE | 2020-05-07 12:48 | ENDO RPT ---
[address], [address] EGD PROCEDURE REPORT EXAM DATE: 05/07/2020 PATIENT NAME: Cristel Casas MR#: [id number] BIRTHDATE: 1940 ATTENDING: Xavier Carrillo Dr STATUS: inpatient - [facility] MANAGER OF MAINTENANCE: Gracie FRANCO, Harika Carr RN, and Socorro Love RN INDICATIONS: The patient is a 79 yr old Female here for an EGD due to left upper quadrant abdominal pain and iron deficiency anemia PROCEDURE PERFORMED: EGD with biopsy MEDICATIONS: Per Anesthesia. TOPICAL ANESTHETIC: none CONSENT: The patient understands the risks and benefits of the procedure and understands that these risks include, but are not limited to: sedation, allergic reaction, infection, perforation and/or bleeding. Alternative means of evaluation and treatment include, among others: physical exam, x-rays, and/or surgical intervention. The patient elects to proceed with this endoscopic procedure. DESCRIPTION OF PROCEDURE: During intra-op preparation period all mechanical medical equipment was checked for proper function. Hand hygiene and appropriate measures for infection prevention was taken. Procedure, possible complications, and alternatives including but not limited to the possibility of bleeding, perforation, tear, infection, sepsis, need for surgery, need for blood transfusion, and anesthesia related complications were explained to the patient. After the risks, benefits and alternatives of the procedure were thoroughly explained, Informed consent was verified, confirmed and timeout was successfully executed by the treatment team. The patient was placed in the left lateral position. The patient was anesthetized with topical anesthesia. Through the anesthetized oropharyngeal area, the scope was passed without any difficulty. The EC-3890Li ([id number]) and Pentax EG-[id number] ([id number]) endoscope was introduced through the mouth and advanced to the second portion of the duodenum. Retroflexed views revealed no abnormalities. The gastroscope was then slowly withdrawn and removed. A small hiatal hernia was found. Mild gastritis in the body and the antrum of the stomach. Multiple biopsies were obtained and sent to pathology. An ulcer was found in the antrum. An ulcer was found in the apex/bulb of the duodenum. A secondary stricture was found in the apex/bulb of the duodenum. ADVERSE EVENTS: There were no complications. IMPRESSIONS: 1. Small hiatal hernia 2. Mild gastritis in the body and the antrum of the stomach, s/p biopsies 2. 9 mm clean-based ulcer in the antrum 3. 7 mm clean-based ulcer in the apex of bulb of the duodenum 4. 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 await biopsy results 2. acid suppression therapy 3. check gastrin level REPEAT EXAM: Return in 3 month(s) for EGD. Xavier Carrillo Dr eSigned: Xavier Carrillo Dr 05/07/2020 12:47 PM cc: Abhishek Carrillo CPT CODES: ICD9 CODES: PATIENT NAME: Cristel Casas MR#: [id number]
[2020-05-07] MEDS ORDERED: EPHEDRINE SULF 50 MG/ML VIAL ONE (13:03)
--- NOTE | 2020-05-07 13:10 | ENDO RPT ---
[address], [address] COLONOSCOPY PROCEDURE REPORT EXAM DATE: 05/07/2020 PATIENT NAME: Cristel Casas MR #: [id number] BIRTHDATE: 1940 ATTENDING: Xavier Carrillo Dr STATUS: inpatient - [facility] SIGN MAKER: Gracie FRANCO, Harika Carr RN, and Socorro Love RN INDICATIONS: The patient is a 79 yr old Female here for a colonoscopy due to iron deficiency anemia, weight loss, and abnormal CT of abdomen/pelvis revealing possible metastatic lesions in the liver, family history of uterine cancer in mother at 46 y.o. PROCEDURE PERFORMED: Colonoscopy MEDICATIONS: Per Anesthesia. ESTIMATED BLOOD LOSS: None CONSENT: The patient understands the risks and benefits of the procedure and understands that these risks include, but are not limited to: sedation, allergic reaction, infection, perforation and/or bleeding. Alternative means of evaluation and treatment include, among others: physical exam, x-rays, and/or surgical intervention. The patient elects to proceed with this endoscopic procedure. DESCRIPTION OF PROCEDURE: During intra-op preparation period all mechanical medical equipment was checked for proper function. Hand hygiene and appropriate measures for infection prevention was taken. Procedure, possible complications, alternatives including, but not limited to possibility of bleeding, perforation, tear, infection, sepsis, need for surgery, need for blood transfusion, were explained to the patient. After the risks, benefits and alternatives of the procedure were thoroughly explained, Informed consent was verified, confirmed and timeout was successfully executed by the treatment team. The patient was placed in the left lateral position. A digital rectal exam was performed and revealed a skin tag. After appropriate level of anesthesia, the scope was passed. The EG-[id number] ([id number]) and EC-3890Li ([id number]) endoscope was introduced through the anus and advanced to the cecum, which was identified by both the appendix and ileocecal valve. The quality of the prep was good. The instrument was then slowly withdrawn as the colon was fully examined. Scope withdrawal time was 7 minutes. COLON FINDINGS: Moderate sized internal hemorrhoids were found. Retroflexed views revealed medium hemorrhoids. The scope was then completely withdrawn from the patient and the procedure terminated. ADVERSE EVENTS: There were no complications. IMPRESSIONS: 1. Moderate sized internal hemorrhoids 2. Intubation to cecum RECOMMENDATIONS: fiber rich diet RECALL: no Colonoscopy scheduled due to age (79 y.o.). Xavier [address] Dr eSigned: Xavier Carrillo Dr 05/07/2020 1:10 PM cc: CPT CODES: ICD9 CODES: 455.9 Residual hemorrhoidal skin tags PATIENT NAME: Cristel Casas MR#: [id number]
[2020-05-07 13:17] VITALS: O2SAT 99
[2020-05-07 17:14] VITALS: BP 113/62; TEMP 97.7
[2020-05-11] MEDS ORDERED: ALENDRONATE 70 MG TAB PO SCH (09:00)
--- NOTE | 2020-05-29 19:22 | DS ---
Date of Discharge: 05/07/2020 History Of Present Illness: A 79-year-old female with multiple medical problems, who was admitted to the hospital because of generalized weakness and acute cystitis with possible bacteremia causing her exacerbated weakness. Past Medical History: As per admit note. Social History: As per admit note. Family History: As per admit note. Medications: As per admit note. Allergies: PER ADMIT NOTE. Physical Examination: As per admit note. Diagnostic Data: As per admit note. Hospital Course: The patient was admitted to the hospital. She was put on IV ceftriaxone for cystit is. Continue the home medicines for chronic medical illnesses. Gastroenterology was also consulted because of the patient's history of liver cirrhosis and history of lower GI bleeding. Endoscopy was done. Hemorrhoids were found, that were not actively bleeding at the time of this procedure. EGD wa s done, showed small hiatal hernia and mild gastritis and antral ulcer and duodenal ulcer. The patie nt was put on proton pump inhibitors. We followed also the patient's hemoglobin, hematocrit, and akira ctrolytes. The patient was stable enough to be discharged to continue home medicines and she was dis charged on ciprofloxacin antibiotic for the cystitis, to follow up with me. Look discharge orders for details. MFS/MODL Voice ID: [id number] Report ID: [id number]
== END 2020-05-07 17:50 | disposition home or self-care (01) ==
LOC: ER 18:02 → ERHOLD 05-04 01:34 → 2ND 05-04 12:17
PROVIDERS: ADMIT Internal Medicine; ATTEND Internal Medicine
PROC: 0DJD8ZZ Inspection of Lower Intestinal Tract, Via Natural or Artificial Opening Endoscopic (ICD-10-PCS; principal; 2020-05-07 12:30)
PROC: 0DB68ZX Excision of Stomach, Via Natural or Artificial Opening Endoscopic, Diagnostic (ICD-10-PCS; 2020-05-07 12:30)
DX: K25.9 Gastric ulcer, unspecified as acute or chronic, without hemorrhage or perforation (principal); K26.9 Duodenal ulcer, unspecified as acute or chronic, without hemorrhage or perforation; K31.5 Obstruction of duodenum; D50.9 Iron deficiency anemia, unspecified; R63.4 Abnormal weight loss; Z20.822 Contact with and (suspected) exposure to COVID-19; R93.2 Abnormal findings on diagnostic imaging of liver and biliary tract; K64.9 Unspecified hemorrhoids; K74.60 Unspecified cirrhosis of liver; K29.60 Other gastritis without bleeding; K44.9 Diaphragmatic hernia without obstruction or gangrene; K21.9 Gastro-esophageal reflux disease without esophagitis; E78.5 Hyperlipidemia, unspecified; E03.9 Hypothyroidism, unspecified; I12.9 Hypertensive chronic kidney disease with stage 1 through stage 4 chronic kidney disease, or unspecified chronic kidney disease; E11.22 Type 2 diabetes mellitus with diabetic chronic kidney disease; N18.30 Chronic kidney disease, stage 3 unspecified; Z79.4 Long term (current) use of insulin; E66.9 Obesity, unspecified; N39.0 Urinary tract infection, site not specified; E86.0 Dehydration; Z68.28 Body mass index [BMI] 28.0-28.9, adult
CPT/HCPCS: 96365; 87040; 87088; 85025 ×4; 87086; 80048 ×4; 36415 ×3; 82140; 83735 ×2; 88312; 84100 ×2; 84132; 85610; 82947 ×15; 80076; 88305; 85730; 87077; 87186; 81003; 82728; 83540; 84145; 82105; 0240U; 82941; 84466; 74176; 72110; 97112; 97116 ×2; 97161; 97530; 99285; 45378; 43239; Q9967; J2704; J2765 ×2; J0696 ×5; J7030 ×7; J1815; J7040

== ENCOUNTER 2020-06-28 20:41 | Observation (INO) | payer OTHER ==
--- OUTSIDE RECORDS SUMMARY | 2020-06-28 20:46 | XMS REPORT | Continuity of Care Document ---
:1940 Author Organization [facility] t Address [address] [place] [address] Care Team Providers Name Role Phone LISA JAIN Attending Clinician Unavailable Cristobal HUFF, Lisa Attending Clinician Wai Duke MD Attending Clinician Lloyd Guzmán MD Attending Clinician Zain Duggan MD Attending Clinician Ryland Carpenter CRNA Attending Clinician Citlali Hong MD Attending Clinician LISA JAIN Admitting Clinician Unavailable Payers Payer Name Policy Type Policy Effective Date Expiration Date Sour ce Number [employer] MEDICARE [id number] [facility] 00:[facility]00 - Medica l [id number] Center /2019-Present Problems Condition Condition Condition Status Onset Resolution Last Treating Co mments Source Name Details Category Date Date Treatment Clinician Date Closed Closed Disease Active 2019-[address] [facility] fracture fracture 2-23 [facility] - of one rib of one rib 00:00: Me dical of right of right 00 Center side side (HFpEF) (HFpEF) Disease Active 2019-04 [facility] heart heart 05-29 [facility] - failure failure 00:00: Medical with [...] (acute PAUL (acute Disease Resolve 2019-042020-03-28 2020-03-28 [facility] kidney kidney d 05-29 00:00:00 18:26:22 [facility] - injury) injury) 00:00: Medical Center Allergies, Adverse Reactions, Alerts This patient has no known allergies or adverse reactions. Social History Social Habit Start Date Stop Date Quantity Comments Source Sex Assigned At [facility] Tobacco use and 2020-03-28 2020-03-28 Never used [facility] - exposure 00:00:00 00:00:00 [facility] Tobacco Comment 2020-03-27 2020-03-27 20 years ago [facility] - 00:00:00 00:00:00 [facility] Smoking Status Start Date Stop Date Source Former smoker 2020-03-28 00:00:00 2020-03-28 00:00:00 [facility] Medications Ordered Filled Start Stop Current Ordering Indication Dosage Frequency Signature Comments Components Source Medication Medication Date Date Medication? Clinician (SIG) Name Name atorvastati 2019-04 Yes 20mg QD Take [address] [facility] [facility] (LIPITOR) -23 by mouth Luke s - 20 MG 16:35: daily. Medical tablet 10 [place] nebivoloL 2019-04 Yes 10mg QD Take [address] (BYSTOLIC) 05-29 by mouth [facility] - 10 MG 16:35: daily. Medical tablet 10 Center glimepiride 2019-04 Yes 1mg Take [address] (AMARYL) 1 2-23 by mouth [facility] - MG tablet 16:35: [...] QD Take [address] [facility] [address] (PriLOSEC) 2- 12- by mouth Luke s - 20 MG 15:32: 00:00 daily. Medical capsule 52 :00 Center hydrALAZINE 2019-04- No 10mg [id number] Take [address] [facility] (APRESOLINE 2-28 03- [id number] by mouth 3 [facility] - ) 10 MG 15:32: 00:00 3D (three) Medica l tablet 52 :00 times Center daily. omeprazole 2019-04 Yes 40mg Take 2 [facility] (PriLOSEC) 2-23 capsules [facility] - 20 MG 00:00: (40 mg Medical capsule 00 total) by Center mouth 2 (two) times daily with breakfast and dinner. ferrous 2019-04- No 325mg Take [address] [facility] sulfate 325 [...] route. hydralazine hydralazine No 1 BID hydralazin [place] 10 mg 10 mg e 10 mg Family tablet Take tablet Take tablet Practic 1 tablet 1 tablet Take 1 e twice a day twice a day tablet by oral by oral twice a route. route. day by oral route. hydrochloro hydrochloro No 1 Q1D hydrochlor [place] thiazide 25 thiazide 25 othiazide Family mg tablet mg tablet 25 mg Prac tic Take 1 Take 1 tablet e tablet tablet Take 1 every day every day tablet by oral by oral every day route. route. by oral route. ibuprofen ibuprofen No 1capsul Q6H ibuprofen [facility] 200 mg 200 mg e(s) 200 mg Family capsule capsule capsule Practi c Take 1 Take 1 Take 1 e capsule capsule capsule every 6 every 6 every 6 hours by hours by hours by oral route. oral route. oral route. propylthiou propylthiou No 1 BID propylthio [place] racil 50 mg racil 50 mg uracil 50 Family tablet Take tablet Take mg tablet Practic 1 tablet 1 tablet Take 1 e twice a day twice a day tablet by oral by oral twice a route. route. day by oral route. Immunizations Ordered Immunization Filled Immunization Date Status Commen ts Source Name Name influenza, influenza, 2020-01-05 Completed [facility] injectable, injectable, 00:00:00 Practice quadrivalent quadrivalent Vital Signs Vital Name Observation Time Observation Value Comments Source BP Diastolic 2020-02-10 00:00:00 80 mm[Hg] [facility] Height 2020-02-10 00:00:00 59 [in_i] [facility] BMI (Body Mass Index) 2020-02-10 00:00:00 31.9 kg/m2 [facility] BP Systolic 2020-02-10 00:00:00 140 mm[Hg] [facility] Body Weight 2020-02-10 00:00:00 158 [lb_av] [facility] Systolic blood 2020-03-28 15:14:00 156 mm[Hg] [facility] Diastolic blood 2020-03-28 15:14:00 67 mm[Hg] [facility] Heart rate 2020-03-28 15:14:00 65 /min [facility] Body temperature 2020-03-28 15:14:00 36.78 Opal [facility] Respiratory rate 2020-03-28 15:14:00 18 /min [facility] Oxygen saturation in 2020-03-28 15:14:00 96 /min [facility] Arterial blood by Medical Ce nter Pulse oximetry Body weight 2020-03-26 03:00:00 72.213 kg [facility] Procedures Procedure Date / Time Performed Performing Clinician Kacey e POCT-GLUCOSE METER 2020-03-28 11:08:00 Emperatriz Duke [facility] POCT-GLUCOSE METER 2020-03-28 07:36:00 Emperatriz Duke [facility] MAGNESIUM 2020-03-28 04:14:00 Vicente Quinones [facility] CBC W/PLT COUNT & AUTO 2020-03-28 04:14:00 Vicente Quinones [facility] BASIC METABOLIC PANEL 2020-03-28 04:14:[address] [facility] () Medical Center PREPARE LEUKO-REDUCED 2020-03-27 23:54:00 Jenni Jain [facility] S [facility] - RBC Lisa [facility] POCT-GLUCOSE METER 2020-03-27 21:02:00 [facility] XR RIBS 2 VIEWS MIN 2020-03-27 18:33:[address] [facility] UNILATERAL RIGHT [facility] 2D ECHO W/ DOPPLER 2020-03-27 17:31:00 Vicente Quinones [facility] (CW/PW/COLOR) [facility] POCT-GLUCOSE METER 2020-03-27 15:14:00 Srikanth [facility] REPORT OF PROCEDURE - 2020-03-27 14:35:24 Arielle [facility] ENDOSCOPY URL [facility] TISSUE EXAM 2020-03-27 14:30:00 [facility] POCT-GLUCOSE METER 2020-03-27 14:04:00 [facility] UPPER ENDOSCOPY 2020-03-27 14:00:00 [facility] POCT-GLUCOSE METER 2020-03-27 11:56:00 Srikanth [facility] URINALYSIS W/ REFLEX 2020-03-27 10:01:[address] [facility] URINE CULTURE [facility] BASIC METABOLIC PANEL 2020-03-27 08:25:[address] [facility] (7) [facility] CBC W/PLT COUNT & AUTO 2020-03-27 08:25:[address] [facility] DIFFERENTIAL [facility] POCT-GLUCOSE METER 2020-03-27 07:32:00 [facility] HEMOGLOBIN A1C 2020-03-27 04:10:00 Vicente Quinones [facility] FERRITIN 2020-03-27 04:10:00 Vicente Quinones [facility] IRON, TIBC, % SAT. 2020-03-27 04:10:[address] [facility] - (WITHOUT FERRITIN) [facility] Cent[facility] r US ABDOMEN COMPLETE 2020-03-26 23:44:00 Vicente Quinones [facility] POCT-GLUCOSE METER 2020-03-26 22:43:00 Emperatriz Duke [facility] POCT-GLUCOSE METER 2020-03-26 21:12:00 Emperatriz Duke Wai [facility] XR CHEST 2 VIEWS 2020-03-26 19:39:00 Vicente Quinones [facility] POCT-GLUCOSE METER 2020-03-26 16:47:00 Emperatriz Duke [facility] BLOOD CULTURE 2020-03-26 16:44:00 Vicente Quinones [facility] BLOOD CULTURE 2020-03-26 16:19:00 David Anaya [facility] TSH/FREE T4 IF INDICATED 2020-03-26 16:18:00 Emperatriz Duke [facility] HEMOGLOBIN AND 2020-03-26 16:18:00 Emperatriz Duke [facility] HEMATOCRIT [facility] TOXICOLOGY SCREEN, SERUM 2020-03-26 16:12:00 Linda Anaya [facility] B-TYPE NATRIURETIC 2020-03-26 16:12:00 Vicente Quinones [facility] FACTOR (BNP) [facility] CREATINE KINASE (CK) 2020-03-26 16:12:00 Vicente Quinones [facility] BASIC METABOLIC PANEL 2020-03-26 16:12:[address] [facility] (7) [facility] AMMONIA 2020-03-26 16:12:00 Emperatriz Duke [facility] SODIUM, RANDOM URINE 2020-03-26 15:57:00 Jenni Jain [facility] URINALYSIS WITH 2020-03-26 15:57:00 Jenni Jain [facility] s - MICROSCOPIC IF INDICATED [facility] URINALYSIS MICROSCOPIC 2020-03-26 15:57:00 [facility] CREAT[facility]INE, RANDOM URINE 2020-03-26 15:57:00 Jenni Jain I [facility] TRANSFUSE LEUKO-REDUCED 2020-03-26 14:31:45 Jenni Jain [facility] - RED BLOOD CELLS [facility] SARS-COV2/RT-PCR ([facility] & 2020-03-26 12:43:00 Vicente Quinones [facility] - REF LABS) [facility] ABORH, MANUAL 2020-03-26 06:43:00 Meri Wilder [facility] TYPE AND SCREEN, 2020-03-26 05:23:[address] [facility] es - AUTOMATED [facility] CBC W/PLT COUNT & AUTO 2020-03-26 05:23:00 [facility] DI[facility]ENTIAL [facility] BASIC METABOLIC PANEL 2020-03-26 05:23:00 Jenni Jain [facility] - (7) [facility] HEPATIC FUNCTION PANEL 2020-03-26 05:23:00 [facility] PROT[facility] TIME/INR 2020-03-26 05:23:00 [facility] MAGNESIUM 2020-03-26 05:23:00 Cristobal [facility] URIC ACID 2020-03-26 05:23:00 Cristobal [facility] Plan of Care Planned Activity Planned Date Details Comments Source Future Scheduled Test 2020-09-25 Hemoglobin A1c [facility] (procedure) [code = 02863315] Future Scheduled Test 2020-04-06 DEPRESSION SCREENING [facility] Mal - 00:00:00 (12+) [code = Medical Center DEPRESSION SCREENING (12+)] Future Scheduled Test 2020-03-24 Medicare IPPE [facility] S saúl [place] - 00:00:00 (WELCOME TO [facility] MEDICARE) [code = Medicare IPPE (WELCOME TO MEDICARE)] Future Scheduled Test 1992 SHINGLES VACCINES ([address] [facility] [facility] 00:[facility] of 2) [code = Medical Center SHINGLES VACCINES (1 of 2)] Future Scheduled Test 1961 DTAP/TDAP/TD [facility] - 00:[facility] VACCINES (1 - Tdap) Medical Center [code = DTAP/TDAP/TD VACCINES (1 - Tdap)] Future Scheduled Test [address] [facility] - 00:00:00 SCREENING [code = Medical Ce nter HEPATITIS C SCREENING] Future Scheduled Test 1952 DIABETIC EYE EXAM [facility] - 00:[facility]:00 [code = DIABETIC EYE Medical Center EXAM] Future Scheduled Test 1952 [facility] examination Medical Center (regime/therapy) [code = 650585698] Future Scheduled Test 1952 Urine screening for [facility] - 00:00:00 protein (procedure) Medical Center [code = 130176926] [facility] Practice Encounters Start End Encounter Admission Attending Care Care Encounter Source Date/Time Date/Time Type Type Clinicians Facility Department ID 2020-06-26 2020-06-26 [id number] 2020-06-26 2020-06-26 [facility] [id number] 2020-06-07 2020-06-07 [facility] [id number] 2020-05-18 2020-05-18 [facility] [id number] [facility] 2020-02-10 2020-02-10 Aiyana [facility] [place] - [id number] V illage 00:00:00 00:00:00 [facility] arcenio santizo PRINT SHOP ASSISTANT: Medical - Shelly barry [address] [email or web address] [facility], [address], [place] [address] , Ph. Results Test Description Test Time Test Comments Results Result Comments Source Toxicology screen, serum 2020-04-03 15:12:00 Test Item Value Reference Range Interpretation Comme nts DRUG TEST, see note The following c ompounds were detected: Caffeine GENERAL For a list of c ompounds and limits of detection go TOXICOLOGY, to:http://educa tion.[employer]/faq/KJO289 URINE,QUEST This test was d eveloped and its analytical (test code = performancechar acteristics have been determined by 3052) [employer] [place]. It hasnot been karl ared or approved by the U.S. Food and DrugAdministrat ion. This assay has been validated pursuantto the CLIA regulations and is used for clinicalpurpose s. ACETONE None Detected (QUEST) (test code = 1685890) METHANOL(QUEST None Detected ) (test code = 1666685) Isopropanol(Qu None Detected est) (test code = 3055) ETHANOL (test None Detected Volatile Limit of Detection: 5 code = 2968) mg/dL LINDA (test code Performing Lab = LINDA) 15 [facility], [address] [place] [address] [place] [address] Deniz Stewart MD, PhD [facility] [id number] 10:22:00 Test Item Value Reference Range Interpretation Comments Case Report (test code Surgical Pathology = 104) Report Case: [id number] Authorizing Provider: Arun Guzmán MD Collected: 03/27/2020 02:30 PM Ordering Location: [address] Received: 03/28/2020 09:01 AM Service Pathologist: Karsten Raya MD Specimen: Biopsy, Gastric, Random Bx ADDENDUM (test code = [id number] 3381) Ngm7goo3KieVTtaRKrCZsu oUZbgxAnzq78iAL5sN84GR 8nDQXkYyC1QPVldeY3Eeu6 KXIgICLkeJPhF252h9sdc8 sgzeNogPK0wQtrDHSkHNWq WMdaMXPwOrBbWW1lwJ7bb5 NpqC8tTp1zAGblzRajq9Zb E0QqpoRcBOEwi9AuLSLyz6 4nBgvoP9seGLChqZZvuuPy YXRpdmUuIFxwYXJ9 DIAGNOSIS (test code = n8ltnZGtMWOqa3stEUPmcH 3220) FuZzEwMzNcZnRuYmpcdWMx IHtccnRmMVxlcGljOTIwMF ousoRyOVVshLBmR2Hujhsl QOjsEB8sQJ4ssTcdvNVopK MhTMClCbPxi5kra457yRQm w0acMICTjrqamQp6bJfkK3 7mi0X3XaigF95uqCUgYLbk bGFpblxmczIwIFBBUlQgQS XYQO8EL15sH1HJITLPHxMI JA5WY0a1SRElmcHNR7WDEp WzR5hHW26XLhRKRAMSBzmK SVMuXHBhciBORUdBVElWRS PUN4SwQY4ZTPQIXF0EEELD LPBAKCrOB9ePOBCIVGUPBB MYSJSyRN0FGOxSWbVRTPLX SAWUWsTJBc0LYN7zcEXqGW pCMhFXVD0bF9AISnQJARHN TZkLSCTGNvKRKUrJN91DON XBPWTvFYLsDLEYOIZXG3HE ZWZPEX9NCn0WHCWHYaSQBS 0QSO7QCySqNIDwei19UCM7 RzYjl7D9JFP6QMTmWPUka7 lcZGVmbGFuZzEwMzNcZnRu PxaveWLsAYMpIoTpo4dnv9 83qPDzh5ptIPOdJuW1yDEz EPExdQFdZ826TNCaLSifp3 jzh3UjZAZmfNNtu4A0PWUI wyfxkGv0mJkbC38ou7N0Ou ghV3ltTRRhNBSyT8KdTZ8b QHNbMsa6PVI5HZB0MFDrFU BlB7RrPT9mXWAtsUWtPGk5 a3sasQgmRRSgNWL4s5bkRZ musfKuXN2dep0iiOm3w3hc czEgRGVmYXVsdCBQYXJhZ3 HbcBtmSw4wvAb9wYplKbqw UET5Kqu5ED6xqq92onj2hF joORDbjhntEoL6DNoaARLf iygkXMf8QXmbUZKseQP7XG DccQEfN4KjSWRdUY6sqoa2 WPM7RVbqVYDsAjY5KBQiuX LaTXYoaMkbLSmmk119ILV2 EmHkCD0zA8Bii2O1tG3snZ UvPAFdcXMzPwWwBYXuwl5h oGPcIWwqb8LjYXJ3rvW7gJ KdyITkZARcQrS7IHahWR6x yg42OWPxFFF0ml3ppXKabD xxycWtyJHnDSokX5LhOKCe m217MRQjW5HhXZDps2R4qr LuJhGtUVMykGF5joI8YNIt MO0tqruvs8ndCPxhUVnuOP VvasI9hnS7VQXsePGtE9Ui iC3iNIMoSL1hwasod6btSL D7HRluHZVpSKH9UvTcSGAo z1Lrwgd5FbRag5UmdGHxZS ftY07tu249UXJgkwXpG3ba bGFpblxwbGFpblxmMFxmcz K4DNBsXXiorjdvZDOrFVxv B5nvMpCgCGYctCxlIQfhc9 NoXGYxXGZzMjJcdGFiXHRh Yew3OMGhmSSzQIByMiKvG8 crdkemYoOOUELki1esK4mz cSNFnZIpX4WpCFoqybVsYX xzDMmhTCNpUDN7OW05OHvv UMUuas25 CPT Code(s) (test code l8ropQOlPDQdhCS5YiJhHS = 3357) Jxe9nly0FmdIDqmLQaNCen cYJzkwJtnh59dNM0tE71FZ 3sKMQvRuH7HTUjngK7Kdo6 XDRkTZEwiVMiM024k1swk4 jqxoSygGZ7rUxeXXUkVKBb YWluXGZzMjAgODgzMDUsID d6WkPkZUR6CJF5QksgBNI1 CLINICAL HISTORY (test f1mabXQlUSMwgOJ0QwPbLX code = 3356) Spo5zya8PtjXRbgYStIYlz wWTewrTbrq22hLY0tO06FR 7uXJVfQrC9POIazvH8Bek4 HYJqQLHkrNIgP324o2dcy7 rnyxCadQQ1vSohUTXhTTOo AYoiCHPeHzHdD6YgoUXsqN 96NPQ6mI8fpGJcUA2pmoEy GYmbKIXqj81etKC2JRXos2 y3zZSnZKI6exf4nPOpxTJe fQ== SPECIMEN SOURCE (test h1aomKTsRZKfsJG1DiYsUZ code = 3377) Gsl2vbl5TriOCzkJVzXDox cNHitmLpdf75hFZ5fA61SD 4hGGAoSkE6OWIoexY3Lhp3 DGOjUBBwmPVzT338g5byd1 czuyJfhSK3iNmhSJSePMKh ACuwCHKjIqTkZ3HgfHDxJ0 xwYXJ9 GROSS DESCRIPTION (test e0nvsGIgKYIkvPDqZrSqSD code = 3366) PoWNRbq8rgAQIgdGEfYeGy MzNcZnRuYmpcdWMxXGRlZm Xvl3lfw426eNKrw2spQSWE ozdcyAy1n6pkPDIkWrB0yX DjWTuvH0dzseQjdVKzLAYo YIp1zV13ZADiqP1jtRVlYA lakoQeGwQ0SPxgJSFzRzN7 ETJhwDPiQEKeO1phVTHrMD uxDCWaZOlfmLBxYLV2jWmp t4C6oTScqUQqqGvrRsMaJk XrYXGJn9QyZCu3oNumR7Ik MYYuKdN0zGGrPYMxRZdgCC IaQDVxecO0nK81RPbvppD1 nGLlm6Yrl88ku336gG9neR XfUXT5TSKnACQqjQFoBKEz ZKX0GHCqaUJjO6b8JxMofJ HpM5U2McXqbWGtA6H3ClKc yHMzE3U3ZiXjpBQdHIUgcZ OhMr0chONazOJdwc6hlh19 SNT2k2AizIijRWG5HSX3Jt WjUl5tgTUtWCAqFUFmrFXt SFKfZW1lmBTcFKYonV1xqk xjXHBnYnJkcmhlYWRccGdi brDnPo1qoWokEGX6DYpoP2 tpcZ4rTnU6ZZctL6lgzP6d YLh9UPpdfIH0NAHosM0lSE 4mlhlfh5zbFrJfDL2gglsk g1paFfMoNL2zinf9r7wvVc XdUL2dowihm6nzZxXjPGyj ZJLlhofqMTXax1UzuqjwFL Wlf4VyP9ZyfWrxQ01isEjd O61fHCRfcMeagA8jcUglaB 5cZjBcZnMyNFxwYXJkXHBs YWluXGYxXGZzMjBcbGFuZz EwMzNcaGljaFxmMVxkYmNo GTSqDHosG3kjHrYiYhAcLY BBLiBSZWNlaXZlZCBpbiBm f8GtTRabuqCnNKUttLLkBI dpdGggdGhlIHBhdGllbnRc Y7L7owTaJN3eGKPzCLHzK7 NjDQNpR25zMFSmjS3yUMSf QW4kVQXlgV7pu3trRVwzn0 BknPLgHDEgHMNwr12xbTG0 ooUpDdVhzFw7gSQgZRP7LR 0lu12znDZ2rNHuzOJmSgZe D91rseXgSCXufewmxpkpKD 2ySTIxMYNwiJJdmAMmjII7 YEKrdO1pxD31owRqedNBYF 4rbLbbHKssiU2wOISbACac JWQlK0JcqW3yUU6MOmabWT PmOAIHV1KaO40quNYxsY== MICROSCOPIC DESCRIPTION w7imoUUxENUdiSD8EqPvLV (test code = 3371) Lil6jlk4CqcDTkgZLwSXbi eKKbihXylx08rGC7wB01TS 4yYITjGrE5XSKpkoV4Uax2 BWBcANLzfPTjJ762z3neb6 jlnzSsqKN1jRabRZOcLEWx EUjrDCAwHjKoZVEpWy6ggO VkLiBccGFyfQ== SPECIAL STUDIES (test j3jpwPPvFWOkfON6FhWzCM code = 3376) Pki7gvz9LnqPAaaVAtXWgd eOBeupUgsc43oXA5sM30MY 3pVEWhQvZ0ERTzjiK5Ndb8 XAAuCWMtuVZcI671EHLxPW PymEyohfa4gJ81EMLueE0y ePQnYMn2KFZrkbEvjKgyxB 4pFxHtXiQcYeGFzDJfnI00 OBNnxoU7ICLhf53zf6ZkpU qslfSvPKTcUBwfN1f1TVOt LOInLOG5o4Hap3QmgV7dcZ 6kyHouiS1cfCQxgKO6zkkf o4Kwo7XeW7ukxFPyaVAtew YdLKUemhMBEM6HVzEKPW8r E3VNMOwIBwXIUXADOvptcN YqZNRcteSmy9tpX8lcGZUy DCI2QE1ahiSgVjKlSL8puD 11a1Kty81kc55ybG7vyFOr xoFzO67rpLEziNTvh5SbOI NluuMmgXM4TDXbUCkkvylm j5f4aYK0eGHntVFurPF3zI VsyQIkHQXQbUNxEUIxt476 hs1wNAEksSXrntEcqB1pCZ vkydhxlFBlRS8nHMNqFPRd HCVkDU85mhMmOS3ahLDhg6 sjrpUsqUIvj7GsqNW1FUKn dNZnduntWh5qUY70FKSyXV frzI2izGTchhVtEC9iJG9j W3T1zCNvKNVhtwRex5ulGB waRP5dCNWdwLdwDwtxSOUb MXLssnAvaRP8PJVvmLOyDB EtvSHrIPxtkJMwa6ydx4Ft U4rbmRiflUJ0ZVEgM4disK AubRI1HYY5cS7aYItbdfGd MGAeu0OhILBrHFGaJvA6nG 2eDGK9FnLIiYinJBT5EvM2 GGqxCSWhCZ6iXTdyLKozA8 DsmQIaMPKNOQXlr7rzS3tk FDOho1XscI7zvBH2qWPoIU TjzCH7ENJaMLC0IDoumXRw KTVwELWjrVUmuWUnQw2ltQ EaP0LfW5cfxxWygRNmiGW9 yVUaJRhbzgPeBVP5ZAPvrE 2fNW4tBOOczCEuIB0wkOLi WZWlWQFcFPCeHXQmm3McPT Rucs67TKFdNceyoQywVNCw Ri1nRy3vVIBxybPnPQK9Sm KVYI6lflzzeJYabSfxyj1r IXopNZBXUMIcCACtRFZ0LN RbbH4dWTR4fKW2FLF1A4py H9hmPBJpeqNpIE5hRFXlyY XkypQrBBamMK3ccORvMLGt c0IkqxcrSXGiJWJ3GBJ7WE weTNZjKEAxZh6nCQOspJ5k Z8ZlWLK0jeTcd3EyRbIKxA YedI92dQJvxt12MDLxQOZe Q6MhDAXgJGLfYCorjcAeeS lmZAQqz06ijOMaqsIuj4Cz qkVhBPOkE4drSFEneVJheR Yme3QjoY0rzTNpiyJhGXP7 pPYfWKKndJ0rKGCyvAcrSM MbiR2uX0DxBUnvWx5wYUBb mgkdMY8cvi44XF6whwRhWN 5fpsZvAQ18bkLfWgWdHZm7 FUtRHZsGYQj4ZUHisfKtxR IduMMbAGRagD0bxCBxPt2r bSBoaWdoIGNvbXBsZXhpdH yhJ5fvnskdIJcxjXYmk1Ql zD3fxSC1AXX5cL3fExxmXC J9 Gross assessment was [facility] performed at ([facility], = 2777) Department of Pathology, [address] [place] [address], Technical component was [facility] performed at ([facility]ly [facility], = 2778) Department of Pathology, [address] [place] [address], Professional component [facility] was performed at ([facility], code = 2779) Department of Pathology, [address] [place] [address], [facility] [id number] 10:22:00Surgical Pathology Report Case: [id number] Authorizing Provider: Arun Guzmán MD Collected: 03/27/2020 02:30 PM Ordering Location: [address] Received: 03/28/2020 09:01 AM Service Pathologist: Karsten Raya MD Specimen: Biopsy, Gastric, Random Bx Immunostain for helicobacter performed on block A1 is negative. Addendum electronically signed by Karsten Raya MD on 04/02/2020 at 10:22 AMPART A RANDOM GASTRIC BIOPSY:ACTIVE CHRONIC GASTRITIS.NEGATIVE FOR INTESTINAL METAPLASIA, DYSPLASIA, OR INVASIVE CARCINOMA.WARTHIN STARRY STAIN FOR HELICOBACTER IS EQUIVOCAL, IMMUNOSTAIN PENDING. Signing Pathologist Direct Phone Line: [phone] signed by Karsten Raya MD on 03/28/2020 at 3:42 [id number], [id number], [id number] hemorrhage associated with gastritisGastricA. Received in formalin labeled with the patient's name, medical record number and "biopsy, gastric" and consists of multiple jacobo soft tissue fragments ranging 0.2-0.8 cm submitted in toto in A1.SY Ahumada [facility])cmPerformed. The interpretation of this case included the use of immunohistochemistry or special stains.BLOCK A1- WARTHIN STARRYControl SlidesExamined: In-house known positive controls were evaluated along with the test tissue. These control slides run alongside of the patients sample show appropriate staining. Internal positive and negative controls when available are evaluated Immunohistochemistry technical testing was performed at [facility], Pathology Laboratory where it was developed and [...] qualified to perform high complexity clinical laboratory testing.[facility], Department of Pathology,[address] [place] [id number], [facility], Departmentof Pathology, [address] [place] [id number], [facility], [facility], [address] [place] [address], Gptjh Culture - Routine (Right Venipuncture)2020-03-31 19:01:00 Test Item Value Reference Range Interpretation Comments Result (test code = No growth in 5 days 6463-4) [id number] 19:01:00 Test Item Value Reference Range Interpretation Comments CULTURE (BEAKER) (test No growth in 5 days code = 1095) BLOOD [id number] 19:01:00 Test Item Value Reference Range Interpretation Comments CULTURE (BEAKER) (test No growth in 5 days code = 1095) POC-Glucose [id number] 11:20:00 Test Item Value Reference Range Interpretation Comments POC-Glucose Meter (test 200 mg/dL 70-110 H : TE STED AT [facility] code = 1538) [facility] [facility]70 [facility]: Heel Seat Trimmer/Techni nigel ID = [id number] for VYQUEEN Lab Interpretation (test Abnormal code = 41139-3) [facility] [id number] 11:20:00 Test Item Value Reference Range Interpretation Comments POC-GLUCOSE METER 200 mg/dL 70-110 H : TESTED A T [facility] 6720 (BEAKER) (test code = [facility], 1538) [address]: Heel Seat Trimmer/Techni nigel ID = [id number] for JEFF LOYD CUMMINGS 2D Echo W/Doppler(CW/PW/Color)2020-03-28 08:40:39Ejection FractionSLEH ECHO HEARTLAB MKCKESSON CPACSInterface, External Ris In 03/28/2020 8:40 AM C STTransthoracic Echocardiography Report (TTE) Demographics Patient Name NAMAN FOWLER Date of Study 03/27/2020 CHIKIS Gender Female Visit Number [id number] Race Unknown Room Number 930 Number Date of 1940 Referring Physician Emperatriz Duke Age 79 year(s) Green Marketing Specialist Gabby Monaco [facility] Interpreting Delonte Garces MD Physician Procedure Type [...] mmHg, DOI 0.52). Mild aortic regurgitation. 5. Lmfd-hr-gytjyakq mitral regurgitation. 6. Estimated peak systolic PA [...] annular calcification. No evidence of mitral stenosis. Rmff-tw-puhwctoh mitral regurgitation. Tricuspid Valve Normal TV structure [...] TR Velocity: 2.73 m/s TR Gradient: 29.8 mmHgAnaheim [facility] Medical CenterPOCT-GLUCOSE METER 2020-03-28 07:50:00 Test Item Value Reference Range Interpretation Comments POC-GLUCOSE METER 143 mg/dL 70-110 H : TESTED A T [facility] [address] (BEAKER) (test code = [place], 1538) [address]: Heel Seat Trimmer/Techni nigel ID = [id number] for QUEEN CAMPOS Basic Metabolic [id number] 05:11:00 Test Item Value Reference Range Interpretation Comments Sodium (test code = 145 meq/L 500-009 6580-2) Potassium (test code = 3.9 meq/L 3.5-5.1 2823-3) Chloride (test code = 110 meq/L 98-107 H 2075-0) CO2 (test code = 26 meq/L 22-29 8-9) BUN (test code = 53 mg/dL 7-21 H 3094-0) Creatinine (test code 1.81 mg/dL 0.57-1.25 H = 2160-0) Glucose (test code = 140 mg/dL 70-105 H 2345-7) Calcium (test code = 8.0 mg/dL 8.4-10.2 L 41277-6) EGFR (test code = 27 mL/min/1.73 [place] [address]-5) NOT ACCURATE CREATININE CLEARANCE IN PREDICTING GLOMERULAR FILTRATION RATE . ESTIMATED GFR I S NOT APPLICABLE FOR DIALYSIS PATIENTS. LINDA (test code = LINDA) Heel Seat Trimmer ID - FUAD M Lab Interpretation Abnormal (test code = 10777-6) [facility] CenterBASI METABOLIC [id number] 05:11:00 Test Item Value Reference Range Interpretation Comments SODIUM (BEAKER) 145 meq/L 136-145 (test code = 381) POTASSIUM (BEAKER) 3.9 meq/L 3.5-5.1 (test code = 379) CHLORIDE (BEAKER) 110 meq/L 98-107 H (test code = 382) CO2 (BEAKER) (test 26 meq/L -29 code = 355) BLOOD UREA NITROGEN 53 [...] S NOT APPLICABLE FOR DIALYSIS PATIEN TS. Heel Seat Trimmer ID - FUAD CWggsehqbs8785-79-10 05:09:00 Test Item Value Reference Range Interpretation Comments Magnesium (test code = 2.5 mg/dL 1.6-2.6 19608-1) LINDA (test code = LINDA) Heel Seat Trimmer ID - FUAD M Lab Interpretation (test Normal code = 06557-3) [facility] CenterMAGNESIUM2020-12-23 05:09:00 Test Item Value Reference Range Interpretation Comments MAGNESIUM (BEAKER) (test code = 2.5 mg/dL 1.6-2.6 627) Heel Seat Trimmer ID - FUAD MCBC with platelet count + automated [id number] 04:37:00 Test Item Value Reference Range Interpretation Comments WBC (test code = 6690-2) 7.1 See_Comment [A utomated message] The system [employer] generated this result transmitted ref erence range: 3.5 - 10 .5 K/L. The refe rence range was not u sed to interpret this result as normal/abnor mal. RBC (test code = 789-8) 3.04 See_Comment L [Au tomated message] The system [employer] generated this result transmitted ref erence range: 3.93 - 5 .22 M/L. The refe rence range was not u sed to interpret this result as normal/abnor mal. MCHC (test code = 786-4) 31.8 See_Comment L [A utomated message] The system [employer] generated this result transmitted ref erence range: 32.2 - 3 5.5 GM/DL. The refe rence range was not u sed to interpret this result as normal/abnor mal. Hematocrit (test code = 26.7 % 34.1-44.9 L 4544-3) MCV (test code = 787-2) 87.8 fL 79.4-94.8 MCH (test code = 785-6) 28.0 pg 25.6-32.2 RDW (test code = 788-0) 15.5 % 11.7-14.4 H Platelets (test code = 140 See_Comment L [Aut omated message] 777-3) The system [employer] generated this result transmitted ref erence range: 150 - 45 0 K/CU MM. The referen ce range was not u sed to interpret this result as normal/abnor mal. MPV (test code = 10.1 fL 9.4-12.3 75520-0) nRBC (test code = 413) 0 See_Comment [Aut omated message] The system [employer] generated this result transmitted ref erence range: 0 - 0 /1 00 WBC. The refere nce range was not u sed to interpret this result as normal/abnor mal. % Neutros (test code = 69 % 429) % Lymphs (test code = 19 % 430) % Monos (test code = 7 % 431) % Eos (test code = 432) 4 % % Baso (test code = 437) 0 % # Neutros (test code = 4.89 See_Comment [Aut omated message] 670) The system [employer] generated this result transmitted ref erence range: 1.56 - 6 .13 K/L. The refe rence range was not u sed to interpret this result as normal/abnor mal. # Lymphs (test code = 1.35 See_Comment [Auto mated message] 414) The system [employer] generated this result transmitted ref erence range: 1.18 - 3 .74 K/L. The refe rence range was not u sed to interpret this result as normal/abnor mal. # Monos (test code = 0.50 See_Comment H [Autom ated message] 415) The system [employer] generated this result transmitted ref erence range: 0.24 - 0 .36 K/L. The refe rence range was not u sed to interpret this result as normal/abnor mal. # Eos (test code = 416) 0.26 See_Comment [Au tomated message] The system [employer] generated this result transmitted ref erence range: 0.04 - 0 .36 K/L. The refe rence range was not u sed to interpret this result as normal/abnor mal. # Baso (test code = 417) 0.01 See_Comment [A utomated message] The system [employer] generated this result transmitted ref erence range: 0.01 - 0 .08 K/L. The refe rence range was not u sed to interpret this result as normal/abnor mal. Immature 2 % 0-1 H Granulocytes-Relative (test code = 2801) Lab Interpretation (test Abnormal code = 88935-7) [facility] W/PLT COUNT & AUTO [id number] 04:37:00 Test Item Value Reference Range Interpretation [...] 2801) RAD, RIBS, UNILATERAL, MIN 2 VIEWS, [id number] 02:40:00Reason for exam:- >fall 1 month ago, right rib pain [facility] 1940 Sex: [...] and examination for focal tenderness. Signed: [facility] Verified Date/Time: 03/28/2020 02:40:40 XR ribs 2 views min unilateral [id number] 02:40:00Interface, External Ris In - 03/28/2020 8:17 [...] examination for focal tenderness. Signed: Dhaval Solomon Verified Date/Time: 03/28/2020 02:40:40 [facility] Center[facility] Leuko-Red RBC 2020-03-27 23:54:00 Test Item Value Reference Range Interpretation Comments CROSSMATCH (test code = 2264) COMPATIBLE Unit ABO (test code = A Pos 3231817) UNIT NUMBER (test code = [id number] 934-0) Status (test code = 8140608) [place]_TIMEINCHART Blood Bank Product (test code RED BLOOD CELLS = 2263) PRODUCT CODE (test code = H9965T07 933-2) [facility] CenterPOCT-GLUCOSE [id number] 21:16:00 Test Item Value Reference Range Interpretation Comments POC-GLUCOSE METER 127 mg/dL 70-110 H : [facility] (test code = [facility], 153) [address]: Heel Seat Trimmer/Techni nigel ID = [id number] for IRASEMA LUNA POCT-GLUCOSE [id number] 15:26:00 Test Item Value Reference Range Interpretation Comments POC-GLUCOSE METER 168 mg/dL 70-110 H : Notified RN/MD: ([facility]) (test code = TESTED AT [facility] 67[address] 1538) [facility], [address]: Heel Seat Trimmer/Techni nigel ID = [id number] for Luis Keenl POCT-GLUCOSE [id number] 14:16:00 Test Item Value Reference Range Interpretation Comments POC-GLUCOSE METER 156 mg/dL 70-110 H : [facility] ([facility]) (test code = [facility], 1538) [address]: Heel Seat Trimmer/Techni nigel ID = [id number] for JEFF LOYD, DREW POCT-GLUCOSE [id number] 12:08:00 Test Item Value Reference Range Interpretation Comments POC-GLUCOSE METER 193 mg/dL 70-110 H : [facility] ([facility]) (test code = [facility], 153) [address]: Heel Seat Trimmer/Techni nigel ID = [id number] for CINDY DURAN Hemoglobin [id number] 11:27:00 Test Item Value Reference Range Interpretation Comments Hemoglobin A1C (test code = 4548-4) 6.0 % 4.3-6.1 Lab Interpretation (test code = Normal 48785-3) [facility] CenterHEMOGLOBIN [id number] 11:27:00 Test Item Value Reference Range Interpretation Comments HEMOGLOBIN A1C (AKER) (test code = 6.0 % 4.3-6.1 368) Urinalysis w/Microscopic + Reflex to [id number] 11:20:00 Test Item Value Reference Range Interpretation Comments Color, UA (test code Light Yellow = 5778-6) Clarity, UA (test Clear code = 5767-9) Specific [place], UA 1.012 1.001-1.035 (test code = 5811-5) pH, UA (test code = 6.0 5.0-8.0 5803-2) Protein, UA (test 20 mg/dL Negative A code = 67211-9) Glucose, UA (test Negative Negative code = 365) Ketones, UA (test Negative Negative code = 2514-8) Bilirubin, UA (test Negative Negative code = 68626-8) Blood, UA (test code Moderate Negative A = 61948-4) Nitrite, UA (test Negative Negative code = 5802-4) Leukocytes, UA (test Negative Negative code = 5799-2) Urobilinogen, UA 0.2 mg/dL 0.2-1 (test code = 72317-4) RBC, UA (test code = 7 See_Comment [Autom ated 07834-6) message] The system which generated this result transmit carlos reference range : /HPF. The reference range was not used to interpret this result as normal/abnormal . WBC, UA (test code = 1 See_Comment [Autom ated 5821-4) message] The system which generated this result transmit carlos reference range : /HPF. The reference range was not used to interpret this result as normal/abnormal . Squam Epithel, UA 2 See_Comment [Automate d (test code = 99458-5) messag e] The system which generated this result transmit carlos reference range : /HPF. The reference range was not used to interpret this result as normal/abnormal . Specimen Source (test code = 2795) LINDA (test code = LINDA) Heel Seat Trimmer ID - [auto]Heel Seat Trimmer ID - tech Lab Interpretation Abnormal (test code = 13624-9) [facility] CenterURINALYSIS W/ REFLEX URINE [id number] 11:20:00 Test Item Value Reference Range Interpretation [...] = 516) SOURCE(BEAKER) (test code = 2795) Heel Seat Trimmer ID - [auto]Heel Seat Trimmer ID - techBASIC METABOLIC [id number] 09:26:00 Test Item Value Reference Range Interpretation [...] S NOT APPLICABLE FOR DIALYSIS PATIEN TS. Heel Seat Trimmer ID - ROSIANGCBC W/PLT COUNT & AUTO [id number] 08:41:00 Test Item Value Reference Range Interpretation [...] PERCENT (BEAKER) (test code = 2801) POCT-GLUCOSE [id number] 07:43:00 Test Item Value Reference Range Interpretation Comments POC-GLUCOSE METER 161 mg/dL 70-110 H : TESTED A T [facility] [address] (BEAKER) (test code = [place], 1538) [address]: Heel Seat Trimmer/Techni nigel ID = [id number] for CINDY DURAN Iron, TIBC, % sat. (without ferritin)2020-03-27 07:10:00 Test Item Value Reference Range Interpretation Comments Iron (test code = 2498-4) 34.0 ug/dL 40-160 L TIBC (test code = 2500-7) 275 ug/dL 250-450 Iron % Saturation (test 12 % 20-55 L code = 2502-3) LINDA (test code = LINDA) Heel Seat Trimmer ID - MARY ELLEN Laureano Lab Interpretation (test Abnormal code = 87415-4) [facility] CenterIRON, TIBC, % SAT. (WITHOUT FERRITIN)2020-03-27 07:10:00 Test Item Value Reference Range Interpretation Comments IRON (BEAKER) (test code = 547) 34.0 ug/dL 40.0-160.0 L TOTAL IRON BINDING CAPACITY 275 ug/dL 250-450 (BEAKER) (test code = 769) IRON % SATURATION (2) (BEAKER) 12 % 20-55 L (test code = 2590) Heel Seat Trimmer ID - MARY ELLEN [id number] 07:00:00 Test Item Value Reference Range Interpretation Comments Ferritin (test code = 45.51 ng/mL 5-275 2276-4) LINDA (test code = LINDA) Heel Seat Trimmer ID - MARY ELLEN W Lab Interpretation (test Normal code = 01442-3) [facility] CenterFERRITIN2020-12-22 07:00:00 Test Item Value Reference Range Interpretation Comments FERRITIN (BEAKER) (test code = 45.51 ng/mL 5.00-275.00 361) Heel Seat Trimmer ID - MARY ELLEN VERA/S, ABDOMINAL, [id number] 03:54:00Reason for exam:->evaluate for cirrhosis and [facility] : 1940 Sex: FFINAL [...] MDReport Verified Date/Time: 03/27/2020 03:54:43 US abdomen [id number] 03:54:00Interface, External Ris In - 03/27/2020 3:56 [...] Nonvisualization of the pancreas. Signed: Dhaval Solomon [facility] Verified Date/Time: 03/27/2020 03:54:43 [facility] CenterPOCT-GLUCOSE [id number] 22:56:00 Test Item Value Reference Range Interpretation Comments POC-GLUCOSE METER 156 mg/dL 70-110 H : TESTED A T [facility] [address] ([place]) (test code = [place] [facility], 1538) [address]: Heel Seat Trimmer/Techni nigel ID = [id number] for KE BE, SAUDATU POCT-GLUCOSE [id number] 21:26:00 Test Item Value Reference Range Interpretation Comments POC-GLUCOSE METER 31 mg/dL 70-110 LL : Notified RN/MD: TESTED ([place]) (test code = AT [facility] 67[address] [facility] 1538) [facility], [address]: Heel Seat Trimmer/Techni nigel ID = [id number] for MAYRA , SAUDATU RAD, CHEST, 2 [id number] 20:10:00Reason for exam:->RULE OUT PNEMUNIA [facility] : 1940 Sex: [...] [place] Verified Date/Time: 03/26/2020 20:10:08 Reading Location: [address] Neuro Reading Room XR chest 2 [id number] 20:10:00Interface, External Ris In - 03/26/2020 8:12 [...] [place] Verified Date/Time: 03/26/2020 20:10:08 Reading Location: [address] Neuro Reading [facility] (BNP[facility] 2020-03-26 19:21:00 Test Item Value Reference Range Interpretation Comments BNP (test code = 57820-2) 893 pg/mL 0-100 H Lab Interpretation (test code = Abnormal 20498-8) [facility] CenterB-TYPE NATRIURETIC FACTOR (BNP)2020-03-26 19:21:00 Test Item Value Reference Range Interpretation Comments B-TYPE NATRIURETIC PEPTIDE (BEAKER) 893 pg/mL 0-100 H (test code = 700) SARS-CoV2/RT-PCR (Asymptomatic ONLY)2020-03-26 17:47:00 Test Item Value Reference Range Interpretation Comments SARS-COV2/RT-PCR Negative Not Detected, (test code = Negative, See 85719-6) external report for linked test SARS-COV-2 [facility] (test code = 07071-6) LINDA (test code = Negative result for [...] of the Act. Fact Sheet for Healthcare Providers:https://www.[employer]/sites/default/f mariangel/product/documents/F act_Sheet_HC_Providers_L usa_TTQT-SrK-4.pdf Fact Sheet for Healthcare Patients:https://www.[employer]/sites/default/fi les/product/documents/Fa ct_Sheet_Patients_Lyra_S ARS-CoV-2.pdf Performing Laboratory:[facility] [place] [address] [facility] ServicesARS-COV2/RT-PCR ([facility])2020-03-26 17:47:00 Test Item Value Reference Range Interpretation Comments SARS-COV2/RT-PCR (test Negative Not Detected, Negative, code = 1542308) See external report for linked test SARS-COV-2 PERFORMING LAB [facility] (test code = 7450788) Negative result for this test determines that [...] 564(g) of the Act.Fact Sheet for Healthcare Providers:https://www.[employer]/sites/default/files/product/documents/Fact_Shekg a_MY_Spdqhtwrr_Dhgh_CITU-XuD-7.pdfFact Sheet for Healthcare Patients:https://www.[employer]/sites/default/files/product/ documents/Ndvc_Xgkbl_Ycxqersv_Wctq_GMGQ-SsW-1.pdfPerforming Laboratory:[facility], [place] [address]Tszqxiuasq, random [id number] 17:27:00 Test Item Value Reference Range Interpretation Comments Creatinine, Ur 44.6 mg/dL (test code = 2161-8) LINDA (test code = Reference Range: No LINDA) NormalsOperator ID - DB [facility] Servicesodium, random [id number] 17:27:00 Test Item Value Reference Range Interpretation Comments Sodium Urine (test 32 meq/L code = 2955-3) LINDA (test code = Reference Range: No LINDA) NormalsOperator ID - DB [facility] CenterCREATININE, RANDOM [id number] 17:27:00 Test Item Value Reference Range Interpretation Comments CREATININE URINE (BEAKER) (test 44.6 mg/dL code = 375) Reference Range: No NormalsOperator ID - DBSODIUM, RANDOM [id number] 17:27:00 Test Item Value Reference Range Interpretation Comments SODIUM URINE (BEAKER) (test code = 32 meq/L 243) Reference Range: No NormalsOperator ID - DBTSH/Free T4 If Ykirmoxxl3551 17:01:00 Test Item Value Reference Range Interpretation Comments TSH (test code = 1.248 See_Comment [Automated 96638-5) message] The system which generated this result transmit carlos reference range : 0.350 - 4.940 uIU/mL. The reference range was not used to interpret this result as normal/abnormal . LINDA (test code = LINDA) Heel Seat Trimmer ID - BS Lab Interpretation Normal (test code = 55173-6) [facility] CenterTSH/FREE T4 IF [id number] 17:01:00 Test Item Value Reference Range Interpretation Comments THYROID STIMULATING HORMONE 1.248 uIU/mL 0.350-4.940 (BEAKER) (test code = 772) Heel Seat Trimmer ID - BSPOCT-GLUCOSE [id number] 16:59:00 Test Item Value Reference Range Interpretation Comments POC-GLUCOSE METER 330 mg/dL 70-110 H : TESTED A T [facility] [address] (BEAKER) (test code = [place], 1538) [address]: Heel Seat Trimmer/Techni nigel ID = [id number] for CINDY DURAN BASIC METABOLIC [id number] 16:46:00 Test Item Value Reference Range Interpretation [...] S NOT APPLICABLE FOR DIALYSIS PATIEN TS. Heel Seat Trimmer ID - BSCreatine Kinase (CK)2020-03-26 16:42:00 Test Item Value Reference Range Interpretation Comments Total CK (test code = 51 U/L 29-200 7-6) LINDA (test code = LINDA) Heel Seat Trimmer ID - BS Lab Interpretation (test Normal code = 50082-4) [facility] CenterCREATINE KINASE (CK)2020-03-26 16:42:00 Test Item Value Reference Range Interpretation Comments CREATINE KINASE TOTAL (BEAKER) (test 51 U/L 29-200 code = 380) Heel Seat Trimmer ID - BSHemoglobin and dueggpcnuz6101-83-80 16:29:00 Test Item Value Reference Range Interpretation Comments Hemoglobin (test code 8.4 See_Comment L [Auto mated = 786-4) message] The system which generated this result transmit carlos reference range : 11.2 - 15.7 GM/ DL. The reference range was not u sed to interpret th is result as normal/abnormal . Hematocrit (test code 26.6 % 34.1-44.9 L = 4544-3) LINDA (test code = LINDA) Heel Seat Trimmer ID - [id number] Lab Interpretation Abnormal (test code = 79514-0) [facility] CenterHEMOGLOBIN AND [id number] 16:29:00 Test Item Value Reference Range Interpretation Comments HEMOGLOBIN (BEAKER) (test code = 8.4 GM/DL 11.2-15.7 L 410) HEMATOCRIT (BEAKER) (test code = 26.6 % 34.1-44.9 L 411) Heel Seat Trimmer ID - 0911Mkznieb8861-01-08 16:27:00 Test Item Value Reference Range Interpretation Comments Ammonia (test code = 51 See_Comment [Autom ated 99939-7) message] The system which generated this result transmit carlos reference range : 18 - 72 mol/L . The reference range was not u sed to interpret th is result as normal/abnormal . LINDA (test code = LINDA) Heel Seat Trimmer ID - BS Lab Interpretation Normal (test code = 50850-8) [facility] CenterONIA2020-12-21 16:27:00 Test Item Value Reference Range Interpretation Comments AMMONIA (BEAKER) (test code = 348) 51 mol/L 18-72 Heel Seat Trimmer ID - BSUrinalysis Microscopic [id number] 16:10:00 Test Item Value Reference Range Interpretation Comments RBC, UA (test 3 See_Comment [Automated me ssage] code = 15219-7) The [facility] result transmitted ref erence range: /HPF. Th e reference range was not used to int erpret this result as normal/abnormal . WBC, UA (test 3 See_Comment [Automated me ssage] code = 5821-4) The system wh [facility] generated this result transmitted ref erence range: /HPF. Th e reference range was not used to int erpret this result as normal/abnormal . Mucus (test Rare code = 8247-9) Squam Epithel, 2 See_Comment [Automated m essage] UA (test code = The system w [facility] 20638-7) generated this result transmitted ref erence range: /HPF. Th e reference range was not used to int erpret this result as normal/abnormal . LINDA (test code Heel Seat Trimmer ID - tech = LIDNA) [facility] CenterURINALYSIS [id number] 16:10:00 Test Item Value Reference Range Interpretation Comments RBC UA (BEAKER) (test code = 519) 3 /HPF WBC UA (BEAKER) (test code = 520) 3 /HPF MUCUS (BEAKER) (test code = 1574) Rare SQUAMOUS EPITHELIAL (BEAKER) (test 2 /HPF code = 516) Heel Seat Trimmer ID - techUrinalysis with Microscopic If Loesmabqz4596-01-66 16:09:00 Test Item Value Reference Range Interpretation Comments Color, UA (test code = Light Yellow 5778-6) Clarity, UA (test code = Clear 5767-9) Specific [place], UA (test 1.013 1.001-1.035 code = 5811-5) pH, UA (test code = 5.5 5.0-8.0 5803-2) Protein, UA (test code = 20 mg/dL Negative A 02871-9) Glucose, UA (test code = Negative Negative 365) Ketones, UA (test code = Negative Negative 2514-8) Bilirubin, UA (test code = Negative Negative 50907-1) Blood, UA (test code = Small Negative A 05038-5) Nitrite, UA (test code = Negative Negative 5802-4) Leukocytes, UA (test code Negative Negative = 5799-2) Urobilinogen, UA (test 0.2 mg/dL 0.2-1 code = 79629-6) Specimen Source (test code = 2795) LINDA (test code = LINDA) Heel Seat Trimmer ID - [auto] Lab Interpretation (test Abnormal code = 01669-3) [facility] CenterURINALYSIS WITH MICROSCOPIC IF [id number] 16:09:00 Test Item Value Reference Range Interpretation [...] = 463) SOURCE(BEAKER) (test code = 2795) Heel Seat Trimmer ID - [auto]ABORH, edjpvw2820-08-36 07:09:00 Test Item Value Reference Range Interpretation Comments ABO Grouping (test code = 2588) A Rh Factor (test code = 2589) POS [facility] CenterType and screen, [id number] 06:50:00 Test Item Value Reference Range Interpretation Comments ABO/RH AUTOMATED (BEAKER) (test A POSITIVE code = 2260) Ab Scrn (test code = 890-4) NEGATIVE [facility] CenterBASIC METABOLIC [id number] 06:11:00 Test Item Value Reference Range Interpretation [...] S NOT APPLICABLE FOR DIALYSIS PATIEN TS. Heel Seat Trimmer ID - FUAD epatic function [id number] 06:09:00 Test Item Value Reference Range Interpretation Comments Protein, Total (test 5.2 See_Comment L [Autom ated code = 2885-2) message] The system which generated this result transmit carlos reference range : 6.0 - 8.3 gm/dL . The reference range was not u sed to interpret th is result as normal/abnormal . Albumin (test code = 2.5 g/dL 3.5-5 L 12225-2) Total Bilirubin (test 0.8 mg/dL 0.2-1.2 code = 1975-2) Bilirubin, Direct 0.4 mg/dL 0.1-0.5 (test code = 1968-7) Alkaline Phosphatase 88 U/L 40-150 (test code = 6768-6) AST (test code = 21 U/L 5-34 1920-8) ALT (test code = 13 U/L 6-55 1742-6) LINDA (test code = LINDA) Heel Seat Trimmer BOB Campos Lab Interpretation Abnormal (test code = 59257-2) [facility] CenterUric [id number] 06:09:00 Test Item Value Reference Range Interpretation Comments Uric Acid (test code = 13.8 mg/dL 2.6-7.2 H 3084-1) LINDA (test code = LINDA) Heel Seat Trimmer ID - FUAD M Lab Interpretation (test Abnormal code = 83005-0) [facility] CenterMAGNESIUM2020-12-21 06:09:00 Test Item Value Reference Range Interpretation Comments MAGNESIUM (BEAKER) (test code = 2.9 mg/dL 1.6-2.6 H 627) Heel Seat Trimmer ID - FUAD MURIC [id number] 06:09:00 Test Item Value Reference Range Interpretation Comments URIC ACID (BEAKER) (test code = 13.8 mg/dL 2.6-7.2 H 773) Heel Seat Trimmer ID - FUAD MHEPATIC FUNCTION [id number] 06:09:00 Test Item Value Reference Range Interpretation [...] (test code = 13 U/L 6-55 347) Heel Seat Trimmer BOB MERIDA MProthrombin time/[id number] 06:06:00 Test Item Value Reference Interpretation Comments Range Protime (test code = 14.6 See_Comment H [Autom ated 5542-2) message] The system which generated this result transmitted reference range : 11.9 - 14.2 seconds. The reference range was not used to interpret this result as normal/abnormal . INR (test code = 1.17 See_Comment [Automated 3211-6) message] The system which generated this result transmitted reference range : <=5.90. The reference range was not used to interpret this result as normal/abnormal . LINDA (test code = Effective 09/01/2018: LINDA) PT Reference Range ChangeNew: 11.9-14.2 Previous: 11.7-14.7 RECOMMENDED COUMADIN/WARFARIN INR THERAPY RANGESSTANDARD DOSE: 2.0-3.0 Includes: PROPHYLAXIS for venous thrombosis, systemic embolization; TREATMENT for venous thrombosis and/or pulmonary embolus.HIGH RISK: Target INR is 2.5-3.5 for patients wiht mechanical heart valves. Lab Interpretation Abnormal (test code = 35358-8) [id number] 06:06:00 Test Item Value Reference Range Interpretation [...] mechanical heart valves.CBC W/PLT COUNT & AUTO [id number] 06:06:00 Test Item Value Reference Range Interpretation [...]
[2020-06-28 21:21] LABS: Absolute Lymphocytes (CBC) 0.7 K/uL (0.7-4.9); Basophils % 0.3 % (0-1.3); Hematocrit 30.7 % (36.0-45.0); Lymphocytes % 7.9 % (15.3-44.8); MPV 9.1 fL (7.6-11.3); RBC Red Blood Cell Count 3.63 M/uL (3.86-4.86)
[2020-06-28 21:25] LABS: Protime INR 1.03
[2020-06-28 21:40] LABS: ALT/SGPT 21 U/L (12-78); AST/SGOT 26 U/L (15-37); Alkaline Phosphatase 103 U/L (45-117); BUN Blood Urea Nitrogen 33 mg/dL (7-18); Bicarbonate 21 mmol/L (21-32); Bilirubin Direct 0.2 mg/dL (0-0.2); Bilirubin Total 0.4 mg/dL (0.2-1.0); Glucose Level 265 mg/dL (74-106); Magnesium 2.1 mg/dL (1.8-2.4); NT PRO-BNP 1483 pg/mL (<450); Potassium 4.1 mmol/L (3.5-5.1); Protein, Total 7.4 g/dL (6.4-8.2); Sodium Level 137 mmol/L (136-145); Troponin (Emerg Dept Use Only) < 0.02 ng/mL (0.0-0.045)
[2020-06-28] MEDS ORDERED: NA CHLORIDE 0.9% 1,000 ML ONE (21:40)
[2020-06-28] MEDS ORDERED: ACETAMINOPHEN 500 MG TAB ONE (21:57)
[2020-06-28 22:21] LABS: Blood Morphology Comment NOTED (NOT SEEN); Hypochromasia 1+; Platelet Estimate ADEQ; White Blood Cell Scan OK (OK)
[2020-06-28 22:40] LABS: Thyroid Stimulating Hormone 7.33 uIU/mL (0.360-3.740)
--- NOTE | 2020-06-28 23:03 | EDPHYS ---
Physician Documentation [facility] Name: Cristel Casas Age: 80 yrs Sex: Female : 1940 Arrival Date: 06/28/2020 Time: 20:46 Bed 2 Private MD: ED Physician Jaylyn Saenz HPI: 06/28 21:43 This 80 yrs old Female presents to ER via EMS with complaints of headche and ma2 AMS. 21:43 The patient presents with confusion. Onset: The symptoms/episode began/occurred ma2 gradually, 1 day(s) ago. Associated signs and symptoms: Pertinent negatives: ataxia, combativeness, diaphoresis, diarrhea. Current symptoms: In the emergency department the patient's symptoms have improved. The patient has experienced similar episodes in the past. Historical: - Allergies: 20:59 No Known Allergies; sg - PMHx: 20:59 Anemia; Cirrhosis; Diabetes - NIDDM; High Cholesterol; Hypertension; Hypothyroidism; sg - Immunization history:: Adult Immunizations up to date. - Social history:: Patient/guardian denies using alcohol, street drugs, The patient lives with family, with spouse, Smoking status: Patient reports the use of cigarette tobacco products. - Family history:: not pertinent. ROS: 21:43 Constitutional: Negative for fever, chills, and weight loss. ma2 21:43 Unable to obtain ROS due to altered mental status. Exam: 21:43 Constitutional: This is a well developed, well nourished patient who is awake, alert, ma2 and in no acute distress. Head/Face: Normocephalic, atraumatic. Eyes: Pupils equal round and reactive to light, extra-ocular motions intact. Lids and lashes normal. Conjunctiva and sclera are non-icteric and not injected. Cornea within normal limits. Periorbital areas with no swelling, redness, or edema. ENT: Nares patent. No nasal discharge, no septal abnormalities noted. Tympanic membranes are normal and external auditory canals are clear. Oropharynx with no redness, swelling, or masses, exudates, or evidence of obstruction, uvula midline. Mucous membranes moist. Neck: Trachea midline, no thyromegaly or masses palpated, and no cervical lymphadenopathy. Supple, full range of motion without nuchal rigidity, or vertebral point tenderness. No Meningismus. Chest/axilla: Normal chest wall appearance and motion. Nontender with no deformity. No lesions are appreciated. Cardiovascular: Regular rate and rhythm with a normal S1 and S2. No gallops, murmurs, or rubs. Normal PMI, no JVD. No pulse deficits. Respiratory: Lungs have equal breath sounds bilaterally, clear to auscultation and percussion. No rales, rhonchi or wheezes noted. No increased work of breathing, no retractions or nasal flaring. Abdomen/GI: Soft, non-tender, with normal bowel sounds. No distension or tympany. No guarding or rebound. No evidence of tenderness throughout. Skin: Warm, dry with normal turgor. Normal color with no rashes, no lesions, and no evidence of cellulitis. MS/ Extremity: Pulses equal, no cyanosis. Neurovascular intact. Full, normal range of motion. Neuro: Awake and alert, GCS 15, oriented to person, place, time, and situation. Cranial nerves II-XII grossly intact. Motor strength 5/5 in all extremities. Sensory grossly intact. Cerebellar exam normal. Normal gait. Vital Signs: 20:48 BP 138 / 85; Pulse 81; Resp 18; Temp 99.99; Pulse Ox 99% ; ea 21:30 BP 157 / 59; Pulse 75; Resp 18; Pulse Ox 97% ; sg MDM: 20:53 Patient medically screened. [facility] 21:43 Differential Diagnosis: electrolyte abnormality, alcohol intoxication, hypoglycemia, ma2 intracranial bleed, volume depletion. 23:01 Data reviewed: vital signs, nurses notes. Counseling: I had a detailed discussion with ma2 the patient and/or guardian regarding: the historical points, exam findings, and any diagnostic results supporting the discharge/admit diagnosis, the presence of at least one elevated blood pressure reading (>120/80) during this emergency department visit, the need for outpatient follow up. Response to treatment: the patient's symptoms have markedly improved after treatment. 06/28 20:56 Order name: FSBG - FOR PT WITH NO ID; Complete Time: 22:41 sg 06/28 21:02 Order name: Basic Metabolic Panel; Complete Time: 22:41 ea 06/28 21:02 Order name: CBC with Diff; Complete Time: 22:41 ea 06/28 21:02 Order name: LFT's; Complete Time: 22:41 ea 06/28 21:02 Order name: Magnesium; Complete Time: 22:41 06/28 21:02 Order name: NT PRO-BNP; Complete Time: 22:41 06/28 21:02 Order name: PT-INR; Complete Time: 22:41 06/28 21:02 Order name: Troponin (emerg Dept Use Only); Complete Time: 22:41 06/28 21:04 Order name: AMMONIA 06/28 21:05 Order name: Ammonia; Complete Time: 22:41 EDMS 06/28 21:20 Order name: TSH [facility] 06/28 21:20 Order name: T4 Free [facility] 06/28 21:20 Order name: Thyroid Stimulating Hormone; Complete Time: 22:41 EDMS 06/28 21:02 Order name: XRAY Chest (1 view) 06/28 21:02 Order name: EKG; Complete Time: 21:03 06/28 21:02 Order name: Cardiac monitoring; Complete Time: 21:03 06/28 21:02 Order name: EKG - Nurse/Tech; Complete Time: 21:03 06/28 21:02 Order name: IV Saline Lock; Complete Time: 21:03 06/28 21:02 Order name: Labs collected and sent; Complete Time: 21:03 06/28 21:02 Order name: O2 Per Protocol; Complete Time: 21:03 06/28 21:02 Order name: O2 Sat Monitoring; Complete Time: 21:03 06/28 21:20 Order name: CT Head Brain wo Cont [facility] 06/28 21:20 Order name: T4 Free; Complete Time: 22:41 EDMS 06/28 22:08 Order name: SARS-COV-2 RT PCR; Complete Time: 22:41 EDMS 06/28 22:21 Order name: CBC Smear Scan; Complete Time: 22:41 EDMS Administered Medications: 21:27 Drug: NS 0.9% 1000 ml Route: IV; Rate: 1 bolus; Site: left antecubital; 06/29 01:52 Follow up: Response: No adverse reaction; IV Status: Completed infusion; IV Intake: ea 1000ml Point of Care Testing: Blood Glucose: 06/28 20:49 Blood Glucose: 246 mg/dL; sg Ranges: Critical Glucose Levels:Adult <50 mg/dl or >400 mg/dl <40 mg/dl or >180 mg/dl Disposition: 06/28/20 23:02 Hospitalization ordered by Dimitris Ulrich for Observation. Preliminary diagnosis is Altered mental status, unspecified. - Bed requested for Telemetry/MedSurg (observation). - Status is Observation. ea - Condition is Stable. - Problem is new. - Symptoms are unchanged. Signatures: Dispatcher [employer] [facility] Radha Lopez RN Lul Luque RN RN sg Antunez, Elena, RN RN ea Alzahri, Mohammad, MD MD ma2 Corrections: (The following items were deleted from the chart) 21:24 21:03 CORONAVIRUS+MR.LAB.BRZ ordered. [facility] 06/29 00:57 06/28 23:02 Hospitalization Ordered by Dimitris Ulrich DO for Observation. Preliminary dw diagnosis is Altered mental status, unspecified. Bed requested for Telemetry/MedSurg (observation). Status is Observation. Condition is Stable. Problem is new. Symptoms are unchanged. ut2 06/29 01:52 00:57 06/28/2020 23:02 Hospitalization Ordered by Dimitris Ulrich DO for Observation. ea Preliminary diagnosis is Altered mental status, unspecified. Bed requested for Telemetry/MedSurg (observation). Status is Observation. Condition is Stable. Problem is new. Symptoms are unchanged. dw
--- NOTE | 2020-06-28 23:03 | ER ---
Nurse's Notes [facility] Name: Cristel Casas Age: 80 yrs Sex: Female : 1940 Arrival Date: 06/28/2020 Time: 20:46 Bed 2 Private MD: Diagnosis: Altered mental status, unspecified Presentation: 06/28 20:48 Chief complaint: EMS states: Toned out to pts home daughter reported recent blood ea pressure and thyroid med change, daughter reports pt started complaining of headache. Coronavirus screen: Client presents with at least one sign or symptom that may indicate coronavirus-19. Provider contacted for isolation considerations. Ebola Screen: No symptoms or risks identified at this time. Initial Sepsis Screen: Does the patient meet any 2 criteria? No. Patient's initial sepsis screen is negative. Does the patient have a suspected source of infection? No. Patient's initial sepsis screen is negative. Risk Assessment: Do you want to hurt yourself or someone else? Patient reports no desire to harm self or others. Onset of symptoms was June 28, 2020. 20:48 Method Of Arrival: EMS: [facility] ea 20:48 Acuity: HERIBERTO 3 ea Historical: - Allergies: 20:59 No Known Allergies; sg - PMHx: 20:59 Anemia; Cirrhosis; Diabetes - NIDDM; High Cholesterol; Hypertension; Hypothyroidism; sg - Immunization history:: Adult Immunizations up to date. - Social history:: Patient/guardian denies using alcohol, street drugs, The patient lives with family, with spouse, Smoking status: Patient reports the use of cigarette tobacco products. - Family history:: not pertinent. Screenin:50 Abuse screen: Denies threats or abuse. Nutritional screening: No deficits noted. ea Tuberculosis screening: No symptoms or risk factors identified. Fall Risk IV access (20 points). Assessment: 21:17 General: Appears in no apparent distress. Behavior is calm, cooperative, appropriate ea for age. Pain: Complains of pain in right leg and left leg. Neuro: Level of Consciousness is awake, alert, obeys commands, Oriented to person, place, time. Cardiovascular: Patient's skin is warm and dry. Respiratory: Airway is patent Respiratory effort is even, unlabored, Respiratory pattern is regular, symmetrical. Derm: Skin is pink, warm \T\ dry. 22:30 Reassessment: Patient and/or family updated on plan of care and expected duration. Pain ea level reassessed. Patient is alert, oriented x 3, equal unlabored respirations, skin warm/dry/pink. 23:43 Reassessment: Patient and/or family updated on plan of care and expected duration. Pain ea level reassessed. Pt resting with eyes closed, respirations even and unlabored, chest expansions even and symmetrical. Vital Signs: 20:48 BP 138 / 85; Pulse 81; Resp 18; Temp 99.99; Pulse Ox 99% ; ea 21:30 BP 157 / 59; Pulse 75; Resp 18; Pulse Ox 97% ; sg ED Course: 20:46 Patient arrived in ED. ea 20:50 Triage completed. ea 20:51 Patient has correct armband on for positive identification. Placed in gown. Bed in low ea position. Call light in reach. monitor technician on. Pulse ox on. NIBP on. 20:51 Arm band placed on right wrist. Patient placed in an exam room, on a stretcher, on ea environmental monitoring specialist, on pulse oximetry. 20:53 Jaylyn Saenz MD is Attending Physician. ma2 21:01 Candi Begum RN is Primary Nurse. ea 21:01 Maintain EMS IV. Dressing intact. Good blood return noted. Site clean \T\ dry. Gauge \T\ ea site: 20 LAC. 21:37 XRAY Chest (1 view) In Process Unspecified. EDMS 22:11 CT Head Brain wo Cont In Process Unspecified. EDMS 23:02 Dimitris Ulrich DO is Hospitalizing Provider. [facility] 06/29 01:19 No provider procedures requiring assistance completed. Patient admitted, IV remains in ea place. Administered Medications: 06/28 21:27 Drug: NS 0.9% 1000 ml Route: IV; Rate: 1 bolus; Site: left antecubital; ea 06/29 01:52 Follow up: Response: No adverse reaction; IV Status: Completed infusion; IV Intake: ea 1000ml Point of Care Testing: Blood Glucose: 06/28 20:49 Blood Glucose: 246 mg/dL; sg Ranges: Intake: 06/29 01:52 IV: 1000ml; Total: 1000ml. ea Outcome: 06/28 23:02 Decision to Hospitalize by Provider. [facility] 06/29 01:25 Admitted to Med/surg accompanied by tech, via stretcher, with chart, Report called to ea Receiving nurse Condition: stable Instructed on the need for admit, Demonstrated understanding of instructions. 01:52 Patient left the ED. ea Signatures: Dispatcher [employer] EDLul Corcoran, RN Candi Mcallister RN RN Jaylyn Kelly MD MD ma2
[2020-06-29] MEDS ORDERED: ACETAMINOPHEN 500 MG TAB PO PRN (02:12)
[2020-06-29] MEDS ORDERED: ONDANSETRON 4 MG/2 ML VIAL IV PRN (02:12)
--- NOTE | 2020-06-29 02:24 | P.HP ---
Certification for Inpatient Patient admitted to: Observation With expected LOS: <2 Midnights Patient will require the following post-hospital care: None Practitioner: I am a practitioner with admitting privileges, knowledge of patient current condition, hospital course, and medical plan of care. Services: Services provided to patient in accordance with Admission requirements found in Title 42 Section 412.3 of the Code of Federal Regulations Patient History Date of Service: 06/28/20 Primary Care Provider: Dr. Duke Reason for admission: AMS History of Present Illness: Ms. Casas is a 80 yo female with HTN, hypothyroidism, DM, and HLD here today with confusion, shaking, inability to walk. Per daughter, today she came home f [employer] work and gave her mom her medications then they went to eat at a restaurant. AT the restaurant she says her mom started shaking and became confused. She checked her blood sugar at home and it was 340. She said her BP was high and her mom had a headache and pain in her right calf, so she gave tylenol and levothyroxine, and BP improved. Then her mom said she was no longer able to walk so she called the ambulance. Thursday, she was told to stop giving the levothyroxine and start giving hydralazine 10 TID but daughter feels like the levothyroxine helps with BP. At bedside, Ms. Casas is now AOx3, with no leg pain, feels much improved. Denies chest pain, SOB, cough, nausea, vomiting, abdominal pain. She received a 1L bolus in the ER. Vitals are stable. CT head negative. CXR without findings. H/H 10.4/30.7, Plt 128, BUN 33, Cr 1.82, GFR 27, Glu 265, BNP 1483. Allergies No Known Drug Allergies Allergy (Verified 12/29/18 23:50) Unknown No Known Allergies Allergy (Uncoded 12/29/18 23:50) Unknown Home medications list reviewed: No Home Medications: Alendronate Sodium 70 mg PO EVERY 7TH DAY 05/05/20 Calcium Carbonate/Vitamin D3 [Calcium 500-Vit D3 400 Tablet] 1 each PO DAILY 05/05/20 Ferrous Sulfate [Ferrous Sulfate*] 325 mg PO BID 05/05/20 Nebivolol HCl [Bystolic] 1 tab PO DAILY 05/05/20 Omeprazole [Prilosec] 40 mg PO BID 05/05/20 hydroCHLOROthiazide [Hydrochlorothiazide] 25 mg PO DAILY 05/05/20 propylthiouraciL [Propylthiouracil] 1 tab PO BID 05/05/20 Amlodipine [Norvasc*] 2.5 mg PO DAILY #30 tab 05/06/20 Insulin Glargine Human [Lantus*] 10 units SQ DAILY ml 05/06/20 Levofloxacin [Levaquin] 500 mg PO DAILY #5 tablet 05/06/20 Potassium Chloride 10 meq PO DAILY #30 tab.er.prt 05/06/20 traMADol HCL [Ultram*] 50 mg PO TID PRN #10 tab 05/06/20 - Past Medical/Surgical History Diabetic: Yes -: HTN -: hypothyroid -: DM -: HLD -: appy -: cyst removed from ovaries - Family History Sister -: Heart disease, Hypertension, Diabetes - Social History Smoking Status: Former smoker Alcohol use: No CD- Drugs: No Caffeine use: Yes Place of Residence: Home Review of Systems General: Weakness, As per HPI Eyes: Unremarkable ENT: Unremarkable Respiratory: Unremarkable Cardiovascular: Unremarkable Gastrointestinal: Unremarkable Genitourinary: Unremarkable Musculoskeletal: Leg Pain, As per HPI Integumentary: Unremarkable Neurological: Confusion, As per HPI Lymphatics: Unremarkable Physical Examination - Vital Signs Temperature: 99.9 F Blood Pressure: 138/85 Pulse: 81 Respirations: 18 Pulse Ox (%): 99 - Physical Exam General: Alert, In no apparent distress, Oriented x3, Cooperative HEENT: Atraumatic, Normocephalic, PERRLA, Mucous membr. moist/pink, EOMI, Sclerae nonicteric Neck: Supple, 2+ carotid pulse no bruit, JVD not distended, No Thyromegaly, No LAD Respiratory: Clear to auscultation bilaterally, Normal air movement Cardiovascular: No edema, Normal pulses, Regular rate/rhythm, Normal S1 S2, No g allops, No rubs Capillary refill: <2 Seconds Gastrointestinal: Normal bowel sounds, Soft and benign, Non-distended, No ascites, No tenderness, No masses, No rebound, No guarding Musculoskeletal: No clubbing, No swelling, No contractures, No erythema, No tenderness, No warmth Integumentary: No rashes, No breakdown, No significant lesion, No tenderness/swelling, No erythema, No warmth, No cyanosis Neurological: Normal speech, Normal strength at 5/5 x4 extr, Normal tone, Se nsation intact, Cranial nerves 3-12 intact, Normal affect Lymphatics: No axilla or inguinal lymphadenopathy - Studies Laboratory Data (last 24 hrs) 06/28/20 21:00: PT 11.8, INR 1.03 06/28/20 21:00: WBC 9.20, Hgb 10.4 L, Hct 30.7 L, Plt Count 128 L 06/28/20 21:00: Sodium 137, Potassium 4.1, BUN 33 H, Creatinine 1.82 H, Glucose 265 H, Magnesium 2.1, Total Bilirubin 0.4, AST 26, ALT 21, Alkaline Phosphatase 103 Assessment and Plan - Problems (Diagnosis) (1) HLD (hyperlipidemia) Current Visit: Yes Status: Chronic Plan: stable, continue with home medications Qualifiers: Hyperlipidemia type: unspecified Qualified Code(s): E78.5 - Hyperlipidemia, unspecified (2) Hypothyroidism Current Visit: Yes Status: Chronic Plan: levothyroxine was discontinued by PCP this week. TSH 7.3, T4 0.77. Continue to monitor. Qualifiers: Hypothyroidism type: unspecified Qualified Code(s): E03.9 - Hypothyroidism, unspecified (3) Confusion Current Visit: Yes Status: Acute Plan: likely 2/2 hyperglycemia. patient improved after 1L bolus in the ER. vital sta ble. CT head negative. Now AOx3. Urinalysis is pending. (4) Anemia Onset Date: 02/12/16 Current Visit: No Status: Chronic Plan: chronic anemia Hgb 10.4, taking supplements, followed by PCP. no acute drop since last drawn a month ago. had recent GI bleed in March, was transferred to [place] at that time, Hgb was 5, discussed with daughter no bleeding source and Hgb is stable. Qualifiers: Anemia type: iron deficiency Iron deficiency anemia type: unspecified iron deficiency Qualified Code(s): D50.9 - Iron deficiency anemia, unspecified (5) Dehydration Onset Date: 03/05/17 Current Visit: No Status: Acute Plan: received 1L of fluid in the ER. Now on gentle maintenance fluids. Will recheck BMP in the AM. BUN of 33, Cr 1.82, GFR 27. BNP 1483. (6) Diabetes mellitus Onset Date: 03/05/17 Current Visit: No Status: Chronic Plan: accuchecks and sliding scale insulin. Qualifiers: Diabetes mellitus type: type 2 Diabetes mellitus terminal computer operator insulin use: without terminal computer operator use Diabetes mellitus complication status: with other specified complication Qualified Code(s): E11.69 - Type 2 diabetes mellitus with other specified complication (7) Hypertension Onset Date: 04/21/16 Current Visit: No Status: Acute Plan: stable, will reconcile and continue home medications Qualifiers: Hypertension type: essential hypertension Qualified Code(s): I10 - Essential (primary) hypertension Discharge Plan: Home Plan to discharge in: 24 Hours - Advance Directives Does patient have a Living Will: No Does patient have a Durable POA for Healthcare: No - Code Status/Comfort Care Code Status Assessed: Yes (full code) Critical Care: No Time Spent Managing Pts Care (In Minutes): 70
[2020-06-29 02:26] VITALS: BMI 23.6
[2020-06-29] MEDS ORDERED: NA CHLORIDE 0.9% 1,000 ML IV SCH (03:00)
[2020-06-29 03:57] LABS: Urine Appearance CLEAR; Urine Bilirubin NEGATIVE (NEG); Urine Blood 3+ (Negative); Urine Color YELLOW; Urine Glucose TRACE (Negative); Urine Protein 1+ (NEG); Urine Urobilinogen 0.2 mg/dL (0.2-1.0)
[2020-06-29 04:01] LABS: Urine Microscopic Reflex ORDER UMIC
[2020-06-29 04:20] LABS: Urine Bacteria >50 /HPF (<20); Urine Mucus 1+ /HPF (NONE SEEN); Urine RBC 20-50 /HPF (NONE SEEN)
[2020-06-29 06:20] LABS: Absolute Lymphocytes (CBC) 1.2 K/uL (0.7-4.9); Basophils % 0.1 % (0-1.3); Hematocrit 32.8 % (36.0-45.0); Lymphocytes % 8.3 % (15.3-44.8); MPV 8.8 fL (7.6-11.3); RBC Red Blood Cell Count 3.87 M/uL (3.86-4.86)
[2020-06-29 06:36] LABS: Albumin 3.1 g/dL (3.4-5.0); Bilirubin Total 0.5 mg/dL (0.2-1.0); Protein, Total 7.6 g/dL (6.4-8.2)
[2020-06-29] MEDS: INSULIN -REGULAR HUMAN 50 UNIT/0.5 ML ML SQ SCH ×4 (07:30→21:02)
[2020-06-29] MEDS ORDERED: ALBUTEROL 2.5 MG/3 ML NEB SOL NEB PRN (08:59)
[2020-06-29] MEDS ORDERED: IPRATROPIUM BROM 0.5MG/2.5ML NEB PRN (08:59)
[2020-06-29] MEDS: PROPYLTHIOURACIL 50 MG TAB PO SCH ×2 (09:00→21:02)
[2020-06-29] MEDS: NEBIVOLOL HCL 5 MG TAB PO SCH (09:00)
[2020-06-29] MEDS: FERROUS SULFATE 325 MG TAB PO SCH ×2 (09:00→21:00)
[2020-06-29] MEDS: POTASSIUM CL SA 10 MEQ TAB PO SCH (09:00)
[2020-06-29] MEDS ORDERED: HOME MED 1 EA UNK (Potassium Chloride [Potassium Chloride] 10 MEQ Tab.Er.Prt) PO SCH (09:00)
[2020-06-29] MEDS ORDERED: D50W 25 GM/50 ML SYRINGE IV PRN (09:00)
[2020-06-29] MEDS: CALCIUM CARB 500MG/VIT D 200 IU TAB PO SCH (09:00)
[2020-06-29] MEDS: AMLODIPINE 2.5 MG TAB PO SCH (09:00)
[2020-06-29] MEDS: hydroCHLOROthiazide 25 MG TAB PO SCH (09:00)
[2020-06-29] MEDS ORDERED: GLUCAGON 1 MG/VIAL IM PRN (09:00)
[2020-06-29] MEDS ORDERED: HOME MED 1 EA UNK (Omeprazole [Prilosec] 40 MG Capsule.Dr) PO SCH (09:00)
[2020-06-29] MEDS: PANTOPRAZOLE 40MG TABLET PO SCH ×2 (09:00→21:00)
--- NOTE | 2020-06-29 09:09 | RAD REPORT ---
EXAM DESCRIPTION: RAD - Chest Single View - 06/28/2020 9:37 pm CLINICAL HISTORY: CHEST PAIN Chest pain. COMPARISON: Chest Single View dated 04/01/2020; Chest Single View dated 03/25/2020; Chest Single Vie w dated 01/10/2020; Chest Single View dated 01/09/2020 FINDINGS: Portable technique limits examination quality. Mild interstitial pulmonary edema is seen. The heart is moderately enlarged in size. No displaced fra ctures. IMPRESSION: Mild CHF.
[2020-06-29] MEDS ORDERED: ALBUTEROL 2.5 MG/3 ML NEB SOL NEB ONE (09:41)
[2020-06-29] MEDS ORDERED: METHYLPREDNISOLONE 125 MG INJ IV ONE (09:41)
[2020-06-29] MEDS ORDERED: METOPROLOL TARTRATE 5 MG/5 ML INJ IV ONE (10:03)
[2020-06-29] MEDS ORDERED: HYDRALAZINE HCL 20 MG/ML VIAL ONE (10:03)
[2020-06-29] MEDS ORDERED: FUROSEMIDE 40 MG/4 ML VIAL ONE (10:15)
--- NOTE | 2020-06-29 10:18 | RAD REPORT ---
EXAM DESCRIPTION: RAD - Chest Single View - 06/29/2020 10:10 am CLINICAL HISTORY: dyspnea Chest pain. COMPARISON: Chest Single View dated 06/28/2020; Chest Single View dated 04/01/2020; Chest Single View dated 03/25/2020; Chest Single View dated 01/10/2020 FINDINGS: Portable technique limits examination quality. Moderate bilateral pulmonary opacities are seen which may represent pulmonary edema. Small pleural ef fusions suspected. The heart is moderately enlarged in size. No displaced fractures. IMPRESSION: Moderate CHF versus volume overload pattern.
--- NOTE | 2020-06-29 11:25 | P.PN ---
Date of Service: 06/29/20 Pt had an episode of flash pulm edema and resp distress this am. she also had brief hypertensive urgency episode. lasix x1 dose given with good relief. breathing treatment was also administered. we will continue lasix for diuresis and monitor her symptomatology.
[2020-06-29] MEDS: INSULIN GLARGINE 100 UNITS/ML SQ SCH (12:13)
--- NOTE | 2020-06-29 15:02 | EKG ---
Test Date: 2020-06-28 Test Time: 20:56:36 Youth Liaison Officer: ANITA MEASUREMENT RESULTS: Intervals: Rate: 78 TN: QRSD: 72 QT: 382 QTc: 435 [place]: P: TN: QRS: -27 T: -16 INTERPRETIVE STATEMENTS: Atrial fibrillation with a competing junctional pacemaker Cannot rule out Anterior infarct, age undetermined Abnormal ECG Compared to ECG 04/01/2020 03:06:20 Myocardial infarct finding now present Sinus rhythm no longer present Ventricular premature complex(es) no longer present T-wave abnormality no longer present Prolonged QT interval no longer present Electronically Signed On 06-29-20 15:01:50 CDT by Gavino Nichols
[2020-06-29] MEDS: FUROSEMIDE 40 MG/4 ML VIAL IV SCH (16:42)
--- NOTE | 2020-06-29 21:20 | RAD REPORT ---
EXAM DESCRIPTION: Head Brain Wo Cont CLINICAL HISTORY: 80-year-old female with confusion. COMPARISON: 04/01/2020. TECHNIQUE: CT brain without contrast. This exam was performed according to our departmental dose opt imization program which includes use of automated exposure control, adjustment of the mA and/or kV ac cording to patient size and/or use of iterative reconstruction technique. FINDINGS: Multifocal regions of patchy hypoattenuation are present in a subcortical and periventricu lar deep white matter distribution, nonspecific; however, most likely represent small vessel ischemic disease, age indeterminate. Cystic type gliosis and encephalomalacia involve the medial LEFT tempora l occipital lobe compatible with sequela of prior infarction. The ventricles, and sulci are enlarged compatible with underlying volume loss. The lea-white matte r differentiation is preserved. There is no mass effect, midline shift, intra- or extra-axial fluid collection/acute hemorrhage. The osseous structures are unremarkable. The paranasal sinuses and mastoid air cells are clear. IMPRESSION: 1. No acute intracranial abnormalities. Nonspecific white matter change most likely sm all vessel ischemic disease, age indeterminate. 2. CT is insensitive for early evaluation of acute stroke. If there is clinical concern for acute ischemia, an MRI may be considered. Electronically signed by: Daniela Hogue MD 06/28/2020 10:28 PM CDT Due to temporary technical issues with the PACS/Fluency reporting system, reports are being signed by the in house radiologists without review as a courtesy to insure prompt reporting. The interpreting radiologist is fully responsible for the content of the report.
[2020-06-30 05:48] LABS: Albumin 2.7 g/dL (3.4-5.0); Bilirubin Total 0.3 mg/dL (0.2-1.0); Potassium 3.6 mmol/L (3.5-5.1); Protein, Total 6.5 g/dL (6.4-8.2)
[2020-06-30 05:50] LABS: Absolute Lymphocytes (CBC) 0.7 K/uL (0.7-4.9); Basophils % 0.1 % (0-1.3); Hematocrit 27.6 % (36.0-45.0); Lymphocytes % 6.2 % (15.3-44.8)
[2020-06-30] MEDS: INSULIN -REGULAR HUMAN 50 UNIT/0.5 ML ML SQ SCH ×2 (07:30→11:30)
[2020-06-30] MEDS ORDERED: METHYLPREDNISOLONE 40 MG INJ IV SCH (09:00)
[2020-06-30] MEDS ORDERED: POTASSIUM 25 MEQ EFFERV TAB PO ONE (09:00)
[2020-06-30] MEDS ORDERED: METHYLPRED NA SUC 40 MG in NA CHLORIDE 0.9% 100 ML IV SCH (09:00)
[2020-06-30] MEDS: CALCIUM CARB 500MG/VIT D 200 IU TAB PO SCH (09:00)
[2020-06-30] MEDS: FUROSEMIDE 40 MG/4 ML VIAL IV SCH (09:10)
[2020-06-30] MEDS: POTASSIUM CL SA 10 MEQ TAB PO SCH (09:10)
[2020-06-30] MEDS: AMLODIPINE 2.5 MG TAB PO SCH (09:11)
[2020-06-30] MEDS: FERROUS SULFATE 325 MG TAB PO SCH (09:11)
[2020-06-30] MEDS: NEBIVOLOL HCL 5 MG TAB PO SCH (09:12)
[2020-06-30] MEDS: hydroCHLOROthiazide 25 MG TAB PO SCH (09:12)
[2020-06-30] MEDS: PROPYLTHIOURACIL 50 MG TAB PO SCH (09:12)
[2020-06-30] MEDS: PANTOPRAZOLE 40MG TABLET PO SCH (09:12)
--- NOTE | 2020-06-30 11:25 | P.DS ---
Admission Date: 06/29/20 Discharge Date: 06/30/20 Primary Care Provider: Dr. Duke Disposition: ROUTINE DISCHARGE Discharge Condition: FAIR Reason for Admission: AMS Brief History of Present Illness: History of Present Illness: Ms. Casas is a 80 yo female with HTN, hypothyroidism, DM, and HLD here today with confusion, shaking, inability to walk. Per daughter, today she came home from work and gave her mom her medications then they went to eat at a restaurant. AT the restaurant she says her mom started shaking and became confused. She checked her blood sugar at home and it was 340. She said her BP was high and her mom had a headache and pain in her right calf, so she gave tylenol and levothyroxine, and BP improved. Then her mom said she was no longer able to walk so she called the ambulance. Thursday, she was told to stop giving the levothyroxine and start giving hydralazine 10 TID but daughter feels like the levothyroxine helps with BP. At bedside, Ms. Casas is now AOx3, with no leg pain, feels much improved. Denies chest pain, SOB, cough, nausea, vomiting, abdominal pain. She received a 1L bolus in the ER. Vitals are stable. CT head negative. CXR without findings. H/H 10.4/30.7, Plt 128, BUN 33, Cr 1.82, GFR 27, Glu 265, BNP 1483. Hospital Course: Patient admitted with shortness of breath, confusion, hypertensive urgency as well as MAC uncontrolled glucose. Daughter states patient has recently was told to hold her dose of propylthiouracil for hyperthyrodiism 5 days ago by a new PCP after which patient was also started on hydralazine. She believed the hydralazine was causing patient's symptoms. On admission patient blood pressure when initially elevated but improved will restart of medications. Her tsh was mildly elevated at 7.7 but normal free T4 at 0.77. She was advied to reduced the dose to half ( 25 mg bid ) and follow with her PCP . She was noted with bilateral pleural effusions and CHF symptoms on chest x-ray. She was given IV Lasix with significantly improve her symptoms. She was weaned off O2. She will have add neb patient echocardiogram done. Her creatinine was elevated at 1.8 which has been chronic for her since 2016. Creatinine fluctuates from 1.6-1.8 during hospitalization able with diuretics. Patient volume status is improving. Her HCTZ was switched to Lasix p.o., she has been advised to do low-salt diet. She has also be referred to Nephrology as outpatient. Her blood pressure has significantly improved. She will continue and does of a insulin with slight adjustment to 12 units daily now . Vital Signs/Physical Exam: Temp Pulse Resp BP Pulse Ox 96.9 F 60 20 124/58 L 98 06/30/20 08:00 06/30/20 09:12 06/30/20 08:00 06/30/20 09:12 06/30/20 08:00 General: Alert, In no apparent distress, Oriented x3 HEENT: Atraumatic, Normocephalic, PERRLA Neck: Supple, 2+ carotid pulse no bruit, JVD not distended Respiratory: Crackles/rales (improving b/l ) Cardiovascular: Normal pulses, Regular rate/rhythm, Normal S1 S2 Gastrointestinal: Normal bowel sounds, Soft and benign, Non-distended Musculoskeletal: No clubbing, No swelling Integumentary: No rashes, No breakdown Neurological: Normal gait, Normal strength at 5/5 x4 extr, Cranial nerves 3-12 intact Laboratory Data at Discharge: WBC 11.10 K/uL (4.3-10.9) H D 06/30/20 05:11 Hgb 9.3 g/dL (12.0-15.0) L 06/30/20 05:11 Hct 27.6 % (36.0-45.0) L D 06/30/20 05:11 Plt Count 102 K/uL (152-406) L D 06/30/20 05:11 PT 11.8 SECONDS (9.5-12.5) 06/28/20 21:00 INR 1.03 06/28/20 21:00 Sodium 142 mmol/L (136-145) 06/30/20 05:11 Potassium 3.6 mmol/L (3.5-5.1) 06/30/20 05:11 BUN 43 mg/dL (7-18) H 06/30/20 05:11 Creatinine 1.73 mg/dL (0.55-1.3) H 06/30/20 05:11 Glucose 89 mg/dL (74-106) 06/30/20 05:11 Magnesium 2.1 mg/dL (1.8-2.4) 06/28/20 21:00 Total Bilirubin 0.3 mg/dL (0.2-1.0) 06/30/20 05:11 AST 20 U/L (15-37) 06/30/20 05:11 ALT 18 U/L (12-78) 06/30/20 05:11 Alkaline Phosphatase 74 U/L (45-117) 06/30/20 05:11 Home Medications: Alendronate Sodium 70 mg PO EVERY 7TH DAY 05/05/20 Calcium Carbonate/Vitamin D3 [Calcium 500-Vit D3 400 Tablet] 1 each PO DAILY 05/05/20 Ferrous Sulfate [Ferrous Sulfate*] 325 mg PO BID 05/05/20 Nebivolol HCl [Bystolic] 1 tab PO DAILY 05/05/20 Omeprazole [Prilosec] 40 mg PO BID 05/05/20 propylthiouraciL [Propylthiouracil] 1 tab PO BID 05/05/20 Insulin Glargine Human [Lantus*] 10 units SQ DAILY ml 05/06/20 Amlodipine [Norvasc*] 5 mg PO DAILY #30 tab 06/30/20 Furosemide [Lasix] 40 mg PO DAILY #30 tablet 06/30/20 Potassium Chloride 30 meq PO DAILY #90 tab.er.prt 06/30/20 New Medications: Furosemide [Lasix] 40 mg PO DAILY #30 tablet Amlodipine [Norvasc*] 5 mg PO DAILY #30 tab Potassium Chloride 30 meq PO DAILY #90 tab.er.prt Physician Discharge Instructions: -low salt diet Diet: ADA Activity: Ad jesus Followup: Marcos Barajas [ACTIVE - CAN ADMIT] - 2-3 Days Time spent managing pt's care (in minutes): 35
[2020-06-30 11:36] VITALS: O2SAT 94
[2020-06-30] MEDS: INSULIN GLARGINE 100 UNITS/ML SQ SCH (11:54)
[2020-06-30 13:54] VITALS: BP 135/63; TEMP 98
[2020-07-02] MEDS ORDERED: ALENDRONATE 70 MG TAB PO SCH (06:30)
== END 2020-06-30 12:34 | disposition home or self-care (01) ==
LOC: ER 20:41 → 2ND 06-29 01:29 → INTOOBSV 06-29 15:00 → OBSVTOIN 06-29 15:00
PROVIDERS: ADMIT Internal Medicine Nephrology; ATTEND Internal Medicine
DX: I16.0 Hypertensive urgency (principal); J81.0 Acute pulmonary edema; E86.0 Dehydration; R41.0 Disorientation, unspecified; E11.65 Type 2 diabetes mellitus with hyperglycemia; D50.9 Iron deficiency anemia, unspecified; E05.90 Thyrotoxicosis, unspecified without thyrotoxic crisis or storm; E03.9 Hypothyroidism, unspecified; E78.5 Hyperlipidemia, unspecified; K74.60 Unspecified cirrhosis of liver; E78.00 Pure hypercholesterolemia, unspecified; Z20.822 Contact with and (suspected) exposure to COVID-19; Z79.4 Long term (current) use of insulin; Z87.891 Personal history of nicotine dependence; Z83.3 Family history of diabetes mellitus; Z82.49 Family history of ischemic heart disease and other diseases of the circulatory system
CPT/HCPCS: 96361; 93005; 87088; 85025 ×3; 87086; 80048; 36415 ×2; 82140; 83735; 85610; 82947 ×9; 80076; 83605; 84443; 84484; 84439; 80053 ×2; 83880; 70450; 71045 ×2; 94640; 96360; 99285; U0003; J0360; J1940 ×3; J7030 ×2; J2930; J2920; G0378 ×3; 81003; 81015; J1815

== ENCOUNTER 2021-01-02 02:24 | Emergency (ER) | payer OTHER ==
[2021-01-02 02:56] LABS: Absolute Lymphocytes (CBC) 0.8 K/uL (0.7-4.9); Basophils % 0.5 % (0-1.3); Hematocrit 35.6 % (36.0-45.0); Lymphocytes % 8.1 % (15.3-44.8); MPV 8.6 fL (7.6-11.3); Protime INR 0.94; RBC Red Blood Cell Count 4.01 M/uL (3.86-4.86)
[2021-01-02 03:12] LABS: Albumin 3.1 g/dL (3.4-5.0); Bilirubin Direct 0.2 mg/dL (0-0.2); Bilirubin Total 0.5 mg/dL (0.2-1.0); Magnesium 2.3 mg/dL (1.8-2.4); Potassium 4.6 mmol/L (3.5-5.1); Protein, Total 7.6 g/dL (6.4-8.2); Troponin (Emerg Dept Use Only) 0.03 ng/mL (0.0-0.045)
[2021-01-02] MEDS ORDERED: ONDANSETRON 4 MG/2 ML VIAL ONE (03:59)
[2021-01-02] MEDS ORDERED: NA CHLORIDE 0.9% 500 ML ONE (03:59)
[2021-01-02] MEDS ORDERED: MORPHINE 2 MG/ML SYR ONE (03:59)
[2021-01-02 04:00] LABS: Arterial Blood Carboxyhemoglob 1.1 % (0-1.5); Blood Gas Oxyhemoglobin 91.3 % (94-97); Blood O2 Saturation 93.2 % (92-98.5)
[2021-01-02] MEDS ORDERED: HEPARIN 5000 UNIT/ML 1 ML VIAL ONE (04:37)
[2021-01-02] MEDS ORDERED: MORPHINE 4 MG/ML SYR ONE ×2 (04:37→07:08)
[2021-01-02] MEDS ORDERED: INSULIN -REGULAR HUMAN 50 UNIT/0.5 ML ML ONE (04:38)
[2021-01-02] MEDS ORDERED: HEPARIN/D5W 25,000 UNIT/500 ML BAG IV ONE (04:38)
--- NOTE | 2021-01-02 05:14 | ER ---
Nurse's Notes [facility] Name: Cristel Casas Age: 80 yrs Sex: Female : 1940 Arrival Date: 01/02/2021 Time: 02:26 Bed 5 Private MD: Diagnosis: Arterial occlusion, right lower extremity Presentation: 01/02 02:37 Chief complaint: Patient states: PT C/O SHARP [employer]STANT 8/10 PAIN TO RIGHT LEG X2 HOURS. cw2 PT STATES PAIN WOKE HER FROM SLEEP. Coronavirus screen: Client denies travel out of the [place] in the last 14 days. At this time, the client does not indicate any symptoms associated with coronavirus-19. Ebola Screen: Patient negative for fever greater than or equal to 101.5 degrees Fahrenheit, and additional compatible Ebola Virus Disease symptoms No symptoms or risks identified at this time. Initial Sepsis Screen: Does the patient meet any 2 criteria? No. Patient's initial sepsis screen is negative. Initial Sepsis Screen: Does the patient have a suspected source of infection? No. Patient's initial sepsis screen is negative. Risk Assessment: Do you want to hurt yourself or someone else? Patient reports no desire to harm self or others. Onset of symptoms was January 02, 2021. 02:37 Method Of Arrival: EMS: [facility] cw2 02:37 Acuity: HERIBERTO 3 cw2 Triage Assessment: 02:41 General: Appears uncomfortable, Behavior is calm, cooperative. Pain: Complains of pain cw2 in right leg Pain does not radiate. Pain currently is 8 out of 10 on a pain scale. Quality of pain is described as sharp, Pain began 2 hours ago. Is continuous. EENT: No deficits noted. Neuro: No deficits noted. Cardiovascular: No deficits noted. Respiratory: No deficits noted. GI: No deficits noted. Historical: - Allergies: 02:39 No Known Allergies; cw2 - Immunization history:: Client reports receiving the 2nd dose of the Covid vaccine, Date received: July 11, 2020. - Social history:: Smoking status: Patient denies any tobacco usage or history of. - Code Status:: Full code. Screenin:43 Abuse screen: Denies threats or abuse. Nutritional screening: No deficits noted. cw2 Tuberculosis screening: No symptoms or risk factors identified. Fall Risk IV access (20 points). Assessment: 02:43 Reassessment: Patient appears in no apparent distress at this time. No changes from cw2 previously documented assessment. General: Appears distressed, Behavior is calm, cooperative. Pain: Complains of pain in right leg Pain does not radiate. Pain currently is 8 out of 10 on a pain scale. Quality of pain is described as sharp, Pain began 2 hours ago. Neuro: No deficits noted. Cardiovascular: No deficits noted. Respiratory: No deficits noted. Vital Signs: 02:41 BP 176 / 89; Pulse 75; Resp 19; Temp 98.2; Pulse Ox 97% on R/A; Weight 72.57 kg; Height cw2 5 ft. 4 in. (162.56 cm); 04:27 BP 174 / 96; Pulse 79; Resp 15; Pulse Ox 99% on R/A; cw2 05:00 BP 162 / 72; Pulse 79; Resp 16; Pulse Ox 97% ; ea 06:33 BP 170 / 60; Pulse 82; Resp 16; Pulse Ox 96% ; ea 07:40 BP 169 / 60; Pulse 60; Resp 20; Pulse Ox 95% on R/A; Pain 0/10; ch5 09:27 BP 133 / 67; Pulse 66; Resp 18; Pulse Ox 95% on R/A; Pain 0/10; ch5 02:41 Body Mass Index 27.46 (72.57 kg, 162.56 cm) cw2 Vitals: 02:43 Cardiac Rhythm Assessment Regular. cw2 Nish Coma Score: 02:43 Eye Response: spontaneous(4). Verbal Response: oriented(5). Motor Response: obeys cw2 commands(6). Total: 15. ED Course: 02:26 Patient arrived in ED. cw2 02:27 Hua Pinedo, TRENA is Primary Nurse. cw2 02:28 Jesse Eddy MD is Attending Physician. 7 02:39 Triage completed. cw2 02:42 XRAY Chest (1 view) In Process Unspecified. EDMS 02:43 Arm band placed on left wrist. cw2 02:43 Patient has correct armband on for positive identification. Bed in low position. Side cw2 rails up X 1. Side rails up X2. Adult w/ patient. bus driver/monitor on. Pulse ox on. NIBP on. Door closed. Noise minimized. Moved to private room. 02:45 No provider procedures requiring assistance completed. Initial lab(s) drawn, by nc, cw2 sent to lab. Inserted saline lock: 20 gauge in right antecubital area, using aseptic technique. Blood collected. 02:58 Basic Metabolic Panel Sent. cw2 02:58 CBC with Automated Diff Sent. cw2 03:46 US LE Artery Uni Ltd In Process Unspecified. EDMS 03:46 US Extremity Venous Unilateral Ltd In Process Unspecified. EDMS 03:47 Lactate Sent. cw2 03:47 Lactate Sent. cw2 03:47 Arterial Blood Gas Sent. cw2 03:47 Ketone, Serum Sent. cw2 03:47 Procalcitonin Sent. cw2 04:26 Inserted saline lock: 20 gauge in left hand, using aseptic technique. cw2 04:54 Initiated transfer at [facility] with Joselin. Stated she would work on the request and call tt3 back. Information passed on to Dr. Eddy. 05:18 Joselin with [facility] called back with their vascular surgeon Dr. Pina to speak with Dr. alexandria Eddy regarding the transfer request. 05:24 Initiated transfer at [facility] with Lelo Gtz. Stated she would do a capacity check and tt3 call back. 05:34 Lelo Ulisses called back and stated they are at capacity at all campuses. tt3 05:35 Initiated transfer at [facility] with Ghazal Pinedo. Was informed they were at tt3 capacity so they would have to decline the transfer request. 05:38 Initiated transfer at [facility] with Maggy Harvey. Stated she would work on the tt3 request and call back. 05:51 Maggy Harvey called back from [facility] and stated they are currently at capacity tt3 but per their Air Vice Marshal, we could try back after shift change and they may have a bed available. Information passed on to Dr. Eddy. 06:34 Patient transferred, IV remains in place. ea 07:17 Attending Physician role handed off by Jesse Eddy MD kdr 07:17 Sloan Preciado MD is Attending Physician. kdr 07:33 re initiated transfer to [facility],spoke with Elías. bd 10:14 Basic Metabolic Panel Sent. mh5 10:14 CBC with Diff Sent. mh5 Administered Medications: 03:46 Drug: morphine 2 mg Route: IVP; Site: right antecubital; cw2 03:46 Drug: Zofran (Ondansetron) 4 mg Route: IVP; Site: right antecubital; cw2 03:46 Drug: NS 0.9% 500 ml Route: IV; Rate: bolus; Site: right antecubital; cw2 11:23 Follow up: IV Status: Completed infusion ap3 04:19 Drug: Heparin (DVT/PE Drip) 18 units/kg/hr - (HEParin 81816 units, D5W 500 ml) bb {Co-Signature: heath (Candi Begum RN).} Route: IV; Rate: per protocol; Site: right antecubital; 11:23 Follow up: IV Status: Infusion continued upon transfer ap3 04:19 Drug: morphine 4 mg Route: IVP; Site: right antecubital; bb 07:39 Follow up: Response: Pain is decreased ch5 04:20 Drug: Insulin Regular Human 10 units {Co-Signature: heath (Candi Begum RN).} Route: IVP; bb Site: right antecubital; 07:40 Follow up: Response: No adverse reaction ch5 04:20 Drug: Heparin (MS-Bolus No thrombolytic) - HEParin 60 units/kg {Co-Signature: heath (Candi Begum RN).} Route: IVP; Site: right antecubital; 06:42 Drug: morphine 4 mg Route: IVP; Site: left hand; cw2 07:39 Follow up: Response: Pain is decreased ch5 Outcome: 04:28 Condition: good cw2 05:14 ER care complete, transfer ordered by . [facility] 06:34 Instructed on the need for transfer, Demonstrated understanding of instructions. ea 11:22 Transferred by ground EMS to [facility]. ap3 11:22 Patient left the ED. ap3 Signatures: Dispatcher [employer] EDMS Roula Moe Kevin, MD MD kdr Ballard, Brenda, RN RN Cristel Davison Candi Viramontes RN RN ea Prokisch, Amanda, RN RN ap3 Jesse Eddy MD MD [facility] Kyree Fajardo 3 Hua Domínguez RN RN 5 Hua Pinedo RN RN cw2 Candi Begum RN ea Corrections: (The following items were deleted from the chart) 02:41 02:39 PMHx: Diabetes - NIDDM; cw2 cw2 02:41 02:39 PMHx: Hypertension; cw2 cw2 02:41 02:39 PMHx: Hypothyroidism; cw2 cw2 02:41 02:39 PMHx: High Cholesterol; cw2 cw2 02: 02:39 PMHx: Anemia; cw2 cw2 02:41 02:39 PMHx: Cirrhosis; cw2 cw2 03:47 03:47 CORONAVIRUS+MR.LAB.BRZ drawn and sent. cw2 EDMS
--- NOTE | 2021-01-02 05:14 | EDPHYS ---
Physician Documentation [facility] Name: Cristel Casas Age: 80 yrs Sex: Female : 1940 Arrival Date: 01/02/2021 Time: 02:26 Bed 5 Private MD: ED Physician Sloan Preciado HPI: 01/02 02:30 This 80 yrs old Female presents to ER via EMS with complaints of Right Leg mh7 Pain. 02:30 The patient presents with pain, that is acute. mh7 02:30 The complaints affect the right leg. Context: The problem was sustained at home, mh7 resulted from an unknown cause, the patient can fully bear weight, Problem is a result from a previous injury: No. Onset: The symptoms/episode began/occurred today, at 12:00. Modifying factors: The symptoms are alleviated by nothing. the symptoms are aggravated by nothing. Associated signs and symptoms: Pertinent negatives calf tenderness, fever, nausea, numbness, rash, swelling, tingling, vomiting, warmth, weakness. Treatment prior to arrival includes: no previous treatment. Severity of symptoms: At their worst the symptoms were moderate, earlier today, in the emergency department the symptoms are unchanged. Historical: - Allergies: 02:39 No Known Allergies; cw2 - Immunization history:: Client reports receiving the 2nd dose of the Covid vaccine, Date received: July 11, 2020. - Social history:: Smoking status: Patient denies any tobacco usage or history of. - Code Status:: Full code. ROS: 02:30 Constitutional: Negative for fever, chills, and weight loss, Eyes: Negative for injury, mh7 pain, redness, and discharge, ENT: Negative for injury, pain, and discharge, Neck: Negative for injury, pain, and swelling, Cardiovascular: Negative for chest pain, palpitations, and edema, Respiratory: Negative for shortness of breath, cough, wheezing, and pleuritic chest pain, Abdomen/GI: Negative for abdominal pain, nausea, vomiting, diarrhea, and constipation, Back: Negative for injury and pain, : Negative for injury, bleeding, discharge, and swelling, Skin: Negative for injury, rash, and discoloration, Neuro: Negative for headache, weakness, numbness, tingling, and seizure, Psych: Negative for depression, anxiety, suicide ideation, homicidal ideation, and hallucinations, Allergy/Immunology: Negative for hives, rash, and allergies, Endocrine: Negative for neck swelling, polydipsia, polyuria, polyphagia, and marked weight changes, Hematologic/Lymphatic: Negative for swollen nodes, abnormal bleeding, and unusual bruising. Exam: 02:30 Constitutional: This is a well developed, well nourished patient who is awake, alert, mh7 and in no acute distress. Head/Face: Normocephalic, atraumatic. Eyes: Pupils equal round and reactive to light, extra-ocular motions intact. Lids and lashes normal. Conjunctiva and sclera are non-icteric and not injected. Cornea within normal limits. Periorbital areas with no swelling, redness, or edema. Neck: Trachea midline, no thyromegaly or masses palpated, and no cervical lymphadenopathy. Supple, full range of motion without nuchal rigidity, or vertebral point tenderness. No Meningismus. Chest/axilla: Normal chest wall appearance and motion. Nontender with no deformity. No lesions are appreciated. Cardiovascular: Regular rate and rhythm with a normal S1 and S2. No gallops, murmurs, or rubs. Normal PMI, no JVD. No pulse deficits. Respiratory: Lungs have equal breath sounds bilaterally, clear to auscultation and percussion. No rales, rhonchi or wheezes noted. No increased work of breathing, no retractions or nasal flaring. Abdomen/GI: Soft, non-tender, with normal bowel sounds. No distension or tympany. No guarding or rebound. No evidence of tenderness throughout. Back: No spinal tenderness. No costovertebral tenderness. Full range of motion. Skin: Warm, dry with normal turgor. Normal color with no rashes, no lesions, and no evidence of cellulitis. Neuro: Awake and alert, GCS 15, oriented to person, place, time, and situation. Cranial nerves II-XII grossly intact. Motor strength 5/5 in all extremities. Sensory grossly intact. Cerebellar exam normal. Normal gait. Psych: Awake, alert, with orientation to person, place and time. Behavior, mood, and affect are within normal limits. 02:30 Musculoskeletal/extremity: Extremities: noted in the Right lower leg: pain, tenderness, mh7 ROM: intact in all extremities, Pulses: are absent in the right posterior tibial artery and right dorsalis pedis artery, Perfusion: the patient is normally perfused throughout, Perfusion: the extremity is cool, noted to have sluggish capillary refill, Right lower extremity, Calf tenderness, is absent, Edema, is not appreciated, Tingling of extremity. Joints: All joints appear normal with full range of motion. Vital Signs: 02:41 BP 176 / 89; Pulse 75; Resp 19; Temp 98.2; Pulse Ox 97% on R/A; Weight 72.57 kg; Height cw2 5 ft. 4 in. (162.56 cm); 04:27 BP 174 / 96; Pulse 79; Resp 15; Pulse Ox 99% on R/A; cw2 05:00 BP 162 / 72; Pulse 79; Resp 16; Pulse Ox 97% ; ea 06:33 BP 170 / 60; Pulse 82; Resp 16; Pulse Ox 96% ; ea 07:40 BP 169 / 60; Pulse 60; Resp 20; Pulse Ox 95% on R/A; Pain 0/10; ch5 09:27 BP 133 / 67; Pulse 66; Resp 18; Pulse Ox 95% on R/A; Pain 0/10; ch5 02:41 Body Mass Index 27.46 (72.57 kg, 162.56 cm) cw2 [place] Coma Score: 02:43 Eye Response: spontaneous(4). Verbal Response: oriented(5). Motor Response: obeys cw2 commands(6). Total: 15. MDM: 05:12 Differential diagnosis: DVT, arterial occlusion, leg pain. Data reviewed: vital signs, [facility] nurses notes, EMS record, old medical records, lab test result(s), cardiac enzymes, CBC, electrolytes, EKG, radiologic studies, plain films, ultrasound. Data interpreted: Pulse oximetry: on room air is 99 %. Interpretation: normal. Counseling: I had a detailed discussion with the patient and/or guardian regarding: the historical points, exam findings, and any diagnostic results supporting the discharge/admit diagnosis, the presence of at least one elevated blood pressure reading (>120/80) during this emergency department visit, lab results, radiology results, the need to transfer to another facility, [facility] does not immediately have the required specialist. Response to treatment: the patient's symptoms have mildly improved after treatment. 05:14 Patient medically screened. [facility] 06:58 ED course: No acute distress, vital signs stable, no focal neurological deficits. [facility] Called multiple facilities and attempt to transfer patient to be evaluated and treated by vascular surgeon. All facilities in the [place] area are at capacity without any bed availability at this time. We will continue to try to transfer to facility that can provide vascular care.. 07:04 Transition of care: After a detail discussion of the patient's case, care is 7 transferred to Sloan Preciado MD. 08:06 ED course: Patient remained stable in the ED. She has not required any further pain kdr medication at this time. She continues on the heparin drip. 01/02 02:31 Order name: Basic Metabolic Panel [facility] 01/02 02:31 Order name: CBC with Diff [facility] 01/02 02:31 Order name: LFT's; Complete Time: 03:15 [facility] 01/02 02:31 Order name: Magnesium; Complete Time: 03:15 [facility] 01/02 02:31 Order name: NT PRO-BNP; Complete Time: 03:15 [facility] 01/02 02:31 Order name: PT-INR; Complete Time: 03:10 [facility] 01/02 02:31 Order name: Troponin (emerg Dept Use Only); Complete Time: 03:15 [facility] 01/02 02:31 Order name: Basic Metabolic Panel; Complete Time: 03:15 EDMS 01/02 02:31 Order name: CBC with Automated Diff; Complete Time: 03:10 EDMS 01/02 03:16 Order name: Lactate [facility] 01/02 03:16 Order name: Procalcitonin; Complete Time: 04:36 [facility] 01/02 03:16 Order name: Ketone, Serum; Complete Time: 04:03 [facility] 01/02 03:16 Order name: Arterial Blood Gas; Complete Time: 04:03 [facility] 01/02 02:31 Order name: XRAY Chest (1 view) [facility] 01/02 02:31 Order name: EKG; Complete Time: 02:32 [facility] 01/02 02:31 Order name: Cardiac monitoring; Complete Time: 07:21 [facility] 01/02 02:31 Order name: US LE Artery Uni Ltd [facility] 01/02 02:31 Order name: US Extremity Venous Unilateral Ltd [facility] 01/02 03:17 Order name: Lactate; Complete Time: 04:36 EDMS 01/02 05:35 Order name: SARS-COV-2 RT PCR; Complete Time: 05:36 EDSD 01/02 11:00 Order name: Glucose, Ancillary Testing [facility] 01/02 02:31 Order name: EKG - Nurse/Tech; Complete Time: 03:02 [facility] 01/02 02:31 Order name: IV Saline Lock; Complete Time: 07:21 [facility] 01/02 02:31 Order name: Labs collected and sent; Complete Time: 07:21 [facility] 01/02 02:31 Order name: O2 Per Protocol; Complete Time: 07:21 [facility] 01/02 02:31 Order name: O2 Sat Monitoring; Complete Time: 07:21 7 Administered Medications: 03:46 Drug: morphine 2 mg Route: IVP; Site: right antecubital; cw2 03:46 Drug: Zofran (Ondansetron) 4 mg Route: IVP; Site: right antecubital; cw2 03:46 Drug: NS 0.9% 500 ml Route: IV; Rate: bolus; Site: right antecubital; 2 11:23 Follow up: IV Status: Completed infusion ap3 04:19 Drug: Heparin (DVT/PE Drip) 18 units/kg/hr - (HEParin 49145 units, D5W 500 ml) bb {Co-Signature: heath (Candi Begum RN).} Route: IV; Rate: per protocol; Site: right antecubital; 11:23 Follow up: IV Status: Infusion continued upon transfer ap3 04:19 Drug: morphine 4 mg Route: IVP; Site: right antecubital; bb 07:39 Follow up: Response: Pain is decreased ch5 04:20 Drug: Insulin Regular Human 10 units {Co-Signature: heath (Candi Begum RN).} Route: IVP; bb Site: right antecubital; 07:40 Follow up: Response: No adverse reaction ch5 04:20 Drug: Heparin (MT-Bolus No thrombolytic) - HEParin 60 units/kg {Co-Signature: heath (Candi Begum RN).} Route: IVP; Site: right antecubital; 06:42 Drug: morphine 4 mg Route: IVP; Site: left hand; cw2 07:39 Follow up: Response: Pain is decreased ch5 Disposition Summary: 01/02/21 05:14 Transfer Ordered Transfer Location: Other Acute Care Facility mh7 Reason: Higher level of care mh7 Condition: Stable mh7 Problem: new mh7 Symptoms: have improved mh7 Accepting Physician: Dr. Ching(01/02/21 11:22) ap3 Diagnosis - Arterial occlusion, right lower extremity mh7 Forms: - Medication Reconciliation Form mh7 - SBAR form mh7 Signatures: Dispatcher [employer] EDMS lSoan Preciado MD MD kdr Patricia Bynum RN RN bb Israel Woo, BUSINESS SUPPORT PROFESSIONAL-C BUSINESS SUPPORT PROFESSIONAL-Cla1 Erinn Valderrama RN RN ap3 Jesse Eddy MD MD 7 Hua Pinedo RN RN cw2 Hua Domínguez RN 5 Candi Begum RN ea Corrections: (The following items were deleted from the chart) 02:41 02:39 PMHx: Diabetes - NIDDM; cw2 cw2 02:41 02:39 PMHx: Hypertension; cw2 cw2 02:41 02:39 PMHx: Hypothyroidism; cw2 cw2 02:41 02:39 PMHx: High Cholesterol; cw2 cw2 02:41 02:39 PMHx: Anemia; cw2 cw2 02:41 02:39 PMHx: Cirrhosis; cw2 cw2 03:47 02:34 CORONAVIRUS+MR.LAB.BRZ ordered. EDMS EDMS 08:35 05:14 Vascular mh7 kdr 11:22 08:35 Dr. Ching kdr ap3
[2021-01-02 11:30] VITALS: TEMP 98.2
[2021-01-02 11:35] VITALS: O2SAT 95
[2021-01-02 11:37] VITALS: BP 133/67
--- NOTE | 2021-01-02 13:36 | RAD REPORT ---
EXAM DESCRIPTION: US - Lower Extremity Artery Uni Ltd - 01/02/2021 6:47 am ADDENDUM #1 THIS REPORT CONTAINS FINDINGS THAT MAY BE CRITICAL TO PATIENT CARE: The findings were communicated via telephone conference with Dr. Eddy on 01/02/2021 4:50 AM CDT. The results were acknowledged and understood. Electronically signed by: Lv Campoverde MD 01/02/2021 7:59 AM CDT End of Addendum EXAM DESCRIPTION: Ultrasound Lower Extremity Arterial Doppler COMPARISON: None. CLINICAL HISTORY: [facility] [place] MA[facility] PAIN Lower Extremity Artery [facility] TECHNIQUE: Multiple grayscale, color, and spectral Doppler images of the right lower extremity arter ies. FINDINGS: Right: The common femoral artery demonstrates reduced velocity at 20.5 cm/s with monophasi c flow. There is no flow within the remaining arteries of the right lower extremity from the superfic ial femoral artery, popliteal artery, posterior tibial artery, and dorsalis pedis artery. Scattered a therosclerotic plaque is present. IMPRESSION: ION: Severe peripheral artery disease with no flow from the superficial femoral artery and below. Electronically signed by: Lv Campoverde MD 01/02/2021 4:36 AM CDT Due to temporary technical issues with the PACS/Fluency reporting system, reports are being signed by the in house radiologists without review as a courtesy to insure prompt reporting. The interpreting radiologist is fully responsible for the content of the report.
--- NOTE | 2021-01-02 13:39 | RAD REPORT ---
EXAM DESCRIPTION: US - Extremity Venous Uni Ltd - 01/02/2021 3:46 am CLINICAL HISTORY: PAIN TECHNIQUE: Real-time duplex ultrasound scan of the right lower extremity veins integrating B-mode tw o-dimensional vascular structure, Doppler spectral analysis, color flow Doppler imaging and compressi on. COMPARISON: No relevant prior studies available. FINDINGS: Deep veins: No abnormality noted. No DVT in the visualized common femoral, femoral, pr oximal deep femoral or popliteal veins. The veins demonstrate normal color flow, are normally compr essible, with normal phasic flow and/or augmentation response. Superficial veins: No abnormality noted. No thrombus in the visualized great saphenous vein. Soft tissues: No abnormality noted. IMPRESSION: No deep venous thrombosis of the right lower extremity. Electronically signed by: Roula Youngblood MD 01/02/2021 6:18 AM CDT Due to temporary technical issues with the PACS/Fluency reporting system, reports are being signed by the in house radiologists without review as a courtesy to insure prompt reporting. The interpreting radiologist is fully responsible for the content of the report.
--- NOTE | 2021-01-02 13:41 | RAD REPORT ---
EXAM DESCRIPTION: RAD - Chest Single View - 01/02/2021 2:42 am CLINICAL HISTORY: COUGH COMPARISON: 01/10/2020. TECHNIQUE: XR CHEST 1 VIEW 01/02/2021 2:31 AM CDT FINDINGS: The heart is enlarged. There is bibasilar airspace disease. There are bilateral pleural ef fusions. There is no pneumothorax. There are no acute osseous findings. IMPRESSION: Possible developing bibasilar pneumonia with pleural effusions. Electronically signed by: Vaibhav Petersen MD 01/02/2021 5:23 AM CDT Due to temporary technical issues with the PACS/Fluency reporting system, reports are being signed by the in house radiologists without review as a courtesy to insure prompt reporting. The interpreting radiologist is fully responsible for the content of the report.
--- NOTE | 2021-01-03 16:00 | EKG ---
Test Date: 2021-01-02 Test Time: 03:44:58 Network Systems Analyst: SMOOTH MEASUREMENT RESULTS: Intervals: Rate: 82 NV: QRSD: 82 QT: 408 QTc: 476 [place]: P: NV: QRS: -20 T: 46 INTERPRETIVE STATEMENTS: Accelerated Junctional rhythm Nonspecific ST and T wave abnormality Prolonged QT Abnormal ECG Compared to ECG 06/28/2020 20:56:36 Accelerated junctional rhythm now present ST (T wave) deviation now present Prolonged QT interval now present Atrial fibrillation no longer present Myocardial infarct finding no longer present Electronically Signed On 01-03-21 15:56:41 CDT by Gavino Nichols
== END 2021-01-02 11:22 ==
LOC: ER 02:24
DX: I70.90 Unspecified atherosclerosis (principal); Z20.822 Contact with and (suspected) exposure to COVID-19
CPT/HCPCS: 93005; 85025; 80048; 36415; 82010; 83735; 85610; 82947; 80076; 83605; 84484; 84145; 83880; 71045; 93926; 93971; 82805; 99285; U0003; J1644 ×2; J2270; J7040; J2405

== ENCOUNTER 2021-06-09 21:23 | Emergency (ER) | payer OTHER ==
--- OUTSIDE RECORDS SUMMARY | 2021-06-09 21:28 | XMS REPORT | Continuity of Care Document ---
:[address] [facility] [place], [place] t Address [address] [place] [address] Care Team Providers Name Role Phone System, Not In Primary Care Physician Unavailable Beth [facility] Attending Clinician Unavailable LISA RIVAS Attending Clinician Unavailable DIONI NOLAN Attending Clinician Unavailable Sudhir Amado MD Attending Clinician DAY Attending Clinician Unavailable GRAHAM Attending Clinician Unavailable Felicity CLINE Attending Clinician Unavailable MIREILLE Attending Clinician Unavailable Miller_S_AH Attending Clinician Unavailable Mayra-Mbayo_A_AH Attending Clinician Unavailable LISA RIVAS Admitting Clinician Unavailable JEAN PIERRE Admitting Clinician Unavailable Miller_S_AH Admitting Clinician Unavailable Mayra-Mbayo_A_AH Admitting Clinician Unavailable Payers Payer Name Policy Type Policy Number Effective Date Expiration Date Don renner [facility] [id number] 2020 00:00:00 [employer] MEDICARE [id number] 2020 ADV 00:00:00 MEDICAID OF [place] [id number] 2018 00:00:00 WELLCARE [id number] [facility] HMO-WELLCARE HUMANA CHOICE [id number] 2020 00:00:00 [place]ARE OF [place] - [id number] 2019 2020 [employer] 00:00:00 00:00:00 (MEDICARE REPLACEMENT/ADVAN TAGE - HMO) Problems Condition Condition Condition Status Onset Resolution Last Treating Co mments Source Name Details Category Date Date Treatment Clinician Date PAD PAD Disease Active 2020-04 [facility] (periphera (periphera 04-12 Co llege l artery l artery 00:00: of disease) disease) 00 Medici n (HCCode) (HCCode) e Diabetes Diabetes Problem Active 2019-04 [facility] ge mellitus Mellitus 04-11 Family 00:00: Practic 00 e Hypertensi Hypertensi Problem Active 2019-04 [facility] ve ve 04-11 Family disorder Disorder 00:00: Practi c 00 e Gastroesop Gastroesop Problem Active 2019-04 [facility] hageal hageal 04-11 Family reflux Reflux 00:00: Practic disease Disease 00 e Hypothyroi Hypothyroi Problem Active 2019-04 [facility] dism dism 04-11 Family 00:00: Practic 00 e Allergies, Adverse Reactions, Alerts Allergy Allergy Status Severity Reaction(s) Onset Inactive Treating Comm ents Source Name Type Date Date Clinician NO KNOWN Allergy Active [facility] NO KNOWN Drug Active [facility] ALLERGIE Class ity [facility] Social History Social Habit Start Date Stop Date Quantity Comments Source Tobacco use and 2021-02-04 2021-02-04 Smokeless tobacco [facility] exposure 00:00:00 00:00:00 non-user of Medicine Sex Ass[birth year] At [birth year] [facility] [employer] 00:00:00 00:00:00 of Medicine Smoking Status Start Date Stop Date Source Former [place]oker [place] Family P rachel Never smoked tobacco [facility] of Medicine Medications Ordered Filled Start Stop Current Ordering Indication Dosage Frequency Signature Comments Components Source Medication Medication Date Date Medication? Clinician (SIG) Name Name alendronate 2020-04 Yes 70mg Take 70 mg [facility] (FOSAMAX) 04-06 by mouth Colleg e 70 MG 11:49: every 7 of tablet 26 days. Medicin e albuterol 2020-04 Yes 1.25mg Take 1.25 [facility] (ACCUNEB) - mg by [place] 1.25 MG/3ML 11:49: nebulizati of nebulizer 26 on every 4 Medi aric solution hours as e needed for Wheezing. amlodipine 2020-04 Yes 2.5mg Take 2.5 [facility] (NORVASC) 04-06 mg by [place] 2.5 MG 11:49: mouth of tablet 26 daily. Medicin e potassium 2020-04 Yes 10meq Take 10 [facility] chloride - mEq by [place] (KDUR) 10 11:49: mouth two of MEQ tablet 26 times Medicin daily. e clopidogrel 2020-04 Yes 75mg Take 75 mg [facility] (PLAVIX) 75 04-06 by mouth Sammi ege MG Tablet 11:49: daily. of 26 Medicin e furosemide 2020-04 Yes 20mg Take 20 mg [facility] (LASIX) 20 04-06 by mouth Colle ge MG tablet 11:49: daily. of 26 Medicin e Tamsulosin 2020-04 Yes Take by Yancey dino HCl 0.4 MG 04-06 mouth College CAPS 11:49: daily. of 26 Medicin e Apixaban 2020-04 Yes Take by [facility] (ELIQUIS) 04-06 mouth [place] 2.5 MG TABS 11:49: daily. of 26 Medicin e ferrous 2020-04 Yes 325mg Take 325 [facility] sulfate 325 04-06 mg by [place] (65 Fe) MG 11:49: mouth of tablet 26 daily. Medicin e cephALEXin 2020-04 Yes 500mg Take 1 [facility] (KEFLEX) 04-06 capsule by Colle ge 500 MG 00:00: mouth two of capsule 00 times Medicin daily. e omeprazole Yes TAKE 1 [facility] (PRILOSEC) 3-18 CAPSULE BY Col lege 40 MG 00:00: MOUTH of capsule 00 TWICE A Medicin DAY e atorvastati atorvastati No 1 Q1D atorvastat Village [...] route. hydralazine hydralazine No 1 BID hydralazin [facility] 10 mg 10 mg e 10 mg Family tablet Take tablet Take tablet Practic 1 tablet 1 tablet Take 1 e twice a day twice a day tablet by oral by oral twice a route. route. day by oral route. hydrochloro hydrochloro No 1 Q1D hydrochlor [facility] thiazide 25 thiazide 25 othiazide Family mg tablet mg tablet 25 mg Prac tic Take 1 Take 1 tablet e tablet tablet Take 1 every day every day tablet by oral by oral every day route. route. by oral route. ibuprofen ibuprofen No 1capsul Q6H ibuprofen [facility] 200 mg 200 mg e(s) 200 mg Family capsule capsule capsule Practi c Take 1 Take 1 Take 1 e capsule capsule capsule every 6 every 6 every 6 hours by hours by hours by oral route. oral route. oral route. propylthiou propylthiou No 1 BID propylthio [facility] racil 50 mg racil 50 mg uracil 50 Family tablet Take tablet Take mg tablet Practic 1 tablet 1 tablet Take 1 e twice a day twice a day tablet by oral by oral twice a route. route. day by oral route. Immunizations Ordered Immunization Filled Immunization Date Status Commen ts Source Name Name influenza, influenza, 2020-01-05 Completed [facility] Family injectable, injectable, 00:00:00 Practice quadrivalent quadrivalent Vital Signs Vital Name Observation Time Observation Value Comments Source WEIGHT 2020-03-26 03:00:00 72.213 kg Systolic blood 2021-02-04 16:43:00 155 mm[Hg] [facility] of pressure Medicine Diastolic blood 2021-02-04 16:43:00 74 mm[Hg] [facility] pressure Medicine Heart rate 2021-02-04 16:43:00 72 /min [facility] ollege of Medicine Body height 2021-02-04 16:43:00 144.8 cm [facility] of Medicine Body weight 2021-02-04 16:43:00 58.06 kg [facility] BMI 2021-02-04 16:43:00 27.70 kg/m2 [facility] of Medicine WEIGHT 2021-01-06 04:00:00 63.504 kg WEIGHT 2021-01-02 14:00:00 56.246 kg HEIGHT 2021-01-02 14:00:00 149.9 cm WEIGHT 2021-01-06 04:00:00 63.504 kg WEIGHT 2021-01-02 14:00:00 56.246 kg HEIGHT 2021-01-02 14:00:00 149.9 cm WEIGHT 2020-03-26 03:00:00 72.213 kg BP Diastolic 2020-02-10 00:00:00 80 mm[Hg] [facility] Practice Height 2020-02-10 00:00:00 59 [in_i] [facility] BMI (Body Mass 2020-02-10 00:00:00 31.9 kg/m2 [facility] Index) Practice BP Systolic 2020-02-10 00:00:00 140 mm[Hg] [facility] Body Weight 2020-02-10 00:00:00 158 [lb_av] [facility] Procedures This patient has no known procedures. Plan of Care Planned Activity Planned Date Details Comments Source Future Scheduled 2021-02-10 TETANUS SHOT [facility] ege Test 19:57:27 (ADULT) [code = of Medicine TETANUS SHOT (ADULT)] Future Scheduled 2021-02-10 BMI FOLLOW UP PLAN [facility] Test 19:57:27 [code = BMI FOLLOW of Medici ne UP PLAN] Future Scheduled 2021-02-10 Hepatitis C [facility] ege Test 19:57:27 screening of Medicine (procedure) [code = 516477915] Future Scheduled 2021-02-10 ZOSTER VACCINE (1 [facility] Test 19:57:27 of 2) [code = of Medicine ZOSTER VACCINE (1 of 2)] Future Scheduled 2021-02-10 BCM AMB [facility] Sammi [facility]ge Test 19:57:27 Pneumococcal 65+ of Medicine (testing) (1 of 1 - PPSV23) [code = BCM AMB Pneumococcal 65+ (testing) (1 of 1 - PPSV23)] Future Scheduled 2021-02-10 Screening for [facility] Test 19:57:27 osteoporosis of Medicine (procedure) [code = 508555977] Future Scheduled 2021-02-10 FLU VACCINE > 6 [facility] C [facility]lege Test 19:57:27 MONTHS [code = FLU of Medici ne VACCINE > 6 MONTHS] Future Scheduled 2021-02-10 MEDICARE IPPE [facility] Test 19:57:27 (WELCOME TO of Medicine MEDICARE) [code = MEDICARE IPPE (WELCOME TO MEDICARE)] Future Scheduled 2021-02-10 COVID-19 Vaccine (3 [facility] Test 19:57:27 - Booster for of Medicine Moderna series) [code = COVID-19 Vaccine (3 - Booster for Moderna series)] Future Scheduled 2021-02-10 FALL SCREEN [code = [facility] Test 19:57:27 FALL SCREEN] of Medicine Future Scheduled 2021-02-04 US ARTERIAL LEG 1 Occurrences [facility] Test 11:57:35 RIGHT [code = starting of Medicine 84652] 02/04/2021 until 02/04/2022 [facility] Family Practice Encounters Start End Encounter Admission Attending Care Care Encounter Source Date/Time Date/Time Type Type Clinicians Facility Department ID 2021-05-01 Outpatient [facility], [facility]17 [facility] 2021-05-01 [facility]patient [facility], [facility] 14:29:46 [facility] 2021-05-01 Outpatient [facility], [facility] 14:27:48 [facility] 2021[facility]05-01 Outpatient [facility], [facility] 14:22:36 [facility] 2021-05-01 [facility] 14:07:10 Rod [id number] [facility] 2021-05-01 Outpatient [facility], [facility] 14:06:31 Rod [id number] [facility] 2021-05-01 Outpatient [facility], [facility] 13[facility]59:50 Rod [id number] [facility] 2021-05-01 Outpatient [facility], [facility] 13:58:19 Rod [id number] [facility] 2021-05-01 Outpatient [facility], [facility] 13:41:58 Rod [id number] [facility] 2021-05-01 Outpatient [facility], [facility] 13:41:09 Rod [id number] [facility] 2021-05-01 Outpatient [facility], [facility] 13:20:57 Rod [id number] [facility] 2021-05-01 Outpatient [facility], [facility] 13:08:05 Rod [id number] [facility] 2021-05-01 Outpatient [facility], [facility] 12[facility]47:57 Rod [id number] [facility] 2021-05-01 Outpatient [facility], [facility] 12:31:33 Rod [id number] [facility] 2021-05-01 Outpatient [facility], [facility] 12:31:04 Rod [id number] [facility] 2020-03-26 Inpatient ER RIVAS, [facility] Med [id number] SLE 03:02:00 IVANIA 2021-06-07 2021-06-07 ambulatory [facility] [id number] [facility] 2021-06-03 2021-06-03 ambulatory [facility] [id number] [facility] 2021-06-03 2021-06-03 ambulatory [facility] [id number] [facility] 2021-05-29 2021-05-29 Outpatient EL AN, [facility] [id number] [facility] 10:25:24 10:25:24 JOSE E 2021-04-12 2021-04-12 ambulatory [facility] [id number] [facility] 2021-04-12 2021-04-12 ambulatory [facility] [id number] [facility] 2021-04-04 2021-04-04 ambulatory [facility] [id number] [facility] 2021-03-22 2021-03-22 ambulatory [facility] [id number] [facility] 2021-03-13 2021-03-13 ambulatory [facility] [id number] [facility] 2021-03-11 2021-03-11 ambulatory [facility] [id number] [facility] 2021-02-04 2021-02-04 Office RISA Amado [id number] [facility] 13:00:00 13:00:00 Visit Saud AMBULATOR [id number] College Sudhir Y [id number] Medi aric 825 e 2021-02-04 2021-02-04 Outpatient BCM BC [id number] [facility] 10:39:06 12:13:11 Colleg e of Medicin e 2021-01-24 2021-01-24 Outpatient [facility] [id number] [facility] 2021-01-16 2021-01-16 Outpatient [facility] [id number] [facility] 2021-01-15 2021-01-15 [facility] [id number] 00:00:00 00:00:00 ARTHUR 2021-01-10 2021-01-10 Outpatient [facility] [id number] [facility] 2021-01-02 2021-01-08 Inpatient ER CIVUNSHAYLANTA [facility] [id number] SLE 12:12:00 10:59:00 , SEEMA Shaji 2021-01-07 2021-01-07 Outpatient BCM [facility] [id number] [facility] 00:00:00 23:59:00 Colleg e of Medicin e 2020-11-29 2020-11-29 Outpatient [facility] [id number] [facility] 2020-11-29 2020-11-29 Outpatient [facility] [id number] [facility] 2020-11-28 2020-11-28 Outpatient [facility] [id number] [facility] 2020-11-26 2020-11-26 Outpatient [facility] [id number] [facility] 2020-11-23 2020-11-23 Outpatient [facility] [id number] [facility] 2020-11-19 2020-11-19 Outpatient [facility] [id number] [facility] 2020-11-18 2020-11-18 Outpatient Bria [facility] [id number] [facility] 15:40[facility]00 [facility]40[facility] 2020-11-13 2020-11-13 Outpatient [facility] [id number] [facility] 2020-10-16 2020-10-16 Outpatient [facility] [id number] [facility] 2020-10-16 2020-10-16 Outpatient [facility] [id number] [facility] 2020-09-26 2020-09-26 Outpatient Miller_S_AH VFP VFP [id number] [facility] 10:55:00 10:55:00 [id number] Family Practic e 2020-09-04 2020-09-04 Outpatient [facility] [id number] [facility] 2020-09-04 2020-09-04 Outpatient [facility] [id number] [facility] 2020-08-29 2020-08-29 Outpatient [facility] [id number] [facility] 2020-07-06 2020-07-06 Outpatient [facility] [id number] [facility] 2020-07-04 2020-07-04 Outpatient [facility] [id number] [facility] 2020-06-26 2020-06-26 Outpatient [facility] [id number] [facility] 2020-06-26 2020-06-26 Outpatient [facility] [id number] [facility] 2020-06-07 2020-06-07 [facility] [id number] 2020-05-18 2020-05-18 [facility] [id number] 2020-04-13 2020-04-13 Outpatient Mayra-Mbayo VFP VFP [address] [place] [address] 08:58:00 08:58:00 _A_AH [id number] Family Practic e 2020-02-22 2020-02-22 Outpatient Mayra-Mbayo VFP VFP [address] [place] [address] 12:39:00 12:39:00 _A_AH [id number] Family Practic e 2020-02-16 2020-02-16 Outpatient Mayra-Mbayo VFP VFP [address] [place] [address] 10:44:00 10:44:00 _A_AH [id number] Family Practic e 2020-02-10 2020-02-10 Aiyana VFP [place] - [id number] V illage 00:00:00 00:00:00 MayraJasvir [facility] Fam arcenio santizo [employer]ER: Medical - Practi c [address] [email or web address] [facility], [address] [address], [place] [address] , Ph. 2019-06-21 2019-06-21 Outpatient Mayra-Mbayo VFP VFP [address] [place] [address] 02:46:00 02:46:00 _A_AH [id number] Family Practic e 2019-06-21 2019-06-21 Outpatient Mayra-Mbayo VFP VFP [address] [place] [address] 02:46:00 02:46:00 _A_AH [id number] Family Practic e 2019-06-14 2019-06-14 Outpatient Reina [facility] [phone] [facility] 05:52:00 05:52:00 _A_ [id number] Family Practic e Results Test Description Test Time Test Comments Results Result Comments Source CARCINOEMBRYONIC ANTIGEN (CEA) 2021-05-29 18:00:57 Test Item Value Reference Range Interpretation Comme nts CARCINOEMBRYONIC ANTIGEN (BEAKER) (test code = 685) 7.2 ng/mL 0. 0-5.0 H Photolettering Machine Operator ID - BSALPHA FETOPROTEIN (AFP), TUMOR [id number] 18:00:57 Test Item Value Reference Range Interpretation Comments ALPHA-FETOPROTEIN (BEAKER) (test 159.0 ng/mL <10.0 H code = 1094) Photolettering Machine Operator ID - BSHEPATITIS B CORE ANTIBODY, [id number] 18:00:57 Test Item Value Reference Range Interpretation Comments HEPATITIS B CORE TOTAL ANTIBODY Nonreactive Nonreactive (BEAKER) (test code = 497) Photolettering Machine Operator ID - BSBASIC METABOLIC [id number] 16:50:49 Test Item Value Reference Range Interpretation Comments SODIUM (BEAKER) 139 meq/L 136-145 (test code = 381) POTASSIUM (BEAKER) 4.1 meq/L 3.5-5.1 (test code = 379) CHLORIDE (BEAKER) 109 meq/L 98-107 H (test code = 382) CO2 (BEAKER) (test 22 meq/L 22-29 code = 355) BLOOD UREA NITROGEN 40 mg/dL 7-21 H (BEAKER) (test code = 354) CREATININE (BEAKER) 2.14 mg/dL 0.57-1.25 H (test code = 358) GLUCOSE RANDOM 112 mg/dL 70-105 H (BEAKER) (test code = 652) CALCIUM (BEAKER) 9.4 mg/dL 8.4-10.2 (test code = 697) EGFR (BEAKER) (test 22 mL/min/1.73 ESTIMA CARLOS GFR IS code = 1092) sq m NOT ACCURATE CREATININE CLEARANCE IN PREDICTING GLOMERULAR FILTRATION RATE . ESTIMATED GFR I S NOT APPLICABLE FOR DIALYSIS PATIEN TS. Photolettering Machine Operator ID - BSHEPATIC FUNCTION [id number] 16:49:05 Test Item Value Reference Range Interpretation Comments TOTAL PROTEIN (BEAKER) (test code = 7.4 gm/dL 6.0-8.3 770) ALBUMIN (BEAKER) (test code = 1145) 3.4 g/dL 3.5-5.0 L BILIRUBIN TOTAL (BEAKER) (test code 0.4 mg/dL 0.2-1.2 = 377) BILIRUBIN DIRECT (BEAKER) (test 0.2 mg/dL 0.1-0.5 code = 706) ALKALINE PHOSPHATASE (BEAKER) (test 119 U/L 40-150 code = 346) AST (SGOT) (BEAKER) (test code = 26 U/L 5-34 353) ALT (SGPT) (BEAKER) (test code = 16 U/L 6-55 347) Photolettering Machine Operator ID - BSPROTHROMBIN [id number] 16:37:49 Test Item Value Reference Range Interpretation Comments PROTIME (BEAKER) 14.4 seconds 11.9-14.2 H (test code = 759) INR (BEAKER) (test 1.14 See_Comment [Automat ed message] code = 370) The system [employer] generated this result transmitted ref erence range: <=5.90. The reference range was not used to int erpret this result as normal/abnormal . RECOMMENDED COUMADIN/WARFARIN INR THERAPY RANGESSTANDARD DOSE: 2.0 - 3.0 Includes: PROPHYLAXIS forvenous thrombosis, systemic embolization; TREATMENT for venous thrombosis and/or pulmonary embolus.HIGH RISK: Target INR is 2.5-3.5 for patients with mechanical heart valves.CBC W/PLT COUNT & AUTO DIFFERENTIAL 2021-05-29 16:24:58 Test Item Value Reference Range Interpretation Comments WHITE BLOOD CELL COUNT (BEAKER) 5.5 K/ L 3.5-10.5 (test code = 775) RED BLOOD CELL COUNT (BEAKER) 3.79 M/ L 3.93-5.22 L (test code = 761) HEMOGLOBIN (BEAKER) (test code = 10.8 GM/DL 11.2-15.7 L 410) HEMATOCRIT (BEAKER) (test code = 33.8 % 34.1-44.9 L 411) MEAN CORPUSCULAR VOLUME (BEAKER) 89.2 fL 79.4-94.8 (test code = 753) MEAN CORPUSCULAR HEMOGLOBIN 28.5 pg 25.6-32.2 (BEAKER) (test code = 751) MEAN CORPUSCULAR HEMOGLOBIN CONC 32.0 GM/DL 32.2-35.5 L (BEAKER) (test code = 752) RED CELL DISTRIBUTION WIDTH 13.7 % 11.7-14.4 (BEAKER) (test code = 412) PLATELET COUNT (BEAKER) (test 126 K/CU MM 150-450 L code = 756) MEAN PLATELET VOLUME (BEAKER) 10.6 fL 9.4-12.3 (test code = 754) NUCLEATED RED BLOOD CELLS 0 /100 WBC 0-0 (BEAKER) (test code = 413) NEUTROPHILS RELATIVE PERCENT 66 % (BEAKER) (test code = 429) LYMPHOCYTES RELATIVE PERCENT 16 % (BEAKER) (test code = 430) MONOCYTES RELATIVE PERCENT 11 % (BEAKER) (test code = 431) EOSINOPHILS RELATIVE PERCENT 6 % (BEAKER) (test code = 432) BASOPHILS RELATIVE PERCENT 1 % (BEAKER) (test code = 437) NEUTROPHILS ABSOLUTE COUNT 3.67 K/ L 1.56-6.13 (BEAKER) (test code = 670) LYMPHOCYTES ABSOLUTE COUNT 0.86 K/ L 1.18-3.74 L (BEAKER) (test code = 414) MONOCYTES ABSOLUTE COUNT (BEAKER) 0.60 K/ L 0.24-0.36 H (test code = 415) EOSINOPHILS ABSOLUTE COUNT 0.33 K/ L 0.04-0.36 (BEAKER) (test code = 416) BASOPHILS ABSOLUTE COUNT (BEAKER) 0.05 K/ L 0.01-0.08 (test code = 417) IMMATURE GRANULOCYTES-RELATIVE 1 % 0-1 PERCENT (BEAKER) (test code = 2801) BASIC METABOLIC [id number] 04:22:23 Test Item Value Reference Range Interpretation Comments SODIUM (BEAKER) 139 meq/L 136-145 (test code = 381) POTASSIUM (BEAKER) 4.3 meq/L 3.5-5.1 (test code = 379) CHLORIDE (BEAKER) 112 meq/L 98-107 H (test code = 382) CO2 (BEAKER) (test 20 meq/L 22-29 L code = 355) BLOOD UREA NITROGEN 52 mg/dL 7-21 H (BEAKER) (test code = 354) CREATININE (BEAKER) 1.69 mg/dL 0.57-1.25 H (test code = 358) GLUCOSE RANDOM 109 mg/dL 70-105 H (BEAKER) (test code = 652) CALCIUM (BEAKER) 7.8 mg/dL 8.4-10.2 L (test code = 697) EGFR (BEAKER) (test 29 mL/min/1.73 ESTIMA CARLOS GFR IS code = 1092) sq m NOT ACCURATE CREATININE CLEARANCE IN PREDICTING GLOMERULAR FILTRATION RATE . ESTIMATED GFR I S NOT APPLICABLE FOR DIALYSIS PATIEN TS. Photolettering Machine Operator ID - JRLCBC W/PLT COUNT & AUTO [id number] 03:52:59 Test Item Value Reference Range Interpretation Comments WHITE BLOOD CELL COUNT (BEAKER) 9.8 K/ L 3.5-10.5 (test code = 775) RED BLOOD CELL COUNT (BEAKER) 3.65 M/ L 3.93-5.22 L (test code = 761) HEMOGLOBIN (BEAKER) (test code = 10.1 GM/DL 11.2-15.7 L 410) HEMATOCRIT (BEAKER) (test code = 31.9 % 34.1-44.9 L 411) MEAN CORPUSCULAR VOLUME (BEAKER) 87.4 fL 79.4-94.8 (test code = 753) MEAN CORPUSCULAR HEMOGLOBIN 27.7 pg 25.6-32.2 (BEAKER) (test code = 751) MEAN CORPUSCULAR HEMOGLOBIN CONC 31.7 GM/DL 32.2-35.5 L (BEAKER) (test code = 752) RED CELL DISTRIBUTION WIDTH 19.1 % 11.7-14.4 H (BEAKER) (test code = 412) PLATELET COUNT (BEAKER) (test code 90 K/CU MM 150-450 L = 756) MEAN PLATELET VOLUME (BEAKER) 10.4 fL 9.4-12.3 (test code = 754) NUCLEATED RED BLOOD CELLS (BEAKER) 0 /100 WBC 0-0 (test code = 413) NEUTROPHILS RELATIVE PERCENT 67 % (BEAKER) (test code = 429) LYMPHOCYTES RELATIVE PERCENT 17 % (BEAKER) (test code = 430) MONOCYTES RELATIVE PERCENT 10 % (BEAKER) (test code = 431) EOSINOPHILS RELATIVE PERCENT 2 % (BEAKER) (test code = 432) BASOPHILS RELATIVE PERCENT 1 % (BEAKER) (test code = 437) NEUTROPHILS ABSOLUTE COUNT 6.62 K/ L 1.56-6.13 H (BEAKER) (test code = 670) LYMPHOCYTES ABSOLUTE COUNT 1.62 K/ L 1.18-3.74 (BEAKER) (test code = 414) MONOCYTES ABSOLUTE COUNT (BEAKER) 0.95 K/ L 0.24-0.36 H (test code = 415) EOSINOPHILS ABSOLUTE COUNT 0.23 K/ L 0.04-0.36 (BEAKER) (test code = 416) BASOPHILS ABSOLUTE COUNT (BEAKER) 0.07 K/ L 0.01-0.08 (test code = 417) IMMATURE GRANULOCYTES-RELATIVE 4 % 0-1 H PERCENT (BEAKER) (test code = 2801) POCT-GLUCOSE [id number] 22:34:16 Test Item Value Reference Range Interpretation Comments POC-GLUCOSE METER 126 mg/dL 70-110 H : TESTED A T [facility] 6720 (BEAKER) (test code = [facility], 153) [address]: [employer] Operator/Techni nigel ID = [id number] for Ri vera (contract), Via nna POCT-GLUCOSE [id number] 18:17:28 Test Item Value Reference Range Interpretation Comments POC-GLUCOSE METER 199 mg/dL 70-110 H : TESTED A T [facility] 6720 (BEAKER) (test code = [facility], 1538) 15151: Photolettering Machine Operator/Techni nigel ID = [id number] for Rosalina Estes POCT-GLUCOSE [id number] 07:33:07 Test Item Value Reference Range Interpretation Comments POC-GLUCOSE METER 97 mg/dL 70-110 : TESTED A T [facility] 6720 (BEAKER) (test code = [facility], 1538) 83090: Photolettering Machine Operator/Techni nigel ID = [id number] for Rosalina Verduzco CBC W/PLT COUNT & AUTO [id number] 06:10:50 Test Item Value Reference Range Interpretation Comments WHITE BLOOD CELL COUNT (BEAKER) 12.3 K/ L 3.5-10.5 H (test code = 775) RED BLOOD CELL COUNT (BEAKER) 3.76 M/ L 3.93-5.22 L (test code = 761) HEMOGLOBIN (BEAKER) (test code = 10.3 GM/DL 11.2-15.7 L 410) HEMATOCRIT (BEAKER) (test code = 32.1 % 34.1-44.9 L 411) MEAN CORPUSCULAR VOLUME (BEAKER) 85.4 fL 79.4-94.8 (test code = 753) MEAN CORPUSCULAR HEMOGLOBIN 27.4 pg 25.6-32.2 (BEAKER) (test code = 751) MEAN CORPUSCULAR HEMOGLOBIN CONC 32.1 GM/DL 32.2-35.5 L (BEAKER) (test code = 752) RED CELL DISTRIBUTION WIDTH 18.4 % 11.7-14.4 H (BEAKER) (test code = 412) PLATELET COUNT (BEAKER) (test code 86 K/CU MM 150-450 L = 756) MEAN PLATELET VOLUME (BEAKER) 11.2 fL 9.4-12.3 (test code = 754) NUCLEATED RED BLOOD CELLS (BEAKER) 1 /100 WBC 0-0 H (test code = 413) NEUTROPHILS RELATIVE PERCENT 72 % (BEAKER) (test code = 429) LYMPHOCYTES RELATIVE PERCENT 14 % (BEAKER) (test code = 430) MONOCYTES RELATIVE PERCENT 9 % (BEAKER) (test code = 431) EOSINOPHILS RELATIVE PERCENT 1 % (BEAKER) (test code = 432) BASOPHILS RELATIVE PERCENT 1 % (BEAKER) (test code = 437) NEUTROPHILS ABSOLUTE COUNT 8.83 K/ L 1.56-6.13 H (BEAKER) (test code = 670) LYMPHOCYTES ABSOLUTE COUNT 1.75 K/ L 1.18-3.74 (BEAKER) (test code = 414) MONOCYTES ABSOLUTE COUNT (BEAKER) 1.05 K/ L 0.24-0.36 H (test code = 415) EOSINOPHILS ABSOLUTE COUNT 0.16 K/ L 0.04-0.36 (BEAKER) (test code = 416) BASOPHILS ABSOLUTE COUNT (BEAKER) 0.06 K/ L 0.01-0.08 (test code = 417) IMMATURE GRANULOCYTES-RELATIVE 4 % 0-1 H PERCENT (BEAKER) (test code = 2800) BASIC METABOLIC [id number] 06:10:09 Test Item Value Reference Range Interpretation Comments SODIUM (BEAKER) 140 meq/L 136-145 (test code = 381) POTASSIUM (BEAKER) 4.4 meq/L 3.5-5.1 Specimen slightly (test code = 379) hemolyzed CHLORIDE (BEAKER) 113 meq/L 98-107 H (test code = 382) CO2 (BEAKER) (test 18 meq/L 22-29 L code = 355) BLOOD UREA NITROGEN 61 mg/dL 7-21 H (BEAKER) (test code = 354) CREATININE (BEAKER) 2.01 mg/dL 0.57-1.25 H Specimen slightly (test code = 358) hemolyzed GLUCOSE RANDOM 106 mg/dL 70-105 H (BEAKER) (test code = 652) CALCIUM (BEAKER) 7.9 mg/dL 8.4-10.2 L (test code = 697) EGFR (BEAKER) (test 24 mL/min/1.73 ESTIMA CARLOS GFR IS code = 1092) sq m NOT ACCURATE CREATININE CLEARANCE IN PREDICTING GLOMERULAR FILTRATION RATE . ESTIMATED GFR I S NOT APPLICABLE FOR DIALYSIS PATIEN TS. Photolettering Machine Operator ID - MARY ELLEN WPOCT-GLUCOSE [id number] 20:24:17 Test Item Value Reference Range Interpretation Comments POC-GLUCOSE METER 158 mg/dL 70-110 H : TESTED A T [facility] 6720 (BEAKER) (test code = [facility], 1538) 21063: Photolettering Machine Operator/Techni nigel ID = [id number] for ME VALENCIA (V)NAMAN POCT-GLUCOSE [id number] 17:59:56 Test Item Value Reference Range Interpretation Comments POC-GLUCOSE METER 140 mg/dL 70-110 H : TESTED A T [facility] 6720 (BEAKER) (test code = [facility], 1538) 09005: Photolettering Machine Operator/Techni nigel ID = [id number] for Rosalina Estes CBC W/PLT COUNT & AUTO [id number] 15:22:18 Test Item Value Reference Range Interpretation Comments WHITE BLOOD CELL COUNT 14.6 K/ L 3.5-10.5 H (BEAKER) (test code = 775) RED BLOOD CELL COUNT 3.72 M/ L 3.93-5.22 L (BEAKER) (test code = 761) HEMOGLOBIN (BEAKER) 10.2 GM/DL 11.2-15.7 L Post blo od (test code = 410) transfusio n- 2 units per [id number] HEMATOCRIT (BEAKER) 30.4 % 34.1-44.9 L (test code = 411) MEAN CORPUSCULAR VOLUME 81.7 fL 79.4-94.8 (BEAKER) (test code = 753) MEAN CORPUSCULAR 27.4 pg 25.6-32.2 HEMOGLOBIN (BEAKER) (test code = 751) MEAN CORPUSCULAR 33.6 GM/DL 32.2-35.5 HEMOGLOBIN CONC (BEAKER) (test code = 752) RED CELL DISTRIBUTION 16.1 % 11.7-14.4 H WIDTH (BEAKER) (test code = 412) PLATELET COUNT (BEAKER) 81 K/CU MM 150-450 L (test code = 756) MEAN PLATELET VOLUME 11.1 fL 9.4-12.3 (BEAKER) (test code = 754) NUCLEATED RED BLOOD 0 /100 WBC 0-0 CELLS (BEAKER) (test code = 413) NEUTROPHILS RELATIVE 79 % PERCENT (BEAKER) (test code = 429) LYMPHOCYTES RELATIVE 8 % PERCENT (BEAKER) (test code = 430) MONOCYTES RELATIVE 10 % PERCENT (BEAKER) (test code = 431) EOSINOPHILS RELATIVE 0 % PERCENT (BEAKER) (test code = 432) BASOPHILS RELATIVE 0 % PERCENT (BEAKER) (test code = 437) NEUTROPHILS ABSOLUTE 11.60 K/ L 1.56-6.13 H COUNT (BEAKER) (test code = 670) LYMPHOCYTES ABSOLUTE 1.18 K/ L 1.18-3.74 COUNT (BEAKER) (test code = 414) MONOCYTES ABSOLUTE COUNT 1.42 K/ L 0.24-0.36 H (BEAKER) (test code = 415) EOSINOPHILS ABSOLUTE 0.03 K/ L 0.04-0.36 L COUNT (BEAKER) (test code = 416) BASOPHILS ABSOLUTE COUNT 0.05 K/ L 0.01-0.08 (BEAKER) (test code = 417) IMMATURE 2 % 0-1 H GRANULOCYTES-RELATIVE PERCENT (BEAKER) (test code = 2801) POCT-GLUCOSE [id number] 13:22:28 Test Item Value Reference Range Interpretation Comments POC-GLUCOSE METER 149 mg/dL 70-110 H : TESTED A T [facility] 6720 (BEAKER) (test code = [facility] [place], 1538) 37950: Photolettering Machine Operator/Techni nigel ID = [id number] for Rosalina Estes POCT-GLUCOSE [id number] 09:15:41 Test Item Value Reference Range Interpretation Comments POC-GLUCOSE METER 177 mg/dL 70-110 H : TESTED A T [facility] 6720 (BEAKER) (test code = [facility], 1538) 27894: Photolettering Machine Operator/Techni nigel ID = [id number] for Rosalina Estes CBC W/PLT COUNT & AUTO [id number] 07:58:44 Test Item Value Reference Range Interpretation Comments WHITE BLOOD CELL COUNT (BEAKER) 15.5 K/ L 3.5-10.5 H (test code = 775) RED BLOOD CELL COUNT (BEAKER) 2.17 M/ L 3.93-5.22 L (test code = 761) HEMOGLOBIN (BEAKER) (test code = 6.4 GM/DL 11.2-15.7 L 410) HEMATOCRIT (BEAKER) (test code = 18.9 % 34.1-44.9 L 411) MEAN CORPUSCULAR VOLUME (BEAKER) 87.1 fL 79.4-94.8 (test code = 753) MEAN CORPUSCULAR HEMOGLOBIN 29.5 pg 25.6-32.2 (BEAKER) (test code = 751) MEAN CORPUSCULAR HEMOGLOBIN CONC 33.9 GM/DL 32.2-35.5 (BEAKER) (test code = 752) RED CELL DISTRIBUTION WIDTH 15.9 % 11.7-14.4 H (BEAKER) (test code = 412) PLATELET COUNT (BEAKER) (test 105 K/CU MM 150-450 L code = 756) MEAN PLATELET VOLUME (BEAKER) 11.4 fL 9.4-12.3 (test code = 754) NUCLEATED RED BLOOD CELLS 0 /100 WBC 0-0 (BEAKER) (test code = 413) NEUTROPHILS RELATIVE PERCENT 82 % (BEAKER) (test code = 429) LYMPHOCYTES RELATIVE PERCENT 9 % (BEAKER) (test code = 430) MONOCYTES RELATIVE PERCENT 6 % (BEAKER) (test code = 431) EOSINOPHILS RELATIVE PERCENT 0 % (BEAKER) (test code = 432) BASOPHILS RELATIVE PERCENT 0 % (BEAKER) (test code = 437) NEUTROPHILS ABSOLUTE COUNT 12.74 K/ L 1.56-6.13 H (BEAKER) (test code = 670) LYMPHOCYTES ABSOLUTE COUNT 1.31 K/ L 1.18-3.74 (BEAKER) (test code = 414) MONOCYTES ABSOLUTE COUNT (BEAKER) 0.91 K/ L 0.24-0.36 H (test code = 415) EOSINOPHILS ABSOLUTE COUNT 0.01 K/ L 0.04-0.36 L (BEAKER) (test code = 416) BASOPHILS ABSOLUTE COUNT (BEAKER) 0.02 K/ L 0.01-0.08 (test code = 417) IMMATURE GRANULOCYTES-RELATIVE 3 % 0-1 H PERCENT (BEAKER) (test code = 2801) CBC W/PLT COUNT & AUTO [id number] 07:00:07 Test Item Value Reference Range Interpretation Comments WHITE BLOOD CELL COUNT (BEAKER) 12.9 K/ L 3.5-10.5 H (test code = 775) RED BLOOD CELL COUNT (BEAKER) 2.08 M/ L 3.93-5.22 L (test code = 761) HEMOGLOBIN (BEAKER) (test code = 6.0 GM/DL 11.2-15.7 LL 410) HEMATOCRIT (BEAKER) (test code = 17.9 % 34.1-44.9 L 411) MEAN CORPUSCULAR VOLUME (BEAKER) 86.1 fL 79.4-94.8 (test code = 753) MEAN CORPUSCULAR HEMOGLOBIN 28.8 pg 25.6-32.2 (BEAKER) (test code = 751) MEAN CORPUSCULAR HEMOGLOBIN CONC 33.5 GM/DL 32.2-35.5 (BEAKER) (test code = 752) RED CELL DISTRIBUTION WIDTH 15.9 % 11.7-14.4 H (BEAKER) (test code = 412) PLATELET COUNT (BEAKER) (test code 94 K/CU MM 150-450 L = 756) MEAN PLATELET VOLUME (BEAKER) 11.7 fL 9.4-12.3 (test code = 754) NUCLEATED RED BLOOD CELLS (BEAKER) 0 /100 WBC 0-0 (test code = 413) NEUTROPHILS RELATIVE PERCENT 84 % (BEAKER) (test code = 429) LYMPHOCYTES RELATIVE PERCENT 7 % (BEAKER) (test code = 430) MONOCYTES RELATIVE PERCENT 5 % (BEAKER) (test code = 431) EOSINOPHILS RELATIVE PERCENT 0 % (BEAKER) (test code = 432) BASOPHILS RELATIVE PERCENT 0 % (BEAKER) (test code = 437) NEUTROPHILS ABSOLUTE COUNT 10.86 K/ L 1.56-6.13 H (BEAKER) (test code = 670) LYMPHOCYTES ABSOLUTE COUNT 0.85 K/ L 1.18-3.74 L (BEAKER) (test code = 414) MONOCYTES ABSOLUTE COUNT (BEAKER) 0.69 K/ L 0.24-0.36 H (test code = 415) EOSINOPHILS ABSOLUTE COUNT 0.01 K/ L 0.04-0.36 L (BEAKER) (test code = 416) BASOPHILS ABSOLUTE COUNT (BEAKER) 0.02 K/ L 0.01-0.08 (test code = 417) IMMATURE GRANULOCYTES-RELATIVE 4 % 0-1 H PERCENT (BEAKER) (test code = 2801) BASIC METABOLIC [id number] 06:54:20 Test Item Value Reference Range Interpretation Comments SODIUM (BEAKER) 137 meq/L 136-145 (test code = 381) POTASSIUM (BEAKER) 5.3 meq/L 3.5-5.1 H (test code = 379) CHLORIDE (BEAKER) 112 meq/L 98-107 H (test code = 382) CO2 (BEAKER) (test 18 meq/L 22-29 L code = 355) BLOOD UREA NITROGEN 67 mg/dL 7-21 H (BEAKER) (test code = 354) CREATININE (BEAKER) 2.36 mg/dL 0.57-1.25 H (test code = 358) GLUCOSE RANDOM 185 mg/dL 70-105 H (BEAKER) (test code = 652) CALCIUM (BEAKER) 7.5 mg/dL 8.4-10.2 L (test code = 697) EGFR (BEAKER) (test 20 mL/min/1.73 ESTIMA CARLOS GFR IS code = 1092) sq m NOT ACCURATE CREATININE CLEARANCE IN PREDICTING GLOMERULAR FILTRATION RATE . ESTIMATED GFR I S NOT APPLICABLE FOR DIALYSIS PATIEN TS. Photolettering Machine Operator ID - MARY ELLEN WPOCT-GLUCOSE [id number] 21:49:14 Test Item Value Reference Range Interpretation Comments POC-GLUCOSE METER 169 mg/dL 70-110 H : TESTED A T [facility] 6720 (BEAKER) (test code = [facility], 1538) 87003: Photolettering Machine Operator/Techni nigel ID = [id number] for UG HOMA DIAZ POCT-GLUCOSE [id number] 16:21:25 Test Item Value Reference Range Interpretation Comments POC-GLUCOSE METER 207 mg/dL 70-110 H : TESTED A T [facility] 6720 (BEAKER) (test code = [facility], 1538) 97773: Photolettering Machine Operator/Techni nigel ID = [id number] for WHITE GERMAN MOSER POCT-GLUCOSE [id number] 10:59:54 Test Item Value Reference Range Interpretation Comments POC-GLUCOSE METER 163 mg/dL 70-110 H : TESTED A T [facility] 6720 (BEAKER) (test code = [facility], 1538) 43405: Photolettering Machine Operator/Techni nigel ID = [id number] for WHITE GERMAN MOSER POCT-GLUCOSE [id number] 09:06:01 Test Item Value Reference Range Interpretation Comments POC-GLUCOSE METER 148 mg/dL 70-110 H : TESTED A T [facility] 6720 (BEAKER) (test code = [facility], 1538) 39619: Photolettering Machine Operator/Techni nigel ID = [id number] for WHITE GERMAN MOSER BASIC METABOLIC [id number] 05:42:03 Test Item Value Reference Range Interpretation Comments SODIUM (BEAKER) 138 meq/L 136-145 (test code = 381) POTASSIUM (BEAKER) 4.7 meq/L 3.5-5.1 (test code = 379) CHLORIDE (BEAKER) 111 meq/L 98-107 H (test code = 382) CO2 (BEAKER) (test 18 meq/L 22-29 L code = 355) BLOOD UREA NITROGEN 73 mg/dL 7-21 H (BEAKER) (test code = 354) CREATININE (BEAKER) 2.57 mg/dL 0.57-1.25 H (test code = 358) GLUCOSE RANDOM 151 mg/dL 70-105 H (BEAKER) (test code = 652) CALCIUM (BEAKER) 7.5 mg/dL 8.4-10.2 L (test code = 697) EGFR (BEAKER) (test 18 mL/min/1.73 ESTIMA CARLOS GFR IS code = 1092) sq m NOT ACCURATE CREATININE CLEARANCE IN PREDICTING GLOMERULAR FILTRATION RATE . ESTIMATED GFR I S NOT APPLICABLE FOR DIALYSIS PATIEN TS. Photolettering Machine Operator ID - MARY KAY GCBC W/PLT COUNT & AUTO [id number] 05:14:00 Test Item Value Reference Range Interpretation Comments WHITE BLOOD CELL COUNT (BEAKER) 14.7 K/ L 3.5-10.5 H (test code = 775) RED BLOOD CELL COUNT (BEAKER) 2.62 M/ L 3.93-5.22 L (test code = 761) HEMOGLOBIN (BEAKER) (test code = 7.8 GM/DL 11.2-15.7 L 410) HEMATOCRIT (BEAKER) (test code = 22.8 % 34.1-44.9 L 411) MEAN CORPUSCULAR VOLUME (BEAKER) 87.0 fL 79.4-94.8 (test code = 753) MEAN CORPUSCULAR HEMOGLOBIN 29.8 pg 25.6-32.2 (BEAKER) (test code = 751) MEAN CORPUSCULAR HEMOGLOBIN CONC 34.2 GM/DL 32.2-35.5 (BEAKER) (test code = 752) RED CELL DISTRIBUTION WIDTH 15.3 % 11.7-14.4 H (BEAKER) (test code = 412) PLATELET COUNT (BEAKER) (test 119 K/CU MM 150-450 L code = 756) MEAN PLATELET VOLUME (BEAKER) 11.2 fL 9.4-12.3 (test code = 754) NUCLEATED RED BLOOD CELLS 0 /100 WBC 0-0 (BEAKER) (test code = 413) NEUTROPHILS RELATIVE PERCENT 75 % (BEAKER) (test code = 429) LYMPHOCYTES RELATIVE PERCENT 12 % (BEAKER) (test code = 430) MONOCYTES RELATIVE PERCENT 9 % (BEAKER) (test code = 431) EOSINOPHILS RELATIVE PERCENT 1 % (BEAKER) (test code = 432) BASOPHILS RELATIVE PERCENT 1 % (BEAKER) (test code = 437) NEUTROPHILS ABSOLUTE COUNT 11.03 K/ L 1.56-6.13 H (BEAKER) (test code = 670) LYMPHOCYTES ABSOLUTE COUNT 1.79 K/ L 1.18-3.74 (BEAKER) (test code = 414) MONOCYTES ABSOLUTE COUNT (BEAKER) 1.28 K/ L 0.24-0.36 H (test code = 415) EOSINOPHILS ABSOLUTE COUNT 0.20 K/ L 0.04-0.36 (BEAKER) (test code = 416) BASOPHILS ABSOLUTE COUNT (BEAKER) 0.07 K/ L 0.01-0.08 (test code = 417) IMMATURE GRANULOCYTES-RELATIVE 2 % 0-1 H PERCENT (BEAKER) (test code = 2801) [id number] 22:59:43 Test Item Value Reference Range Interpretation Comments PARTIAL THROMBOPLASTIN TIME 76.7 seconds 22.5-36.0 H (BEAKER) (test code = 760) CBC W/PLT COUNT & AUTO [id number] 22:45:28 Test Item Value Reference Range Interpretation Comments WHITE BLOOD CELL COUNT (BEAKER) 15.5 K/ L 3.5-10.5 H (test code = 775) RED BLOOD CELL COUNT (BEAKER) 2.74 M/ L 3.93-5.22 L (test code = 761) HEMOGLOBIN (BEAKER) (test code = 8.1 GM/DL 11.2-15.7 L 410) HEMATOCRIT (BEAKER) (test code = 23.6 % 34.1-44.9 L 411) MEAN CORPUSCULAR VOLUME (BEAKER) 86.1 fL 79.4-94.8 (test code = 753) MEAN CORPUSCULAR HEMOGLOBIN 29.6 pg 25.6-32.2 (BEAKER) (test code = 751) MEAN CORPUSCULAR HEMOGLOBIN CONC 34.3 GM/DL 32.2-35.5 (BEAKER) (test code = 752) RED CELL DISTRIBUTION WIDTH 15.1 % 11.7-14.4 H (BEAKER) (test code = 412) PLATELET COUNT (BEAKER) (test 113 K/CU MM 150-450 L code = 756) MEAN PLATELET VOLUME (BEAKER) 11.1 fL 9.4-12.3 (test code = 754) NUCLEATED RED BLOOD CELLS 0 /100 WBC 0-0 (BEAKER) (test code = 413) NEUTROPHILS RELATIVE PERCENT 76 % (BEAKER) (test code = 429) LYMPHOCYTES RELATIVE PERCENT 13 % (BEAKER) (test code = 430) MONOCYTES RELATIVE PERCENT 8 % (BEAKER) (test code = 431) EOSINOPHILS RELATIVE PERCENT 1 % (BEAKER) (test code = 432) BASOPHILS RELATIVE PERCENT 0 % (BEAKER) (test code = 437) NEUTROPHILS ABSOLUTE COUNT 11.74 K/ L 1.56-6.13 H (BEAKER) (test code = 670) LYMPHOCYTES ABSOLUTE COUNT 2.08 K/ L 1.18-3.74 (BEAKER) (test code = 414) MONOCYTES ABSOLUTE COUNT (BEAKER) 1.28 K/ L 0.24-0.36 H (test code = 415) EOSINOPHILS ABSOLUTE COUNT 0.07 K/ L 0.04-0.36 (BEAKER) (test code = 416) BASOPHILS ABSOLUTE COUNT (BEAKER) 0.04 K/ L 0.01-0.08 (test code = 417) IMMATURE GRANULOCYTES-RELATIVE 2 % 0-1 H PERCENT (BEAKER) (test code = 2801) POCT-GLUCOSE [id number] 22:44:00 Test Item Value Reference Range Interpretation Comments POC-GLUCOSE METER 140 mg/dL 70-110 H : TESTED A T [facility] 6720 (BEAKER) (test code = [facility], 1538) 42566: Photolettering Machine Operator/Techni nigel ID = [id number] for DANIELLA MORALES [id number] 14:27:11 Test Item Value Reference Range Interpretation Comments PARTIAL THROMBOPLASTIN TIME 98.2 seconds 22.5-36.0 H (BEAKER) (test code = 760) POCT-GLUCOSE [id number] 12:13:43 Test Item Value Reference Range Interpretation Comments POC-GLUCOSE METER 135 mg/dL 70-110 H : TESTED A T [facility] 6720 (BEAKER) (test code = [facility], 1538) 71441: Photolettering Machine Operator/Techni nigel ID = [id number] for Dory lopes (contract)Maci [id number] 12:12:39 Test Item Value Reference Range Interpretation Comments PARTIAL THROMBOPLASTIN TIME 169.8 seconds 22.5-36.0 HH (BEAKER) (test code = 760) CBC (HEMOGRAM ONLY)2021-01-04 11:59:52 Test Item Value Reference Range Interpretation Comments WHITE BLOOD CELL COUNT (BEAKER) 12.5 K/ L 3.5-10.5 H (test code = 775) RED BLOOD CELL COUNT (BEAKER) 2.34 M/ L 3.93-5.22 L (test code = 761) HEMOGLOBIN (BEAKER) (test code = 6.8 GM/DL 11.2-15.7 L 410) HEMATOCRIT (BEAKER) (test code = 21.4 % 34.1-44.9 L 411) MEAN CORPUSCULAR VOLUME (BEAKER) 91.5 fL 79.4-94.8 (test code = 753) MEAN CORPUSCULAR HEMOGLOBIN 29.1 pg 25.6-32.2 (BEAKER) (test code = 751) MEAN CORPUSCULAR HEMOGLOBIN CONC 31.8 GM/DL 32.2-35.5 L (BEAKER) (test code = 752) RED CELL DISTRIBUTION WIDTH 15.8 % 11.7-14.4 H (BEAKER) (test code = 412) PLATELET COUNT (BEAKER) (test 112 K/CU MM 150-450 L code = 756) MEAN PLATELET VOLUME (BEAKER) 11.2 fL 9.4-12.3 (test code = 754) NUCLEATED RED BLOOD CELLS 0 /100 WBC 0-0 (BEAKER) (test code = 413) CBC W/PLT COUNT & AUTO [id number] 09:00:46 Test Item Value Reference Range Interpretation Comments WHITE BLOOD CELL COUNT 14.2 K/ L 3.5-10.5 H (BEAKER) (test code = 775) RED BLOOD CELL COUNT 2.68 M/ L 3.93-5.22 L (BEAKER) (test code = 761) HEMOGLOBIN (BEAKER) 7.9 GM/DL 11.2-15.7 L Confirme d by (test code = 410) recollect. HEMATOCRIT (BEAKER) 25.4 % 34.1-44.9 L (test code = 411) MEAN CORPUSCULAR VOLUME 94.8 fL 79.4-94.8 (BEAKER) (test code = 753) MEAN CORPUSCULAR 29.5 pg 25.6-32.2 HEMOGLOBIN (BEAKER) (test code = 751) MEAN CORPUSCULAR 31.1 GM/DL 32.2-35.5 L HEMOGLOBIN CONC (BEAKER) (test code = 752) RED CELL DISTRIBUTION 15.7 % 11.7-14.4 H WIDTH (BEAKER) (test code = 412) PLATELET COUNT (BEAKER) 125 K/CU MM 150-450 L (test code = 756) MEAN PLATELET VOLUME 11.4 fL 9.4-12.3 (BEAKER) (test code = 754) NUCLEATED RED BLOOD 0 /100 WBC 0-0 CELLS (BEAKER) (test code = 413) NEUTROPHILS RELATIVE 73 % PERCENT (BEAKER) (test code = 429) LYMPHOCYTES RELATIVE 14 % PERCENT (BEAKER) (test code = 430) MONOCYTES RELATIVE 11 % PERCENT (BEAKER) (test code = 431) EOSINOPHILS RELATIVE 1 % PERCENT (BEAKER) (test code = 432) BASOPHILS RELATIVE 0 % PERCENT (BEAKER) (test code = 437) NEUTROPHILS ABSOLUTE 10.40 K/ L 1.56-6.13 H COUNT (BEAKER) (test code = 670) LYMPHOCYTES ABSOLUTE 1.94 K/ L 1.18-3.74 COUNT (BEAKER) (test code = 414) MONOCYTES ABSOLUTE 1.59 K/ L 0.24-0.36 H COUNT (BEAKER) (test code = 415) EOSINOPHILS ABSOLUTE 0.07 K/ L 0.04-0.36 COUNT (BEAKER) (test code = 416) BASOPHILS ABSOLUTE 0.06 K/ L 0.01-0.08 COUNT (BEAKER) (test code = 417) IMMATURE 1 % 0-1 GRANULOCYTES-RELATIVE PERCENT (BEAKER) (test code = 2801) POCT-GLUCOSE [id number] 07:32:24 Test Item Value Reference Range Interpretation Comments POC-GLUCOSE METER 128 mg/dL 70-110 H : TESTED A T [facility] 6720 (BEAKER) (test code = [facility] [place], 1538) [id number]: Photolettering Machine Operator/Techni nigel ID = [id number] for Dory lopes (contract)Maci [id number] 05:10:35 Test Item Value Reference Range Interpretation Comments PARTIAL THROMBOPLASTIN TIME 66.8 seconds 22.5-36.0 H (BEAKER) (test code = 760) BASIC METABOLIC [id number] 03:50:34 Test Item Value Reference Range Interpretation Comments SODIUM (BEAKER) 136 meq/L 136-145 (test code = 381) POTASSIUM (BEAKER) 5.3 meq/L 3.5-5.1 H (test code = 379) CHLORIDE (BEAKER) 110 meq/L 98-107 H (test code = 382) CO2 (BEAKER) (test 19 meq/L 22-29 L code = 355) BLOOD UREA NITROGEN 64 mg/dL 7-21 H (BEAKER) (test code = 354) CREATININE (BEAKER) 2.53 mg/dL 0.57-1.25 H (test code = 358) GLUCOSE RANDOM 112 mg/dL 70-105 H (BEAKER) (test code = 652) CALCIUM (BEAKER) 7.6 mg/dL 8.4-10.2 L (test code = 697) EGFR (BEAKER) (test 18 mL/min/1.73 ESTIMA CARLOS GFR IS code = 1092) sq m NOT ACCURATE CREATININE CLEARANCE IN PREDICTING GLOMERULAR FILTRATION RATE . ESTIMATED GFR I S NOT APPLICABLE FOR DIALYSIS PATIEN TS. Photolettering Machine Operator ID - UCHE [id number] 03:02:28 Test Item Value Reference Range Interpretation Comments PHOSPHORUS (BEAKER) (test code = 4.9 mg/dL 2.3-4.7 H 604) Photolettering Machine Operator ID - UCHE [id number] 03:02:27 Test Item Value Reference Range Interpretation Comments MAGNESIUM (BEAKER) (test code = 2.2 mg/dL 1.6-2.6 627) Photolettering Machine Operator ID - UCHE [id number] 02:59:33 Test Item Value Reference Range Interpretation Comments PARTIAL THROMBOPLASTIN TIME 179.3 seconds 22.5-36.0 HH (BEAKER) (test code = 760) CT, CHEST, WITHOUT [id number] 01:50:00Unlisted Reason for Exam - Click Yes and Enter Reason Below->YesUnlisted Reason for Exam->Distal arterial embolism in setting of elevated creatinine, evaluate for large vessel aneurysm [facility] 1940 Sex: FFINAL REPORT CLINICAL HISTORY: Unlisted reason for exam, distal ayden rial embolism in the setting of elevated creatinine, evaluate for large vessel aneurysm FINDINGS: Multiple axial images of the chest, abdomen and pelvis were performed without IV contrast. Oral contrast was not given. This exam was performed according to our departmental dose-optimization program, which includes automated exposure control, adjustment of the mA and/or kV according to patient size and/or use of the iterative reconstruction technique. Comparison: None. Chest: Lung parenchyma and pleural spaces: Small right and small to moderate left pleural effusions and adjacent atelectasis versus pneumonitis. Mild emphysematous changes in the upper lungs. No pneumothorax. Tracheobronchial tree: No significant findings. Pulmonary vasculature: No significant findings. Cardiac contours and great vessels: Atherosclerotic calcification of the coronary arteries, aorta and great vessels arising from thearch. There is no thoracic aortic aneurysm. Mediastinum: No significant findings. Lymph Nodes: Prominent mediastinal lymph nodes. An example is a prevascular node with a short axis diameter of 1.3 cm. Skeleton: Diffuse osteopenia. Severe, age indeterminate vertebral body compression deformities/vertebral plana at T7 and T9 with retropulsion of fragment. Several age-indeterminate right rib fracture def ormities. Abdomen and pelvis: Liver: No significant findings. Gallbladder and biliary tree: No significant findings. Spleen: No significant findings. Adrenal Glands: No significant findings. Kidneys and ureters: Atrophic kidneys Stomach and Duodenum: No significant findings. Pancreas: No significant findings. Bowel: Scattered colonic diverticulosis without evidence for diverticulitis. No bowel obstruction or pneumatosis intestinalis. Appendix: Not seen. No local inflammatory changes. Bladder: No significant findings. Major vascular structures: Atherosclerotic calcifications. There is no aneurysmaldilatation of the abdominal aorta or its major vascular branches. Reproductive organs: No significant findings. Other: Fat stranding in the subcutaneous tissues overlying the left femoral vessels, probably related to recent procedure. Skeleton: No acute bony abnormality. IMPRESSION: No aneurysmal dilatation of the aorta or its major vascular branches. There is scattered atherosclerotic calcification.Small right and [id number] left pleural effusions and adjacent atelectasis versus pneumonitis. Pulmonary emphysema. Prominent mediastinal lymph nodes, nonspecific. Primary lymphoproliferative ormetastatic malignancy should be excluded clinically. Comparison to previous imaging would be helpful, if available elsewhere. Diffuse osteopenia. Age indeterminate severe compression deformities of T7 and T9 with retropulsion of fragment. Several age indeterminate right rib fractures. Please correlatewith history. Signed: Moe Solomon MDReport Verified Date/Time: 01/04/2021 01:50:53 Electroni tiago signed by: MOE SOLOMON M.D. on 01/04/2021 01:50 AMCT, ABDOMEN 2021-01-04 01:50:00Unlisted Reason for Exam - Click Yes and Enter Reason Below- >YesUnlisted Reason for Exam->Distal arterial embolism in setting of elevated creatinine, evaluate for large vessel aneurysmWill this procedure require oral contrast?->No [facility] 1940 Sex: FFINAL REPORT CLINICAL HISTORY: Unlisted reason for exam, distal ayden rial embolism in the setting of elevated creatinine, evaluate for large vessel aneurysm FINDINGS: Multiple axial images of the chest, abdomen and pelvis were performed without IV contrast. Oral contrast was not given. This exam was performed according to our departmental dose-optimization program, which includes automated exposure control, adjustment of the mA and/or kV according to patient size and/or use of the iterative reconstruction technique. Comparison: None. Chest: Lung parenchyma and pleural spaces: Small right and small to moderate left pleural effusions and adjacent atelectasis versus pneumonitis. Mild emphysematous changes in the upper lungs. No pneumothorax. Tracheobronchial tree: No significant findings. Pulmonary vasculature: No significant findings. Cardiac contours and great vessels: Atherosclerotic calcification of the coronary arteries, aorta and great vessels arising from thearch. There is no thoracic aortic aneurysm. Mediastinum: No significant findings. Lymph Nodes: Prominent mediastinal lymph nodes. An example is a prevascular node with a short axis diameter of 1.3 cm. Skeleton: Diffuse osteopenia. Severe, age indeterminate vertebral body compression deformities/vertebral plana at T7 and T9 with retropulsion of fragment. Several age-indeterminate right rib fracture def ormities. Abdomen and pelvis: Liver: No significant findings. Gallbladder and biliary tree: No significant findings. Spleen: No significant findings. Adrenal Glands: No significant findings. Kidneys and ureters: Atrophic kidneys Stomach and Duodenum: No significant findings. Pancreas: No significant findings. Bowel: Scattered colonic diverticulosis without evidence for diverticulitis. No bowel obstruction or pneumatosis intestinalis. Appendix: Not seen. No local inflammatory changes. Bladder: No significant findings. Major vascular structures: Atherosclerotic calcifications. There is no aneurysmaldilatation of the abdominal aorta or its major vascular branches. Reproductive organs: No significant findings. Other: Fat stranding in the subcutaneous tissues overlying the left femoral vessels, probably related to recent procedure. Skeleton: No acute bony abnormality. IMPRESSION: No aneurysmal dilatation of the aorta or its major vascular branches. There is scattered atherosclerotic calcification.Small right and dxaez-zh-hoccpbdu left pleural effusions and adjacent atelectasis versus pneumonitis. Pulmonary emphysema. Prominent mediastinal lymph nodes, nonspecific. Primary lymphoproliferative ormetastatic malignancy should be excluded clinically. Comparison to previous imaging would be helpful, if available elsewhere. Diffuse osteopenia. Age indeterminate severe compression deformities of T7 and T9 with retropulsion of fragment. Several age indeterminate right rib fractures. Please correlatewith history. Signed: Moe Solomonepshantanu Verified Date/Time: 01/04/2021 01:50:53 Ginny ordoñez signed by: MOE SOLOMON M.D. on 01/04/2021 01:50 [id number] 22:49:44 Test Item Value Reference Range Interpretation Comments PARTIAL THROMBOPLASTIN TIME > seconds 22.5-36.0 HH (BELIU) (test code = 760) POCT-GLUCOSE [id number] 22:26:17 Test Item Value Reference Range Interpretation Comments POC-GLUCOSE METER 130 mg/dL 70-110 H : TESTED A T [facility] 6720 (BEAKER) (test code = CIARA Fraser [facility], 1538) [address]: Photolettering Machine Operator/Techni nigel ID = [id number] for LORELEI JOLLY POCT-GLUCOSE [id number] 15:47:29 Test Item Value Reference Range Interpretation Comments POC-GLUCOSE METER 83 mg/dL 70-110 : TESTED A T [facility] 6720 (BEAKER) (test code = CIARA Fraser [facility], 1538) 77200: Photolettering Machine Operator/Techni nigel ID = [id number] for LEE BLAS [id number] 14:37:55 Test Item Value Reference Range Interpretation Comments ACTIVATED CLOTTING TIME 263 sec : 74 -137 seconds, (BEAKER) (test code = Mary ne: TESTED AT 441) [facility] 67[address] BHAVANA MADRID [facility], 770 30: Photolettering Machine Operator/Techni nigel ID = [id number] for SA LINAS, CARMEN (CELLAVISION MANUAL DIFF)2021-01-03 12:55:24 Test Item Value Reference Range Interpretation Comments NEUTROPHILS - REL 92 % (CELLAVISION)(BEAKER) (test code = 2816) LYMPHOCYTES - REL 2 % (CELLAVISION)(BEAKER) (test code = 2817) MONOCYTES - REL 6 % (CELLAVISION)(BEAKER) (test code = 2818) NEUTROPHILS - ABS 19.14 K/ul 1.56-6.13 H (CELLAVISION)(BEAKER) (test code = 2830) LYMPHOCYTES - ABS 0.42 K/ul 1.18-3.74 L (CELLAVISION)(BEAKER) (test code = 2831) MONOCYTES - ABS 1.25 K/uL 0.24-0.36 H (CELLAVISION)(BEAKER) (test code = 2832) TOTAL COUNTED (BEAKER) (test code 100 = 1351) WBC MORPHOLOGY (BEAKER) (test Normal code = 487) GIANT PLATELETS (BEAKER) (test Present code = 313) POLYCHROMATOPHILLIC RBCS(BEAKER) 1+ few (test code = 478) HYPOCHROMIA (BEAKER) (test code = 1+ few 963) ANISOCYTOSIS (BEAKER) (test code 1+ few = 961) POIKILOCYTES (BEAKER) (test code 2+ moderate = 966) SPHEROCYTES (BEAKER) (test code = 1+ few 768) OVALOCYTES (BEAKER) (test code = 1+ few 477) SULEMA CELLS (BEAKER) (test code = 2+ moderate 474) ARTIFACT (CELLAVISION)(BEAKER) Present (test code = 3432) PLATELET CONCENTRATION Decreased (CELLAVISION)(BEAKER) (test code = 3438) Photolettering Machine Operator ID - Erika Parikh comments: Slide comments:CBC W/PLT COUNT & AUTO [id number] 12:55:23 Test Item Value Reference Range Interpretation Comments WHITE BLOOD CELL COUNT (BEAKER) 20.8 K/ L 3.5-10.5 H (test code = 775) RED BLOOD CELL COUNT (BEAKER) 3.94 M/ L 3.93-5.22 (test code = 761) HEMOGLOBIN (BEAKER) (test code = 11.5 GM/DL 11.2-15.7 410) HEMATOCRIT (BEAKER) (test code = 36.1 % 34.1-44.9 411) MEAN CORPUSCULAR VOLUME (BEAKER) 91.6 fL 79.4-94.8 (test code = 753) MEAN CORPUSCULAR HEMOGLOBIN 29.2 pg 25.6-32.2 (BEAKER) (test code = 751) MEAN CORPUSCULAR HEMOGLOBIN CONC 31.9 GM/DL 32.2-35.5 L (BEAKER) (test code = 752) RED CELL DISTRIBUTION WIDTH 15.5 % 11.7-14.4 H (BEAKER) (test code = 412) PLATELET COUNT (BEAKER) (test 136 K/CU MM 150-450 L code = 756) MEAN PLATELET VOLUME (BEAKER) 11.0 fL 9.4-12.3 (test code = 754) NUCLEATED RED BLOOD CELLS 0 /100 WBC 0-0 (BEAKER) (test code = 413) POCT-GLUCOSE [id number] 12:38:16 Test Item Value Reference Range Interpretation Comments POC-GLUCOSE METER 93 mg/dL 70-110 : TESTED A T [facility] 6720 (BEAKER) (test code = [facility] [place] [place], 1538) [address]: Photolettering Machine Operator/Techni nigel ID = [id number] for MINOO CALDERON [id number] 11:41:36 Test Item Value Reference Range Interpretation Comments PARTIAL THROMBOPLASTIN TIME 53.6 seconds 22.5-36.0 H (BEAKER) (test code = 760) [id number] 10:55:55 Test Item Value Reference Range Interpretation Comments PARTIAL THROMBOPLASTIN TIME 73.3 seconds 22.5-36.0 H (BEAKER) (test code = 760) POCT-GLUCOSE [id number] 10:22:02 Test Item Value Reference Range Interpretation Comments POC-GLUCOSE METER 131 mg/dL 70-110 H : TESTED A T [facility] 6720 (BEAKER) (test code = CIARA Fraser [facility], 1538) 59142: Photolettering Machine Operator/Techni nigel ID = [id number] for Tru Lares HEMOGLOBIN [id number] 08:48:51 Test Item Value Reference Range Interpretation Comments HEMOGLOBIN A1C (BEAKER) (test code = 6.3 % 4.3-6.1 H 368) TSH/FREE T4 IF [id number] 08:45:49 Test Item Value Reference Range Interpretation Comments THYROID STIMULATING HORMONE 4.094 uIU/mL 0.350-4.940 (BEAKER) (test code = 772) Photolettering Machine Operator ID - FUAD [id number] 07:39:55 Test Item Value Reference Range Interpretation Comments PARTIAL THROMBOPLASTIN TIME 133.4 seconds 22.5-36.0 H (BEAKER) (test code = 760) BASIC METABOLIC [id number] 06:44:27 Test Item Value Reference Range Interpretation Comments SODIUM (BEAKER) 136 meq/L 136-145 (test code = 381) POTASSIUM (BEAKER) 4.6 meq/L 3.5-5.1 (test code = 379) CHLORIDE (BEAKER) 108 meq/L 98-107 H (test code = 382) CO2 (BEAKER) (test 17 meq/L 22-29 L code = 355) BLOOD UREA NITROGEN 56 mg/dL 7-21 H (BEAKER) (test code = 354) CREATININE (BEAKER) 2.10 mg/dL 0.57-1.25 H (test code = 358) GLUCOSE RANDOM 134 mg/dL 70-105 H (BEAKER) (test code = 652) CALCIUM (BEAKER) 8.5 mg/dL 8.4-10.2 (test code = 697) EGFR (BEAKER) (test 23 mL/min/1.73 ESTIMA CARLOS GFR IS code = 1092) sq m NOT ACCURATE CREATININE CLEARANCE IN PREDICTING GLOMERULAR FILTRATION RATE . ESTIMATED GFR I S NOT APPLICABLE FOR DIALYSIS PATIEN TS. Photolettering Machine Operator ID - FUAD EPATIC FUNCTION [id number] 06:32:34 Test Item Value Reference Range Interpretation Comments TOTAL PROTEIN (BEAKER) (test code = 6.3 gm/dL 6.0-8.3 770) ALBUMIN (BEAKER) (test code = 1145) 2.8 g/dL 3.5-5.0 L BILIRUBIN TOTAL (BEAKER) (test code 0.7 mg/dL 0.2-1.2 = 377) BILIRUBIN DIRECT (BEAKER) (test 0.3 mg/dL 0.1-0.5 code = 706) ALKALINE PHOSPHATASE (BEAKER) (test 106 U/L 40-150 code = 346) AST (SGOT) (BEAKER) (test code = 101 U/L 5-34 H 353) ALT (SGPT) (BEAKER) (test code = 40 U/L 6-55 347) Photolettering Machine Operator ID Sheila FUAD [id number] 06:32:33 Test Item Value Reference Range Interpretation Comments MAGNESIUM (BEAKER) (test code = 2.4 mg/dL 1.6-2.6 627) Photolettering Machine Operator ID Sheila PATRICIOA [id number] 06:17:38 Test Item Value Reference Range Interpretation Comments PARTIAL THROMBOPLASTIN TIME > seconds 22.5-36.0 HH (BEAKER) (test code = 760) POCT-GLUCOSE [id number] 06:10:09 Test Item Value Reference Range Interpretation Comments POC-GLUCOSE METER 141 mg/dL 70-110 H : [facility] ([facility] (test code = [facility] [place], 1538) 90[address]: Photolettering Machine Operator/Techni nigel ID = [id number] for So talJenni Juarez [id number] 00:32:23 Test Item Value Reference Range Interpretation Comments PARTIAL THROMBOPLASTIN TIME 69.1 seconds 22.5-36.0 H (BEAKER) (test code = 760) POCT-GLUCOSE [id number] 21:39:41 Test Item Value Reference Range Interpretation Comments POC-GLUCOSE METER 100 mg/dL 70-110 : TESTED A T [facility] 6720 (BEAKER) (test code = [facility], 1538) 68[address]: Photolettering Machine Operator/Techni nigel ID = [id number] for ROOPA DELCID [id number] 21:22:21 Test Item Value Reference Range Interpretation Comments PARTIAL THROMBOPLASTIN TIME 159.2 seconds 22.5-36.0 HH (BEAKER) (test code = 760) POCT-GLUCOSE [id number] 21:17:42 Test Item Value Reference Range Interpretation Comments POC-GLUCOSE METER 112 mg/dL 70-110 H : TESTED A T [facility] 6720 (BEAKER) (test code = [facility], 1538) 13729: Photolettering Machine Operator/Techni nigel ID = [id number] for Jenni Garcia [id number] 18:28:15 Test Item Value Reference Range Interpretation Comments PARTIAL THROMBOPLASTIN TIME > seconds 22.5-36.0 HH (BEAKER) (test code = 760) POCT-GLUCOSE [id number] 16:34:15 Test Item Value Reference Range Interpretation Comments POC-GLUCOSE METER 104 mg/dL 70-110 : TESTED A T [facility] 6720 (BEAKER) (test code = [facility], 1538) 06018: Photolettering Machine Operator/Techni nigel ID = [id number] for Tru Lares [id number] 16:14:26 Test Item Value Reference Range Interpretation Comments PARTIAL THROMBOPLASTIN TIME > seconds 22.5-36.0 HH (BEAKER) (test code = 760) CBC (HEMOGRAM ONLY)2021-01-02 16:02:15 Test Item Value Reference Range Interpretation Comments WHITE BLOOD CELL COUNT (BEAKER) 13.7 K/ L 3.5-10.5 H (test code = 775) RED BLOOD CELL COUNT (BEAKER) 4.09 M/ L 3.93-5.22 (test code = 761) HEMOGLOBIN (BEAKER) (test code = 12.1 GM/DL 11.2-15.7 410) HEMATOCRIT (BEAKER) (test code = 38.4 % 34.1-44.9 411) MEAN CORPUSCULAR VOLUME (BEAKER) 93.9 fL 79.4-94.8 (test code = 753) MEAN CORPUSCULAR HEMOGLOBIN 29.6 pg 25.6-32.2 (BEAKER) (test code = 751) MEAN CORPUSCULAR HEMOGLOBIN CONC 31.5 GM/DL 32.2-35.5 L (BEAKER) (test code = 752) RED CELL DISTRIBUTION WIDTH 15.5 % 11.7-14.4 H (BEAKER) (test code = 412) PLATELET COUNT (BEAKER) (test 130 K/CU MM 150-450 L code = 756) MEAN PLATELET VOLUME (BEAKER) 11.4 fL 9.4-12.3 (test code = 754) NUCLEATED RED BLOOD CELLS 0 /100 WBC 0-0 (BEAKER) (test code = 413) POCT-GLUCOSE [id number] 12:56:20 Test Item Value Reference Range Interpretation Comments POC-GLUCOSE METER 190 mg/dL 70-110 H : TESTED A T [facility] 6720 (BEAKER) (test code = CIARA Fraser [facility], 1538) 97801: Photolettering Machine Operator/Techni nigel ID = [id number] for Tru Lares TISSUE [id number] 10:22:00Surgical Pathology Report Case: [id number] Authorizing Provider: Arun Guzmán MD Collected: 03/27/2020 02:30 PM Ordering Location: [address] Received: 03/28/2020 09:01 AM Service Pathologist: Karsten Raya MD Specimen: Biopsy, Gastric, Random Bx Immunostain for helicobacter performed on block A1 is negative. Addendum electronically signed by Karsten Raya MD on 04/02/2020 at 10:22 AMPART A RANDOM GASTRIC BIOPSY:ACTIVE CHRONIC GASTRITIS.NEGATIVE FOR INTESTINAL METAPLASIA, DYSPLASIA, OR INVASIVE CARCINOMA.WARTHIN STARRY STAIN FOR HELICOBACTER IS EQUIVOCAL, IMMUNOSTAIN PENDING. Signing Pathologist Direct Phone Line: [phone] signed by Karsten Raya MD on 03/28/2020 at 3:42 [id number], [id number], [id number] hemorrhage associated with gastritisGastricA. Received in formalin labeled with the patient's name, medical record number and "biopsy, gastric" and consists of multiple jacobo soft tissue fragments ranging 0.2-0.8 cm submitted in toto in A1.SY Ahumada PA ([facility])cmPerformed. The interpretation of this case included the use of immunohistochemistry or special stains.BLOCK A1- WARTHIN STARRYControl Slides Examined: In-house known positive controls were evaluated along with the test tissue. These control slides run alongside of the patients sample show appropriate staining. Internal positive and negative controls when available are evaluated Immunohistochemistry technical testing was performed at [facility], Pathology Laboratory where it was developed and [...] qualified to perform high complexity clinical laboratory testing.[facility], Department of Pathology,[address] [place] [address], [facility], Departmentof Pathology, [address] [place] [address], AkgcocSan Mateo Medical Center, Department of Pathology, [address] [place] [address], WDRBP [id number] 19:01:00 Test Item Value Reference Range Interpretation Comments CULTURE (BEAKER) (test No growth in 5 days code = 1095) BLOOD [id number] 19:01:00 Test Item Value Reference Range Interpretation Comments CULTURE (BEAKER) (test No growth in 5 days code = 1095) POCT-GLUCOSE [id number] 11:20:00 Test Item Value Reference Range Interpretation Comments POC-GLUCOSE METER 200 mg/dL 70-110 H : TESTED A T [facility] 6720 (BEAKER) (test code = [facility], 1538) 15231: Photolettering Machine Operator/Techni nigel ID = [id number] for QUEEN CAMPOS POCT-GLUCOSE [id number] 07:50:00 Test Item Value Reference Range Interpretation Comments POC-GLUCOSE METER 143 mg/dL 70-110 H : TESTED A T [facility] 6720 (BEAKER) (test code = [facility] [place], 1538) 22963: Photolettering Machine Operator/Techni nigel ID = [id number] for QUEEN CAMPOS BASIC METABOLIC [id number] 05:11:00 Test Item Value Reference Range Interpretation [...] S NOT APPLICABLE FOR DIALYSIS PATIEN TS. Photolettering Machine Operator ID - FUAD [id number] 05:09:00 Test Item Value Reference Range Interpretation Comments MAGNESIUM (BEAKER) (test code = 2.5 mg/dL 1.6-2.6 627) Photolettering Machine Operator ID - FUAD MCBC W/PLT COUNT & AUTO [id number] 04:37:00 Test Item Value Reference Range Interpretation [...] 2801) RAD, RIBS, UNILATERAL, MIN 2 VIEWS, [id number] 02:40:00Reason for exam:- >fall 1 month ago, right rib pain [facility] : 1940 [...] history and examination for focal tenderness. Signed: Moe Solomon MDReptexas county memorial hospital Verified Date/Time: 03/28/2020 02:40:40 POCT- GLUCOSE [id number] 21:16:00 Test Item Value Reference Range Interpretation Comments POC-GLUCOSE METER 127 mg/dL 70-110 H : TESTED A T [facility] 6720 (REGINA) (test code = [facility], 1538) 029[address]: Photolettering Machine Operator/Techni nigel ID = [id number] for IRASEMA LUNA POCT-GLUCOSE [id number] 15:26:00 Test Item Value Reference Range Interpretation Comments POC-GLUCOSE METER 168 mg/dL 70-110 H : Notified RN/MD: (REGINA) (test code = TESTED AT [facility] 6720 1538) [facility], [address]: Photolettering Machine Operator/Techni nigel ID = [id number] for Yadira Keen POCT-GLUCOSE [id number] 14:16:00 Test Item Value Reference Range Interpretation Comments POC-GLUCOSE METER 156 mg/dL 70-110 H : TESTED A T [facility] 6720 (BEAKER) (test code = [facility], 1538) 43161: Photolettering Machine Operator/Techni nigel ID = [id number] for DREW CAMPOS POCT-GLUCOSE [id number] 12:08:00 Test Item Value Reference Range Interpretation Comments POC-GLUCOSE METER 193 mg/dL 70-110 H : TESTED A T [facility] 6720 (BEAKER) (test code = [facility], 153) 76512: Photolettering Machine Operator/Techni nigel ID = [id number] for CINDY DURAN HEMOGLOBIN [id number] 11:27:00 Test Item Value Reference Range Interpretation Comments HEMOGLOBIN A1C (BEAKER) (test code = 6.0 % 4.3-6.1 368) URINALYSIS W/ REFLEX URINE [id number] 11:20:00 Test Item Value Reference Range Interpretation [...] = 516) SOURCE(BEAKER) (test code = 2795) Photolettering Machine Operator ID - [auto]Photolettering Machine Operator ID - techBASIC METABOLIC [id number] 09:26:00 Test Item Value Reference Range Interpretation [...] S NOT APPLICABLE FOR DIALYSIS PATIEN TS. Photolettering Machine Operator ID - ROSIANGCBC W/PLT COUNT & AUTO [id number] 08:41:00 Test Item Value Reference Range Interpretation [...] PERCENT (BEAKER) (test code = 2801) POCT-GLUCOSE [id number] 07:43:00 Test Item Value Reference Range Interpretation Comments POC-GLUCOSE METER 161 mg/dL 70-110 H : TESTED A T [facility] 6720 (BEAKER) (test code = [facility]ARA [facility], 1538) 397[address]: Photolettering Machine Operator/Techni nigel ID = [id number] for CINDY DURAN IRON, TIBC, % SAT. (WITHOUT FERRITIN)2020-03-27 07:10:00 Test Item Value Reference Range Interpretation Comments IRON (BEAKER) (test code = 547) 34.0 ug/dL 40.0-160.0 L TOTAL IRON BINDING CAPACITY 275 ug/dL 250-450 (BEAKER) (test code = 769) IRON % SATURATION (2) (BEAKER) 12 % 20-55 L (test code = 2590) Photolettering Machine Operator ID - MARY ELLEN [id number] 07:00:00 Test Item Value Reference Range Interpretation Comments FERRITIN (REGINA) (test code = 45.51 ng/mL 5.00-275.00 361) Photolettering Machine Operator ID - MARY ELLEN VERA/S, ABDOMINAL, [id number] 03:54:00Reason for exam:->evaluate for cirrhosis and [facility] : 1940 Sex: [...] as indicated. Nonvisualization of the pancreas. Signed: Moe Solomon MDReport Verified Date/Time: 03/27/2020 03:54:43 POCT-GLUCOSE [id number] 22:56:00 Test Item Value Reference Range Interpretation Comments POC-GLUCOSE METER 156 mg/dL 70-110 H : TESTED A T [facility] 6720 (REGINA) (test code = CIARA Fraser [facility], 1538) [address]450: Photolettering Machine Operator/Techni nigel ID = [id number] for KE BE, SAUDATU POCT-GLUCOSE [id number] 21:26:00 Test Item Value Reference Range Interpretation Comments POC-GLUCOSE METER 31 mg/dL 70-110 LL : Notified RN/MD: TESTED ([place]INA) (test code = [facility] 1538) [facility], 770 30: Photolettering Machine Operator/Techni nigel ID = [id number] for MAYRA , SAUDATU RAD, CHEST, 2 [id number] 20:10:00Reason for exam:->RULE OUT PNEMUNIA [facility] : 1940 [...] to severe diffuse osteopenia..Additional findings: None. Signed: Amber Daniela MDReport Verified Date/Time: 03/26/2020 20:10:08 Reading Location: [facility] B1 C013V Neuro Reading Room B-TYPE NATRIURETIC FACTOR (BNP)2020-03-26 19:21:00 Test Item Value Reference Range Interpretation Comments B-TYPE NATRIURETIC PEPTIDE (BEAKER) 893 pg/mL 0-100 H (test code = 700) SARS-COV2/RT-PCR ([facility])2020-03-26 17:47:00 Test Item Value Reference Range Interpretation Comments SARS-COV2/RT-PCR (test Negative Not Detected, Negative, code = 4158114) See external report for linked test SARS-COV-2 PERFORMING LAB [facility] (test code = 7313553) Negative result for this test determines that [...] 564(g) of the Act.Fact Sheet for Healthcare Providers:https://www.[employer]/sites/default/files/product/documents/Fact_Shee n_UW_Gyvigpwwr_Appz_RKHQ-ObK-5.pdfFact Sheet for Healthcare Patients:https://www.[employer]/sites/default/files/product/ documents/Krlf_Diwwo_Wfffumpk_Ljri_JSDK-AnB-6.pdfPerforming Laboratory:[facility], [place] [address]FGKNZHMOJY, RANDOM [id number] 17:27:00 Test Item Value Reference Range Interpretation Comments CREATININE URINE (BEAKER) (test 44.6 mg/dL code = 375) Reference Range: No NormalsOperator ID - DBSODIUM, RANDOM [id number] 17:27:00 Test Item Value Reference Range Interpretation Comments SODIUM URINE (BEAKER) (test code = 32 meq/L 243) Reference Range: No NormalsOperator ID - DBTSH/FREE T4 IF [id number] 17:01:00 Test Item Value Reference Range Interpretation Comments THYROID STIMULATING HORMONE 1.248 uIU/mL 0.350-4.940 (BEAKER) (test code = 772) Photolettering Machine Operator ID - BSPOCT-GLUCOSE [id number] 16:59:00 Test Item Value Reference Range Interpretation Comments POC-GLUCOSE METER 330 mg/dL 70-110 H : TESTED A T [facility] 6720 (BEAKER) (test code = [facility], 1538) [address]: Photolettering Machine Operator/Techni nigel ID = [id number] for CINDY DURAN BASIC METABOLIC [id number] 16:46:00 Test Item Value Reference Range Interpretation [...] S NOT APPLICABLE FOR DIALYSIS PATIEN TS. Photolettering Machine Operator ID - BSCREATINE KINASE (CK)2020-03-26 16:42:00 Test Item Value Reference Range Interpretation Comments CREATINE KINASE TOTAL (BEAKER) (test 51 U/L 29-200 code = 380) Photolettering Machine Operator ID - BSHEMOGLOBIN AND [id number] 16:29:00 Test Item Value Reference Range Interpretation Comments HEMOGLOBIN (BEAKER) (test code = 8.4 GM/DL 11.2-15.7 L 410) HEMATOCRIT (BEAKER) (test code = 26.6 % 34.1-44.9 L 411) Photolettering Machine Operator ID - [id number] 16:27:00 Test Item Value Reference Range Interpretation Comments AMMONIA (BEAKER) (test code = 348) 51 mol/L 18-72 Photolettering Machine Operator ID - BSURINALYSIS [id number] 16:10:00 Test Item Value Reference Range Interpretation Comments RBC UA (BEAKER) (test code = 519) 3 /HPF WBC UA (BEAKER) (test code = 520) 3 /HPF MUCUS (BEAKER) (test code = 1574) Rare SQUAMOUS EPITHELIAL (BEAKER) (test 2 /HPF code = 516) Photolettering Machine Operator ID - techURINALYSIS WITH MICROSCOPIC IF [id number] 16:09:00 Test Item Value Reference Range Interpretation [...] = 463) SOURCE(BEAKER) (test code = 2795) Photolettering Machine Operator ID - [auto]BASIC METABOLIC [id number] 06:11:00 Test Item Value Reference Range Interpretation [...] S NOT APPLICABLE FOR DIALYSIS PATIEN TS. Photolettering Machine Operator ID - FUAD [id number] 06:09:00 Test Item Value Reference Range Interpretation Comments MAGNESIUM (BEAKER) (test code = 2.9 mg/dL 1.6-2.6 H 627) Photolettering Machine Operator ID - FUAD MURIC [id number] 06:09:00 Test Item Value Reference Range Interpretation Comments URIC ACID (BEAKER) (test code = 13.8 mg/dL 2.6-7.2 H 773) Photolettering Machine Operator ID - FUAD MHEPATIC FUNCTION [id number] 06:09:00 Test Item Value Reference Range Interpretation [...] (test code = 13 U/L 6-55 347) Photolettering Machine Operator ID - FUAD MPROTHROMBIN [id number] 06:06:00 Test Item Value Reference Range Interpretation [...] mechanical heart valves.CBC W/PLT COUNT & AUTO [id number] 06:06:00 Test Item Value Reference Range Interpretation [...] % 0-1 PERCENT (BEAKER) (test code = 2422)
[2021-06-09] MEDS ORDERED: TRAMADOL HCL 50 MG TAB ONE (23:33)
--- NOTE | 2021-06-09 23:37 | ER ---
Nurse's Notes [facility] Name: Cristel Casas Age: 81 yrs Sex: Female : 1940 Arrival Date: 06/09/2021 Time: 21:25 Bed 6 Private MD: Diagnosis: Contusion of right hip Presentation: 06/09 21:26 Chief complaint: EMS states: pt was getting out of car and slipped and fell on right as6 hip and elbow, pt is newly diagnosis with liver cancer. Coronavirus screen: At this time, the client does not indicate any symptoms associated with coronavirus-19. Ebola Screen: No symptoms or risks identified at this time. Initial Sepsis Screen: Does the patient meet any 2 criteria? No. Patient's initial sepsis screen is negative. Does the patient have a suspected source of infection? No. Patient's initial sepsis screen is negative. Risk Assessment: Do you want to hurt yourself or someone else? Patient reports no desire to harm self or others. Onset of symptoms was June 09, 2021. Care prior to arrival: Glucose check: 189. 21:26 Method Of Arrival: EMS: [facility] as6 21:26 Acuity: HERIBERTO 3 as6 Historical: - Allergies: 21:36 No Known Allergies; as6 - Home Meds: 21:36 nebivolol 10 mg oral tab 1 tab once daily [Active]; clopidogrel 75 mg oral tab 1 tab as6 once daily [Active]; albuterol sulfate 90 mcg/actuation Inhl aebs 1 puff as needed [Active]; ferrous sulfate 325 mg (65 mg iron) Oral tab 1 tab 2 times per day [Active]; famotidine 20 mg Oral tab 1 tab once daily [Active]; atorvastatin 10 mg oral tab 1 tab once daily [Active]; tamsulosin 0.4 mg oral cap 1 cap once daily [Active]; amlodipine 2.5 mg tab 1 tab once daily [Active]; Eliquis 2.5 mg oral tab 1 tab 2 times per day [Active]; omeprazole 20 mg Oral cpDR 1 cap 2 times per day [Active]; - PMHx: 21:36 liver cancer; Hypercholesterolemia; Hypertensive disorder; Kidney disease; as6 - PSHx: 21:36 None; as6 - Immunization history:: Client reports receiving the 2nd dose of the Covid vaccine, moderna. - Social history:: Smoking status: Patient denies any tobacco usage or history of. Screenin:47 Abuse screen: Denies threats or abuse. Denies injuries from another. Nutritional as6 screening: No deficits noted. Tuberculosis screening: No symptoms or risk factors identified. Fall Risk Fall in past 12 months (25 points). No secondary diagnosis (0 pts). No IV (0 pts). Ambulatory Aid- Crutches/Cane/Walker (15 pts). Gait- Weak (10 pts.). Mental Status- Oriented to own ability (0 pts). Total Durand Fall Scale indicates High Risk Score (45 or more points). Fall prevention measures have been instituted. Side Rails Up X 2 Placed Close to Nursing Station Family Present and informed to notify staff if the need to leave the bedside As available patient and family educated on Fall Prevention Program and Strategies. Assessment: 21:45 General: Appears in no apparent distress. Behavior is calm, cooperative. Pain: as6 Complains of pain in lateral aspect of right thigh. Pain: Complains of pain in anterior aspect of right upper chest. Pain: Complains of pain in right elbow Pain does not radiate. Neuro: Level of Consciousness is awake, alert, obeys commands, Oriented to person, place, time, situation. Cardiovascular: Capillary refill < 3 seconds Patient's skin is warm and dry. Respiratory: Airway is patent Trachea midline Respiratory effort is even, unlabored, Respiratory pattern is regular, symmetrical. Derm: Skin is thin, scab to right elbow. daughter put on band aid MANAGER MANAGING. bleeding controlled. Musculoskeletal: Range of motion: intact in all extremities. 22:50 Reassessment: Patient appears in no apparent distress at this time. as6 23:33 Reassessment: Patient appears in no apparent distress at this time. No changes from tw5 previously documented assessment. Patient and/or family updated on plan of care and expected duration. Pain level reassessed. Patient is alert, oriented x 3, equal unlabored respirations, skin warm/dry/pink. Vital Signs: 21:26 BP 132 / 66; Pulse 68; Resp 16 S; Temp 98.2(O); Pulse Ox 93% on R/A; Weight 55.34 kg as6 (R); Height 4 ft. 9 in. (144.78 cm) (R); Pain 8/10; 22:44 BP 160 / 62; Pulse 55; Resp 17 S; Pulse Ox 94% on R/A; as6 23:33 BP 159 / 62; Pulse 56; Resp 14; Pulse Ox 95% on R/A; tw5 21:26 Body Mass Index 26.40 (55.34 kg, 144.78 cm) as6 ED Course: 21:25 Patient arrived in ED. mw2 21:26 Flash Crane, RN is Primary Nurse. as6 21:29 Anthony Tejeda NP is PHCP. pm1 21:29 Jesse Eddy MD is Attending Physician. pm1 21:36 Triage completed. as6 21:42 Arm band placed on. as6 21:48 Placed in gown. Bed in low position. Call light in reach. Side rails up X2. Adult w/ as6 patient. security screener on. Pulse ox on. NIBP on. Warm blanket given. 22:34 Hip Right 2 View XRAY In Process Unspecified. EDMS 06/10 00:03 No provider procedures requiring assistance completed. Patient did not have IV access as6 during this emergency room visit. Administered Medications: 03 23:33 Drug: traMADol 50 mg Route: PO; tw5 06/10 00:03 Follow up: Response: No adverse reaction; RASS: Alert and Calm (0) as6 Outcome: 06/09 23:36 Discharge ordered by . pm1 06/10 00:03 Discharged to home with family. as6 Condition: stable Discharge instructions given to patient, family, Instructed on discharge instructions, follow up and referral plans. medication usage, Demonstrated understanding of instructions, follow-up care, medications, Prescriptions given X 1. 00:03 Patient left the ED. as6 Signatures: Dispatcher [employer] EDMS Anthony Tejeda NP RELINER pm1 Tamiko Arango mw2 Mela Donnelly tw5 Flash Crane RN RN as6
--- NOTE | 2021-06-09 23:37 | EDPHYS ---
Physician Documentation [facility] Name: Cristel Casas Age: 81 yrs Sex: Female : 1940 Arrival Date: 06/09/2021 Time: 21:25 Bed 6 Private MD: ED Physician Jesse Eddy HPI: 06/09 21:40 This 81 yrs old Female presents to ER via EMS with complaints of Right hip pm1 pain. 21:40 The patient or guardian reports pain. that occurred at home, sustained from a fall, pm1 while walking, up incline. Typically requires assistance with walking for balance but she wanted to walk by herself without her daughter and lost her balnce due to the incline. Patient landed on her right hip area and scrapped her right elbow, There is no obvious deformity, Pain with bearing weight. The complaints affect the posterior lateral aspect of right thigh. Onset: The symptoms/episode began/occurred today. Modifying factors: the symptoms are aggravated by weight bearing. Associated signs and symptoms: Pertinent negatives: chest pain, headache, shortness of breath, head injury, neck pain, LOC. Severity of symptoms: in the emergency department the symptoms are unchanged. The patient has not experienced similar symptoms in the past. The patient has not recently seen a physician. Historical: - Allergies: 21:36 No Known Allergies; as6 - Home Meds: 21:36 nebivolol 10 mg oral tab 1 tab once daily [Active]; clopidogrel 75 mg oral tab 1 tab as6 once daily [Active]; albuterol sulfate 90 mcg/actuation Inhl aebs 1 puff as needed [Active]; ferrous sulfate 325 mg (65 mg iron) Oral tab 1 tab 2 times per day [Active]; famotidine 20 mg Oral tab 1 tab once daily [Active]; atorvastatin 10 mg oral tab 1 tab once daily [Active]; tamsulosin 0.4 mg oral cap 1 cap once daily [Active]; amlodipine 2.5 mg tab 1 tab once daily [Active]; Eliquis 2.5 mg oral tab 1 tab 2 times per day [Active]; omeprazole 20 mg Oral cpDR 1 cap 2 times per day [Active]; - PMHx: 21:36 liver cancer; Hypercholesterolemia; Hypertensive disorder; Kidney disease; as6 - PSHx: 21:36 None; as6 - Immunization history:: Client reports receiving the 2nd dose of the Covid vaccine, moderna. - Social history:: Smoking status: Patient denies any tobacco usage or history of. ROS: 21:40 Constitutional: Negative for fever, chills, and weight loss, Cardiovascular: Negative pm1 for chest pain, palpitations, and edema, Respiratory: Negative for shortness of breath, cough, wheezing, and pleuritic chest pain, Abdomen/GI: Negative for abdominal pain, nausea, vomiting, diarrhea, and constipation. 21:40 Skin: Negative for injury, rash, and discoloration, Neuro: Negative for headache, weakness, numbness, tingling, and seizure. 21:40 MS/extremity: Positive for pain, of the proximal lateral aspect of right thigh, Negative for decreased range of motion, deformity. 21:40 All other systems are negative. Exam: 21:40 Constitutional: This is a well developed, well nourished patient who is awake, alert, pm1 and in no acute distress. Head/Face: Normocephalic, atraumatic. 21:40 Skin: Warm, dry with normal turgor. Normal color with no rashes, no lesions, and no evidence of cellulitis. 21:40 Cardiovascular: Exam negative for acute changes, Rate: normal, Rhythm: regular, Pulses: no pulse deficits are appreciated. 21:40 Respiratory: Exam negative for acute changes, respiratory distress, shortness of breath, Breath sounds: are clear throughout. 21:40 Musculoskeletal/extremity: Exam is negative for acute changes, Extremities: grossly normal except: noted in the proximal lateral aspect of right thigh: tenderness, There is no evidence of decreased ROM, deformity, ecchymosis, swelling, ROM: full passive range of motion, in the right hip and left hip, without pain, the right foot and left foot Sensation intact. negative for tenderness to right elbow. Active and passive ROM intact to right elbow and shoulder. 21:40 Skin: injury, abrasion(s), small abrasion noted, of the right elbow. 21:40 Neuro: Exam negative for acute changes, Orientation: is normal, Mentation: is normal, Motor: is normal, moves all fours. Vital Signs: 21:26 BP 132 / 66; Pulse 68; Resp 16 S; Temp 98.2(O); Pulse Ox 93% on R/A; Weight 55.34 kg as6 (R); Height 4 ft. 9 in. (144.78 cm) (R); Pain 8/10; 22:44 BP 160 / 62; Pulse 55; Resp 17 S; Pulse Ox 94% on R/A; as6 23:33 BP 159 / 62; Pulse 56; Resp 14; Pulse Ox 95% on R/A; tw5 21:26 Body Mass Index 26.40 (55.34 kg, 144.78 cm) as6 MDM: 21:35 Patient medically screened. pm1 23:35 Data reviewed: vital signs. Data interpreted: Pulse oximetry: on room air is 95 %. pm1 Interpretation: normal. Counseling: I had a detailed discussion with the patient and/or guardian regarding: the historical points, exam findings, and any diagnostic results supporting the discharge/admit diagnosis, radiology results, the need for outpatient follow up, to return to the emergency department if symptoms worsen or persist or if there are any questions or concerns that arise at home. 06/09 21:39 Order name: Hip Right 2 View XRAY; Complete Time: 16:51 pm1 Administered Medications: 23:33 Drug: traMADol 50 mg Route: PO; tw5 06/10 00:03 Follow up: Response: No adverse reaction; RASS: Alert and Calm (0) as6 Disposition: 03:21 Co-signature as Attending Physician, Jesse Eddy MD. mh7 Disposition Summary: 06/09/21 23:36 Discharge Ordered Location: Home pm1 Problem: new pm1 Symptoms: have improved pm1 Condition: Stable pm1 Diagnosis - Contusion of right hip pm1 Followup: pm1 - With: Emergency Department - When: As needed - Reason: Worsening of condition Followup: pm1 - With: Private Physician - When: 2 - 3 days - Reason: Recheck today's complaints, Continuance of care, Re-evaluation by your physician Discharge Instructions: - Discharge Summary Sheet pm1 - Abrasion pm1 - Contusion pm1 - Fall Prevention in the Home, Adult pm1 Forms: - Medication Reconciliation Form pm1 - Thank You Letter pm1 - Antibiotic Education pm1 - Prescription Opioid Use pm1 Prescriptions: - Tramadol 50 mg Oral Tablet - take 1 tablet by ORAL route every 8 hours as needed; 12 tablet; Refills: 0, pm1 Product Selection Permitted Signatures: Dispatcher [employer] Anthony Lindsey, BOOT LACE CUTTER MACHINE BOOT LACE CUTTER MACHINE pm1 Jesse Eddy MD MD 7 Mela Donnelly tw5 Flash Crane RN RN as6
[2021-06-10 00:40] VITALS: TEMP 98.2
[2021-06-10 00:42] VITALS: BP 159/62; O2SAT 95
--- NOTE | 2021-06-10 08:21 | RAD REPORT ---
EXAM DESCRIPTION: RAD - Hip Right 2 View - 06/09/2021 10:35 pm CLINICAL HISTORY: PAIN COMPARISON: <Comparisons> FINDINGS: AP and frog-leg views of the right hip were obtained. There is no fracture or dislocation. No AVN or focal head abnormality. No acute or destructive bony p rocess seen. No suspicious soft tissue finding. IMPRESSION: Negative right hip examination for acute or significant findings.
== END 2021-06-10 00:03 | disposition home or self-care (01) ==
LOC: ER 21:23
DX: S70.01XA Contusion of right hip, initial encounter (principal); W18.30XA Fall on same level, unspecified, initial encounter; Y93.01 Activity, walking, marching and hiking; Z85.05 Personal history of malignant neoplasm of liver; I10 Essential (primary) hypertension; N28.9 Disorder of kidney and ureter, unspecified
CPT/HCPCS: 99284

== ENCOUNTER 2021-06-11 11:41 | Inpatient (IN) | payer OTHER ==
--- OUTSIDE RECORDS SUMMARY | 2021-06-11 11:46 | XMS REPORT | Continuity of Care Document ---
:1940 Author Organization [facility] t Address [address] [place] [address] Care Team Providers Name Role Phone System, [...] Number Effective Date Expiration Date Don renner [facility] [id number] 2020 00:00:00 HUMANA MEDICARE [id number] 2020 ADV 00:00:00 MEDICAID OF [place] [id number] 2018 00:00:00 WELLCARE [id number] [facility] HUMANA CHOICE [id number] 2020 00:00:00 WELLCARE OF [place] - [id number] 2019 2020 TEXAN[employer]US 00:00:00 00:00:00 (MEDICARE REPLACEMENT/ADVAN TAGE - HMO) Problems Condition Condition Condition Status Onset Resolution Last Treating Co mments Source Name Details Category Date Date Treatment Clinician Date PAD PAD Disease Active 2020-04 [facility] (periphera (periphera 04-12 Co llege l artery l artery 00:00: of disease) disease) 00 Medici n (HCCode) (HCCode) e Hypothyroi Hypothyroi Problem Active 2019-04 V [...] Disease 00 e Allergies, Adverse Reactions, Alerts Allergy Allergy Status Severity Reaction(s) Onset Inactive Treating Comm ents Source Name Type Date Date Clinician NO KNOWN Allergy Active [facility] NO KNOWN Drug [facility] Social History Social Habit Start Date Stop Date Quantity Comments Source Tobacco use and 2021-02-04 2021-02-04 Smokeless tobacco [facility] exposure 00:00:00 00:00:00 non-user of Medicine Sex Ass[birth year] At [birth year] [facility] Co llege 00:00:00 00:00:00 of Medicine Smoking Status Start Date Stop Date Source Former Smoker [place] Family P rachel Never smoked tobacco [facility] Sammi ege of Medicine Medications Ordered Filled Start Stop Current Ordering Indication Dosage Frequency Signature Comments Components Source Medication Medication Date Date Medication? Clinician (SIG) Name Name alendronate 2020-04 Yes 70mg Take 70 mg [facility] (FOSAMAX) 04-06 by mouth Colleg e 70 MG 11:49: every 7 of tablet 26 days. Medicin e albuterol 2020-04 Yes 1.25mg Take 1.25 B a[facility]or (ACCUNEB) - mg by [place] 1.25 MG/3ML 11:49: nebulizati of nebulizer 26 on every 4 Medi aric solution hours as e needed for Wheezing. amlodipine 2020-04 Yes 2.5mg Take 2.5 [facility] (NORVASC) 04-06 mg by [place] 2.5 MG 11:49: mouth of tablet 26 daily. Medicin e potassium 2020-04 Yes 10meq Take 10 Bayl or chloride - mEq by [place] (KDUR) 10 11:49: mouth two of MEQ tablet 26 times Medicin daily. e clopidogrel 2020-04 Yes 75mg Take 75 mg Filiberto (PLAVIX) 75 04-06 by mouth Sammi ege MG Tablet 11:49: daily. of 26 Medicin e furosemide 2020-04 Yes 20mg Take 20 mg B a[facility] (LASIX) 20 04-06 by mouth Colle ge MG tablet 11:49: daily. of 26 Medicin e Tamsulosin 2020-04 Yes Take by [place] dino HCl 0.4 MG 04-06 mouth College CAPS 11:49: daily. of 26 Medicin e Apixaban 2020-04 Yes Take by [facility] (ELIQUIS) 04-06 mouth [place] 2.5 MG TABS 11:49: daily. of 26 Medicin e ferrous 2020-04 Yes 325mg Take 325 [facility] sulfate 325 04-06 mg by [place] (65 Fe) MG 11:49: mouth of tablet [...] route. glimepiride glimepiride No 1 Q1D glimepirid [facility] 1 mg tablet 1 mg tablet e 1 mg Family Take 1 Take 1 tablet Practic tablet tablet Take 1 e every day every day tablet by oral by oral every day route. route. by oral route. hydralazine hydralazine No 1 BID hydralazin [facility] 10 mg 10 mg e 10 mg Family tablet Take tablet Take tablet Practic 1 tablet 1 tablet Take 1 e twice a day twice a day tablet by oral by oral twice a route. route. day by oral route. hydrochloro hydrochloro No 1 Q1D hydrochlor [facility] thiazide 25 thiazide 25 othiazide Family mg tablet mg tablet 25 mg Prac tic Take 1 Take 1 tablet e tablet tablet Take 1 every day every day tablet by oral by oral every day route. route. by oral route. ibuprofen ibuprofen No 1capsul Q6H ibuprofen [facility] 200 mg 200 mg e(s) 200 mg Family capsule capsule capsule Practi c Take 1 Take 1 Take 1 e capsule capsule capsule every 6 every 6 every 6 hours by hours by hours by oral route. oral route. oral route. propylthiou propylthiou No 1 BID propylthio [facility] racil 50 mg racil 50 mg uracil 50 Family tablet Take tablet Take mg tablet Practic 1 tablet 1 tablet Take 1 e twice a day twice a day tablet by oral by oral twice a route. route. day by oral route. Immunizations Ordered Immunization Filled Immunization Date Status Commen ts Source Name Name influenza, influenza, 2020-01-05 Completed [facility] Family injectable, injectable, 00:00:00 Practice quadrivalent quadrivalent Vital Signs Vital Name Observation Time Observation Value Comments Source WEIGHT 2020-03-26 03:00:00 72.213 kg Systolic blood 2021-02-04 16:43:00 155 mm[Hg] [facility] pressure Medicine Diastolic blood 2021-02-04 16:43:00 74 mm[Hg] [facility] pressure Medicine Heart rate 2021-02-04 16:43:00 72 /min [facility] ollege of Medicine Body height 2021-02-04 16:43:00 144.8 cm [facility] of Medicine Body weight 2021-02-04 16:43:00 58.06 kg [facility] BMI 2021-02-04 16:43:00 27.70 kg/m2 [facility] of Medicine WEIGHT 2021-01-06 04:00:00 63.504 kg WEIGHT 2021-01-02 14:00:00 56.246 kg HEIGHT 2021-01-02 14:00:00 149.9 cm WEIGHT 2021-01-06 04:00:00 63.504 kg WEIGHT 2021-01-02 14:00:00 56.246 kg HEIGHT 2021-01-02 14:00:00 149.9 cm WEIGHT 2020-03-26 03:00:00 72.213 kg BP Diastolic 2020-02-10 00:00:00 80 mm[Hg] [facility] Practice Height 2020-02-10 00:00:00 59 [in_i] [facility] BMI (Body Mass 2020-02-10 00:00:00 31.9 kg/m2 [facility] Family Index) Practice BP Systolic 2020-02-10 00:00:00 140 mm[Hg] [facility] Body Weight 2020-02-10 00:00:00 158 [lb_av] [facility] Procedures This patient has no known procedures. Plan of Care Planned Activity Planned Date Details Comments Source Future Scheduled 2021-02-10 TETANUS SHOT [facility] ege Test 19:57:27 (ADULT) [code = of Medicine TETANUS SHOT (ADULT)] Future Scheduled 2021-02-10 BMI FOLLOW UP PLAN [facility] Test 19:57:27 [code = BMI FOLLOW of Medici ne UP PLAN] Future Scheduled 2021-02-10 Hepatitis C [facility] ege Test 19:57:27 screening of Medicine (procedure) [code = 794953355] Future Scheduled 2021-02-10 ZOSTER VACCINE (1 [facility] Test 19:57:27 of 2) [code = of Medicine ZOSTER VACCINE (1 of 2)] Future Scheduled 2021-02-10 BCM AMB [facility] Sammi ege Test 19:57:27 Pneumococcal 65+ of Medicine (testing) (1 of 1 - PPSV23) [code = BCM AMB Pneumococcal 65+ (testing) (1 of 1 - PPSV23)] Future Scheduled 2021-02-10 Screening for [facility] Col lege Test 19:57:27 osteoporosis of Medicine (procedure) [code = 204314079] Future Scheduled 2021-02-10 FLU VACCINE > 6 [facility] C ollege Test 19:57:27 MONTHS [code = FLU of Medici ne VACCINE > 6 MONTHS] Future Scheduled 2021-02-10 MEDICARE IPPE [facility] Col lege Test 19:57:27 (WELCOME TO of [...] Scheduled 2021-02-04 US ARTERIAL LEG 1 Occurrences [facility] College Test 11:57:35 RIGHT [code = starting of Medicine 78028] 02/04/2021 until 02/04/2022 Instructions [facility] Family Practice Encounters Start End Encounter Admission Attending Care Care Encounter Source Date/Time Date/Time Type Type Clinicians Facility Department ID 2021-05-01 [facility]patient [facility] 14[facility]32[facility]17 [facility] 2021[facility]05-01 [facility] 14:29:46 [facility] 2021-05-01 [facility]patient [facility] 14:27:48 [facility] 2021-05-01 Outpatient Srikanth [facility] 14[facility]22:36 [facility] 2021-05-01 [facility]patient [facility] 14:07:10 Rod [id number] [facility] 2021-05-01 [facility]patient [facility] 14:06:31 Rod [id number] [facility] 2021-05-01 [facility]patient [facility] 13:59:50 Rod [id number] [facility] 2021-05-01 [facility]patient [facility] 13:58:19 Rod [id number] [facility] 2021-05-01 [facility]patient [facility] 13:41:58 Rod [id number] [facility] 2021-05-01 [facility]patient [facility] 13:41:09 Rod [id number] [facility] 2021-05-01 [facility]patient [facility] 13:20:57 Rod [id number] [facility] 2021-05-01 [facility]patient [facility] 13:08:05 Rod [id number] [facility] 2021-05-01 [facility]patient [facility] 12[facility]47:57 Rod [id number] [facility] 2021-05-01 Outpatient [facility] 12:31:33 Rod [id number] [facility] 2021-05-01 Outpatient [facility] 12:31:04 Rod [id number] [facility] 2020-03-26 Inpatient ER RIVAS, [facility] Med [id number] SLE 03:02:00 IVANIA 2021-06-07 2021-06-07 ambulatory [facility] [id number] [facility] 2021-06-03 2021-06-03 ambulatory [facility] [id number] [facility] 2021-06-03 2021-06-03 ambulatory [facility] [id number] [facility] 2021-05-29 2021-05-29 Outpatient EL AN, [facility] [id number] [facility] 10:25:24 10:25:24 JOSE E 2021-04-12 2021-04-12 ambulatory [facility] [id number] [facility] 2021-04-12 2021-04-12 ambulatory [facility] [id number] [facility] 2021-04-04 2021-04-04 ambulatory [facility] [id number] [facility] 2021-03-22 2021-03-22 ambulatory [facility] [id number] [facility] 2021-03-13 2021-03-13 ambulatory [facility] [id number] [facility] 2021-03-11 2021-03-11 ambulatory [facility] [id number] [facility] 2021-02-04 2021-02-04 Office RISA Amado [id number] 727 [facility] 13:00:00 13:00:00 Visit Saud AMBULATOR [id number] College Sudhir Y [id number] [facility] 825 e 2021-02-04 2021-02-04 Outpatient BCM [facility] [id number] [facility] 10:39:06 12:13:11 Colleg e of Medicin e 2021-01-24 2021-01-24 Outpatient [facility] [id number] [facility] 2021-01-16 2021-01-16 Outpatient [facility] [id number] [facility] 2021-01-15 2021-01-15 Outpatient DAY, [facility] SLE [id number] SLE 00:00:00 00:00:00 ARTHUR 2021-01-10 2021-01-10 [facility] [id number] [facility] 2021-01-02 2021-01-08 Inpatient ER CIVUNIGUNTA [facility] V[facility] [id number] [facility] 12:12:00 10:59:00 , SEEMA Shaji 2021-01-07 2021-01-07 Outpatient [facility] [id number] [facility] 00:00:00 23:59:00 Colleg e of Medicin e 2020-11-29 2020-11-29 Outpatient [facility] [id number] [facility] 2020-11-29 2020-11-29 Outpatient [facility] [id number] [facility] 2020-11-28 2020-11-28 Outpatient [facility] [id number] [facility] 2020-11-26 2020-11-26 Outpatient [facility] [id number] [facility] 2020-11-23 2020-11-23 Outpatient [facility] [id number] [facility] 2020-11-19 2020-11-19 Outpatient [facility] [id number] [facility] 2020-11-18 2020-11-18 Outpatient Bria [facility] [id number] [facility] 15:40[facility]00 [facility]40[facility]00 [facility] 2020-11-13 Outpatient [facility] [id number] [facility] 2020-10-16 2020-10-16 Outpatient [facility] [id number] [facility] 2020-10-16 2020-10-16 Outpatient [facility] [id number] [facility] 2020-09-26 2020-09-26 Outpatient Miller_S_AH VFP VFP [id number] [facility] 10:55:00 10:55:00 [id number] Family Practic e 2020-09-04 2020-09-04 Outpatient [facility] [id number] [facility] 2020-09-04 2020-09-04 Outpatient [facility] [id number] [facility] 2020-08-29 2020-08-29 Outpatient [facility] [id number] [facility] 2020-07-06 2020-07-06 Outpatient [facility] [id number] [facility] 2020-07-04 2020-07-04 Outpatient [facility] [id number] [facility] 2020-06-26 2020-06-26 Outpatient [facility] [id number] [facility] 2020-06-26 2020-06-26 Outpatient [facility] [id number] [facility] 2020-06-07 2020-06-07 Outpatient [facility] [id number] [facility] 2020-05-18 2020-05-18 [facility] [id number] [facility] 2020-04-13 2020-04-13 Outpatient Mayra-Mbayo VFP VFP [address] [place] [address] 08:58:00 08:58:00 _A_AH 53301 Family Practic e 2020-02-22 2020-02-22 Outpatient Mayra-Mbayo VFP VFP [address] [place] [address] 12:39:00 12:39:00 _A_AH 14611 Family Practic e 2020-02-16 2020-02-16 Outpatient Mayra-Mbayo VFP VFP [address] [place] [address] 10:44:00 10:44:00 _A_AH 51963 Family Practic e 2020-02-10 2020-02-10 Aiyana VFP [place] - [id number] [facility] 00:00:00 [facility]00[facility] Fam arcenio santizo NATIONAL ACCOUNT EXECUTIVE: Medical - Practi c [address] [email or web address] [facility], [address] [address], [place] [address] , Ph. 2019-06-21 2019-06-21 Outpatient Mayra-Mbayo VFP VFP [address] [place] [address] 02:46:00 02:46:00 _A_AH 08988 Family Practic e 2019-06-21 2019-06-21 Outpatient Mayra-Mbayo VFP VFP [address] [place] [address] 02:46:00 02:46:00 _A_AH 75146 Family Practic e 2019-06-14 2019-06-14 Outpatient Reina [facility] [id number] [facility] 05:52:00 05:52:00 _A_ 94044 Family Practic e Results Test Description Test Time Test Comments Results Result Comments Source CARCINOEMBRYONIC ANTIGEN (CEA) 2021-05-29 18:00:57 Test Item Value Reference Range Interpretation Comme nts CARCINOEMBRYONIC ANTIGEN (BEAKER) (test code = 685) 7.2 ng/mL 0. 0-5.0 H Membership Sales Advisor ID - BSALPHA FETOPROTEIN (AFP), TUMOR [id number] 18:00:57 Test Item Value Reference Range Interpretation Comments ALPHA-FETOPROTEIN (BEAKER) (test 159.0 ng/mL <10.0 H code = 1094) Membership Sales Advisor ID - BSHEPATITIS B CORE ANTIBODY, [id number] 18:00:57 Test Item Value Reference Range Interpretation Comments HEPATITIS B CORE TOTAL ANTIBODY Nonreactive Nonreactive (BEAKER) (test code = 497) Membership Sales Advisor ID - BSBASIC METABOLIC [id number] 16:50:49 Test Item Value Reference Range Interpretation [...] S NOT APPLICABLE FOR DIALYSIS PATIEN TS. Membership Sales Advisor ID - BSHEPATIC FUNCTION [id number] 16:49:05 Test Item Value Reference Range Interpretation [...] (test code = 16 U/L 6-55 347) Membership Sales Advisor ID - BSPROTHROMBIN [id number] 16:37:49 Test Item Value Reference Range Interpretation Comments PROTIME (BEAKER) 14.4 seconds 11.9-14.2 H (test code = 759) INR (BEAKER) (test 1.14 See_Comment [Automat ed message] code = 370) The system Fortisphere generated this result transmitted ref erence range: [...] (BEAKER) (test code = 2801) BASIC METABOLIC [id number] 04:22:23 Test Item Value Reference Range Interpretation [...] S NOT APPLICABLE FOR DIALYSIS PATIEN TS. Membership Sales Advisor ID - JRLCBC W/PLT COUNT & AUTO [id number] 03:52:59 Test Item Value Reference Range Interpretation [...] PERCENT (BEAKER) (test code = 2801) POCT-GLUCOSE [id number] 22:34:16 Test Item Value Reference Range Interpretation Comments POC-GLUCOSE METER 126 mg/dL 70-110 H : TESTED A T [facility] 6720 (BEAKER) (test code = [facility], 153) 31709: Membership Sales Advisor/Techni nigel ID = [id number] for Ri vera (contract), Via nna POCT-GLUCOSE [id number] 18:17:28 Test Item Value Reference Range Interpretation Comments POC-GLUCOSE METER 199 mg/dL 70-110 H : TESTED A T [facility] 6720 (BEAKER) (test code = [facility], 1538) 74427: Membership Sales Advisor/Techni nigel ID = [id number] for Rosalina Estes POCT-GLUCOSE [id number] 07:33:07 Test Item Value Reference Range Interpretation Comments POC-GLUCOSE METER 97 mg/dL 70-110 : TESTED A T [facility] 6720 (BEAKER) (test code = [facility], 153) 69183: Membership Sales Advisor/Techni nigel ID = [id number] for Rosalina Verduzco CBC W/PLT COUNT & AUTO [id number] 06:10:50 Test Item Value Reference Range Interpretation [...] 0-1 H PERCENT (BEAKER) (test code = 2808) BASIC METABOLIC [id number] 06:10:09 Test Item Value Reference Range Interpretation [...] S NOT APPLICABLE FOR DIALYSIS PATIEN TS. Membership Sales Advisor ID - MARY ELLEN WPOCT-GLUCOSE [id number] 20:24:17 Test Item Value Reference Range Interpretation Comments POC-GLUCOSE METER 158 mg/dL 70-110 H : TESTED A T [facility] 6720 (BEAKER) (test code = [facility], 1538) 30618: Membership Sales Advisor/Techni nigel ID = [id number] for ME VALENCIA (V)NAMAN POCT-GLUCOSE [id number] 17:59:56 Test Item Value Reference Range Interpretation Comments POC-GLUCOSE METER 140 mg/dL 70-110 H : TESTED A T [facility] 6720 (BEAKER) (test code = [facility], 1538) 48861: Membership Sales Advisor/Techni nigel ID = [id number] for Rosalina Estes CBC W/PLT COUNT & AUTO [id number] 15:22:18 Test Item Value Reference Range Interpretation [...] PERCENT (BEAKER) (test code = 2801) POCT-GLUCOSE [id number] 13:22:28 Test Item Value Reference Range Interpretation Comments POC-GLUCOSE METER 149 mg/dL 70-110 H : TESTED A T [facility] 6720 (BEAKER) (test code = [place]AVANAND B[place], 1538) 16721: Membership Sales Advisor/Techni nigel ID = [id number] for Rosalina Estes POCT-GLUCOSE [id number] 09:15:41 Test Item Value Reference Range Interpretation Comments POC-GLUCOSE METER 177 mg/dL 70-110 H : TESTED A T [facility] 6720 (BEAKER) (test code = CIARA [facility], 1538) 38406: Membership Sales Advisor/Techni nigel ID = [id number] for Rosalina Estes CBC W/PLT COUNT & AUTO [id number] 07:58:44 Test Item Value Reference Range Interpretation [...] = 2801) CBC W/PLT COUNT & AUTO [id number] 07:00:07 Test Item Value Reference Range Interpretation [...] (BEAKER) (test code = 2801) BASIC METABOLIC [id number] 06:54:20 Test Item Value Reference Range Interpretation [...] S NOT APPLICABLE FOR DIALYSIS PATIEN TS. Membership Sales Advisor ID - MARY ELLEN WPOCT-GLUCOSE [id number] 21:49:14 Test Item Value Reference Range Interpretation Comments POC-GLUCOSE METER 169 mg/dL 70-110 H : TESTED A T [facility] 6720 (BEAKER) (test code = [facility], 1538) 57486: Membership Sales Advisor/Techni nigel ID = [id number] for HOMA MCGUIRE POCT-GLUCOSE [id number] 16:21:25 Test Item Value Reference Range Interpretation Comments POC-GLUCOSE METER 207 mg/dL 70-110 H : TESTED A T [facility] 6720 (BEAKER) (test code = [facility], 1538) 31334: Membership Sales Advisor/Techni nigel ID = [id number] for WHITE GERMAN MOSER POCT-GLUCOSE [id number] 10:59:54 Test Item Value Reference Range Interpretation Comments POC-GLUCOSE METER 163 mg/dL 70-110 H : TESTED A T [facility] 6720 (BEAKER) (test code = [facility], 1538) 52122: Membership Sales Advisor/Techni nigel ID = [id number] for WHITE GERMAN MOSER POCT-GLUCOSE [id number] 09:06:01 Test Item Value Reference Range Interpretation Comments POC-GLUCOSE METER 148 mg/dL 70-110 H : TESTED A T [facility] 6720 (BEAKER) (test code = [facility], 1538) 23266: Membership Sales Advisor/Techni nigel ID = [id number] for WHITE GERMAN MOSER BASIC METABOLIC [id number] 05:42:03 Test Item Value Reference Range Interpretation [...] S NOT APPLICABLE FOR DIALYSIS PATIEN TS. Membership Sales Advisor ID - MARY KAY GCBC W/PLT COUNT & AUTO [id number] 05:14:00 Test Item Value Reference Range Interpretation [...] H PERCENT (BEAKER) (test code = 2801) [id number] 22:59:43 Test Item Value Reference Range Interpretation Comments PARTIAL THROMBOPLASTIN TIME 76.7 seconds 22.5-36.0 H (BEAKER) (test code = 760) CBC W/PLT COUNT & AUTO [id number] 22:45:28 Test Item Value Reference Range Interpretation [...] PERCENT (BEAKER) (test code = 2801) POCT-GLUCOSE [id number] 22:44:00 Test Item Value Reference Range Interpretation Comments POC-GLUCOSE METER 140 mg/dL 70-110 H : TESTED A T [facility] 6720 (BEAKER) (test code = [facility], 1538) 08092: Membership Sales Advisor/Techni nigel ID = [id number] for DANIELLA MORALES [id number] 14:27:11 Test Item Value Reference Range Interpretation Comments PARTIAL THROMBOPLASTIN TIME 98.2 seconds 22.5-36.0 H (BEAKER) (test code = 760) POCT-GLUCOSE [id number] 12:13:43 Test Item Value Reference Range Interpretation Comments POC-GLUCOSE METER 135 mg/dL 70-110 H : TESTED A T [facility] 6720 (BEAKER) (test code = [facility], 1538) 52967: Membership Sales Advisor/Techni nigel ID = [id number] for Dory lopes (contract)Maci [id number] 12:12:39 Test Item Value Reference Range Interpretation [...] = 413) CBC W/PLT COUNT & AUTO [id number] 09:00:46 Test Item Value Reference Range Interpretation [...] PERCENT (BEAKER) (test code = 2801) POCT-GLUCOSE [id number] 07:32:24 Test Item Value Reference Range Interpretation Comments POC-GLUCOSE METER 128 mg/dL 70-110 H : TESTED A T [facility] 6720 (BEAKER) (test code = [place], 1538) 22829: Membership Sales Advisor/Techni nigel ID = [id number] for Dory lopes (contract)Maci [id number] 05:10:35 Test Item Value Reference Range Interpretation Comments PARTIAL THROMBOPLASTIN TIME 66.8 seconds 22.5-36.0 H (BEAKER) (test code = 760) BASIC METABOLIC [id number] 03:50:34 Test Item Value Reference Range Interpretation [...] S NOT APPLICABLE FOR DIALYSIS PATIEN TS. Membership Sales Advisor ID - PIAMPARO [id number] 03:02:28 Test Item Value Reference Range Interpretation Comments PHOSPHORUS (BEAKER) (test code = 4.9 mg/dL 2.3-4.7 H 604) Membership Sales Advisor ID - PIAMPARO [id number] 03:02:27 Test Item Value Reference Range Interpretation Comments MAGNESIUM (BEAKER) (test code = 2.2 mg/dL 1.6-2.6 627) Membership Sales Advisor ID - UCHE [id number] 02:59:33 Test Item Value Reference Range Interpretation Comments PARTIAL THROMBOPLASTIN TIME 179.3 seconds 22.5-36.0 HH (BEAKER) (test code = 760) CT, CHEST, WITHOUT [id number] 01:50:00Unlisted Reason for Exam - Click Yes and Enter Reason Below->YesUnlisted Reason for Exam->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 Pulmonary emphysema. Prominent mediastinal lymph nodes, nonspecific. Primary lymphoproliferative ormetastatic malignancy should be excluded clinically. Comparison to previous imaging would be helpful, if available elsewhere. Diffuse osteopenia. Age indeterminate severe compression deformities of T7 and T9 with retropulsion of fragment. Several age indeterminate right rib fractures. Please correlatewith history. Signed: Moe Solomon MDRepshantanu Verified Date/Time: 01/04/2021 01:50:53 Ginny ordoñez signed by: MOE SOLOMON M.D. on 01/04/2021 01:50 [id number] 22:49:44 Test Item Value Reference Range Interpretation Comments PARTIAL THROMBOPLASTIN TIME > seconds 22.5-36.0 (REGINA) (test code = 760) POCT-GLUCOSE [id number] 22:26:17 Test Item Value Reference Range Interpretation Comments POC-GLUCOSE METER 130 mg/dL 70-110 H : TESTED A T [facility] 6720 (BEAKER) (test code = [place] [facility], 1538) [address]: Membership Sales Advisor/Techni nigel ID = [id number] for LORELEI JOLLY POCT-GLUCOSE [id number] 15:47:29 Test Item Value Reference Range Interpretation Comments POC-GLUCOSE METER 83 mg/dL 70-110 : TESTED A T [facility] 6720 (BEAKER) (test code = [facility], 1538) 83121: Membership Sales Advisor/Techni nigel ID = [id number] for LEE BLAS [id number] 14:37:55 Test Item Value Reference Range Interpretation Comments ACTIVATED CLOTTING TIME 263 sec : 74 -137 seconds, (BEAKER) (test code = Mary ne: TESTED AT 441) [facility] [address] [facility], 770 30: Membership Sales Advisor/Techni nigel ID = [id number] for SA LINAS, CARMEN (CELLAVISION MANUAL DIFF)2021-01-03 [...] CONCENTRATION Decreased (CELLAVISION)(BEAKER) (test code = 3438) Membership Sales Advisor ID - Erika Parikh comments: Slide comments:CBC W/PLT COUNT & AUTO [id number] 12:55:23 Test Item Value Reference Range Interpretation [...] 0-0 (BEAKER) (test code = 413) POCT-GLUCOSE [id number] 12:38:16 Test Item Value Reference Range Interpretation Comments POC-GLUCOSE METER 93 mg/dL 70-110 : TESTED A T [facility] 6720 (BEAKER) (test code = [place], 1538) [address]: Membership Sales Advisor/Techni nigel ID = [id number] for MINOO CALDERON [id number] 11:41:36 Test Item Value Reference Range Interpretation Comments PARTIAL THROMBOPLASTIN TIME 53.6 seconds 22.5-36.0 H (BEAKER) (test code = 760) [id number] 10:55:55 Test Item Value Reference Range Interpretation Comments PARTIAL THROMBOPLASTIN TIME 73.3 seconds 22.5-36.0 H (BEAKER) (test code = 760) POCT-GLUCOSE [id number] 10:22:02 Test Item Value Reference Range Interpretation Comments POC-GLUCOSE METER 131 mg/dL 70-110 H : TESTED A T [facility] 6720 (BEAKER) (test code = [facility], 1538) [address]: Membership Sales Advisor/Techni nigel ID = [id number] for Tru Lares HEMOGLOBIN [id number] 08:48:51 Test Item Value Reference Range Interpretation Comments HEMOGLOBIN A1C (BEAKER) (test code = 6.3 % 4.3-6.1 H 368) TSH/FREE T4 IF [id number] 08:45:49 Test Item Value Reference Range Interpretation Comments THYROID STIMULATING HORMONE 4.094 uIU/mL 0.350-4.940 (BEAKER) (test code = 772) Membership Sales Advisor ID - FUAD [id number] 07:39:55 Test Item Value Reference Range Interpretation Comments PARTIAL THROMBOPLASTIN TIME 133.4 seconds 22.5-36.0 H (BEAKER) (test code = 760) BASIC METABOLIC [id number] 06:44:27 Test Item Value Reference Range Interpretation [...] S NOT APPLICABLE FOR DIALYSIS PATIEN TS. Membership Sales Advisor ID - FUAD EPATIC FUNCTION [id number] 06:32:34 Test Item Value Reference Range Interpretation [...] (test code = 40 U/L 6-55 347) Membership Sales Advisor ID - FUAD [id number] 06:32:33 Test Item Value Reference Range Interpretation Comments MAGNESIUM (BEAKER) (test code = 2.4 mg/dL 1.6-2.6 627) Membership Sales Advisor ID - FUAD [id number] 06:17:38 Test Item Value Reference Range Interpretation Comments PARTIAL THROMBOPLASTIN TIME > seconds 22.5-36.0 HH (BEAKER) (test code = 760) POCT-GLUCOSE [id number] 06:10:09 Test Item Value Reference Range Interpretation Comments POC-GLUCOSE METER 141 mg/dL 70-110 H [facility] ([facility]ER[facility] (test code = [place], 1538) [address]: Membership Sales Advisor/Techni nigel ID = [id number] for So Jenni Clement [id number] 00:32:23 Test Item Value Reference Range Interpretation Comments PARTIAL THROMBOPLASTIN TIME 69.1 seconds 22.5-36.0 H (BEAKER) (test code = 760) POCT-GLUCOSE [id number] 21:39:41 Test Item Value Reference Range Interpretation Comments POC-GLUCOSE METER 100 mg/dL 70-110 : TESTED A T [facility] 6720 (BEAKER) (test code = [facility], 1538) [address]: Membership Sales Advisor/Techni nigel ID = [id number] for ROOPA DELCID [id number] 21:22:21 Test Item Value Reference Range Interpretation Comments PARTIAL THROMBOPLASTIN TIME 159.2 seconds 22.5-36.0 HH (BEAKER) (test code = 760) POCT-GLUCOSE [id number] 21:17:42 Test Item Value Reference Range Interpretation Comments POC-GLUCOSE METER 112 mg/dL 70-110 H : TESTED A T [facility] 6720 (BEAKER) (test code = [facility], 1538) [address]38[address]: Membership Sales Advisor/Techni nigel ID = [id number] for Jenni Garcia [id number] 18:28:15 Test Item Value Reference Range Interpretation Comments PARTIAL THROMBOPLASTIN TIME > seconds 22.5-36.0 HH (BEAKER) (test code = 760) POCT-GLUCOSE [id number] 16:34:15 Test Item Value Reference Range Interpretation Comments POC-GLUCOSE METER 104 mg/dL 70-110 : TESTED A T [facility] 6720 (BEAKER) (test code = [facility], 1538) [address]: Membership Sales Advisor/Techni nigel ID = [id number] for Tru Lares [id number] 16:14:26 Test Item Value Reference Range Interpretation [...] 0-0 (BEAKER) (test code = 413) POCT-GLUCOSE [id number] 12:56:20 Test Item Value Reference Range Interpretation Comments POC-GLUCOSE METER 190 mg/dL 70-110 H : TESTED A T [facility] 6720 (BEAKER) (test code = [facility], 1538) [address]: Membership Sales Advisor/Techni nigel ID = [id number] for Tru Lares TISSUE [id number] 10:22:00Surgical Pathology Report Case: [id number] Authorizing Provider: Arun Guzmán MD Collected: 03/27/2020 02:30 PM Ordering Location: [address] Received: 03/28/2020 09:01 AM Service Pathologist: Karsten Raya MD Specimen: Biopsy, Gastric, Random Bx Immunostain for helicobacter performed on block A1 is negative. Addendum electronically signed by Karsten Raya MD on 04/02/2020 at 10:22 AMPART A RANDOM GASTRIC BIOPSY:ACTIVE CHRONIC GASTRITIS.NEGATIVE FOR INTESTINAL METAPLASIA, DYSPLASIA, OR INVASIVE CARCINOMA.WARTHIN STARRY STAIN FOR HELICOBACTER IS EQUIVOCAL, IMMUNOSTAIN PENDING. Signing Pathologist Direct Phone Line: [phone] signed by Karsten Raya MD on 03/28/2020 at 3:42 [id number], [id number], 28269Gleuplnnanskaxib hemorrhage associated with gastritisGastricA. Received in formalin labeled with the patient's name, medical record number and "biopsy, gastric" and consists of multiple jacobo soft tissue fragments ranging 0.2-0.8 cm submitted in toto in A1.SY Ahumada, CHRIS ([facility])cmPerformed. The interpretation of this case included the use of immunohistochemistry or special stains.BLOCK A1- WARTHIN STARRYControl Slides Examined: In-house known positive controls were evaluated along with the test tissue. These control slides run alongside of the patients sample show appropriate staining. Internal positive and negative controls when available are evaluated Immunohistochemistry technical testing was performed at [facility], Pathology Laboratory where it was developed [...] qualified to perform high complexity clinical laboratory testing.[facility], Department of Pathology,[address] [place] [address], [facility], [facility], [address] [place] [address], [facility]cpmJer[facility], [facility], [address] [place] [address], KVNMD [id number] 19:01:00 Test Item Value Reference Range Interpretation Comments CULTURE (BEAKER) (test No growth in 5 days code = 1095) BLOOD [id number] 19:01:00 Test Item Value Reference Range Interpretation Comments CULTURE (BEAKER) (test No growth in 5 days code = 1095) POCT-GLUCOSE [id number] 11:20:00 Test Item Value Reference Range Interpretation Comments POC-GLUCOSE METER 200 mg/dL 70-110 H : TESTED A T [facility] 6720 (BEAKER) (test code = [facility], 1538) [address]: Membership Sales Advisor/Techni nigel ID = [id number] for QUEEN CAMPOS POCT-GLUCOSE [id number] 07:50:00 Test Item Value Reference Range Interpretation Comments POC-GLUCOSE METER 143 mg/dL 70-110 H : TESTED A T [facility] 6720 (BEAKER) (test code = [place], 1538) [address]: Membership Sales Advisor/Techni nigel ID = [id number] for QUEEN CAMPOS BASIC METABOLIC [id number] 05:11:00 Test Item Value Reference Range Interpretation [...] S NOT APPLICABLE FOR DIALYSIS PATIEN TS. Membership Sales Advisor ID - FUAD [id number] 05:09:00 Test Item Value Reference Range Interpretation Comments MAGNESIUM (BEAKER) (test code = 2.5 mg/dL 1.6-2.6 627) Membership Sales Advisor ID - FUAD MCBC W/PLT COUNT & AUTO [id number] 04:37:00 Test Item Value Reference Range Interpretation [...] 2801) RAD, RIBS, UNILATERAL, MIN 2 VIEWS, [id number] 02:40:00Reason for exam:- >fall 1 month ago, right rib pain [facility] : 1940 Sex: FFINAL REPORT [...] examination for focal tenderness. Signed: Moe Solomon MDRconnecticut children[facility] medical [facility] Verified Date/Time: 03/28/2020 02:40:40 POCT- GLUCOSE [id number] 21:16:00 Test Item Value Reference Range Interpretation Comments POC-GLUCOSE METER 127 mg/dL 70-110 H : TESTED A T [facility] 6720 (REGINA) ([facility], 1538) [address]: Membership Sales Advisor/Techni nigel ID = [id number] for IRASEMA ULNA POCT-GLUCOSE [id number] 15:26:00 Test Item Value Reference Range Interpretation Comments POC-GLUCOSE METER 168 mg/dL 70-110 H : Notified RN/MD: (REGINA) (test code = TESTED AT [facility] 6720 1538) [facility], [address]: Membership Sales Advisor/Techni nigel ID = [id number] for Yadira Keen POCT-GLUCOSE [id number] 14:16:00 Test Item Value Reference Range Interpretation Comments POC-GLUCOSE METER 156 mg/dL 70-110 H : TESTED A T [facility] 6720 (BEAKER) (test code = [facility], 1538) [address]: Membership Sales Advisor/Techni nigel ID = [id number] for DREW CAMPOS POCT-GLUCOSE [id number] 12:08:00 Test Item Value Reference Range Interpretation Comments POC-GLUCOSE METER 193 mg/dL 70-110 H : TESTED A T [facility] 6720 (BEAKER) (test code = [facility], 153) [address]: Membership Sales Advisor/Techni nigel ID = [id number] for CINDY DURAN HEMOGLOBIN [id number] 11:27:00 Test Item Value Reference Range Interpretation Comments HEMOGLOBIN A1C (BEAKER) (test code = 6.0 % 4.3-6.1 368) URINALYSIS W/ REFLEX URINE [id number] 11:20:00 Test Item Value Reference Range Interpretation [...] = 516) SOURCE(BEAKER) (test code = 2795) Membership Sales Advisor ID - [auto]Membership Sales Advisor ID - techBASIC METABOLIC [id number] 09:26:00 Test Item Value Reference Range Interpretation [...] S NOT APPLICABLE FOR DIALYSIS PATIEN TS. Membership Sales Advisor ID - ROSIANGCBC W/PLT COUNT & AUTO [id number] 08:41:00 Test Item Value Reference Range Interpretation [...] PERCENT (BEAKER) (test code = 2801) POCT-GLUCOSE [id number] 07:43:00 Test Item Value Reference Range Interpretation Comments POC-GLUCOSE METER 161 mg/dL 70-110 H : TESTED A T [facility] 6720 (BEAKER) (test code = [place], 1538) [address]: Membership Sales Advisor/Techni nigel ID = [id number] for CINDY DURAN IRON, TIBC, % SAT. (WITHOUT FERRITIN)2020-03-27 07:10:00 Test Item Value Reference Range Interpretation Comments IRON (BEAKER) (test code = 547) 34.0 ug/dL 40.0-160.0 L TOTAL IRON BINDING CAPACITY 275 ug/dL 250-450 (BEAKER) (test code = 769) IRON % SATURATION (2) (BEAKER) 12 % 20-55 L (test code = 2590) Membership Sales Advisor ID - MARY ELLEN [id number] 07:00:00 Test Item Value Reference Range Interpretation Comments FERRITIN (REGINA) (test code = 45.51 ng/mL 5.00-275.00 361) Membership Sales Advisor ID - MARY ELLEN VERA/S, ABDOMINAL, [id number] 03:54:00Reason for exam:->evaluate for cirrhosis and PAUL [facility] : 1940 Sex: FFINAL REPORT [...] Solomon MDReport Verified Date/Time: 03/27/2020 03:54:43 POCT-GLUCOSE [id number] 22:56:00 Test Item Value Reference Range Interpretation Comments POC-GLUCOSE METER 156 mg/dL 70-110 H : TESTED A T [facility] 6720 (REGINA) (test code = [facility], 1538) [address]: Membership Sales Advisor/Techni nigel ID = [id number] for KE BE, SAUDATU POCT-GLUCOSE [id number] 21:26:00 Test Item Value Reference Range Interpretation Comments POC-GLUCOSE METER 31 mg/dL 70-110 LL : Notified RN/MD: TESTED ([place]) (test code = [facility] 67[address] [facility] 1538) [facility], 770 30: Membership Sales Advisor/Techni nigel ID = [id number] for MAYRA , SAUDATU RAD, CHEST, 2 [id number] 20:10:00Reason for exam:->RULE OUT PNEMUNIA [facility] : 1940 Sex: FFINAL REPORT [...] MDReport Verified Date/Time: 03/26/2020 20:10:08 Reading Location: [facility] B1 C013V Neuro Reading Room B-TYPE NATRIURETIC FACTOR (BNP)2020-03-26 19:21:00 Test Item Value Reference Range Interpretation Comments B-TYPE NATRIURETIC PEPTIDE (BEAKER) 893 pg/mL 0-100 H (test code = 700) SARS-COV2/RT-PCR ([facility])2020-03-26 17:47:00 Test Item Value Reference Range Interpretation Comments SARS-COV2/RT-PCR (test Negative Not Detected, Negative, code = 0700754) See external report for linked test SARS-COV-2 PERFORMING LAB [facility] (test code = 0713984) Negative result for this test determines that [...] 564(g) of the Act.Fact Sheet for Healthcare Providers:https://www.[employer]/sites/default/files/product/documents/Fact_Shee k_HP_Grrlsorfs_Vtug_CGAJ-PrH-4.pdfFact Sheet for Healthcare Patients:https://www.[employer]/sites/default/files/product/ documents/Eyzf_Aqpvk_Cpgsmjyx_Wvxn_YOCN-NeY-3.pdfPerforming Laboratory:[facility], [place] [address]JOFPKFSSWB, RANDOM [id number] 17:27:00 Test Item Value Reference Range Interpretation Comments CREATININE URINE (BEAKER) (test 44.6 mg/dL code = 375) Reference Range: No NormalsOperator ID - DBSODIUM, RANDOM [id number] 17:27:00 Test Item Value Reference Range Interpretation Comments SODIUM URINE (BEAKER) (test code = 32 meq/L 243) Reference Range: No NormalsOperator ID - DBTSH/FREE T4 IF [id number] 17:01:00 Test Item Value Reference Range Interpretation Comments THYROID STIMULATING HORMONE 1.248 uIU/mL 0.350-4.940 (BEAKER) (test code = 772) Membership Sales Advisor ID - BSPOCT-GLUCOSE [id number] 16:59:00 Test Item Value Reference Range Interpretation Comments POC-GLUCOSE METER 330 mg/dL 70-110 H : TESTED A T [facility] 6720 (BEAKER) (test code = [facility], 1538) [address]: Membership Sales Advisor/Techni nigel ID = [id number] for CINDY DURAN BASIC METABOLIC [id number] 16:46:00 Test Item Value Reference Range Interpretation [...] S NOT APPLICABLE FOR DIALYSIS PATIEN TS. Membership Sales Advisor ID - BSCREATINE KINASE (CK)2020-03-26 16:42:00 Test Item Value Reference Range Interpretation Comments CREATINE KINASE TOTAL (BEAKER) (test 51 U/L 29-200 code = 380) Membership Sales Advisor ID - BSHEMOGLOBIN AND [id number] 16:29:00 Test Item Value Reference Range Interpretation Comments HEMOGLOBIN (BEAKER) (test code = 8.4 GM/DL 11.2-15.7 L 410) HEMATOCRIT (BEAKER) (test code = 26.6 % 34.1-44.9 L 411) Membership Sales Advisor ID - [id number] 16:27:00 Test Item Value Reference Range Interpretation Comments AMMONIA (BEAKER) (test code = 348) 51 mol/L 18-72 Membership Sales Advisor ID - BSURINALYSIS [id number] 16:10:00 Test Item Value Reference Range Interpretation Comments RBC UA (BEAKER) (test code = 519) 3 /HPF WBC UA (BEAKER) (test code = 520) 3 /HPF MUCUS (BEAKER) (test code = 1574) Rare SQUAMOUS EPITHELIAL (BEAKER) (test 2 /HPF code = 516) Membership Sales Advisor ID - techURINALYSIS WITH MICROSCOPIC IF [id number] 16:09:00 Test Item Value Reference Range Interpretation [...] = 463) SOURCE(BEAKER) (test code = 2795) Membership Sales Advisor ID - [auto]BASIC METABOLIC [id number] 06:11:00 Test Item Value Reference Range Interpretation [...] S NOT APPLICABLE FOR DIALYSIS PATIEN TS. Membership Sales Advisor ID - FUAD [id number] 06:09:00 Test Item Value Reference Range Interpretation Comments MAGNESIUM (BEAKER) (test code = 2.9 mg/dL 1.6-2.6 H 627) Membership Sales Advisor ID - FUAD MURIC [id number] 06:09:00 Test Item Value Reference Range Interpretation Comments URIC ACID (BEAKER) (test code = 13.8 mg/dL 2.6-7.2 H 773) Membership Sales Advisor ID - FUAD MHEPATIC FUNCTION [id number] 06:09:00 Test Item Value Reference Range Interpretation [...] (test code = 13 U/L 6-55 347) Membership Sales Advisor ID - FUAD MPROTHROMBIN [id number] 06:06:00 Test Item Value Reference Range Interpretation [...] mechanical heart valves.CBC W/PLT COUNT & AUTO [id number] 06:06:00 Test Item Value Reference Range Interpretation [...] % 0-1 PERCENT (BEAKER) (test code = 2308)
[2021-06-11 12:04] LABS: Hematocrit 34.4 % (36.0-45.0); Lymphocytes % 7.8 % (15.3-44.8); MPV 8.2 fL (7.6-11.3); Protime INR 1.12; RBC Red Blood Cell Count 4.05 M/uL (3.86-4.86)
[2021-06-11 12:20] LABS: Albumin 2.7 g/dL (3.4-5.0); Bilirubin Direct 0.2 mg/dL (0-0.2); Bilirubin Total 0.9 mg/dL (0.2-1.0); Magnesium 2.6 mg/dL (1.8-2.4); Potassium 4.6 mmol/L (3.5-5.1); Protein, Total 7.4 g/dL (6.4-8.2); Troponin High Sensitivity 35.1 pg/mL (<58.9)
--- NOTE | 2021-06-11 12:25 | RAD REPORT ---
EXAM DESCRIPTION: RAD - Chest Single View - 06/11/2021 12:05 pm CLINICAL HISTORY: DYSPNEA Chest pain. COMPARISON: Chest Single View dated 01/02/2021; Chest Single View dated 06/29/2020; Chest Single View dated 06/28/2020; Chest Single View dated 04/01/2020 FINDINGS: Portable technique limits examination quality. Moderately severe bilateral pulmonary opacities are present likely representing pneumonia or pulmonar y edema. The heart is moderately enlarged. No displaced fractures. IMPRESSION: Moderate CHF.
[2021-06-11 12:50] LABS: Blood Morphology Comment NOT SEEN (NOT SEEN); Platelet Estimate DECR; White Blood Cell Scan OK (OK)
[2021-06-11 12:54] LABS: SARS-COV-2 RT PCR NEGATIVE (NEGATIVE)
--- NOTE | 2021-06-11 13:12 | ER ---
Nurse's Notes [facility] Name: Cristel Casas Age: 81 yrs Sex: Female : 1940 Arrival Date: 06/11/2021 Time: 11:46 Bed 4 Private MD: Diagnosis: Acute kidney failure, unspecified-acute on chronic;Unspecified combined systolic (congestive) and diastolic (congestive) heart failure Presentation: 06/11 11:47 Chief complaint: Patient states: low O2 sats. Coronavirus screen: Vaccine status: al4 Patient reports receiving the 2nd dose of the covid vaccine. Ebola Screen: Patient denies travel to an Ebola-affected area in the 21 days before illness onset. Initial Sepsis Screen: Does the patient meet any 2 criteria? No. Patient's initial sepsis screen is negative. Does the patient have a suspected source of infection? No. Patient's initial sepsis screen is negative. Risk Assessment: Do you want to hurt yourself or someone else? Patient reports no desire to harm self or others. Onset of symptoms was June 2021. 11:47 Method Of Arrival: EMS: [facility] al4 11:47 Acuity: HERIBERTO 3 al4 Triage Assessment: 11:48 General: Appears in no apparent distress. Behavior is calm, cooperative. Pain: Denies al4 pain. Historical: - Allergies: 11:48 No Known Allergies; al4 - Home Meds: 11:48 albuterol sulfate 90 mcg/actuation Inhl aebs 1 puff as needed [Active]; amlodipine 2.5 al4 mg tab 1 tab once daily [Active]; atorvastatin 10 mg Oral tab 1 tab once daily [Active]; clopidogrel 75 mg Oral tab 1 tab once daily [Active]; Eliquis 2.5 mg Oral tab 1 tab 2 times per day [Active]; famotidine 20 mg Oral tab 1 tab once daily [Active]; ferrous sulfate 325 mg (65 mg iron) Oral tab 1 tab 2 times per day [Active]; nebivolol 10 mg Oral tab 1 tab once daily [Active]; omeprazole 20 mg Oral cpDR 1 cap 2 times per day [Active]; tamsulosin 0.4 mg Oral cap 1 cap once daily [Active]; - PMHx: 11:48 Hypercholesterolemia; Hypertensive disorder; kidney disease; liver cancer; al4 - PSHx: 11:48 None; al4 - Immunization history:: Adult Immunizations. - Social history:: Smoking status: Patient denies any tobacco usage or history of. Screenin:50 Abuse screen: Denies threats or abuse. Denies injuries from another. Nutritional al4 screening: No deficits noted. Tuberculosis screening: No symptoms or risk factors identified. Fall Risk IV access (20 points). Assessment: 11:50 General: Appears in no apparent distress. Behavior is calm, cooperative. Pain: Denies al4 pain. Respiratory: Airway is patent Breath sounds are diminished bilaterally. 15:06 Reassessment: Patient appears in no apparent distress at this time. No changes from ic1 previously documented assessment. Patient and/or family updated on plan of care and expected duration. Pain level reassessed. Patient is alert, oriented x 3, equal unlabored respirations, skin warm/dry/pink. Patient denies pain at this time. Vital Signs: 11:47 BP 128 / 69; Pulse 61; Resp 18; Temp 98.2(O); Pulse Ox 87% on R/A; Weight 61.23 kg; al4 Height 4 ft. 11 in. (149.86 cm); 12:38 BP 148 / 72; Pulse 103; Resp 18; Pulse Ox 98% ; clemens 14:01 BP 131 / 58; Pulse 54; Resp 16; Pulse Ox 96% on 2 lpm NC; clemens 15:04 BP 105 / 89; Pulse 53; Resp 16; Pulse Ox 95% on NC; ic1 16:10 BP 139 / 63; Pulse 54; Resp 16; Pulse Ox 94% on 2 lpm NC; clemens 18:04 BP 139 / 67; Pulse 57; Resp 16; Pulse Ox 100% on R/A; ic1 19:59 BP 162 / 61; Pulse 57; Resp 17; Pulse Ox 98% on NC; sm5 11:47 Body Mass Index 27.27 (61.23 kg, 149.86 cm) al4 ED Course: 11:46 Patient arrived in ED. ll1 11:48 [facility]irani Torres [facility]C [facility] kb 11:48 Ashkan Martel MD is Attending Physician. kb 11:48 Triage completed. al4 11:48 Arm band placed on Patient put pt on O2 NC 2l - O2 at 100%. al4 11:50 Patient has correct armband on for positive identification. Bed in low position. al4 11:50 No provider procedures requiring assistance completed. Inserted saline lock: 22 gauge al4 in left antecubital area, using aseptic technique. 11:55 Shasta Lobato, RN is Primary Nurse. ic1 12:05 XRAY Chest (1 view) In Process Unspecified. EDMS 13:10 Brian Barr is Hospitalizing Provider. kb 18:04 cardiac monitor technician on. Pulse ox on. NIBP on. Diet: Patient given a diabetic meal tray. ic1 Tolerated well. 20:14 Patient admitted, IV remains in place. kd3 Administered Medications: 13:30 Drug: Lasix (furosemide) 40 mg Route: IVP; Site: left antecubital; clemens 13:31 Follow up: Response: No adverse reaction clemens Outcome: 13:11 Decision to Hospitalize by Provider. kb 20:14 Admitted to Med/surg accompanied by tech, room 213, Report called to Daniela prado kd3 20:14 Condition: stable 20:14 Discharge instructions given to patient, family, Instructed on the need for admit. 20:58 Patient left the ED. sm5 Signatures: Dispatcher [employer] EDND Amairani Torres, NURSE ADVOCATE-C NURSE ADVOCATE-Ckb Ivonne Gandara, RN RN Clemencia Alcantara RN RN [email or web address] Rashad Hunt Sarah, RN RN 5 Au-StageSafia martel RN Shasta Dobbins, RN RN ic1 Corrections: (The following items were deleted from the chart) 11:49 11:48 Allergies: Aspirin; al4 al4
--- NOTE | 2021-06-11 13:12 | EDPHYS ---
Physician Documentation [facility] Name: Cristel Casas Age: 81 yrs Sex: Female : 1940 Arrival Date: 06/11/2021 Time: 11:46 Bed 4 Private MD: ED Physician Ashkan Martel HPI: 06/11 13:15 This 81 yrs old Female presents to ER via EMS with complaints of low O2. kb 13:15 The patient has shortness of breath at rest. Onset: The symptoms/episode began/occurred kb last night. Duration: The symptoms are continuous. The patient's shortness of breath is aggravated by nothing, is alleviated by nothing. Associated signs and symptoms: The patient has no apparent associated signs or symptoms. Severity of symptoms: At their worst the symptoms were moderate in the emergency department the symptoms are unchanged. The patient has not experienced similar symptoms in the past. The patient has not recently seen a physician. Daughter states pt has had low O2 since last night. Historical: - Allergies: 11:48 No Known Allergies; al4 - Home Meds: 11:48 albuterol sulfate 90 mcg/actuation Inhl aebs 1 puff as needed [Active]; amlodipine 2.5 al4 mg tab 1 tab once daily [Active]; atorvastatin 10 mg Oral tab 1 tab once daily [Active]; clopidogrel 75 mg Oral tab 1 tab once daily [Active]; Eliquis 2.5 mg Oral tab 1 tab 2 times per day [Active]; famotidine 20 mg Oral tab 1 tab once daily [Active]; ferrous sulfate 325 mg (65 mg iron) Oral tab 1 tab 2 times per day [Active]; nebivolol 10 mg Oral tab 1 tab once daily [Active]; omeprazole 20 mg Oral cpDR 1 cap 2 times per day [Active]; tamsulosin 0.4 mg Oral cap 1 cap once daily [Active]; - PMHx: 11:48 Hypercholesterolemia; Hypertensive disorder; kidney disease; liver cancer; al4 - PSHx: 11:48 None; al4 - Immunization history:: Adult Immunizations. - Social history:: Smoking status: Patient denies any tobacco usage or history of. ROS: 13:15 Constitutional: Negative for fever, chills, and weight loss. kb 13:15 Respiratory: Positive for low O2. 13:15 All other systems are negative. Exam: 13:13 Constitutional: This is a well developed, well nourished patient who is awake, alert, kb and in no acute distress. Head/Face: Normocephalic, atraumatic. ENT: Moist Mucous membranes Respiratory: Respirations even and unlabored. No increased work of breathing. Talking in full sentences Abdomen/GI: Soft, non-tender. No distention Skin: Warm, dry with normal turgor. Normal color. MS/ Extremity: Pulses equal, no cyanosis. Neurovascular intact. Full, normal range of motion. Neuro: Awake and alert, GCS 15, oriented to person, place, time, and situation. Moves all extremities. Normal gait. 13:13 Cardiovascular: Rate: normal, Pulses: no pulse deficits are appreciated, Heart sounds: normal, Edema: 1+ edema to level of left foot and right foot. Vital Signs: 11:47 BP 128 / 69; Pulse 61; Resp 18; Temp 98.2(O); Pulse Ox 87% on R/A; Weight 61.23 kg; al4 Height 4 ft. 11 in. (149.86 cm); 12:38 BP 148 / 72; Pulse 103; Resp 18; Pulse Ox 98% ; clemens 14:01 BP 131 / 58; Pulse 54; Resp 16; Pulse Ox 96% on 2 lpm NC; clemens 15:04 BP 105 / 89; Pulse 53; Resp 16; Pulse Ox 95% on NC; ic1 16:10 BP 139 / 63; Pulse 54; Resp 16; Pulse Ox 94% on 2 lpm NC; clemens 18:04 BP 139 / 67; Pulse 57; Resp 16; Pulse Ox 100% on R/A; ic1 19:59 BP 162 / 61; Pulse 57; Resp 17; Pulse Ox 98% on NC; sm5 11:47 Body Mass Index 27.27 (61.23 kg, 149.86 cm) al4 MDM: 11:48 Patient medically screened. kb 13:10 Data reviewed: vital signs, nurses notes. Data interpreted: Pulse oximetry: on room air kb is 98 %. Interpretation: normal. Counseling: I had a detailed discussion with the patient and/or guardian regarding: the historical points, exam findings, and any diagnostic results supporting the discharge/admit diagnosis, lab results, radiology results, the need for further work-up and treatment in the hospital. 06/11 11:48 Order name: Basic Metabolic Panel; Complete Time: 12:35 kb 06/11 11:48 Order name: CBC with Diff; Complete Time: 12:52 kb 06/11 11:48 Order name: LFT's; Complete Time: 12:35 kb 06/11 11:48 Order name: Magnesium; Complete Time: 12:35 kb 06/11 11:48 Order name: NT PRO-BNP; Complete Time: 12:35 kb 06/11 11:48 Order name: PT-INR; Complete Time: 12:06 kb 06/11 11:48 Order name: Troponin HS; Complete Time: 12:35 kb 06/11 11:48 Order name: XRAY Chest (1 view); Complete Time: 12:36 kb 06/11 11:48 Order name: EKG; Complete Time: 11:49 kb 06/11 11:48 Order name: Cardiac monitoring; Complete Time: 11:56 kb 06/11 11:48 Order name: EKG - Nurse/Tech; Complete Time: 11:56 kb 06/11 11:50 Order name: COVID-19/FLU A+B (Document "Date of Onset" if Symptomatic); Complete Time: kb 13:07 06/11 12:04 Order name: CBC Smear Scan; Complete Time: 12:52 EDMS 06/11 11:48 Order name: IV Saline Lock; Complete Time: 11:56 kb 06/11 11:48 Order name: Labs collected and sent; Complete Time: 11:56 kb 06/11 11:48 Order name: O2 Per Protocol; Complete Time: 11:56 kb 06/11 11:48 Order name: O2 Sat Monitoring; Complete Time: 11:56 kb Administered Medications: 13:30 Drug: Lasix (furosemide) 40 mg Route: IVP; Site: left antecubital; clemens 13:31 Follow up: Response: No adverse reaction clemens Disposition Summary: 06/11/21 13:11 Hospitalization Ordered Hospitalization Status: Inpatient Admission kb Provider: Brian Barr Location: Telemetry/MedSurg (Inpatient) kb Condition: Stable kb Problem: new kb Symptoms: are unchanged kb Bed/Room Type: Standard Room Assignment: 213(06/11/21 19:46) cg Diagnosis - Acute kidney failure, unspecified - acute on chronic kb - Unspecified combined systolic (congestive) and diastolic (congestive) heart failure kb Forms: - Medication Reconciliation Form kb - SBAR form kb Addendum: 06/14/2021 19:02 Co-signature as Attending Physician, Ashkan Martel MD I agree with the assessment and r n plan of care. Signatures: Dispatcher [employer] EDAmairani Frost, WAREHOUSER-C WAREHOUSER-Ckb Ashkan Martel MD MD rn Garcia, Cindy, RN RN cg Ledbetter, Alexis alSafia Coronado RN RN clemens Corrections: (The following items were deleted from the chart) 06/11 11:49 11:48 Allergies: Aspirin; al4 al4 19:46 13:11 [facility]
[2021-06-11] MEDS ORDERED: FUROSEMIDE 40 MG/4 ML VIAL ONE (13:29)
--- NOTE | 2021-06-11 13:50 | P.HP ---
Certification for Inpatient Patient admitted to: Inpatient With expected LOS: >2 Midnights Practitioner: I am a practitioner with admitting privileges, knowledge of patient current condition, hospital course, and medical plan of care. Services: Services provided to patient in accordance with Admission requirements found in Title 42 Section 412.3 of the Code of Federal Regulations Patient History Date of Service: 06/11/21 Reason for admission: Shortness of breath, generalized weakness History of Present Illness: 81-year-old woman with a history of hypertension and diabetes mellitus was brought to the emergency department due to low oxygen saturation. The daughter by her bedside gave the history. She stated patient fell a couple of days ago and has been very weak, but able to put any weight on her legs. She was also complaining of pain and bruising in the right hip area. EMS was called, they found patient with oxygen saturation in the 70s and she was brought to the ED. checks x-ray done in the ED demonstrates pulmonary edema. She has acute renal failure with creatinine up to 2.69 compared to a baseline of 1.6. Initial troponin is negative, BNP is elevated. EKG demonstrated sinus rhythm. Patient admitted for further management of CHF exacerbation. Allergies No Known Drug Allergies Allergy (Verified 06/29/20 04:31) Unknown Home Medications: Alendronate Sodium 70 mg PO EVERY 7TH DAY 05/05/20 Calcium Carbonate/Vitamin D3 [Calcium 500-Vit D3 400 Tablet] 1 each PO DAILY 05/05/20 Ferrous Sulfate [Ferrous Sulfate*] 325 mg PO BID 05/05/20 Nebivolol HCl [Bystolic] 1 tab PO DAILY 05/05/20 Omeprazole [Prilosec] 40 mg PO BID 05/05/20 propylthiouraciL [Propylthiouracil] 1 tab PO BID 05/05/20 Insulin Glargine Human [Lantus*] 10 units SQ DAILY ml 05/06/20 Amlodipine [Norvasc*] 5 mg PO DAILY #30 tab 06/30/20 Furosemide [Lasix] 40 mg PO DAILY #30 tablet 06/30/20 Potassium Chloride 30 meq PO DAILY #90 tab.er.prt 06/30/20 - Past Medical/Surgical History Diabetic: Yes -: HTN -: hypothyroid -: DM -: HLD -: appy -: cyst removed from ovaries - Family History Sister -: Heart disease, Hypertension, Diabetes - Social History Smoking Status: Never smoker Alcohol use: No CD- Drugs: No Caffeine use: Yes Review of Systems Other: Except as documented, all other systems reviewed and negative Physical Examination - Physical Exam General: In no apparent distress, Confused HEENT: Atraumatic, PERRLA, Mucous membr. moist/pink, EOMI, Sclerae nonicteric Neck: Supple, JVD not distended Respiratory: Clear to auscultation bilaterally, Crackles/rales (Mild bibasilar Rales) Cardiovascular: No edema, Regular rate/rhythm, Normal S1 S2, No murmurs Capillary refill: <2 Seconds Gastrointestinal: Normal bowel sounds, Soft and benign, Non-distended, No tenderness Musculoskeletal: No swelling, Tenderness (Right hip area) Integumentary: No cyanosis, Other (Bruising the right hip area) Neurological: Normal strength at 5/5 x4 extr, Other (Confused) Lymphatics: No axilla or inguinal lymphadenopathy - Studies Laboratory Data (last 24 hrs) 06/11/21 11:51: PT 12.9 H, INR 1.12 06/11/21 11:51: WBC 12.90 H, Hgb 11.5 L, Hct 34.4 L, Plt Count 107 L 06/11/21 11:51: Sodium 136, Potassium 4.6, BUN 68 H, Creatinine 2.69 H, Glucose 146 H, Magnesium 2.6 H, Total Bilirubin 0.9, AST 36, ALT 25, Alkaline Phosphat ase 127 H Assessment and Plan - Problems (Diagnosis) (1) Acute diastolic CHF (congestive heart failure) Current Visit: Yes Status: Acute (2) Acute renal failure Current Visit: Yes Status: Acute (3) Metabolic encephalopathy Current Visit: Yes Status: Acute (4) Fall Current Visit: Yes Status: Acute (5) Hypertension Onset Date: 04/21/16 Current Visit: No Status: Acute Qualifiers: Hypertension type: essential hypertension Qualified Code(s): I10 - Essential (primary) hypertension (6) Diabetes mellitus Onset Date: 03/05/17 Current Visit: No Status: Chronic Qualifiers: Diabetes mellitus type: type 2 Diabetes mellitus mcc insulin use: without watermelon harvesting supervisor use Diabetes mellitus complication status: with other specified complication Qualified Code(s): E11.69 - Type 2 diabetes mellitus with other specified complication (7) Acute respiratory failure with hypoxia Current Visit: Yes Status: Acute - Plan Admit the patient to the medical floor. Continue to trend troponin. IV Lasix 40 mg twice daily for pulmonary edema. Titrate oxygen Obtain echocardiogram. Blood pressure control. Hydralazine as needed for BP spikes. Request following continue home antihypertensive Monitor intake and output. ADA diet Hip x-ray to rule out fracture. PAUL likely secondary to dehydration from poor oral intake. Encourage feeding. Nephrology consult for acute renal failure. Monitor renal function on IV Lasix. - Advance Directives Does patient have a Living Will: No Does patient have a Durable POA for Healthcare: No
[2021-06-11] MEDS ORDERED: D50W 25 GM/50 ML SYRINGE IV PRN (20:35)
[2021-06-11] MEDS: FUROSEMIDE 40 MG/4 ML VIAL IV SCH ×2 (20:35→21:47)
[2021-06-11] MEDS ORDERED: GLUCAGON 1 MG/VIAL IM PRN (20:35)
[2021-06-11] MEDS: INSULIN -REGULAR HUMAN 50 UNIT/0.5 ML ML SQ SCH (21:00)
[2021-06-11 21:33] VITALS: BMI 25.0
[2021-06-11] MEDS ORDERED: HEPARIN 5000 UNIT/ML 1 ML VIAL SQ SCH (22:00)
[2021-06-11] MEDS ORDERED: ALBUTEROL INHALER 60 PUFF/8 GM IH PRN (23:11)
[2021-06-12 03:16] LABS: Absolute Lymphocytes (CBC) 0.9 K/uL (0.7-4.9); Hematocrit 30.2 % (36.0-45.0); MPV 8.2 fL (7.6-11.3); RBC Red Blood Cell Count 3.55 M/uL (3.86-4.86)
[2021-06-12 03:29] LABS: Phosphorus 5.9 mg/dL (2.5-4.9)
[2021-06-12] MEDS ORDERED: CALCIUM CARBONATE CHEW 500MG TAB PO PRN (03:40)
[2021-06-12] MEDS: INSULIN -REGULAR HUMAN 50 UNIT/0.5 ML ML SQ SCH ×4 (07:30→20:53)
[2021-06-12] MEDS ORDERED: PNEUMOCOCCAL VACCINE 0.5 ML IMVAC ONE (08:00)
[2021-06-12] MEDS ORDERED: CLOPIDOGREL 75 MG TABLET PO SCH (09:00)
[2021-06-12] MEDS: AMLODIPINE 2.5 MG TAB PO SCH (09:50)
[2021-06-12] MEDS: TAMSULOSIN 0.4 MG SR CAP PO SCH (09:51)
[2021-06-12] MEDS: FUROSEMIDE 40 MG/4 ML VIAL IV SCH ×2 (09:51→16:14)
[2021-06-12] MEDS: ATORVASTATIN 10 MG TAB PO SCH (09:51)
[2021-06-12] MEDS: ASPIRIN EC 81 MG TAB PO SCH (09:51)
[2021-06-12] MEDS: CLOPIDOGREL 75 MG TABLET PO SCH (09:52)
[2021-06-12] MEDS: FERROUS SULFATE 325 MG TAB PO SCH ×2 (09:52→16:15)
[2021-06-12 10:52] LABS: Potassium 4.1 mmol/L (3.5-5.1)
[2021-06-12] MEDS: NEBIVOLOL HCL 5 MG TAB PO SCH (11:56)
--- NOTE | 2021-06-12 12:15 | RAD REPORT ---
EXAM DESCRIPTION: RAD - Hip Right 2 View - 06/12/2021 11:54 am CLINICAL HISTORY: Right hip pain FINDINGS: Cortical irregularity involves right acetabulum suspicious for a mildly displaced fracture . CT scan is recommended. Bones are osteoporotic. No dislocation
--- NOTE | 2021-06-12 12:55 | EKG ---
Test Date: 2021-06-11 Test Time: 12:01:26 Court Abstractor: ANKUR MEASUREMENT RESULTS: Intervals: Rate: 59 ME: 208 QRSD: 78 QT: 464 QTc: 459 [place]: P: 32 ME: 208 QRS: -3 T: 35 INTERPRETIVE STATEMENTS: Sinus bradycardia Nonspecific T wave abnormality Abnormal ECG Compared to ECG 06/11/2021 11:52:24 T-wave abnormality now present ST (T wave) deviation no longer present Electronically Signed On 06-12-21 12:52:16 SUSTAINABLE PRODUCTS MARKETING MANAGER by Gavino Nichols
--- NOTE | 2021-06-12 12:56 | EKG ---
Test Date: 2021-06-11 Test Time: 11:52:24 Meat Puller: ANKUR MEASUREMENT RESULTS: Intervals: Rate: 58 [place]: QRSD: 76 QT: 462 QTc: 453 [place]: P: VA: QRS: -6 T: 64 INTERPRETIVE STATEMENTS: Undetermined rhythm Nonspecific ST and T wave abnormality Abnormal ECG Compared to ECG 01/02/2021 03:44:58 Accelerated junctional rhythm no longer present Prolonged QT interval no longer present ST (T wave) deviation still present Electronically Signed On 06-12-21 12:52:18 SUMMONS SERVER by Gavino Nichols
--- NOTE | 2021-06-12 13:12 | P.PN ---
Subjective Date of Service: 06/12/21 Chief Complaint: Shortness of breath, generalized weakness Patient states she feels much better today in terms of her shortness of breath. She is still complaining of right hip pain with movement. Physical Examination - Vital Signs Temperature: 97.6 F Blood Pressure: 171/74 Pulse: 60 Respirations: 18 Pulse Ox (%): 98 - Physical Exam General: Alert, In no apparent distress, Oriented x2 HEENT: Mucous membr. moist/pink Neck: JVD not distended Respiratory: Clear to auscultation bilaterally, Normal air movement Cardiovascular: No edema, Regular rate/rhythm, Normal S1 S2, Systolic murmur Gastrointestinal: Soft and benign, Non-distended, No tenderness Musculoskeletal: No swelling, Tenderness (Right hip area) Integumentary: Other (Bruise right hip area) Neurological: Normal strength at 5/5 x4 extr Assessment And Plan - Current Problems (Diagnosis) (1) Acute diastolic CHF (congestive heart failure) Current Visit: Yes Status: Acute (2) Acute renal failure Current Visit: Yes Status: Acute (3) Metabolic encephalopathy Current Visit: Yes Status: Acute (4) Fall Current Visit: Yes Status: Acute (5) Hypertension Onset Date: 04/21/16 Current Visit: No Status: Acute Qualifiers: Hypertension type: essential hypertension Qualified Code(s): I10 - Essential (primary) hypertension (6) Diabetes mellitus Onset Date: 03/05/17 Current Visit: No Status: Chronic Qualifiers: Diabetes mellitus type: type 2 Diabetes mellitus terminal operator insulin use: without mcfp use Diabetes mellitus complication status: with other specified complication Qualified Code(s): E11.69 - Type 2 diabetes mellitus with other specified complication (7) Acute respiratory failure with hypoxia Current Visit: Yes Status: Acute - Plan Physical Exam General: In no apparent distress, Confused HEENT: Atraumatic, PERRLA, Mucous membr. moist/pink, EOMI, Sclerae nonicteric Neck: Supple, JVD not distended Respiratory: Clear to auscultation bilaterally, no rhonchi or wheezes or crackles. Adequate breath sounds bilaterally. Cardiovascular: No edema, Regular rate/rhythm, Normal S1 S2, No murmurs Capillary refill: <2 Seconds Gastrointestinal: Normal bowel sounds, Soft and benign, Non-distended, No tenderness Musculoskeletal: No swelling, Tenderness (Right hip area) Integumentary: No cyanosis, Other (Bruising the right hip area) Neurological: Normal strength at 5/5 x4 extr, Other (Confused) Lymphatics: No axilla or inguinal lymphadenopathy Troponin trended negative. Serum creatinine trended up. Patient seen by nephrology IV Lasix increased to 80 mg twice daily. Wean oxygen as tolerated Echocardiogram is pending. Resume nebivolol for hypertension. Patient also started on low-dose amlodipine last night Continue to monitor intake and output. ADA diet Hip x-ray suggest possible nondisplaced right acetabular fracture. CT scan of the hip without contrast requested for further assessment. Nephrology is following for PAUL. Encourage feeding. PT consult once acute fracture has been ruled out.
--- NOTE | 2021-06-12 13:44 | ECHO ---
HEIGHT: 4 ft 9 in WEIGHT: 115 lb 14.4 oz DATE OF STUDY: 06/12/[address]: loretta angela 2-DIMENSIONAL: YES M.MODE: YES DOPPLER: YES COLOR FLOW: YES TDS: YES PORTABLE: NO DEFINITY: NO BUBBLE STUDY: NO DIAGNOSIS: ACUTE CONGESTIVE HEART FAILURE CARDIAC HISTORY: CATHERIZATION: SURGERY: PROSTHETIC VALVE: PACEMAKER: MEASUREMENTS (cm) DIASTOLIC (NORMALS) SYSTOLIC (NORMALS) IVSd 1.1 (0.6-1.2) LA Diam 4.3 (1.9-4.0) LVEF 62% LVIDd 2.8 (3.5-5.7) LVIDs 1.9 (2.0-3.5) %FS 32% LVPWd 1.2 (0.6-1.2) Ao Diam 2.8 (2.0-3.7) 2 DIMENSIONAL ASSESSMENT: RIGHT ATRIUM: NORMAL LEFT ATRIUM: DILATED RIGHT VENTRICLE: NORMAL LEFT VENTRICLE: NORMAL TRICUSPID VALVE: NORMAL MITRAL VALVE: MITRAL ANNULAR CALCIFICATION PULMONIC VALVE: NORMAL AORTIC VALVE: SCLEROSIS PERICARDIAL EFFUSION: NONE AORTIC ROOT: NORMAL LEFT VENTRICULAR WALL MOTION: NORMAL. DOPPLER/COLOR FLOW: NORMAL. COMMENTS: MITRAL ANNULAR CALCIFICATION. AORTIC SCLEROSIS WITH NO STENOSIS. NORMAL LEFT VENTRICULAR SIZE AND FUNCTION. LEFT ATRIAL ENLARGEMENT. TECHNOLOGIST: DEVENDRA RESTREPO
--- NOTE | 2021-06-12 14:12 | CON ---
Date of Consultation: 06/12/2021 Reason For Consultation: Elevated BUN and creatinine, fluid management. History Of Present Illness: This is a pleasant 81-year-old female. All the information has been obtained from the daughter by the bedside as the patient is speaker and advanced dementia. 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 Upon arrival to the hospital, found to be over volume with congestive heart failure. The patient also found to have elevation in BUN and creatinine. For that reason, we have been consulted. The patient denied taking any nonsteroidal. No IV contrast. The patient has home medication, was on PPI with alendronate. Past Medical History: Includes; 1. Hypertension. 2. Hyperlipidemia. 3. Hypothyroidism. 4. 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 5. Congestive heart failure, diastolic dysfunction. 6. Liver CA. 7. Osteoporosis. 8. GERD. Allergies: NO KNOWN DRUG ALLERGIES. Home Medications: Include alendronate, vitamin D, Bystolic, omeprazole, insulin, amlodipine, Lasix, KCl. Past Surgical History: Includes appendectomy, ovarian cyst removal. Family History: Positive for diabetes, hypertension, CAD. Social History: Lives with family. Denied smoking. Denied drinking. Denied drug abuse. Review of Systems: Head and Neck: No red eye. No ear pain. GI: Has abdominal distention. : No polyuria. No dysuria. No hematuria. Talkback Host: No vaginal discharge. Respiratory: Has shortness of breath. Cardiovascular: No chest pain. Endocrine: No polydipsia. Skin: No rash. Neuro: Confused, dementia. Musculoskeletal: Generalized weakness. Current Medications: In the hospital include alendronate, amlodipine, Eliquis, aspirin, atorvastatin, ferrous sulfate, Bystolic, pantoprazole, Flomax. Physical Examination: Vital Signs: Blood pressure of 171/74, pulse of 60. Chest: Crackles bilateral. Heart: S1, S2. Systolic murmur. Abdomen: Soft, nontender. Extremities: Plus edema. Neurologic: Alert. No focality. Confused pleasantly. Laboratory Data: WBC 9, H and H 10.2/30.2, platelets 79. Sodium 136, potassium 4.1, bicarb 22, BUN 88, creatinine 2.8, GFR of 16, calcium 8.3. Reviewing the data for the patient back in March 2021; creatinine 1.6, GFR of 30. Assessment And Plan: 1. Acute kidney injury secondary to cardiorenal, over volume on chronic kidney disease. I am going to go ahead and send for the workup. Given the anemia, we will send for serum protein electrophoresis. I am going to start the patient on diuresis and we will follow up. 2. Chronic kidney disease secondary to cardiorenal. We will send for protein creatinine and we will send for serum protein electrophoresis, doubt to be any autoimmune disease. 3. Congestive heart failure with exacerbation. We will diurese the patient. 4. Respiratory failure secondary to cardiorenal. We will start the patient on Lasix. 5. Hypertension. We will utilize blood pressure for more diuresis. 6. Liver CA as by primary. 7. Hyponatremia, dilutional. We will diurese the patient. We will send for TSH. Time spent examining the patient, [id number], discussing with the patient, reviewing data including radiology and laboratory, placing order, discussing the case with other body team member including nursing and charge nurse, discussing the case with other subspecialists including hospitalist 45 minutes. ROSIE Voice ID: [id number] Report ID: [id number] CAESAR
--- NOTE | 2021-06-12 14:14 | RAD REPORT ---
EXAM DESCRIPTION: CT - Hip Right Wo Con - 06/12/2021 1:51 pm CLINICAL HISTORY: right hip COMPARISON: Hip Right 2 View dated 06/12/2021 TECHNIQUE: Axial noncontrast 2 millimeter thick images of the right hip obtained. Sagittal and coron al reformatted images were generated and reviewed. All CT scans are performed using dose optimization technique as appropriate and may include automate d exposure control or mA/KV adjustment according to patient size. FINDINGS: Fracture involves the anterior column of the right acetabulum. Fracture line is indistinct . There is slight impaction of the ramus into the anterior column. Faint callus formation is present. This is a subacute or incompletely healed fracture. No encroachment into the articular surface of th e acetabulum seen. There is also fracture at the ischial tuberosity. There is 1 shaft width displacement at the fracture site. No callus formation or bridging ossification. This appears to be more acute in nature compared to the anterior column fracture. Pubic symphysis is intact. No fracture of the proximal femur. No AV N in the femoral head. Minimal amount stranding and edema present adjacent to the ischium fracture. N o significant soft tissue finding at the anterior column fracture. Small fluid collections seen along the inferior aspect of the right hip joint space. IMPRESSION: Right anterior column acetabulum subacute or incompletely healed fracture. Bony remodeli ng changes are present at this fracture site. Ischial tuberosity fracture is present appearing to be acute. This fracture site lacks the remodeling or partial healing changes seen in the acetabulum fracture.
--- NOTE | 2021-06-12 14:21 | RAD REPORT ---
EXAM DESCRIPTION: US - Renal Ultrasound-Complete - 06/12/2021 1:46 pm CLINICAL HISTORY: PAUL COMPARISON: Mri Abdomen W/Wo Cont dated 04/30/2021 FINDINGS: The right kidney measures 7.5 x 3.7 x 4.5 cm. The left kidney measures 7.0 x 3.9 x 4.6 cm . Subtle cortical thinning is suspected. No significant cortical volume loss seen overall. There is a n increase in cortical echogenicity typical for mild underlying medical renal disease. No hydronephro sis or suspicious renal mass. No bladder wall thickening or mass. No intraluminal stone or mass. IMPRESSION: Mild bilateral medical renal disease changes are evident with subtle thinning of the violeta ateral renal cortex. No other significant findings.
[2021-06-12 20:45] LABS: Urine Appearance CLEAR (Clear); Urine Bilirubin NEGATIVE (Negative); Urine Blood 2+ (Negative); Urine Color YELLOW (Yellow); Urine Glucose NEGATIVE (Negative); Urine Protein 1+ (Negative); Urine Urobilinogen 0.2 mg/dL (0.2-1.0)
[2021-06-12 20:46] LABS: Urine Microscopic Reflex ORDER UMIC
[2021-06-12 20:49] LABS: UR PROTEIN 59.4 mg/dL (<11.9)
[2021-06-12 20:50] LABS: UR CREAT < 18.0 mg/dL (20-320)
[2021-06-12] MEDS: TRAMADOL HCL 50 MG TAB PO PRN (20:52)
[2021-06-12] MEDS: APIXABAN 2.5 MG TABLET PO SCH (20:53)
[2021-06-12] MEDS ORDERED: FAMOTIDINE 20 MG TAB PO SCH (21:00)
[2021-06-12 21:08] LABS: Urine Bacteria <20 /HPF (<20)
[2021-06-13 04:13] LABS: Hematocrit 28.2 % (36.0-45.0); Lymphocytes % 14.7 % (15.3-44.8); MPV 8.5 fL (7.6-11.3); RBC Red Blood Cell Count 3.36 M/uL (3.86-4.86)
[2021-06-13 05:02] LABS: Albumin 2.2 g/dL (3.4-5.0); BUN Blood Urea Nitrogen 95 mg/dL (7-18); Bicarbonate 24 mmol/L (21-32); Creatine Phosphokinase 122 U/L (26-192); Folic Acid, (Folate) 9.1 ng/mL (3.1-17.5); Glucose Level 90 mg/dL (74-106); Phosphorus 5.1 mg/dL (2.5-4.9); Sodium Level 137 mmol/L (136-145); Transferrin 172 mg/dL (200-360); Uric Acid 13.3 mg/dL (2.6-6.0)
[2021-06-13] MEDS: PANTOPRAZOLE 40MG TABLET PO SCH (05:30)
[2021-06-13] MEDS: INSULIN -REGULAR HUMAN 50 UNIT/0.5 ML ML SQ SCH ×4 (07:30→22:07)
[2021-06-13] MEDS: FUROSEMIDE 40 MG/4 ML VIAL IV SCH (08:33)
[2021-06-13] MEDS: NEBIVOLOL HCL 5 MG TAB PO SCH (08:34)
[2021-06-13] MEDS: FERROUS SULFATE 325 MG TAB PO SCH (08:35)
[2021-06-13] MEDS: APIXABAN 2.5 MG TABLET PO SCH ×2 (08:35→22:06)
[2021-06-13] MEDS: TAMSULOSIN 0.4 MG SR CAP PO SCH (08:35)
[2021-06-13] MEDS: CLOPIDOGREL 75 MG TABLET PO SCH (08:35)
[2021-06-13] MEDS: ATORVASTATIN 10 MG TAB PO SCH (08:35)
[2021-06-13] MEDS: AMLODIPINE 2.5 MG TAB PO SCH (08:35)
[2021-06-13] MEDS: CALCIUM CARBONATE 500 MG TAB PO SCH (08:35)
[2021-06-13] MEDS: ASPIRIN EC 81 MG TAB PO SCH (08:35)
[2021-06-13] MEDS: SOD FERRIC GLUC COMPLX/SUCROSE 250 MG in NA CHLORIDE 0.9% 250 ML IV SCH (12:29)
--- NOTE | 2021-06-13 12:33 | P.PN ---
Subjective Date of Service: 06/13/21 Chief Complaint: Shortness of breath, generalized weakness Patient states she feels much better today. Her creatinine trended up. Physical Examination - Vital Signs Temperature: 97.7 F Blood Pressure: 136/62 Pulse: 57 Respirations: 16 Pulse Ox (%): 94 Assessment And Plan - Current Problems (Diagnosis) (1) Acute diastolic CHF (congestive heart failure) Current Visit: Yes Status: Acute (2) Acute renal failure Current Visit: Yes Status: Acute (3) Metabolic encephalopathy Current Visit: Yes Status: Acute (4) Fall Current Visit: Yes Status: Acute (5) Hypertension Onset Date: 04/21/16 Current Visit: No Status: Acute Qualifiers: Hypertension type: essential hypertension Qualified Code(s): I10 - Essential (primary) hypertension (6) Diabetes mellitus Onset Date: 03/05/17 Current Visit: No Status: Chronic Qualifiers: Diabetes mellitus type: type 2 Diabetes mellitus intermodal customer service insulin use: wit hout intermodal customer service use Diabetes mellitus complication status: with other specified complication Qualified Code(s): E11.69 - Type 2 diabetes mellitus with other specified complication (7) Acute respiratory failure with hypoxia Current Visit: Yes Status: Acute - Plan Physical Exam General: In no apparent distress, pleasant and interactive. HEENT: Mucous membr. Sclerae nonicteric Neck: Supple, JVD not distended Respiratory: Clear to auscultation bilaterally, no rhonchi or wheezes or crackles. Adequate breath sounds bilaterally. Cardiovascular: No edema, Regular rate/rhythm, Normal S1 S2, No murmurs Capillary refill: <2 Seconds Gastrointestinal: Normal bowel sounds, Soft and benign, Non-distended, No tenderness Musculoskeletal: No swelling, Tenderness (Right hip area) Integumentary: No cyanosis, Other (Bruising the right hip area) Neurological: Normal strength at 5/5 x4 extr, Other (Confused) Troponin trended negative. Serum creatinine trended up. Nephrology is following and managing PAUL. IV Lasix transition to oral She is currently tolerating room air Echocardiogram: Normal EF Continue nebivolol and amlodipine for hypertension. Continue to monitor intake and output. ADA diet CT hip report subacute to old right acetabular fracture and acute left ischial tuberosity fracture. Pain management as needed. PT.
--- NOTE | 2021-06-13 16:03 | PN ---
Date of Progress Note: 06/13/2021 Subjective: The patient was admitted with acute kidney injury secondary to congestive heart failure, cardiorenal. Workup showed chronic kidney disease. Physical Examination: Vital Signs: When I saw the patient; blood pressure 115/55, pulse of 54, afebrile. The patient is on room air. Still pleasantly confused. The patient had good urine output yesterday. Chest: Clear to auscultation. Heart: S1, S2. Regular. Systolic murmur. Abdomen: Soft, nontender. Extremity: Trace edema. Neurologic: Alert. No focality. Confused. Not oriented. No tremor. Laboratory Data: WBC 7, H and H 9.4/28.2. Sodium 137, potassium 4, bicarb 24, BUN 95, creatinine 2.9, GFR of 15, uric acid 13.3, calcium 8.3, phosphorus 5.1. Iron saturation 14, ferritin 113. PTH 185. TSH is 3.2. Vitamin D still pending. Renal ultrasound showed small size kidney, 7.5/7. No hydronephrosis. PC ratio at 3.3. Assessment And Plan: 1. 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 No uremic symptoms. No hyperkalemia. I had long discussion with the patient's daughter by bedside regarding the option of treatment. Apparently, they denied any renal replacement therapy given her condition which I concur. Given her multiple comorbid conditions, dialysis would not to add any better quality of life. The patient looked to me started being on the normal volume side, so I am going to switch her diuresis to oral and we will follow up the patient closely. I do not see the urgency to initiate any renal replacement therapy for now. Discussed that with daughter. Daughter on agreement. 2. Iron deficiency anemia with anemia of chronic kidney disease. I am going to start the patient on IV iron. We will follow up serum protein electrophoresis to evaluate if there is any light chain disease, especially with the presence of nephrotic range of proteinuria. 3. Nephrotic range of proteinuria mostly secondary to diabetes with the presence of acute kidney injury. We are waiting for serum protein electrophoresis. 4. Chronic kidney disease, multifactorial, small size kidney, nephrotic range of proteinuria secondary to hypertension nephrosclerosis, diabetes, nephropathy. Unfortunately, could not add any TU inhibitor or ARB for the time being given the advanced kidney disease. 5. Congestive heart failure with exacerbation as above. Currently, the patient is normal volume. We will continue diuresing the patient and we will follow up. 6. Hypertension. Continue current treatment. We will follow up with the primary. 7. Respiratory failure secondary to cardiorenal as above. Time spent examining the patient, discussing the case with nursing, [id number] exam of the patient, placing order, reviewing data including radiology and lab, discussing the case with the hospitalist and nursing steam shovel runner 35 minutes. ROSIE Voice ID: [id number] Report ID: [id number] CAESAR
[2021-06-13] MEDS: FUROSEMIDE 40 MG TABLET PO SCH (22:06)
--- NOTE | 2021-06-14 04:59 | P.PN ---
Subjective Date of Service: 06/14/21 Chief Complaint: Shortness of breath, generalized weakness Subjective: Other (Remains bedridden.) Physical Examination - Vital Signs Temperature: 97.6 F Blood Pressure: 134/64 Pulse: 56 Respirations: 16 Pulse Ox (%): 93 - Physical Exam General: Other (Appears chronically ill) HEENT: Atraumatic, Normocephalic Neck: Supple, JVD not distended Respiratory: Other (Symmetric chest expansion) Cardiovascular: No rubs, No murmurs Gastrointestinal: Soft and benign, No guarding Musculoskeletal: No clubbing Integumentary: No warmth Neurological: Normal speech, Normal tone Urinary: Other (No bladder distention) External genitalia: Deferred Rectal: Deferred Assessment And Plan - Plan # PAUL 2/2 prerenal state +/- ATN, on advanced CKD 2/2 DM nephropathy SCr increased to 3.1 today +Nephrotic-range proteinuria likely 2/2 DM nephropathy - f/u paraprotein dse workup result No acute indication for HD but given her overall poor condition, it is reasonable not to pursue dialysis at this time Monitor renal panel F/u repeat urine chem Dc Lasix # Liver masses w/ pulmo lymphadenopathy Benign vs metastatic CA vs infectious Previously evaluated by GI clinic in [facility] AFP elevated F/u CEA F/u serum galactomannan & beta D glucan Discussed w/ daughter/MDPOA. She is leaning towards conservative measures/hospice w/o dialysis & not enthusiastic on aggressive/invasive workup/treatment Disccused w/ attending Dr. Barr. Will initiate hospice discussion & transition. # Acute on chronic CHF BNP sig elevated TTE LVEF wnl at 62%, LA dilated Hold off on Lasix today # Anemia w/ Iron deficiency IV iron # Htn BP at goal Cont Nebivolol & Amlodipine same dose # Secondary hyperPTH iPTH sig elevated at 185 F/u 25OHD Monitor Ca & Phos # DM2 Mngt per primary team
[2021-06-14] MEDS: PANTOPRAZOLE 40MG TABLET PO SCH (05:32)
[2021-06-14 06:15] LABS: Albumin 2.3 g/dL (3.4-5.0); Phosphorus 4.9 mg/dL (2.5-4.9); Potassium 3.6 mmol/L (3.5-5.1)
[2021-06-14] MEDS: INSULIN -REGULAR HUMAN 50 UNIT/0.5 ML ML SQ SCH ×4 (07:30→20:57)
[2021-06-14] MEDS: CLOPIDOGREL 75 MG TABLET PO SCH (08:30)
[2021-06-14] MEDS: ATORVASTATIN 10 MG TAB PO SCH (08:30)
[2021-06-14] MEDS: TAMSULOSIN 0.4 MG SR CAP PO SCH (08:30)
[2021-06-14] MEDS: APIXABAN 2.5 MG TABLET PO SCH ×2 (08:30→20:56)
[2021-06-14] MEDS: NEBIVOLOL HCL 5 MG TAB PO SCH (08:30)
[2021-06-14] MEDS: CALCIUM CARBONATE 500 MG TAB PO SCH (08:30)
[2021-06-14] MEDS: FUROSEMIDE 40 MG TABLET PO SCH (08:30)
[2021-06-14] MEDS: ASPIRIN EC 81 MG TAB PO SCH (08:31)
[2021-06-14] MEDS: AMLODIPINE 2.5 MG TAB PO SCH (08:31)
[2021-06-14] MEDS ORDERED: POTASSIUM CL SA 10 MEQ TAB PO ONE (09:00)
--- NOTE | 2021-06-14 13:40 | P.PN ---
Subjective Date of Service: 06/14/21 Chief Complaint: Shortness of breath, generalized weakness No new complaint today. Patient is awake and alert, eating well. Her creatinine continues to trend up. Physical Examination - Vital Signs Temperature: 96.9 F Blood Pressure: 94/51 Pulse: 75 Respirations: 18 Pulse Ox (%): 100 Assessment And Plan - Current Problems (Diagnosis) (1) Acute diastolic CHF (congestive heart failure) Current Visit: Yes Status: Acute (2) Acute renal failure Current Visit: Yes Status: Acute (3) Metabolic encephalopathy Current Visit: Yes Status: Acute (4) Fall Current Visit: Yes Status: Acute (5) Hypertension Onset Date: 04/21/16 Current Visit: No Status: Acute Qualifiers: Hypertension type: essential hypertension Qualified Code(s): I10 - Essential (primary) hypertension (6) Diabetes mellitus Onset Date: 03/05/17 Current Visit: No Status: Chronic Qualifiers: Diabetes mellitus type: type 2 Diabetes mellitus long term care pharmacist insulin use: without long term care pharmacist use Diabetes mellitus complication status: with other specified complication Qualified Code(s): E11.69 - Type 2 diabetes mellitus with other specified complication (7) Acute respiratory failure with hypoxia Current Visit: Yes Status: Acute - Plan Physical Exam General: In no apparent distress, pleasant and interactive. HEENT: Mucous membr. Sclerae nonicteric Neck: Supple, JVD not distended Respiratory: Clear to auscultation bilaterally, no rhonchi or wheezes or crackles. Adequate breath sounds bilaterally. Cardiovascular: No edema, Regular rate/rhythm, Normal S1 S2, No murmurs Capillary refill: <2 Seconds Gastrointestinal: Normal bowel sounds, Soft and benign, Non-distended, No tenderness Musculoskeletal: No swelling, Tenderness (Right hip area) Integumentary: No cyanosis. Neurological: Normal strength at 5/5 x4 extr, Other (Confused) Serum creatinine continues to trend up Nephrology is following and managing PAUL. Case discussed with Dr. Roe who states dialysis is imminent Patient transition to oral Lasix yesterday. She looks compensated for CHF. Hold Lasix. She is currently tolerating room air Echocardiogram: Normal EF Continue nebivolol and amlodipine for hypertension. Continue to monitor intake and output. ADA diet CT hip report subacute to old right acetabular fracture and acute left ischial tuberosity fracture-conservative management Patient has a liver lesion to suggest malignancy given elevated alpha- fetoprotein. Daughter stated she was told patient may not benefit from cancer treatment at this time and did not pursue biopsy. Nephrology is considering dialysis but dialysis on permanent basis will be based on overall prognosis factoring in the malignant-looking liver lesion. Daughter would like to pursue hospice, no dialysis. Social service consulted to assist with arrangement for home with hospice.
[2021-06-14 20:18] VITALS: O2SAT 97
[2021-06-14] MEDS: TRAMADOL HCL 50 MG TAB PO PRN (21:22)
--- NOTE | 2021-06-15 03:29 | P.PN ---
Subjective Date of Service: 06/15/21 Chief Complaint: Shortness of breath, generalized weakness Subjective: Other (Remains bedridden.) Physical Examination - Vital Signs Temperature: 97.9 F Blood Pressure: 124/58 Pulse: 62 Respirations: 18 Pulse Ox (%): 97 - Physical Exam General: Other (frail looking) HEENT: Atraumatic, Normocephalic Neck: Supple, JVD not distended Respiratory: Other (symmetric chest expansion) Cardiovascular: No rubs, No murmurs Gastrointestinal: Soft and benign, No guarding Musculoskeletal: No clubbing Integumentary: No warmth Neurological: Other (Lethargic) Lymphatics: No axilla or inguinal lymphadenopathy Urinary: Other (No bladder distention) External genitalia: Deferred Rectal: Deferred Assessment And Plan - Plan # PAUL 2/2 prerenal state +/- ATN, on advanced CKD 2/2 DM nephropathy GFR plateaued at 14 ml/min +Nephrotic-range proteinuria likely 2/2 DM nephropathy - f/u paraprotein dse workup result No acute indication for HD but given her overall poor condition, it is reasonable not to pursue dialysis at this time Monitor renal panel # Liver masses w/ pulmo lymphadenopathy Benign vs metastatic CA vs infectious Previously evaluated by GI clinic in [facility] AFP elevated F/u CEA F/u serum galactomannan & beta D glucan Discussed w/ daughter/MDPOA. She is leaning towards conservative measures/hospice w/o dialysis & not enthusiastic on aggressive/invasive workup/treatment Disccused w/ attending Dr. Barr. Will initiate hospice discussion & transition. # Acute on chronic CHF BNP sig elevated TTE LVEF wnl at 62%, LA dilated Hold off on Lasix today # Anemia w/ Iron deficiency IV iron # Htn BP at goal Cont Nebivolol & Amlodipine same dose # Secondary hyperPTH iPTH sig elevated at 185 F/u 25OHD Monitor Ca & Phos # DM2 Mngt per primary team # Dispo Anticipated transition to hospice tomorrow
[2021-06-15] MEDS: PANTOPRAZOLE 40MG TABLET PO SCH (06:20)
[2021-06-15 06:52] LABS: Albumin 2.6 g/dL (3.4-5.0); Phosphorus 5.1 mg/dL (2.5-4.9); Potassium 3.5 mmol/L (3.5-5.1)
[2021-06-15] MEDS: INSULIN -REGULAR HUMAN 50 UNIT/0.5 ML ML SQ SCH ×4 (07:30→21:00)
[2021-06-15] MEDS ORDERED: POTASSIUM CL SA 10 MEQ TAB PO ONE (09:00)
[2021-06-15] MEDS: TAMSULOSIN 0.4 MG SR CAP PO SCH (09:59)
[2021-06-15] MEDS: NEBIVOLOL HCL 5 MG TAB PO SCH (09:59)
[2021-06-15] MEDS: CLOPIDOGREL 75 MG TABLET PO SCH (09:59)
[2021-06-15] MEDS: ATORVASTATIN 10 MG TAB PO SCH (09:59)
[2021-06-15] MEDS: ASPIRIN EC 81 MG TAB PO SCH (09:59)
[2021-06-15] MEDS: APIXABAN 2.5 MG TABLET PO SCH ×2 (09:59→20:50)
[2021-06-15] MEDS: CALCIUM CARBONATE 500 MG TAB PO SCH (09:59)
[2021-06-15] MEDS: AMLODIPINE 2.5 MG TAB PO SCH (10:00)
--- NOTE | 2021-06-15 12:22 | P.PN ---
Subjective Date of Service: 06/15/21 Chief Complaint: Shortness of breath, generalized weakness No new complaint today. Patient is awake, but confused. Physical Examination - Vital Signs Temperature: 97.2 F Blood Pressure: 124/56 Pulse: 67 Respirations: 17 Pulse Ox (%): 98 Assessment And Plan - Current Problems (Diagnosis) (1) Acute diastolic CHF (congestive heart failure) Current Visit: Yes Status: Acute (2) Acute renal failure Current Visit: Yes Status: Acute (3) Metabolic encephalopathy Current Visit: Yes Status: Acute (4) Fall Current Visit: Yes Status: Acute (5) Hypertension Onset Date: 04/21/16 Current Visit: No Status: Acute Qualifiers: Hypertension type: essential hypertension Qualified Code(s): I10 - Essential (primary) hypertension (6) Diabetes mellitus Onset Date: 03/05/17 Current Visit: No Status: Chronic Qualifiers: Diabetes mellitus type: type 2 Diabetes mellitus termite technician insulin use: without termite technician use Diabetes mellitus complication status: with other specified complication Qualified Code(s): E11.69 - Type 2 diabetes mellitus with other specified complication (7) Acute respiratory failure with hypoxia Current Visit: Yes Status: Acute - Plan Physical Exam General: In no apparent distress, pleasant and interactive but confused. HEENT: Mucous membrrane. Sclerae nonicteric Neck: Supple, JVD not distended Respiratory: Clear to auscultation bilaterally, no rhonchi or wheezes or crackles. Adequate breath sounds bilaterally. Cardiovascular: No edema, Regular rate/rhythm, Normal S1 S2, No murmurs Gastrointestinal: Normal bowel sounds, Soft and benign, Non-distended, No tenderness Musculoskeletal: No swelling, Tenderness in Right hip area Neurological: Normal strength at 5/5 x4 extr. Plan Serum creatinine trended up slightly from yesterday. Nephrology is following and managing PAUL. Case discussed with Dr. Roe who states dialysis is imminent She looks compensated for CHF. Continue to hold Lasix. Echocardiogram: Normal EF Continue nebivolol and amlodipine for hypertension. Continue to monitor intake and output. ADA diet CT hip report subacute to old right acetabular fracture and acute left ischial tuberosity fracture-conservative management Patient has a liver lesion that suggest malignancy given elevated alpha- fetoprotein. Daughter stated she was told patient may not benefit from cancer treatment at this time and did not pursue biopsy. Nephrology is considering dialysis but dialysis on permanent basis will be based on overall prognosis factoring in the malignant-looking liver lesion. Daughter would like to pursue hospice, no dialysis. Awaiting hospice evaluation.
[2021-06-15] MEDS: TRAMADOL HCL 50 MG TAB PO PRN ×2 (13:41→20:50)
[2021-06-16] MEDS: PANTOPRAZOLE 40MG TABLET PO SCH (06:47)
[2021-06-16] MEDS: TRAMADOL HCL 50 MG TAB PO PRN (06:48)
[2021-06-16] MEDS: INSULIN -REGULAR HUMAN 50 UNIT/0.5 ML ML SQ SCH ×2 (07:30→11:30)
[2021-06-16] MEDS: AMLODIPINE 2.5 MG TAB PO SCH (09:09)
[2021-06-16] MEDS: ASPIRIN EC 81 MG TAB PO SCH (09:10)
[2021-06-16] MEDS: ATORVASTATIN 10 MG TAB PO SCH (09:10)
[2021-06-16] MEDS: CALCIUM CARBONATE 500 MG TAB PO SCH (09:10)
[2021-06-16] MEDS: NEBIVOLOL HCL 5 MG TAB PO SCH (09:10)
[2021-06-16] MEDS: APIXABAN 2.5 MG TABLET PO SCH (09:10)
[2021-06-16] MEDS: TAMSULOSIN 0.4 MG SR CAP PO SCH (09:10)
[2021-06-16] MEDS: CLOPIDOGREL 75 MG TABLET PO SCH (09:10)
[2021-06-16] MEDS: SOD FERRIC GLUC COMPLX/SUCROSE 250 MG in NA CHLORIDE 0.9% 250 ML IV SCH (13:00)
--- NOTE | 2021-06-16 13:33 | P.DS ---
Admission Date: 06/11/21 Discharge Date: 06/16/21 Disposition: HOSPICE-HOME Discharge Condition: FAIR Reason for Admission: Shortness of breath, generalized weakness Consultations: Nephrology - Problems (1) Acute diastolic CHF (congestive heart failure) Current Visit: Yes Status: Acute (2) Acute renal failure Current Visit: Yes Status: Acute (3) Metabolic encephalopathy Current Visit: Yes Status: Acute (4) Fall Current Visit: Yes Status: Acute (5) Hypertension Onset Date: 04/21/16 Current Visit: No Status: Acute Qualifiers: Hypertension type: essential hypertension Qualified Code(s): I10 - Essential (primary) hypertension (6) Diabetes mellitus Onset Date: 03/05/17 Current Visit: No Status: Chronic Qualifiers: Diabetes mellitus type: type 2 Diabetes mellitus buttermaker continuous churn insulin use: without buttermaker continuous churn use Diabetes mellitus complication status: with other specified complication Qualified Code(s): E11.69 - Type 2 diabetes mellitus with other specified complication (7) Acute respiratory failure with hypoxia Current Visit: Yes Status: Acute Brief History of Present Illness: 81-year-old woman with a history of hypertension and diabetes mellitus was brought to the emergency department due to low oxygen saturation. The daughter by her bedside gave the history. She stated patient fell a couple of days ago and has been very weak, but able to put any weight on her legs. She was also complaining of pain and bruising in the right hip area. EMS was called, they found patient with oxygen saturation in the 70s and she was brought to the ED. checks x-ray done in the ED demonstrates pulmonary edema. She has acute renal failure with creatinine up to 2.69 compared to a baseline of 1.6. Initial troponin is negative, BNP is elevated. EKG demonstrated sinus rhythm. Patient admitted for further management of CHF exacerbation. Hospital Course: Patient admitted to the medical floor and treated for CHF exacerbation with IV Lasix. Her shortness of breath and peripheral edema improved with IV Lasix but her creatinine trended up. Patient with a baseline chronic kidney disease. She was seen in consultation by nephrology, IV Lasix initially increased without response. Nephrology recommended hemodialysis. Patient became compensated for CHF and Lasix was discontinued. Echocardiogram done showed normal EF Continued nebivolol and amlodipine for hypertension. She was complaining of right hip pain. CT right hip was done which showed old right acetabular fracture and acute left ischial tuberosity fracture. Patient managed conservatively with pain medications. Patient has a liver lesion that suggest malignancy given elevated alpha-fetoprot ein. Daughter stated she was told patient may not benefit from cancer treatment at this time and did not pursue biopsy. The presence of malignant-looking liver lesion has a bearing on decision on permanent dialysis. Patient and family declined hemodialysis and opted for hospice. Patient mental status decline given rising BUN. Patient evaluated and accepted to home with hospice. Vital Signs/Physical Exam: Temp Pulse Resp BP Pulse Ox 97.8 F 60 19 78/41 L 94 06/16/21 12:00 06/16/21 12:00 06/16/21 12:00 06/16/21 12:00 06/16/21 12:00 General: In no apparent distress, Confused HEENT: Mucous membr. moist/pink Neck: JVD not distended Respiratory: Clear to auscultation bilaterally, Normal air movement Cardiovascular: No edema, Regular rate/rhythm, Normal S1 S2 Gastrointestinal: Soft and benign, Non-distended Musculoskeletal: No swelling Integumentary: No rashes Neurological: Other (Confused) Laboratory Data at Discharge: WBC 7.00 K/uL (4.3-10.9) D 06/13/21 03:47 Hgb 9.4 g/dL (12.0-15.0) L 06/13/21 03:47 Hct 28.2 % (36.0-45.0) L 06/13/21 03:47 Plt Count 89 K/uL (152-406) L 06/13/21 03:47 PT 12.9 SECONDS (9.5-12.5) H 06/11/21 11:51 INR 1.12 06/11/21 11:51 Sodium 143 mmol/L (136-145) 06/15/21 06:23 Potassium 3.5 mmol/L (3.5-5.1) 06/15/21 06:23 BUN 103 mg/dL (7-18) H 06/15/21 06:23 Creatinine 3.16 mg/dL (0.55-1.3) H 06/15/21 06:23 Glucose 131 mg/dL (74-106) H 06/15/21 06:23 Uric Acid 13.3 mg/dL (2.6-6.0) H 06/13/21 03:47 Phosphorus 5.1 mg/dL (2.5-4.9) H 06/15/21 06:23 Magnesium 2.6 mg/dL (1.8-2.4) H 06/11/21 11:51 Total Bilirubin 0.9 mg/dL (0.2-1.0) 06/11/21 11:51 AST 36 U/L (15-37) 06/11/21 11:51 ALT 25 U/L (12-78) 06/11/21 11:51 Alkaline Phosphatase 127 U/L (45-117) H 06/11/21 11:51 Triglycerides 109 mg/dL (<150) 06/12/21 02:45 Cholesterol 199 mg/dL (<200) 06/12/21 02:45 HDL Cholesterol 58 mg/dL (40-60) 06/12/21 02:45 Cholesterol/HDL Ratio 3.43 06/12/21 02:45 Home Medications: Albuterol Sulfate [Albuterol Sulfate Hfa] 2 puff PO Q6HP PRN 06/11/21 Omeprazole 1 cap PO BID 06/11/21 Tamsulosin HCl 1 cap PO DAILY 06/11/21 Tramadol HCl [Ultram] 1 tab PO TID PRN 06/11/21 Followup: [email or web address] [Primary Care Provider] - Time spent managing pt's care (in minutes): 40
[2021-06-16 15:03] VITALS: BP 103/60; TEMP 97.6
--- NOTE | 2021-06-16 15:06 | P.PN ---
Subjective Date of Service: 06/16/21 Chief Complaint: Shortness of breath, generalized weakness Physical Examination - Vital Signs Temperature: 97.6 F Blood Pressure: 103/60 Pulse: 75 Respirations: 19 Pulse Ox (%): 94 Assessment And Plan - Plan # PAUL 2/2 prerenal state +/- ATN, on advanced CKD 2/2 DM nephropathy GFR plateaued at 14 ml/min +Nephrotic-range proteinuria likely 2/2 DM nephropathy - f/u paraprotein dse workup result No acute indication for HD but given her overall poor condition, it is reasonable not to pursue dialysis at this time Monitor renal panel # Liver masses w/ pulmo lymphadenopathy Benign vs metastatic CA vs infectious Previously evaluated by GI clinic in [facility] AFP elevated F/u CEA F/u serum galactomannan & beta D glucan Discussed w/ daughter/MDPOA. She is leaning towards conservative measures/hospice w/o dialysis & not enthusiastic on aggressive/invasive workup/treatment Disccused w/ attending Dr. Barr. Will initiate hospice discussion & transition. # Acute on chronic CHF BNP sig elevated TTE LVEF wnl at 62%, LA dilated Hold off on Lasix today # Anemia w/ Iron deficiency IV iron # Htn BP at goal Cont Nebivolol & Amlodipine same dose # Secondary hyperPTH iPTH sig elevated at 185 F/u 25OHD Monitor Ca & Phos # DM2 Mngt per primary team # Dispo Anticipated transition to hospice tomorrow
[2021-06-16] MEDS ORDERED: TRAZODONE 50 MG TABLET PO ONE (21:00)
[2021-06-17 12:11] LABS: Vitamin D 1,25-Dihydroxy Total 12 pg/mL (18-72); Vitamin D,1,25-OH2, D2 <8 pg/mL
[2021-06-18] MEDS ORDERED: ALENDRONATE 70 MG TAB PO SCH (09:00)
[2021-06-18 15:50] LABS: Albumin, (SPE) 2.5 g/dL (3.8-4.8); Alpha-1-Globulins 0.4 g/dL (0.2-0.3); Alpha-2-Globulins 0.7 g/dL (0.5-0.9); INTERPRETATION REPORT
== END 2021-06-16 15:05 | disposition hospice, home (50) | DRG 291 ==
LOC: ER 11:41 → ERHOLD 13:39 → 2ND 19:52
PROVIDERS: ADMIT Internal Medicine; ATTEND Internal Medicine
DX: I13.0 Hypertensive heart and chronic kidney disease with heart failure and stage 1 through stage 4 chronic kidney disease, or unspecified chronic kidney disease (principal); I50.31 Acute diastolic (congestive) heart failure; G93.41 Metabolic encephalopathy; J96.01 Acute respiratory failure with hypoxia; S32.602A Unspecified fracture of left ischium, initial encounter for closed fracture; N17.9 Acute kidney failure, unspecified; E87.1 Hypo-osmolality and hyponatremia; N25.81 Secondary hyperparathyroidism of renal origin; C22.9 Malignant neoplasm of liver, not specified as primary or secondary; W18.30XA Fall on same level, unspecified, initial encounter; E03.9 Hypothyroidism, unspecified; D50.9 Iron deficiency anemia, unspecified; E11.22 Type 2 diabetes mellitus with diabetic chronic kidney disease; N18.2 Chronic kidney disease, stage 2 (mild); E11.21 Type 2 diabetes mellitus with diabetic nephropathy; Z20.822 Contact with and (suspected) exposure to COVID-19; Z23 Encounter for immunization
CPT/HCPCS: 0240U; 36415; 71045; 73700; 76770; 80048; 80061; 80069; 80076; 81003; 81015; 82306; 82378; 82550; 82570; 82607; 82652; 82728; 82746; 82947; 83540; 83735; 83880; 83935; 83970; 84100; 84132; 84156; 84165; 84300; 84443; 84466; 84484; 84550; 85025; 85044; 85610; 87086; 87088; 87305; 87449; 90471; 90732; 93005; 93306; 96374; 97110; 97116; 97161; 97530; 99284; 99285; J1644; J1940; J2916; J7050